=== PATIENT | female | born 1945 | race Two or more races ===

== ENCOUNTER 2018-02-17 12:18 | Inpatient (IN) | payer MEDICARE, MEDICAID ==
[~2018-02-17] VITALS: Ht 165.1 cm; Wt 85.0 kg
--- NOTE | 2018-02-17 12:37 | Emergency Room Report ---
History of Present Illness General Chief Complaint: Abnormal Labs Source: Patient, EMS Present Illness HPI Patient with multiple comorbidities presents with reports of abnormal blood work and nursing facility including significantly elevated white blood cell count and elevated potassium level patient herself has underlying dementia There was no reports of vomiting or diarrhea at the nursing facility Unknown regarding change in medication There was no reports of any increased cough or congestion Speaking further to patient's daughter she reports that the patient has been to 2 different hospitals over the past one month significant medical findings including bowel obstruction She also reports that the patient does not want any surgical procedures Allergies: Coded Allergies: No Known Allergies (Unverified , 02/17/18) Patient History Limited by: medical condition Past Medical History: see triage record Pertinent Family History: unable to obtain Reviewed Nursing Documentation: PMH: Agreed; PSxH: Agreed Review of Systems All Other Systems: limited - Other than the ones mentioned in the history of present illness all others are reviewed however they do stay limited due to the patient's mental status Physical Exam Vital Signs Date Time Temp Pulse Resp B/P (MAP) Pulse Ox O2 Delivery O2 Flow Rate FiO2 02/17/18 12:16 53 20 127/82 98 Nasal Cannula 2.0 Sp02 EP Interpretation: reviewed, normal General Appearance: no apparent distress Head: normocephalic, atraumatic Eyes: bilateral eye PERRL, bilateral eye EOMI, bilateral eye other - Conjunctiva pallor ENT: normal pharynx, no angioedema Neck: supple, thyroid normal Respiratory: no retraction, crackles - Both lower lobes Cardiovascular #1: regular rate, rhythm Gastrointestinal: non tender, soft Musculoskeletal: other - Moves upper extremity without focal deficit Neurologic: responsive - To physical and verbal stimuli Skin: normal color, no rash Lymphatic: no adenopathy Procedures Critical Care Time Critical Care Time 50 minutes for multiple re-evaluations critical presentation Critical findings not including any procedural time, Medical Decision Making Diagnostic Impression: Primary Impression: Sepsis Additional Impressions: SBO (small bowel obstruction) Hyperkalemia ER Course Given the patient's history and presentation Patient appears ill has multiple differentials considered including but not limited to bowel traction, bowel perforation, renal failure, sepsis Patient's CT imaging shows findings concerning for bowel traction I discussed the case extensively with the family They report that they do not want any surgical procedures to be done Patient started on broad-spectrum antibiotics IV hydration Appears to be in severe sepsis and leading to septic shock Patient at this time is considered DO NOT RESUSCITATE however Medications and other interventions however are fine with the family Patient admitted to higher level of care in critical condition Labs Test 02/17/18 12:25 02/17/18 13:05 White Blood Count 27.5 K/UL (4.8-10.8) Red Blood Count 3.55 M/UL (4.20-5.40) Hemoglobin 10.2 G/DL (12.0-16.0) Hematocrit 31.2 % (37.0-47.0) Mean Corpuscular Volume 88 FL (80-99) Mean Corpuscular Hemoglobin 28.6 PG (27.0-31.0) Mean Corpuscular Hemoglobin Concent 32.6 G/DL (32.0-36.0) Red Cell Distribution Width 15.0 % (11.6-14.8) Platelet Count 398 K/UL (150-450) Mean Platelet Volume 5.4 FL (6.5-10.1) Neutrophils (%) (Auto) % (45.0-75.0) Lymphocytes (%) (Auto) % (20.0-45.0) Monocytes (%) (Auto) % (1.0-10.0) Eosinophils (%) (Auto) % (0.0-3.0) Basophils (%) (Auto) % (0.0-2.0) Differential Total Cells Counted 100 Neutrophils % (Manual) 94 % (45-75) Lymphocytes % (Manual) 3 % (20-45) Monocytes % (Manual) 2 % (1-10) Eosinophils % (Manual) 0 % (0-3) Basophils % (Manual) 0 % (0-2) Band Neutrophils 1 % (0-8) Platelet Estimate Adequate Platelet Morphology Normal Target Cells Schistocytes 1+ Sodium Level 126 MMOL/L (136-145) Potassium Level 5.2 MMOL/L (3.5-5.1) Chloride Level 94 MMOL/L (98-107) Carbon Dioxide Level 18 MMOL/L (21-32) Anion Gap 15 mmol/L (5-15) Blood Urea Nitrogen 30 mg/dL (7-18) Creatinine 2.1 MG/DL (0.55-1.30) Estimat Glomerular Filtration Rate mL/min (>60) Glucose Level 107 MG/DL (74-106) Calcium Level 8.2 MG/DL (8.5-10.1) Total Bilirubin 0.7 MG/DL (0.2-1.0) Aspartate Amino Transf (AST/SGOT) 32 U/L (15-37) Alanine Aminotransferase (ALT/SGPT) 13 U/L (12-78) Alkaline Phosphatase 239 U/L (46-116) Total Creatine Kinase 89 U/L (26-308) Creatine Kinase MB 4.7 NG/ML (0.0-3.6) Creatine Kinase MB Relative Index 5.2 Troponin I 0.017 ng/mL (0.000-0.056) Pro-B-Type Natriuretic Peptide 5398 pg/mL (0-125) Total Protein 7.3 G/DL (6.4-8.2) Albumin 1.4 G/DL (3.4-5.0) Globulin 5.9 g/dL Albumin/Globulin Ratio 0.2 (1.0-2.7) Lipase 44 U/L (73-393) Urine Color Brown Urine Appearance Cloudy Urine pH 6 (4.5-8.0) Urine Specific [place] 1.010 (1.005-1.035) Urine Protein 3+ (NEGATIVE) Urine Glucose (UA) Negative (NEGATIVE) Urine Ketones 1+ (NEGATIVE) Urine Blood 3+ (NEGATIVE) Urine Nitrite Negative (NEGATIVE) Urine Bilirubin 1+ (NEGATIVE) Urine Ictotest Positive (NEGATIVE) Urine Urobilinogen 4 MG/DL (0.0-1.0) Urine Leukocyte Esterase 3+ (NEGATIVE) Urine RBC 5-10 /HPF (0 - 2) Urine WBC 20-30 /HPF (0 - 2) Urine Squamous Epithelial Cells Few /LPF (NONE/OCC) Urine Bacteria Many /HPF (NONE) Rhythm Strip Diag. Results EP Interpretation: yes Rate: 115 Rhythm: no PVC's, no ectopy, other - Sinus tach Chest X-Ray Diagnostic Results Chest X-Ray Diagnostic Results : Chest X-Ray Ordered: Yes # of Views/Limited/Complete: 1 View Indication: Chest Pain EP Interpretation: Yes Interpretation: no effusion, no pneumothorax, other - Left lower lobe atelectasis, infiltrated Impression: Other - Left lower lobe pneumonia Electronically Signed by: Bernie Wynn, DO CT/MRI/US Diagnostic Results CT/MRI/US Diagnostic Results : Impression CT abdomen pelvisImpression: Evidence of small bowel obstruction, point of obstruction at the level of the mid jejunum in the right mid abdomen. Most likely due to adhesions. Internal hernia also a possible etiology Multiple unusual mixed fat/fluid collections, predominantly involving the anterior abdominal wall but also along the right paracolic gutter and the right pelvis. Appearance is suggestive of recent surgery with multiple postsurgical collections, but findings could represent multiple abscesses or other collections of varying etiologies. Correlate with surgical and clinical history Evidence of decubitus changes in the retrosacral/retrococcygeal region. Gas bubbles within the deep soft tissues may indicate either penetration of the decubitus ulcer or infection with gas-forming organism. No definite findings to suggest abscess or osteomyelitis, although the latter is not excludable on CT Cholelithiasis Mild fatty hepatic change Left basilar consolidation, atelectasis, possibly scarring. Probable chronic reticular opacities on the right Other findings as noted, including Fonseca catheter, degenerative spondylosis. Last Vital Signs Date Time Temp Pulse Resp B/P (MAP) Pulse Ox O2 Delivery O2 Flow Rate FiO2 02/17/18 12:16 53 20 127/82 98 Nasal Cannula 2.0 Status: improved Disposition: ADMITTED INPATIENT Condition: Critical Bernie Wynn DO Feb 17, 2018 12:37
[2018-02-17 12:41] VITALS: BP 123/93
[2018-02-17 12:49] LABS: HEMATOCRIT 31.2 % (37.0-47.0); HEMOGLOBIN 10.2 G/DL (12.0-16.0); MEAN CORPUSCULAR VOLUME 88 FL (80-99); PLATELET COUNT 398 K/UL (150-450); RED BLOOD COUNT 3.55 M/UL (4.20-5.40)
[2018-02-17 12:52] LABS: WHITE BLOOD COUNT 27.5 K/UL (4.8-10.8)
[2018-02-17 13:04] LABS: ANION GAP 15 mmol/L (5-15); BLOOD UREA NITROGEN 30 mg/dL (7-18); CALCIUM 8.2 MG/DL (8.5-10.1); CARBON DIOXIDE 18 MMOL/L (21-32); CHLORIDE 94 MMOL/L (98-107); CREATININE 2.1 MG/DL (0.55-1.30); POTASSIUM 5.2 MMOL/L (3.5-5.1); SODIUM 126 MMOL/L (136-145)
[2018-02-17 13:18] LABS: ALANINE AMINOTRANSFERASE 13 U/L (12-78); ALBUMIN 1.4 G/DL (3.4-5.0); ALBUMIN/GLOBULIN RATIO 0.2 (1.0-2.7); ALKALINE PHOSPHATASE 239 U/L (46-116); ASPARTATE AMINO TRANSFERASE 32 U/L (15-37); BILIRUBIN,TOTAL 0.7 MG/DL (0.2-1.0); CKMB 4.7 NG/ML (0.0-3.6); CREATINE KINASE 89 U/L (26-308)
[2018-02-17 13:26] LABS: APPEARANCE,URINE CLOUDY; BILIRUBIN, URINE 1+ (NEGATIVE); COLOR,URINE BROWN; GLUCOSE, URINE (UA) NEGATIVE (NEGATIVE); KETONES,URINE 1+ (NEGATIVE); LEUKOCYTE ESTERASE ,URINE 3+ (NEGATIVE); NITRITE,URINE NEGATIVE (NEGATIVE); PH,URINE 6 (4.5-8.0); PROTEIN,URINE 3+ (NEGATIVE); UROBILINOGEN,URINE 4 MG/DL (0.0-1.0)
[2018-02-17] MEDS ORDERED: CRANBERRY450 M4 PO (13:37)
[2018-02-17] MEDS ORDERED: ZINC SULFATE220 M1 ORAL (13:37)
[2018-02-17] MEDS ORDERED: VITAMIN C500 M1 ORAL (13:37)
[2018-02-17] MEDS ORDERED: BISACODYL5 MG ORAL (13:37)
[2018-02-17] MEDS ORDERED: ZOFRAN4 M3 ORAL (13:37)
[2018-02-17] MEDS ORDERED: DOCUSATE SODIU100 MG ORAL (13:37)
[2018-02-17] MEDS ORDERED: FUROSEMIDE40 MG ORAL (13:37)
[2018-02-17] MEDS ORDERED: NORCO 5-325 TA1 EACH ORAL (13:37)
[2018-02-17] MEDS ORDERED: PEPCID AC20 M2 PO (13:37)
[2018-02-17] MEDS ORDERED: PROSTATE SR SO1 EAC1 PO (13:37)
[2018-02-17] MEDS ORDERED: MULTIVITAMINS1 EAC8 ORAL (13:37)
[2018-02-17] MEDS ORDERED: REGLAN10 MG ORAL (13:37)
[2018-02-17] MEDS ORDERED: MILK OF MA2400 MG/10 ORAL (13:37)
[2018-02-17] MEDS ORDERED: POTASSIUM CHLOR8 ME3 PO (13:37)
[2018-02-17] MEDS ORDERED: Vancomycin 1 GM in NS 275 ML IV ONE (13:45)
[2018-02-17] MEDS ORDERED: Piperacillin/Tazobactam 3.375 GM in NS 110 ML IVPB ONE (13:45)
[2018-02-17] MEDS ORDERED: Sodium Polystyrene Sulfonate 15gm Powder ORAL ONE (14:15)
--- NOTE | 2018-02-17 15:38 | Diagnostic Imaging Report ---
Indication: Abdominal pain Technique: Spiral acquisitions obtained through the abdomen and pelvis. No oral contrast utilized, per emergency room physician request No IV contrast utilized, per referring physician request.. Multiplanar reconstructions were generated. Total dose length product 714.19 mGycm. CTDIvol(s) 16.38 mGy. Dose reduction achieved using automated exposure control Comparison: None Findings: Lack of enteric contrast limits assessment of the GI tract. The stomach is distended. The proximal jejunum is markedly distended and fluid-filled. There is a transition point, fairly abrupt, collapsed distal small bowel at the level the mid jejunum in the right mid to lower quadrant. There is slight swirling of the mesentery in this area which could indicate internal hernia, but suspect more likely due to adhesions. The appendix is normal. However, there is an unusual collection of fluid intermixed with fat running along the right paracolic gutter. This area measures approximately 4.6 cm AP by 1.9 cm transverse by approximately 12 cm craniocaudad. Similar changes are seen in the right side of the pelvis. This area of abnormality appears to contact the right lateral and posterior bladder wall. Some dystrophic calcifications are seen within the right posterior pelvis. There is infiltration of the fat of the anterior lower abdominal/upper pelvic wall. There is a mixed fat and fluid/phlegmon collection to the right of midline which measures 4 cm transverse by 2.1 cm AP. Other fat and fluid collections are seen in the midline. There is also evidence of scarring or inflammation deep to the anterior pelvic wall peritoneal surface. A similar lentiform appearing fluid collection is seen within or adjacent to the anterior abdominal wall musculature in the right lower quadrant/inguinal region. This measures 4.5 cm transverse by 1.9 cm AP by 3.8 cm craniocaudad. No free intraperitoneal gas. Gas bubbles are seen within the subcutaneous fat posterior to the sacrum and coccyx. A few gas bubbles are also seen anterior to the coccygeal tip. No discrete fluid collections are demonstrated. There is also a large wound inferior to the coccygeal tip at the inferior aspect of the intergluteal fold. Lack of IV contrast limits assessment of the solid organs. The gallbladder contains multiple gallstones. The liver is mildly hypoattenuating. No biliary ductal dilatation. No focal hepatic abnormality. The pancreas, spleen, adrenals, kidneys are all unremarkable. No retroperitoneal or mesenteric mass or adenopathy. No pelvic mass or adenopathy. There is a Fonseca catheter within the bladder. Gas within the bladder is likely related to the Fonseca catheterization. The buttock musculature is atrophic. The bones demonstrate degenerative spondylosis changes. The lung bases demonstrate some consolidation, atelectasis, possibly scarring on the left, and some reticular opacities which are probably chronic on the right. Impression: Evidence of small bowel obstruction, point of obstruction at the level of the mid jejunum in the right mid abdomen. Most likely due to adhesions. Internal hernia also a possible etiology Multiple unusual mixed fat/fluid collections, predominantly involving the anterior abdominal wall but also along the right paracolic gutter and the right pelvis. Appearance is suggestive of recent surgery with multiple postsurgical collections, but findings could represent multiple abscesses or other collections of varying etiologies. Correlate with surgical and clinical history Evidence of decubitus changes in the retrosacral/retrococcygeal region. Gas bubbles within the deep soft tissues may indicate either penetration of the decubitus ulcer or infection with gas-forming organism. No definite findings to suggest abscess or osteomyelitis, although the latter is not excludable on CT Cholelithiasis Mild fatty hepatic change Left basilar consolidation, atelectasis, possibly scarring. Probable chronic reticular opacities on the right Other findings as noted, including Fonseca catheter, degenerative spondylosis. Critical value findings discussed by phone with Dr. Carpio in the emergency room at the time of interpretation The CT scanner at [facility] is accredited by the [employer] and the scans are performed using protocols designed to limit radiation exposure to as low as reasonably achievable to attain images of sufficient resolution adequate for diagnostic evaluation.
--- NOTE | 2018-02-17 15:52 | History & Physical ---
History and Physical History & Physicial orders are entered. Consultants are notified Patient is in serious medical cnd. Amol Weinstein MD Feb 17, 2018 15:52
[2018-02-17] MEDS ORDERED: Sodium Chloride 500ML 500 ML IV PRN (16:15)
--- NOTE | 2018-02-17 16:58 | Infectious Diseases Prog Note ---
Assessment/Plan Problems: (1) Pressure ulcer of sacral region, stage 4 Assessment & Plan: deep and necrotic with undermining , and foul smell , infected with possible underlying osteomyelitis of the sacrum and coccyx . will order MRI of the sacrum to confirm, recommend surgical excision and debridement. continue off loading and local wound care as per hospital protocol (2) Cutaneous abscess of abdominal wall Assessment & Plan: source hematogenous VS translocation from the pelvis , will start meropenem and continue vancomycin renally dosed, pending surgical eval (3) Catheter-associated urinary tract infection Assessment & Plan: will change lomeli catheter and start meropenem pending urine culture (4) Sepsis Assessment & Plan: due to the above with leukocytosis , will start meropenem and vancomycin renally dosed , pending blood culture (5) JANNETTE (acute kidney injury) Assessment & Plan: due to the above , continue hydration with renally dosed medications, monitor renal function and UOP (6) Osteomyelitis of sacrum Assessment & Plan: suspect chronic due to the deep pressure wound , will order MRI to confirm , recommend bone biopsy for culture to identify the exact cause (7) Abnormal blood electrolyte level Assessment & Plan: continue hydration with close monitoring of electrolytes (8) SBO (small bowel obstruction) Assessment & Plan: with possible adhesions, and fat filled fluids collection , perforation ? VS abscesses , keep NPO, continue hydration, surgical eval . Assessment/Plan daughter said patient refused surgery due to bad reaction from anaesthesia in the past Subjective Allergies: Coded Allergies: No Known Allergies (Unverified , 02/17/18) Objective Vital Signs Last 24 Hour Vital Signs Date Time Temp Pulse Resp B/P (MAP) Pulse Ox O2 Delivery O2 Flow Rate FiO2 02/17/18 12:41 98.0 126 17 123/93 100 Room Air 02/17/18 12:16 53 20 127/82 98 Nasal Cannula 2.0 Height (Feet): 5 Height (Inches): 5.00 Weight (Pounds): 150 Microbiology Date/Time Source Procedure Growth Status 02/17/18 12:43 Nasal Nares Influenza Types A,B Antigen (MAXIMO) - Final Complete Laboratory Tests Test 02/17/18 12:25 02/17/18 13:05 White Blood Count 27.5 K/UL (4.8-10.8) *H Red Blood Count 3.55 M/UL (4.20-5.40) L Hemoglobin 10.2 G/DL (12.0-16.0) L Hematocrit 31.2 % (37.0-47.0) L Mean Corpuscular Volume 88 FL (80-99) Mean Corpuscular Hemoglobin 28.6 PG (27.0-31.0) Mean Corpuscular Hemoglobin Concent 32.6 G/DL (32.0-36.0) Red Cell Distribution Width 15.0 % (11.6-14.8) H Platelet Count 398 K/UL (150-450) Mean Platelet Volume 5.4 FL (6.5-10.1) L Neutrophils (%) (Auto) % (45.0-75.0) Lymphocytes (%) (Auto) % (20.0-45.0) Monocytes (%) (Auto) % (1.0-10.0) Eosinophils (%) (Auto) % (0.0-3.0) Basophils (%) (Auto) % (0.0-2.0) Differential Total Cells Counted 100 Neutrophils % (Manual) 94 % (45-75) H Lymphocytes % (Manual) 3 % (20-45) L Monocytes % (Manual) 2 % (1-10) Eosinophils % (Manual) 0 % (0-3) Basophils % (Manual) 0 % (0-2) Band Neutrophils 1 % (0-8) Platelet Estimate Adequate Platelet Morphology Normal Target Cells Schistocytes 1+ Sodium Level 126 MMOL/L (136-145) L Potassium Level 5.2 MMOL/L (3.5-5.1) H Chloride Level 94 MMOL/L (98-107) L Carbon Dioxide Level 18 MMOL/L (21-32) L Anion Gap 15 mmol/L (5-15) Blood Urea Nitrogen 30 mg/dL (7-18) H Creatinine 2.1 MG/DL (0.55-1.30) H Estimat Glomerular Filtration Rate mL/min (>60) Glucose Level 107 MG/DL (74-106) H Lactic Acid Level 3.20 mmol/L (0.4-2.0) H Calcium Level 8.2 MG/DL (8.5-10.1) L Total Bilirubin 0.7 MG/DL (0.2-1.0) Aspartate Amino Transf (AST/SGOT) 32 U/L (15-37) Alanine Aminotransferase (ALT/SGPT) 13 U/L (12-78) Alkaline Phosphatase 239 U/L (46-116) H Total Creatine Kinase 89 U/L (26-308) Creatine Kinase MB 4.7 NG/ML (0.0-3.6) H Creatine Kinase MB Relative Index 5.2 Troponin I 0.017 ng/mL (0.000-0.056) Pro-B-Type Natriuretic Peptide 5398 pg/mL (0-125) H Total Protein 7.3 G/DL (6.4-8.2) Albumin 1.4 G/DL (3.4-5.0) L Globulin 5.9 g/dL Albumin/Globulin Ratio 0.2 (1.0-2.7) L Lipase 44 U/L (73-393) L Urine Color Brown Urine Appearance Cloudy Urine pH 6 (4.5-8.0) Urine Specific [place] 1.010 (1.005-1.035) Urine Protein 3+ (NEGATIVE) H Urine Glucose (UA) Negative (NEGATIVE) Urine Ketones 1+ (NEGATIVE) H Urine Blood 3+ (NEGATIVE) H Urine Nitrite Negative (NEGATIVE) Urine Bilirubin 1+ (NEGATIVE) H Urine Ictotest Positive (NEGATIVE) Urine Urobilinogen 4 MG/DL (0.0-1.0) H Urine Leukocyte Esterase 3+ (NEGATIVE) H Urine RBC 5-10 /HPF (0 - 2) H Urine WBC 20-30 /HPF (0 - 2) H Urine Squamous Epithelial Cells Few /LPF (NONE/OCC) Urine Bacteria Many /HPF (NONE) H Current Medications Medications (Trade) Dose Ordered Sig/Nidia Route PRN Reason Start Time Stop Time Status Last Admin Dose Admin Dextrose (Dextrose 50%) 25 ml Q30M PRN IV Hypoglycemia 02/17/18 16:00 03/19/18 15:59 Dextrose (Dextrose 50%) 50 ml Q30M PRN IV Hypoglycemia 02/17/18 16:00 03/19/18 15:59 Dextrose/Sodium Chloride 1,000 ml @ 100 mls/hr Q10H IV 02/17/18 17:00 03/19/18 16:59 Heparin Sodium (Porcine) (Heparin 5000 units/ml) 5,000 units EVERY 12 HOURS SUBQ 02/17/18 21:00 12/19/18 20:59 Meropenem 1 gm/ Sodium Chloride 55 ml @ 110 mls/hr Q12HR IVPB 02/17/18 20:00 02/22/18 19:59 Pantoprazole (Protonix) 40 mg DAILY IV 02/17/18 16:00 03/19/18 15:59 Sodium Chloride 500 ml @ 999 mls/hr Q31M PRN IV For hypotension 02/17/18 16:15 03/19/18 16:14 Vancomycin HCl (Vanco rx to dose) 1 ea DAILY PRN MISC Per rx protocol 02/17/18 16:15 03/19/18 16:14 Vancomycin HCl/ Dextrose 250 ml @ 125 mls/hr ONCE ONCE IVPB 02/17/18 18:00 02/17/18 19:59 Ari Lewis M.D. Feb 17, 2018 16:58
[2018-02-17] MEDS: D5NS 1,000 ML IV SCH (17:00)
--- NOTE | 2018-02-17 17:35 | Diagnostic Imaging Report ---
Indication: Shortness of Technique: One view of the chest Comparison: none Findings: Patchy opacities are seen in the left perihilar region. The remainder the lungs and pleural spaces are clear. Heart size is normal. The aorta is tortuous and calcified Impression: Patchy left perihilar opacities, could represent focal infiltrates. Correlate with clinical findings
[2018-02-17] MEDS ORDERED: Vancomycin 1.5 GM/D5W 250ML IVPB ONE (18:00)
--- NOTE | 2018-02-17 18:09 | Consultation ---
History of Present Illness General Date patient seen: Feb 17, 2018 Chief Complaint: Abnormal Labs Reason for Consultation: sbo Present Illness HPI 72 year old female with multiple medical comorbidities presented with n/v and pain. Daughter at bedside to assist with history and patient awake/alert/ responsive. States that yesterday began to have multiple episodes of non blood bilious emesis. denies abdominal pain. intermittent nausea. last BM 3 days ago. cannot recall last flatus states pain in sacral region from wound but no other pain. CT scan in ED demonstrated SBO. Surgery called to evaluate. History of multiple hospitalizations and penitentiary care. Hx of SBO in 2017 and recommended surgery but declined. resolved without intervention. had another episode few weeks later which was treated with NG tube decompressing given declining surgery. Now presents with another episode. Allergies: Coded Allergies: No Known Allergies (Unverified , 02/17/18) Medication History Scheduled Ascorbic Acid* (Vitamin C*), 500 MG ORAL TWICE A DAY, (Reported) Bisacodyl* (Dulcolax*), 5 MG ORAL DAILY, (Reported) Cranberry Fruit Concentrate (Cranberry), 450 MG PO DAILY, (Reported) Docusate Sodium* (Docusate Sodium*), 100 MG ORAL DAILY, (Reported) Famotidine (Pepcid Ac), 20 MG PO DAILY, (Reported) Furosemide* (Lasix*), 40 MG ORAL DAILY, (Reported) Magnesium Hydroxide* (Milk Of Magnesia*), 30 ML ORAL DAILY, (Reported) Metoclopramide Hcl* (Reglan*), 10 MG ORAL THREE TIMES A DAY, (Reported) Multivitamin With Minerals (Multivitamins With Minerals*), 1 TAB ORAL DAILY, ( Reported) Potassium Chloride (Potassium Chloride), 40 MEQ PO DAILY, (Reported) [place] Xt/Phytosterol #2 (Prostate Sr Softgel), 1 EACH PO DAILY, (Reported ) Zinc Sulfate (Zinc Sulfate*), 220 MG ORAL DAILY, (Reported) Scheduled PRN Hydrocodone Bit/Acetaminophen 5-325* ([place] 5-325*), 1 TAB ORAL Q4H PRN for For Pain, (Reported) Ondansetron* (Zofran*), 4 MG ORAL Q6H PRN for Nausea & Vomiting, (Reported) Patient History History Provided By: Patient, Family Member, Medical Record, PMD Healthcare decision maker Resuscitation status Full Code Advanced Directive on File Past Medical/Surgical History Past Medical/Surgical History: (1) Hyperkalemia (2) Sepsis (3) JANNETTE (acute kidney injury) (4) Cutaneous abscess of abdominal wall (5) Pressure ulcer of sacral region, stage 4 (6) Osteomyelitis of sacrum (7) Catheter-associated urinary tract infection (8) Abnormal blood electrolyte level (9) SBO (small bowel obstruction) Review of Systems All Other Systems: negative except mentioned in HPI Physical Exam General Appearance: mild distress Lines, tubes and drains: peripheral HEENT: anicteric, mucous membranes moist Neck: normal inspection Respiratory/Chest: normal breath sounds, no respiratory distress Cardiovascular/Chest: tachycardia Abdomen: non tender, soft, no organomegaly, no mass, decreased bowel sounds, other - no prior sugical scars noted Extremities: normal inspection Skin Exam: other Neurologic: alert, responsive, other Last 24 Hour Vital Signs Date Time Temp Pulse Resp B/P (MAP) Pulse Ox O2 Delivery O2 Flow Rate FiO2 02/17/18 12:41 98.0 126 17 123/93 100 Room Air 02/17/18 12:16 53 20 127/82 98 Nasal Cannula 2.0 Laboratory Tests Test 02/17/18 12:25 02/17/18 13:05 02/17/18 17:45 White Blood Count 27.5 K/UL (4.8-10.8) *H Red Blood Count 3.55 M/UL (4.20-5.40) L Hemoglobin 10.2 G/DL (12.0-16.0) L Hematocrit 31.2 % (37.0-47.0) L Mean Corpuscular Volume 88 FL (80-99) Mean Corpuscular Hemoglobin 28.6 PG (27.0-31.0) Mean Corpuscular Hemoglobin Concent 32.6 G/DL (32.0-36.0) Red Cell Distribution Width 15.0 % (11.6-14.8) H Platelet Count 398 K/UL (150-450) Mean Platelet Volume 5.4 FL (6.5-10.1) L Neutrophils (%) (Auto) % (45.0-75.0) Lymphocytes (%) (Auto) % (20.0-45.0) Monocytes (%) (Auto) % (1.0-10.0) Eosinophils (%) (Auto) % (0.0-3.0) Basophils (%) (Auto) % (0.0-2.0) Differential Total Cells Counted 100 Neutrophils % (Manual) 94 % (45-75) H Lymphocytes % (Manual) 3 % (20-45) L Monocytes % (Manual) 2 % (1-10) Eosinophils % (Manual) 0 % (0-3) Basophils % (Manual) 0 % (0-2) Band Neutrophils 1 % (0-8) Platelet Estimate Adequate Platelet Morphology Normal Target Cells Schistocytes 1+ Sodium Level 126 MMOL/L (136-145) L Pending Potassium Level 5.2 MMOL/L (3.5-5.1) H Pending Chloride Level 94 MMOL/L (98-107) L Pending Carbon Dioxide Level 18 MMOL/L (21-32) L Pending Anion Gap 15 mmol/L (5-15) Blood Urea Nitrogen 30 mg/dL (7-18) H Pending Creatinine 2.1 MG/DL (0.55-1.30) H Pending Estimat Glomerular Filtration Rate mL/min (>60) Pending Glucose Level 107 MG/DL (74-106) H Pending Lactic Acid Level 3.20 mmol/L (0.4-2.0) H Calcium Level 8.2 MG/DL (8.5-10.1) L Pending Total Bilirubin 0.7 MG/DL (0.2-1.0) Aspartate Amino Transf (AST/SGOT) 32 U/L (15-37) Alanine Aminotransferase (ALT/SGPT) 13 U/L (12-78) Alkaline Phosphatase 239 U/L (46-116) H Total Creatine Kinase 89 U/L (26-308) Creatine Kinase MB 4.7 NG/ML (0.0-3.6) H Creatine Kinase MB Relative Index 5.2 Troponin I 0.017 ng/mL (0.000-0.056) Pending Pro-B-Type Natriuretic Peptide 5398 pg/mL (0-125) H Total Protein 7.3 G/DL (6.4-8.2) Albumin 1.4 G/DL (3.4-5.0) L Globulin 5.9 g/dL Albumin/Globulin Ratio 0.2 (1.0-2.7) L Lipase 44 U/L (73-393) L Urine Color Brown Urine Appearance Cloudy Urine pH 6 (4.5-8.0) Urine Specific [place] 1.010 (1.005-1.035) Urine Protein 3+ (NEGATIVE) H Urine Glucose (UA) Negative (NEGATIVE) Urine Ketones 1+ (NEGATIVE) H Urine Blood 3+ (NEGATIVE) H Urine Nitrite Negative (NEGATIVE) Urine Bilirubin 1+ (NEGATIVE) H Urine Ictotest Positive (NEGATIVE) Urine Urobilinogen 4 MG/DL (0.0-1.0) H Urine Leukocyte Esterase 3+ (NEGATIVE) H Urine RBC 5-10 /HPF (0 - 2) H Urine WBC 20-30 /HPF (0 - 2) H Urine Squamous Epithelial Cells Few /LPF (NONE/OCC) Urine Bacteria Many /HPF (NONE) H Microbiology Date/Time Source Procedure Growth Status 02/17/18 12:43 Nasal Nares Influenza Types A,B Antigen (MAXIMO) - Final Complete Height (Feet): 5 Height (Inches): 5.00 Weight (Pounds): 152 Medications Current Medications Medications (Trade) Dose Ordered Sig/Nidia Route PRN Reason Start Time Stop Time Status Last Admin Dose Admin Dextrose (Dextrose 50%) 25 ml Q30M PRN IV Hypoglycemia 02/17/18 16:00 03/19/18 15:59 Dextrose (Dextrose 50%) 50 ml Q30M PRN IV Hypoglycemia 02/17/18 16:00 03/19/18 15:59 Dextrose/Sodium Chloride 1,000 ml @ 100 mls/hr Q10H IV 02/17/18 17:00 03/19/18 16:59 Heparin Sodium (Porcine) (Heparin 5000 units/ml) 5,000 units EVERY 12 HOURS SUBQ 02/17/18 21:00 03/19/18 20:59 Meropenem 1 gm/ Sodium Chloride 55 ml @ 110 mls/hr Q12HR IVPB 02/17/18 20:00 02/22/18 19:59 Pantoprazole (Protonix) 40 mg DAILY IV 02/17/18 16:00 03/19/18 15:59 Sodium Chloride 500 ml @ 999 mls/hr Q31M PRN IV For hypotension 02/17/18 16:15 03/19/18 16:14 Vancomycin HCl (Vanco rx to dose) 1 ea DAILY PRN MISC Per rx protocol 02/17/18 16:15 03/19/18 16:14 Vancomycin HCl/ Dextrose 250 ml @ 125 mls/hr ONCE ONCE IVPB 02/17/18 18:00 02/17/18 19:59 Assessment/Plan Problem List: (1) Sepsis Assessment & Plan: sepsis, tachy, leukocytosis, lactic acidosis, abnormal labs likely related to abdominal etiology. possible infected sacral ulcer appreciate ID input. IV abx IV fluids ICD Codes: A41.9 - Sepsis, unspecified organism SNOMED: 69811951 (2) SBO (small bowel obstruction) Assessment & Plan: reviewed CT and discussed with radiologist. seems to have complete SBO with transition point in proximal bowel. distended and fluid filled proximal. decompressed distal. abdominal exam benign. no significant distention or tenderness. currently no n/v hx of prior episodes. discussed with patient and family. Recommend exploration given findings. Family and patient decline. State that it has been her wish for some time now to not have surgery even if life threatening. explained risks of worsening condition, perforation, even . expressed understanding and refuses surgery NPO IV fluids IV Abx NG tube to low intermittent suction trend labs discuss DNR status with patient and family given her wishes. ICD Codes: K56.609 - Unspecified intestinal obstruction, unspecified as to partial versus complete obstruction SNOMED: 507198052 (3) Pressure ulcer of sacral region, stage 4 Assessment & Plan: Full thickness pressure injury to sacrum with multiple open wounds periwound and R buttocks .Sacral pressure injury (L)11cm x (W)12.4cm x (D )4cm with undermining 9-4 by 4 cm at 3o'clock. Wound malodorous with 75% soft necrosis.Bone palpable.Additional pressure injuries noted periwound L buttocks. Full thickness pressure injury to Upper R buttocks (L)1.4cm x (W)4.7cm x(D)0.2cm ,scattered slough with granulation with marginal erythema. Full thickness inferior R buttocks (L)4.5cm x (W)2.5cm wound granular with marginal erythema. Full thickness pressure injury to R ischium (L)0.8cm x(W)2.3cm .Wound granular with dark borders. Periwound dark without induration. Multiple partial thickness pressure injuries in close proximity noted to upper/outer R buttocks ( L)2cm x (W)4.6cm with non-blanchable erythema periwound. R heel Mottled,cool and boggy with dry peeling skin (L)6cm x (W)8cm. Pt denied tenderness when minimally palpated. L heel mottled,boggy, and cool to touch (L)6cm x (W) 7.4cm .Pt verbalized tenderness when palpated. R and L 1st metatarsals mottled and non -tender when palpated. Spoke to Dtr regarding sacral pressure injury. Sacral wound cleansed with Saline and loosley packed with Saline moist gauze until evaluated by Surgeon.Dtr stated pt had small pressure injury in October which progressively worsened.Dtr also stated she was informed at [facility] wound was getting better. DTR made aware of stage and state of wound.Advised of Surgical consult and that surgeon would discuss all options with regards to wound. Dr.Mawas sky and Md also discussed possibility of surgical debridement of sacral wound with Dtr. Tx.Plan: Air fluidized mattress. Sacral Wound care orders as per surgeon. Apply Cavilon to both heels and off-load heels daily. Cavilon wipes to R and L 1st metatarsals Daily Apply Moisture Barrier paste to Wounds R buttocks and R ischium and cover with Optifoam drsg Daily and prn. Reposition at minimum every 2hours or as tolerated. ICD Codes: L89.154 - Pressure ulcer of sacral region, stage 4 SNOMED: 588014011, [id number] Levon Jacobs Feb 17, 2018 18:09
[2018-02-17 18:34] LABS: ANION GAP 17 mmol/L (5-15); BLOOD UREA NITROGEN 31 mg/dL (7-18); CALCIUM 7.8 MG/DL (8.5-10.1); CARBON DIOXIDE 16 MMOL/L (21-32); CHLORIDE 96 MMOL/L (98-107); POTASSIUM 5.3 MMOL/L (3.5-5.1); SODIUM 129 MMOL/L (136-145)
[2018-02-17 20:00] VITALS: BP 128/57
[2018-02-17] MEDS ORDERED: Dakin's 0.125% Soln (Quarter Strength) 16oz TOPIC SCH (20:00)
[2018-02-17] MEDS: Pantoprazole Inj IV SCH (20:09)
[2018-02-17] MEDS ORDERED: Piperacillin/Tazobactam 3.375 GM in D5W 110 ML IVPB SCH (21:00)
[2018-02-17] MEDS: Meropenem 1 GM in NS 55 ML IVPB SCH (21:13)
[2018-02-17] MEDS: Heparin 5000 units/ml inj SUBQ SCH (21:16)
--- NOTE | 2018-02-17 23:00 | Consultation ---
DATE OF CONSULTATION: 02/17/2018 INFECTIOUS DISEASE CONSULTATION CONSULTING PHYSICIAN: Ari Lewis M.D. REQUESTING PHYSICIAN: Amol Weinstein M.D. REASON FOR CONSULTATION: Possible intra-abdominal abscesses, sacral pressure wound with extensive infection, possible osteomyelitis of the sacrum, UTI with sepsis, and recommendation for antimicrobial treatment. HISTORY OF PRESENT ILLNESS: The patient is a 72-year-old female, [place] [facility] resident, was sent to [facility] emergency room for abnormal blood work, which showed significant leukocytosis, hyponatremia, and hyperkalemia. The patient also had decline in her health overall over the last couple of weeks and her oral intake has been poor for the last five days. The patient had last bowel movement on Saturday and nothing since then. She has been moaning and complaining of pain mainly in the sacral area, so she was brought into the emergency room for evaluation at [facility]. The patient was found to be septic in the emergency room with white count about 29 000 and urine infection evident on her urinalysis. She also had significant electrolyte abnormalities with hyponatremia and hyperkalemia. CT scan image of the abdomen and pelvis showed small-bowel obstruction with possible adhesions and unusual mixed fat fluid collections involving the anterior abdominal wall along the right paracolic gutter and the right pelvis, concerning for multiple abscesses, so the patient was started on Zosyn and vancomycin in the emergency room and Infectious Disease consultation was requested for antibiotics treatment and further management. As per daughter who is at the bedside, the patient start wearing diaper in October and developed mild redness and erythema in the sacral area. This has progressed since then due to the fact that she is always lying on her back. Her wound has been progressively enlarging and getting deeper even though she was placed in [place] [facility] between November and December. Daughter was told that wound was getting better, but today her wound looked more deep, necrotic, and foul smell with bone exposed of the sacrum, most likely due to osteomyelitis. As of note, the patient is a poor historian, cannot provide any history. History was mainly obtained from the medical records and the daughter at the bedside. REVIEW OF SYSTEMS: Unable to obtain. The patient is a poor historian. PAST MEDICAL HISTORY: Significant for sacral pressure wound and chronic Fonseca catheter due to incontinence. PAST SURGICAL HISTORY: Not on record with no recent surgical procedure. ALLERGIES: She has no known drug allergy. MEDICATIONS: She received vancomycin and Zosyn in the emergency room. For the rest of her medications, please refer to MAR. FAMILY HISTORY: Not contributory. SOCIAL HISTORY: The patient is a [facility] patient. Denied using any recent drugs, tobacco, or alcohol. PHYSICAL EXAMINATION: VITAL SIGNS: Temperature 98 degrees, pulse 126, respirations 17, blood pressure 123/93, and pulse oximetry 100% on room air. GENERAL: An elderly female, Kazakh speaker, obese, lying in bed, moaning in pain, daughter at the bedside. HEENT: Normocephalic and atraumatic. Pupils are reactive to light. Moist oral mucosa. No exudate or thrush. NECK: Supple. No lymphadenopathy. CARDIOVASCULAR: Regular rate and rhythm. Actually, she is tachycardic. No murmur or gallop. LUNGS: Clear bilaterally. No wheezing or rhonchi. ABDOMEN: Soft and distended. Absent bowel sounds. Not tender. No rebound. No organomegaly. EXTREMITIES: No edema or cyanosis. No clubbing. SKIN: She had large and deep sacral pressure wound, 4 cm deep at least with undermining and extensive necrotic tissue at the base with exposed bone at the sacral area and foul smell. LABORATORY AND DIAGNOSTIC DATA: Labs showed white count of 27.5, hemoglobin of 10.2, and platelet count of 398,000. BUN of 30 and creatinine of 2.1. AST of 32, ALT of 13, and alkaline phosphatase of 239. Urinalysis showed +3 leukocyte esterase, wbc 20 to 30, and many bacteria in the urine. Microbiology, influenza screening A and B, both are negative. Imaging: CT scan of the abdomen and pelvis showed evidence of small bowel obstruction, likely due to adhesions and multiple unusual mixed fat fluid collection, predominantly involving the anterior abdominal wall, but also along the right paracolic gutter and the right pelvis. Finding could represent multiple abscesses or other collections of varying etiologies. Evidence of decubitus change in the within the deep soft tissue may indicate either penetration of the decubitus ulcer or infection with gas-forming organism. ASSESSMENT AND RECOMMENDATION: 1. Pressure ulcer of the sacral region, stage IV, deep and necrotic with undermining and foul smell, infected with possible underlying osteomyelitis of the sacrum and coccyx due to exposed bone. We will order an MRI of the sacrum to confirm recommend surgical excision and debridement. Continue offloading and local wound care as per hospital protocol. Surgical evaluation is pending. 2. Cutaneous abscesses of the abdominal wall, source hematogenous verus translocation from the pelvis. We will start meropenem and continue vancomycin renally dose, pending surgical evaluation. 3. Catheter-associated urinary tract infection. We will change Fonseca catheter and start meropenem pending urine culture. 4. Sepsis due to the above with leukocytosis, just start meropenem and vancomycin renally dose, pending blood culture results. 5. Acute renal failure due to the above. Continue hydration with renally dosed medications. Monitor renal function and urine output. Consult Nephrology. 6. Osteomyelitis of the sacrum, suspect chronic due to deep pressure wound. We will order MRI to confirm recommend bone biopsy for culture to identify the exact cause and narrow down antibiotics treatment. 7. Abnormal blood electrolyte level. Continue hydration and close monitoring of electrolytes, replace as needed. 8. Small bowel obstruction with possible adhesions and fluid-filled fat collection, possible abscesses. Source hematogenous versus perforation related. Keep NPO. Continue hydration. Surgical evaluation. Plan of care was discussed with the daughter in detail at the bedside. Daughter stated that mother is refusing any surgical procedure, she had a bad experience from anesthesia in the past when she had a dental workup. All questions were answered to the daughter in detail in the presence of the wound care service and the nurse. Thank you for the consult. ID will continue to follow. Please feel free to call with any question. Ari Lewis M.D. DR: IVAN JOB#: [id number] CC: JO
[2018-02-18] VITALS: BP 135/62
[2018-02-18] MEDS: D5NS 1,000 ML IV SCH ×3 (03:00→23:00)
[2018-02-18 04:00] VITALS: BP 108/56
[2018-02-18 07:23] LABS: HEMOGLOBIN 10.1 G/DL (12.0-16.0); MEAN CORPUSCULAR VOLUME 90 FL (80-99); PLATELET COUNT 300 K/UL (150-450); RED BLOOD COUNT 3.34 M/UL (4.20-5.40); RED CELL DISTRIBUTION WIDTH 15.8 % (11.6-14.8)
[2018-02-18 07:27] LABS: WHITE BLOOD COUNT 23.7 K/UL (4.8-10.8)
[2018-02-18 08:00] VITALS: BP 114/51
--- NOTE | 2018-02-18 08:10 | Cardiology Progress Note ---
Assessment/Plan Assessment/Plan The patient is seen and examined, full consult note is dictated. Objective Last 24 Hour Vital Signs Date Time Temp Pulse Resp B/P (MAP) Pulse Ox O2 Delivery O2 Flow Rate FiO2 02/18/18 04:00 109 02/18/18 04:00 Room Air 02/18/18 04:00 98.1 105 18 108/56 (73) 97 02/18/18 00:00 115 02/18/18 00:00 97.8 118 18 135/62 (86) 97 02/18/18 00:00 Room Air 02/17/18 20:00 Room Air 02/17/18 20:00 97.8 120 18 128/57 (80) 98 02/17/18 20:00 124 02/17/18 19:31 126/75 02/17/18 16:00 120 02/17/18 15:38 Room Air 02/17/18 12:41 98.0 126 17 123/93 100 Room Air 02/17/18 12:16 53 20 127/82 98 Nasal Cannula 2.0 Intake and Output 02/17/18 02/18/18 18:59 06:59 Intake Total 1055 ml Output Total 0 ml Balance 0 ml 1055 ml Intake IV Total 1055 ml Output Urine Total 0 ml # Voids 100 Laboratory Tests Test 02/17/18 12:25 02/17/18 13:05 02/17/18 17:45 02/17/18 19:00 White Blood Count 27.5 K/UL (4.8-10.8) *H Red Blood Count 3.55 M/UL (4.20-5.40) L Hemoglobin 10.2 G/DL (12.0-16.0) L Hematocrit 31.2 % (37.0-47.0) L Mean Corpuscular Volume 88 FL (80-99) Mean Corpuscular Hemoglobin 28.6 PG (27.0-31.0) Mean Corpuscular Hemoglobin Concent 32.6 G/DL (32.0-36.0) Red Cell Distribution Width 15.0 % (11.6-14.8) H Platelet Count 398 K/UL (150-450) Mean Platelet Volume 5.4 FL (6.5-10.1) L Neutrophils (%) (Auto) % (45.0-75.0) Lymphocytes (%) (Auto) % (20.0-45.0) Monocytes (%) (Auto) % (1.0-10.0) Eosinophils (%) (Auto) % (0.0-3.0) Basophils (%) (Auto) % (0.0-2.0) Differential Total Cells Counted 100 Neutrophils % (Manual) 94 % (45-75) H Lymphocytes % (Manual) 3 % (20-45) L Monocytes % (Manual) 2 % (1-10) Eosinophils % (Manual) 0 % (0-3) Basophils % (Manual) 0 % (0-2) Band Neutrophils 1 % (0-8) Platelet Estimate Adequate Platelet Morphology Normal Target Cells Schistocytes 1+ Sodium Level 126 MMOL/L (136-145) L 129 MMOL/L (136-145) L Potassium Level 5.2 MMOL/L (3.5-5.1) H 5.3 MMOL/L (3.5-5.1) H Chloride Level 94 MMOL/L (98-107) L 96 MMOL/L (98-107) L Carbon Dioxide Level 18 MMOL/L (21-32) L 16 MMOL/L (21-32) L Anion Gap 15 mmol/L (5-15) 17 mmol/L (5-15) H Blood Urea Nitrogen 30 mg/dL (7-18) H 31 mg/dL (7-18) H Creatinine 2.1 MG/DL (0.55-1.30) H 2.0 MG/DL (0.55-1.30) H Estimat Glomerular Filtration Rate mL/min (>60) mL/min (>60) Glucose Level 107 MG/DL (74-106) H 99 MG/DL (74-106) Lactic Acid Level 3.20 mmol/L (0.4-2.0) H 2.00 mmol/L (0.4-2.0) Calcium Level 8.2 MG/DL (8.5-10.1) L 7.8 MG/DL (8.5-10.1) L Total Bilirubin 0.7 MG/DL (0.2-1.0) Aspartate Amino Transf (AST/SGOT) 32 U/L (15-37) Alanine Aminotransferase (ALT/SGPT) 13 U/L (12-78) Alkaline Phosphatase 239 U/L (46-116) H Total Creatine Kinase 89 U/L (26-308) Creatine Kinase MB 4.7 NG/ML (0.0-3.6) H Creatine Kinase MB Relative Index 5.2 Troponin I 0.017 ng/mL (0.000-0.056) 0.000 ng/mL (0.000-0.056) Pro-B-Type Natriuretic Peptide 5398 pg/mL (0-125) H Total Protein 7.3 G/DL (6.4-8.2) Albumin 1.4 G/DL (3.4-5.0) L Globulin 5.9 g/dL Albumin/Globulin Ratio 0.2 (1.0-2.7) L Lipase 44 U/L (73-393) L Urine Color Brown Urine Appearance Cloudy Urine pH 6 (4.5-8.0) Urine Specific [place] 1.010 (1.005-1.035) Urine Protein 3+ (NEGATIVE) H Urine Glucose (UA) Negative (NEGATIVE) Urine Ketones 1+ (NEGATIVE) H Urine Blood 3+ (NEGATIVE) H Urine Nitrite Negative (NEGATIVE) Urine Bilirubin 1+ (NEGATIVE) H Urine Ictotest Positive (NEGATIVE) Urine Urobilinogen 4 MG/DL (0.0-1.0) H Urine Leukocyte Esterase 3+ (NEGATIVE) H Urine RBC 5-10 /HPF (0 - 2) H Urine WBC 20-30 /HPF (0 - 2) H Urine Squamous Epithelial Cells Few /LPF (NONE/OCC) Urine Bacteria Many /HPF (NONE) H Test 02/18/18 00:20 02/18/18 06:35 Troponin I 0.004 ng/mL (0.000-0.056) White Blood Count 23.7 K/UL (4.8-10.8) *H Red Blood Count 3.34 M/UL (4.20-5.40) L Hemoglobin 10.1 G/DL (12.0-16.0) L Hematocrit 30.0 % (37.0-47.0) L Mean Corpuscular Volume 90 FL (80-99) Mean Corpuscular Hemoglobin 30.2 PG (27.0-31.0) Mean Corpuscular Hemoglobin Concent 33.6 G/DL (32.0-36.0) Red Cell Distribution Width 15.8 % (11.6-14.8) H Platelet Count 300 K/UL (150-450) Mean Platelet Volume 5.7 FL (6.5-10.1) L Neutrophils (%) (Auto) % (45.0-75.0) Lymphocytes (%) (Auto) % (20.0-45.0) Monocytes (%) (Auto) % (1.0-10.0) Eosinophils (%) (Auto) % (0.0-3.0) Basophils (%) (Auto) % (0.0-2.0) Neutrophils % (Manual) Pending Lymphocytes % (Manual) Pending Platelet Estimate Pending Platelet Morphology Pending Microbiology Date/Time Source Procedure Growth Status 02/17/18 12:43 Nasal Nares Influenza Types A,B Antigen (MAXIMO) - Final Complete 02/17/18 18:00 Rectum - Preliminary Resulted Thomas Quiroz MD Feb 18, 2018 08:10
[2018-02-18] MEDS: Heparin 5000 units/ml inj SUBQ SCH ×2 (09:00→09:56)
[2018-02-18] MEDS: Pantoprazole Inj IV SCH (09:56)
[2018-02-18] MEDS: Meropenem 1 GM in NS 55 ML IVPB SCH ×2 (09:56→22:00)
[2018-02-18] MEDS: Dakin's 0.125% Soln (Quarter Strength) 16oz TOPIC SCH (09:57)
[2018-02-18 10:06] LABS: ALANINE AMINOTRANSFERASE 13 U/L (12-78); ALBUMIN 1.1 G/DL (3.4-5.0); ALBUMIN/GLOBULIN RATIO 0.3 (1.0-2.7); ALKALINE PHOSPHATASE 186 U/L (46-116); ANION GAP 12 mmol/L (5-15); ASPARTATE AMINO TRANSFERASE 25 U/L (15-37); BILIRUBIN,TOTAL 0.6 MG/DL (0.2-1.0); BLOOD UREA NITROGEN 31 mg/dL (7-18); CALCIUM 7.3 MG/DL (8.5-10.1); CARBON DIOXIDE 20 MMOL/L (21-32); CHLORIDE 100 MMOL/L (98-107); CHOLESTEROL 80 MG/DL (< 200); CREATININE 2.1 MG/DL (0.55-1.30); HDL CHOLESTEROL 10 MG/DL (40-60); POTASSIUM 3.9 MMOL/L (3.5-5.1); SODIUM 131 MMOL/L (136-145); TRIGLYCERIDES 125 MG/DL (30-150)
--- NOTE | 2018-02-18 10:47 | General Surgery Progress Note ---
General Surgery-Progress Note Subjective Additional Comments doing well. ng tube output bilious. no n/v/f/c. no abd pain. leukocytosis improving Objective Last 24 Hour Vital Signs Date Time Temp Pulse Resp B/P (MAP) Pulse Ox O2 Delivery O2 Flow Rate FiO2 02/18/18 08:00 97.8 106 18 114/51 (72) 100 02/18/18 07:47 100 02/18/18 04:00 109 02/18/18 04:00 Room Air 02/18/18 04:00 98.1 105 18 108/56 (73) 97 02/18/18 00:00 115 02/18/18 00:00 97.8 118 18 135/62 (86) 97 02/18/18 00:00 Room Air 02/17/18 20:00 Room Air 02/17/18 20:00 97.8 120 18 128/57 (80) 98 02/17/18 20:00 124 02/17/18 19:31 126/75 02/17/18 16:00 120 02/17/18 15:38 Room Air 02/17/18 12:41 98.0 126 17 123/93 100 Room Air 02/17/18 12:16 53 20 127/82 98 Nasal Cannula 2.0 I&O Intake and Output 02/17/18 02/18/18 18:59 06:59 Intake Total 1055 ml Output Total 0 ml Balance 0 ml 1055 ml Intake IV Total 1055 ml Output Urine Total 0 ml # Voids 100 Dressing: saturated Wound: other Drains: other Cardiovascular: RSR Respiratory: clear Abdomen: soft, distended, tenderness, absent bowel sounds Extremities: other Laboratory Tests Test 02/17/18 12:25 02/17/18 13:05 02/17/18 17:45 02/17/18 19:00 White Blood Count 27.5 K/UL (4.8-10.8) *H Red Blood Count 3.55 M/UL (4.20-5.40) L Hemoglobin 10.2 G/DL (12.0-16.0) L Hematocrit 31.2 % (37.0-47.0) L Mean Corpuscular Volume 88 FL (80-99) Mean Corpuscular Hemoglobin 28.6 PG (27.0-31.0) Mean Corpuscular Hemoglobin Concent 32.6 G/DL (32.0-36.0) Red Cell Distribution Width 15.0 % (11.6-14.8) H Platelet Count 398 K/UL (150-450) Mean Platelet Volume 5.4 FL (6.5-10.1) L Neutrophils (%) (Auto) % (45.0-75.0) Lymphocytes (%) (Auto) % (20.0-45.0) Monocytes (%) (Auto) % (1.0-10.0) Eosinophils (%) (Auto) % (0.0-3.0) Basophils (%) (Auto) % (0.0-2.0) Differential Total Cells Counted 100 Neutrophils % (Manual) 94 % (45-75) H Lymphocytes % (Manual) 3 % (20-45) L Monocytes % (Manual) 2 % (1-10) Eosinophils % (Manual) 0 % (0-3) Basophils % (Manual) 0 % (0-2) Band Neutrophils 1 % (0-8) Platelet Estimate Adequate Platelet Morphology Normal Target Cells Schistocytes 1+ Sodium Level 126 MMOL/L (136-145) L 129 MMOL/L (136-145) L Potassium Level 5.2 MMOL/L (3.5-5.1) H 5.3 MMOL/L (3.5-5.1) H Chloride Level 94 MMOL/L (98-107) L 96 MMOL/L (98-107) L Carbon Dioxide Level 18 MMOL/L (21-32) L 16 MMOL/L (21-32) L Anion Gap 15 mmol/L (5-15) 17 mmol/L (5-15) H Blood Urea Nitrogen 30 mg/dL (7-18) H 31 mg/dL (7-18) H Creatinine 2.1 MG/DL (0.55-1.30) H 2.0 MG/DL (0.55-1.30) H Estimat Glomerular Filtration Rate mL/min (>60) mL/min (>60) Glucose Level 107 MG/DL (74-106) H 99 MG/DL (74-106) Lactic Acid Level 3.20 mmol/L (0.4-2.0) H 2.00 mmol/L (0.4-2.0) Calcium Level 8.2 MG/DL (8.5-10.1) L 7.8 MG/DL (8.5-10.1) L Total Bilirubin 0.7 MG/DL (0.2-1.0) Aspartate Amino Transf (AST/SGOT) 32 U/L (15-37) Alanine Aminotransferase (ALT/SGPT) 13 U/L (12-78) Alkaline Phosphatase 239 U/L (46-116) H Total Creatine Kinase 89 U/L (26-308) Creatine Kinase MB 4.7 NG/ML (0.0-3.6) H Creatine Kinase MB Relative Index 5.2 Troponin I 0.017 ng/mL (0.000-0.056) 0.000 ng/mL (0.000-0.056) Pro-B-Type Natriuretic Peptide 5398 pg/mL (0-125) H Total Protein 7.3 G/DL (6.4-8.2) Albumin 1.4 G/DL (3.4-5.0) L Globulin 5.9 g/dL Albumin/Globulin Ratio 0.2 (1.0-2.7) L Lipase 44 U/L (73-393) L Urine Color Brown Urine Appearance Cloudy Urine pH 6 (4.5-8.0) Urine Specific [place] 1.010 (1.005-1.035) Urine Protein 3+ (NEGATIVE) H Urine Glucose (UA) Negative (NEGATIVE) Urine Ketones 1+ (NEGATIVE) H Urine Blood 3+ (NEGATIVE) H Urine Nitrite Negative (NEGATIVE) Urine Bilirubin 1+ (NEGATIVE) H Urine Ictotest Positive (NEGATIVE) Urine Urobilinogen 4 MG/DL (0.0-1.0) H Urine Leukocyte Esterase 3+ (NEGATIVE) H Urine RBC 5-10 /HPF (0 - 2) H Urine WBC 20-30 /HPF (0 - 2) H Urine Squamous Epithelial Cells Few /LPF (NONE/OCC) Urine Bacteria Many /HPF (NONE) H Test 02/18/18 00:20 02/18/18 06:35 02/18/18 08:50 Troponin I 0.004 ng/mL (0.000-0.056) 0.017 ng/mL (0.000-0.056) White Blood Count 23.7 K/UL (4.8-10.8) *H Red Blood Count 3.34 M/UL (4.20-5.40) L Hemoglobin 10.1 G/DL (12.0-16.0) L Hematocrit 30.0 % (37.0-47.0) L Mean Corpuscular Volume 90 FL (80-99) Mean Corpuscular Hemoglobin 30.2 PG (27.0-31.0) Mean Corpuscular Hemoglobin Concent 33.6 G/DL (32.0-36.0) Red Cell Distribution Width 15.8 % (11.6-14.8) H Platelet Count 300 K/UL (150-450) Mean Platelet Volume 5.7 FL (6.5-10.1) L Neutrophils (%) (Auto) % (45.0-75.0) Lymphocytes (%) (Auto) % (20.0-45.0) Monocytes (%) (Auto) % (1.0-10.0) Eosinophils (%) (Auto) % (0.0-3.0) Basophils (%) (Auto) % (0.0-2.0) Differential Total Cells Counted 100 Neutrophils % (Manual) 89 % (45-75) H Lymphocytes % (Manual) 7 % (20-45) L Monocytes % (Manual) 4 % (1-10) Eosinophils % (Manual) 0 % (0-3) Basophils % (Manual) 0 % (0-2) Band Neutrophils 0 % (0-8) Platelet Estimate Adequate Platelet Morphology Normal Hypochromasia 1+ Anisocytosis 1+ Sodium Level 131 MMOL/L (136-145) L Potassium Level 3.9 MMOL/L (3.5-5.1) Chloride Level 100 MMOL/L (98-107) Carbon Dioxide Level 20 MMOL/L (21-32) L Anion Gap 12 mmol/L (5-15) Blood Urea Nitrogen 31 mg/dL (7-18) H Creatinine 2.1 MG/DL (0.55-1.30) H Estimat Glomerular Filtration Rate mL/min (>60) Glucose Level 216 MG/DL (74-106) #H Hemoglobin A1c Pending Lactic Acid Level 1.40 mmol/L (0.4-2.0) Calcium Level 7.3 MG/DL (8.5-10.1) L Total Bilirubin 0.6 MG/DL (0.2-1.0) Aspartate Amino Transf (AST/SGOT) 25 U/L (15-37) Alanine Aminotransferase (ALT/SGPT) 13 U/L (12-78) Alkaline Phosphatase 186 U/L (46-116) H Total Protein 5.3 G/DL (6.4-8.2) L Albumin 1.1 G/DL (3.4-5.0) L Globulin 4.2 g/dL Albumin/Globulin Ratio 0.3 (1.0-2.7) L Triglycerides Level 125 MG/DL (30-150) Cholesterol Level 80 MG/DL (< 200) LDL Cholesterol 47 mg/dL (<100) HDL Cholesterol 10 MG/DL (40-60) L Cholesterol/HDL Ratio 8.0 (3.3-4.4) H Plan Problems: (1) Sepsis Assessment & Plan: sepsis, tachy, leukocytosis, lactic acidosis, abnormal labs likely related to abdominal etiology. possible infected sacral ulcer appreciate ID input. IV abx IV fluids (2) SBO (small bowel obstruction) Assessment & Plan: reviewed CT and discussed with radiologist. seems to have complete SBO with transition point in proximal bowel. distended and fluid filled proximal. decompressed distal. abdominal exam benign. no significant distention or tenderness. currently no n/v hx of prior episodes. discussed with patient and family. Recommend exploration given findings. Family and patient decline. State that it has been her wish for some time now to not have surgery even if life threatening. explained risks of worsening condition, perforation, even . expressed understanding and refuses surgery NPO IV fluids IV Abx NG tube to low intermittent suction trend labs discuss DNR status with patient and family given her wishes. (3) Pressure ulcer of sacral region, stage 4 Assessment & Plan: Full thickness pressure injury to sacrum with multiple open wounds periwound and R buttocks .Sacral pressure injury (L)11cm x (W)12.4cm x (D )4cm with undermining 9-4 by 4 cm at 3o'clock. Wound malodorous with 75% soft necrosis.Bone palpable.Additional pressure injuries noted periwound L buttocks. Full thickness pressure injury to Upper R buttocks (L)1.4cm x (W)4.7cm x(D)0.2cm ,scattered slough with granulation with marginal erythema. Full thickness inferior R buttocks (L)4.5cm x (W)2.5cm wound granular with marginal erythema. Full thickness pressure injury to R ischium (L)0.8cm x(W)2.3cm .Wound granular with dark borders. Periwound dark without induration. Multiple partial thickness pressure injuries in close proximity noted to upper/outer R buttocks ( L)2cm x (W)4.6cm with non-blanchable erythema periwound. R heel Mottled,cool and boggy with dry peeling skin (L)6cm x (W)8cm. Pt denied tenderness when minimally palpated. L heel mottled,boggy, and cool to touch (L)6cm x (W) 7.4cm .Pt verbalized tenderness when palpated. R and L 1st metatarsals mottled and non -tender when palpated. Spoke to Dtr regarding sacral pressure injury. Sacral wound cleansed with Saline and loosley packed with Saline moist gauze until evaluated by Surgeon.Dtr stated pt had small pressure injury in October which progressively worsened.Dtr also stated she was informed at [facility] wound was getting better. DTR made aware of stage and state of wound.Advised of Surgical consult and that surgeon would discuss all options with regards to wound. Dr.Mawas sky and Md also discussed possibility of surgical debridement of sacral wound with Dtr. Tx.Plan: Air fluidized mattress. Sacral Wound care orders as in wound care clarification orders; wash , dakins, dressings. Apply Cavilon to both heels and off-load heels daily. Cavilon wipes to R and L 1st metatarsals Daily Apply Moisture Barrier paste to Wounds R buttocks and R ischium and cover with Optifoam drsg Daily and prn. Reposition at minimum every 2hours or as tolerated. Levon Jacobs Feb 18, 2018 10:47
[2018-02-18] MEDS ORDERED: Heparin 2000 units/Ns 1000ml INJ PRN (11:00)
[2018-02-18] MEDS ORDERED: Lidocaine 1% Plain 30 ml INJ PRN (11:00)
--- NOTE | 2018-02-18 11:21 | Diagnostic Imaging Report ---
Indication: Abdominal pain. NG tube placement. Technique: XRAY Abdomen 1v Comparison: CT of the abdomen and pelvis 02/17/2018 FINDINGS/IMPRESSION: * Enteric tube tip coiled in the proximal stomach. * Abnormal distention of a loop of small bowel in the mid abdomen, consistent with the small bowel obstruction seen on concurrent CT. * Scoliosis and multilevel degenerative changes in the spine. * Airspace disease in the left lower lung.
--- NOTE | 2018-02-18 11:46 | Consultation ---
History of Present Illness General Chief Complaint: Abnormal Labs Reason for Consultation: sbo Present Illness HPI 72-year-old female, snf resident, was sent to [facility] emergency room for abnormal blood work, which showed significant leukocytosis, hyponatremia, and hyperkalemia. the pt was anxious, the pt is [place] speaking and was able to answer questions. the pt has cognitive impairment. Allergies: Coded Allergies: No Known Allergies (Unverified , 02/17/18) Medication History Scheduled Ascorbic Acid* (Vitamin C*), 500 MG ORAL TWICE A DAY, (Reported) Bisacodyl* (Dulcolax*), 5 MG ORAL DAILY, (Reported) Cranberry Fruit Concentrate (Cranberry), 450 MG PO DAILY, (Reported) Docusate Sodium* (Docusate Sodium*), 100 MG ORAL DAILY, (Reported) Famotidine (Pepcid Ac), 20 MG PO DAILY, (Reported) Furosemide* (Lasix*), 40 MG ORAL DAILY, (Reported) Magnesium Hydroxide* (Milk Of Magnesia*), 30 ML ORAL DAILY, (Reported) Metoclopramide Hcl* (Reglan*), 10 MG ORAL THREE TIMES A DAY, (Reported) Multivitamin With Minerals (Multivitamins With Minerals*), 1 TAB ORAL DAILY, ( Reported) Potassium Chloride (Potassium Chloride), 40 MEQ PO DAILY, (Reported) Saw [place] Xt/Phytosterol #2 (Prostate Sr Softgel), 1 EACH PO DAILY, (Reported ) Zinc Sulfate (Zinc Sulfate*), 220 MG ORAL DAILY, (Reported) Scheduled PRN Hydrocodone Bit/Acetaminophen 5-325* ([place] 5-325*), 1 TAB ORAL Q4H PRN for For Pain, (Reported) Ondansetron* (Zofran*), 4 MG ORAL Q6H PRN for Nausea & Vomiting, (Reported) Patient History Limited by: medical condition History Provided By: Patient, Medical Record Healthcare decision maker Resuscitation status Full Code Advanced Directive on File Past Medical/Surgical History Past Medical/Surgical History: (1) JANNETTE (acute kidney injury) (2) Cutaneous abscess of abdominal wall (3) Pressure ulcer of sacral region, stage 4 (4) Osteomyelitis of sacrum (5) Catheter-associated urinary tract infection (6) Abnormal blood electrolyte level (7) Hyperkalemia (8) Sepsis (9) SBO (small bowel obstruction) Review of Systems Psychiatric: Reports: see HPI, prior hx, anxiety Physical Exam General Appearance: alert, moderate distress Neurologic: oriented x 3, responsive, depressed affect Last 24 Hour Vital Signs Date Time Temp Pulse Resp B/P (MAP) Pulse Ox O2 Delivery O2 Flow Rate FiO2 02/18/18 08:00 Room Air 02/18/18 08:00 97.8 106 18 114/51 (72) 100 02/18/18 07:47 100 02/18/18 04:00 109 02/18/18 04:00 Room Air 02/18/18 04:00 98.1 105 18 108/56 (73) 97 02/18/18 00:00 115 02/18/18 00:00 97.8 118 18 135/62 (86) 97 02/18/18 00:00 Room Air 02/17/18 20:00 Room Air 02/17/18 20:00 97.8 120 18 128/57 (80) 98 02/17/18 20:00 124 02/17/18 19:31 126/75 02/17/18 16:00 120 02/17/18 15:38 Room Air 02/17/18 12:41 98.0 126 17 123/93 100 Room Air 02/17/18 12:16 53 20 127/82 98 Nasal Cannula 2.0 Intake and Output 02/17/18 02/18/18 18:59 06:59 Intake Total 1055 ml Output Total 0 ml Balance 0 ml 1055 ml Intake IV Total 1055 ml Output Urine Total 0 ml # Voids 100 Laboratory Tests Test 02/17/18 12:25 02/17/18 13:05 02/17/18 17:45 02/17/18 19:00 White Blood Count 27.5 K/UL (4.8-10.8) *H Red Blood Count 3.55 M/UL (4.20-5.40) L Hemoglobin 10.2 G/DL (12.0-16.0) L Hematocrit 31.2 % (37.0-47.0) L Mean Corpuscular Volume 88 FL (80-99) Mean Corpuscular Hemoglobin 28.6 PG (27.0-31.0) Mean Corpuscular Hemoglobin Concent 32.6 G/DL (32.0-36.0) Red Cell Distribution Width 15.0 % (11.6-14.8) H Platelet Count 398 K/UL (150-450) Mean Platelet Volume 5.4 FL (6.5-10.1) L Neutrophils (%) (Auto) % (45.0-75.0) Lymphocytes (%) (Auto) % (20.0-45.0) Monocytes (%) (Auto) % (1.0-10.0) Eosinophils (%) (Auto) % (0.0-3.0) Basophils (%) (Auto) % (0.0-2.0) Differential Total Cells Counted 100 Neutrophils % (Manual) 94 % (45-75) H Lymphocytes % (Manual) 3 % (20-45) L Monocytes % (Manual) 2 % (1-10) Eosinophils % (Manual) 0 % (0-3) Basophils % (Manual) 0 % (0-2) Band Neutrophils 1 % (0-8) Platelet Estimate Adequate Platelet Morphology Normal Target Cells Schistocytes 1+ Sodium Level 126 MMOL/L (136-145) L 129 MMOL/L (136-145) L Potassium Level 5.2 MMOL/L (3.5-5.1) H 5.3 MMOL/L (3.5-5.1) H Chloride Level 94 MMOL/L (98-107) L 96 MMOL/L (98-107) L Carbon Dioxide Level 18 MMOL/L (21-32) L 16 MMOL/L (21-32) L Anion Gap 15 mmol/L (5-15) 17 mmol/L (5-15) H Blood Urea Nitrogen 30 mg/dL (7-18) H 31 mg/dL (7-18) H Creatinine 2.1 MG/DL (0.55-1.30) H 2.0 MG/DL (0.55-1.30) H Estimat Glomerular Filtration Rate mL/min (>60) mL/min (>60) Glucose Level 107 MG/DL (74-106) H 99 MG/DL (74-106) Lactic Acid Level 3.20 mmol/L (0.4-2.0) H 2.00 mmol/L (0.4-2.0) Calcium Level 8.2 MG/DL (8.5-10.1) L 7.8 MG/DL (8.5-10.1) L Total Bilirubin 0.7 MG/DL (0.2-1.0) Aspartate Amino Transf (AST/SGOT) 32 U/L (15-37) Alanine Aminotransferase (ALT/SGPT) 13 U/L (12-78) Alkaline Phosphatase 239 U/L (46-116) H Total Creatine Kinase 89 U/L (26-308) Creatine Kinase MB 4.7 NG/ML (0.0-3.6) H Creatine Kinase MB Relative Index 5.2 Troponin I 0.017 ng/mL (0.000-0.056) 0.000 ng/mL (0.000-0.056) Pro-B-Type Natriuretic Peptide 5398 pg/mL (0-125) H Total Protein 7.3 G/DL (6.4-8.2) Albumin 1.4 G/DL (3.4-5.0) L Globulin 5.9 g/dL Albumin/Globulin Ratio 0.2 (1.0-2.7) L Lipase 44 U/L (73-393) L Urine Color Brown Urine Appearance Cloudy Urine pH 6 (4.5-8.0) Urine Specific [place] 1.010 (1.005-1.035) Urine Protein 3+ (NEGATIVE) H Urine Glucose (UA) Negative (NEGATIVE) Urine Ketones 1+ (NEGATIVE) H Urine Blood 3+ (NEGATIVE) H Urine Nitrite Negative (NEGATIVE) Urine Bilirubin 1+ (NEGATIVE) H Urine Ictotest Positive (NEGATIVE) Urine Urobilinogen 4 MG/DL (0.0-1.0) H Urine Leukocyte Esterase 3+ (NEGATIVE) H Urine RBC 5-10 /HPF (0 - 2) H Urine WBC 20-30 /HPF (0 - 2) H Urine Squamous Epithelial Cells Few /LPF (NONE/OCC) Urine Bacteria Many /HPF (NONE) H Test 02/18/18 00:20 02/18/18 06:35 02/18/18 08:50 Troponin I 0.004 ng/mL (0.000-0.056) 0.017 ng/mL (0.000-0.056) White Blood Count 23.7 K/UL (4.8-10.8) *H Red Blood Count 3.34 M/UL (4.20-5.40) L Hemoglobin 10.1 G/DL (12.0-16.0) L Hematocrit 30.0 % (37.0-47.0) L Mean Corpuscular Volume 90 FL (80-99) Mean Corpuscular Hemoglobin 30.2 PG (27.0-31.0) Mean Corpuscular Hemoglobin Concent 33.6 G/DL (32.0-36.0) Red Cell Distribution Width 15.8 % (11.6-14.8) H Platelet Count 300 K/UL (150-450) Mean Platelet Volume 5.7 FL (6.5-10.1) L Neutrophils (%) (Auto) % (45.0-75.0) Lymphocytes (%) (Auto) % (20.0-45.0) Monocytes (%) (Auto) % (1.0-10.0) Eosinophils (%) (Auto) % (0.0-3.0) Basophils (%) (Auto) % (0.0-2.0) Differential Total Cells Counted 100 Neutrophils % (Manual) 89 % (45-75) H Lymphocytes % (Manual) 7 % (20-45) L Monocytes % (Manual) 4 % (1-10) Eosinophils % (Manual) 0 % (0-3) Basophils % (Manual) 0 % (0-2) Band Neutrophils 0 % (0-8) Platelet Estimate Adequate Platelet Morphology Normal Hypochromasia 1+ Anisocytosis 1+ Sodium Level 131 MMOL/L (136-145) L Potassium Level 3.9 MMOL/L (3.5-5.1) Chloride Level 100 MMOL/L (98-107) Carbon Dioxide Level 20 MMOL/L (21-32) L Anion Gap 12 mmol/L (5-15) Blood Urea Nitrogen 31 mg/dL (7-18) H Creatinine 2.1 MG/DL (0.55-1.30) H Estimat Glomerular Filtration Rate mL/min (>60) Glucose Level 216 MG/DL (74-106) #H Hemoglobin A1c 6.1 % (4.3-6.0) H Lactic Acid Level 1.40 mmol/L (0.4-2.0) Calcium Level 7.3 MG/DL (8.5-10.1) L Total Bilirubin 0.6 MG/DL (0.2-1.0) Aspartate Amino Transf (AST/SGOT) 25 U/L (15-37) Alanine Aminotransferase (ALT/SGPT) 13 U/L (12-78) Alkaline Phosphatase 186 U/L (46-116) H Total Protein 5.3 G/DL (6.4-8.2) L Albumin 1.1 G/DL (3.4-5.0) L Globulin 4.2 g/dL Albumin/Globulin Ratio 0.3 (1.0-2.7) L Triglycerides Level 125 MG/DL (30-150) Cholesterol Level 80 MG/DL (< 200) LDL Cholesterol 47 mg/dL (<100) HDL Cholesterol 10 MG/DL (40-60) L Cholesterol/HDL Ratio 8.0 (3.3-4.4) H Microbiology Date/Time Source Procedure Growth Status 02/17/18 12:43 Nasal Nares Influenza Types A,B Antigen (MAXIMO) - Final Complete 02/17/18 13:05 Urine,Clean Catch Urine Culture - Preliminary Gram Negative Bacillus 1 Resulted 02/17/18 18:00 Rectum - Preliminary Resulted Height (Feet): 5 Height (Inches): 5.00 Weight (Pounds): 152 Medications Current Medications Medications (Trade) Dose Ordered Sig/Nidia Route PRN Reason Start Time Stop Time Status Last Admin Dose Admin Chlorhexidine Gluconate (Taylor-Hex 2%) 1 applic DAILY@2000 TOPIC 02/18/18 20:00 03/20/18 19:59 Dextrose (Dextrose 50%) 25 ml Q30M PRN IV Hypoglycemia 02/17/18 16:00 03/19/18 15:59 Dextrose (Dextrose 50%) 50 ml Q30M PRN IV Hypoglycemia 02/17/18 16:00 03/19/18 15:59 Dextrose/Sodium Chloride 1,000 ml @ 100 mls/hr Q10H IV 02/17/18 17:00 03/19/18 16:59 02/18/18 10:01 Heparin Sodium (Porcine) (Heparin 5000 units/ml) 5,000 units EVERY 12 HOURS SUBQ 02/17/18 21:00 03/19/18 20:59 02/17/18 21:16 Heparin Sodium/ Sodium Chloride (Heparin 2000 units/Ns 1000ml premix) 2,000 unit ONCE PRN INJ picc line placement 02/18/18 11:00 02/20/18 10:59 Lidocaine HCl (Xylocaine 1% 30ml) 30 ml ONCE PRN INJ picc line placement 02/18/18 11:00 02/20/18 10:59 Meropenem 1 gm/ Sodium Chloride 55 ml @ 110 mls/hr Q12HR IVPB 02/17/18 20:00 02/22/18 19:59 02/18/18 09:56 Morphine Sulfate (Morphine Sulfate) 2 mg Q4H PRN IVP PAIN 4-10 02/17/18 18:30 02/24/18 18:29 Pantoprazole (Protonix) 40 mg DAILY IV 02/17/18 16:00 03/19/18 15:59 02/18/18 09:56 Sodium Hypochlorite ([place] Quarter Strength) 1 applic Q24H TOPIC 02/18/18 09:00 03/19/18 19:59 02/18/18 09:57 Sodium Chloride 500 ml @ 999 mls/hr Q31M PRN IV For hypotension 02/17/18 16:15 03/19/18 16:14 Vancomycin HCl (Vanco rx to dose) 1 ea DAILY PRN MISC Per rx protocol 02/17/18 16:15 03/19/18 16:14 Assessment/Plan Assessment/Plan Anxiety d/o Ativan prn Provided ambrocio/Michele Laws MD Feb 18, 2018 11:46
[2018-02-18 12:00] VITALS: BP 112/65
[2018-02-18] MEDS ORDERED: LORazepam 1mg tab ORAL PRN (12:00)
--- NOTE | 2018-02-18 12:15 | Consultation ---
DATE OF CONSULTATION: 02/18/2018 CARDIOLOGY CONSULTATION CONSULTING PHYSICIAN: Thomas Quiroz M.D. REFERRING PHYSICIAN: Amol Weinstein M.D. REASON FOR CONSULTATION: Management of tachycardia. HISTORY OF PRESENT ILLNESS: The patient is a very unfortunate 72-year-old lady, who has multiple medical problems and presents to this hospital for abnormal blood work including leukocytosis, elevated potassium level, and severe dehydration. The patient apparently was diagnosed with bowel obstruction and refused surgeries. She had been recently seen in two different hospitals. She has underlying dementia and cannot provide a meaningful history. At the time of arrival to this facility, the blood pressure was 127/82, the pulse rate of 63. A 12-lead electrocardiogram in the emergency department, however, showed sinus tachycardia, rate of 123 with prolonged QT interval as well as nonspecific ST and T-wave abnormalities. The patient was admitted to [facility] for further evaluation and management. Cardiology consultation was made at the request of Dr. Weinstein for assessment and management of tachycardia. PAST MEDICAL HISTORY: Sacral pressure wound, incontinence, and small bowel obstruction, refusing surgery. REVIEW OF SYSTEMS: HEENT: Denies any headache, diplopia, or blurred vision. CONSTITUTIONAL: Generalized weakness, but no fever, chills, or night sweats. CARDIOVASCULAR: Denies any chest pain, shortness breath, PND, orthopnea, or leg swelling. PULMONARY: Denies any cough, hemoptysis, or wheezing. GASTROINTESTINAL: Abdominal distention and pain, not having had bowel movements. No gas-passing abilities. GENITOURINARY: Denies any hematuria or dysuria, however, has incontinence. NEUROLOGY: Denies any motor dysfunction, sensory deficit, or altered speech. ALLERGIES: No known drug allergies. FAMILY HISTORY: No premature coronary artery disease or arrhythmogenic in first-degree relatives according to the records. SOCIAL HISTORY: Resident of a long-term. There is no history of tobacco, alcohol, or illicit drug use. MEDICATIONS: List of medications in the nursing facility includes vitamin C 500 mg p.o. twice daily, bisacodyl 5 mg p.o. daily, cranberry 450 mg p.o. daily, Colace 100 mg p.o. daily, Pepcid AC 20 mg p.o. daily, Lasix 40 mg p.o. daily, [place] 5/325 one tablet q.4 h. p.r.n. pain, milk of magnesia 30 mL p.o. daily, Reglan 10 mg p.o. three times daily, multivitamin one tablet p.o. daily, Zofran 4 mg p.o. q.6 h. p.r.n. nausea or vomiting, potassium chloride 40 mEq p.o. daily, Prostate SR softgel one capsule p.o. daily, and zinc sulfate 220 mg p.o. daily. PHYSICAL EXAMINATION: VITAL SIGNS: Initial blood pressure at the time of emergency department was 127/82, respirations 20, pulse of 53, O2 saturation 98% on nasal cannula with FiO2 21%. GENERAL: The patient is a very unfortunate ill-appearing 72-year-old lady, who appears to be very dehydrated, awake, communicating in [place] English language. HEENT: Atraumatic and normocephalic. Anicteric. Pupils are equal, round, and reactive to light and accommodation. Dry mucosal membranes. NECK: JVP less than 5 cm. No carotid bruit. Carotid upstrokes 2+ bilaterally. CARDIOVASCULAR: Normal S1, S2. Regular rate and rhythm. No murmurs, gallops, or rubs. Tachycardic. LUNGS: Clear to auscultation bilaterally. ABDOMEN: Distended. Diminished bowel sounds. No hepatosplenomegaly. Diffuse tenderness. EXTREMITIES: No evidence of edema, clubbing, or cyanosis. DIAGNOSTIC DATA: Chest x-ray shows no acute cardiopulmonary disease with evidence of tortuous aorta. LABORATORY FINDINGS: WBC was 27.5, hemoglobin 10.2, hematocrit 31.2, and platelet count is 398,000 with left shift, neutrophil of 94%. Chemistry showed sodium 126, potassium 5.2, chloride 94, bicarbonate 18, BUN of 30, creatinine 2.1, glucose 107, calcium 8.2. Troponin I is 0.017. ProBNP was 5390. ASSESSMENT AND PLAN: The patient is a very unfortunate 72-year-old lady who was seen in Cardiology consultation at the request of Dr. Weinstein. 1. Sinus tachycardia. Clearly due to severe hypovolemia as it is evident on the chemistry, hyponatremia, hyperkalemia, and evidence of renal failure likely due to severe hypovolemia. Elevated proBNP can be seen in the patients with sepsis and high states or tachycardia. Chest x-ray does not show any evidence of congestive heart failure. I would hydrate and replace electrolytes. With bowel obstruction, there is quite a great deal of third spacing and loss. 2. Cholelithiasis. 3. Left basilar consolidation, questionable pneumonia. I would like to thank, Dr. Weinstein, for allowing me to participate in the care of this patient. Thomas Quiroz M.D. DR: ANISH JOB#: [id number] CC:
[2018-02-18] MEDS ORDERED: Heparin 25,000u/D5W 500ml 500 ML IV SCH ×2 (12:45→23:30)
--- NOTE | 2018-02-18 12:54 | History & Physical ---
History and Physical History & Physicial patient is seen and examined. Dictation # [id number] Amol Weinstein MD Feb 18, 2018 12:54
--- NOTE | 2018-02-18 12:56 | General Progress Note ---
Assessment/Plan Assessment/Plan full dictation in progress Discussed the care with the Son at the bed side. Remain Full code for now New assessment; Acute DVT Refusal of having surgical intervention Plan Start IV heparin HemOnch is consulted Subjective Allergies: Coded Allergies: No Known Allergies (Unverified , 02/17/18) Objective Last 24 Hour Vital Signs Date Time Temp Pulse Resp B/P (MAP) Pulse Ox O2 Delivery O2 Flow Rate FiO2 02/18/18 12:00 97.3 103 18 112/65 (81) 99 02/18/18 12:00 Room Air 02/18/18 08:00 Room Air 02/18/18 08:00 97.8 106 18 114/51 (72) 100 02/18/18 07:47 100 02/18/18 04:00 109 02/18/18 04:00 Room Air 02/18/18 04:00 98.1 105 18 108/56 (73) 97 02/18/18 00:00 115 02/18/18 00:00 97.8 118 18 135/62 (86) 97 02/18/18 00:00 Room Air 02/17/18 20:00 Room Air 02/17/18 20:00 97.8 120 18 128/57 (80) 98 02/17/18 20:00 124 02/17/18 19:31 126/75 02/17/18 16:00 120 02/17/18 15:38 Room Air Intake and Output 02/17/18 02/18/18 18:59 06:59 Intake Total 1055 ml Output Total 0 ml Balance 0 ml 1055 ml Intake IV Total 1055 ml Output Urine Total 0 ml # Voids 100 Laboratory Tests 02/17/18 13:05: Urine Color Brown, Urine Appearance Cloudy, Urine pH 6, Urine Specific [place] 1.010, Urine Protein 3+H, Urine Glucose (UA) Negative, Urine Ketones 1+H, Urine Blood 3+H, Urine Nitrite Negative, Urine Bilirubin 1+H, Urine Ictotest Positive , Urine Urobilinogen 4H, Urine Leukocyte Esterase 3+H, Urine RBC 5-10H, Urine WBC 20-30H, Urine Squamous Epithelial Cells Few, Urine Bacteria ManyH 02/17/18 17:45: Sodium Level 129L, Potassium Level 5.3H, Chloride Level 96L, Carbon Dioxide Level 16L, Anion Gap 17H, Blood Urea Nitrogen 31H, Creatinine 2.0H, Estimat Glomerular Filtration Rate , Glucose Level 99, Calcium Level 7.8L, Troponin I 0.000 02/17/18 19:00: Lactic Acid Level 2.00 02/18/18 00:20: Troponin I 0.004 02/18/18 06:35: White Blood Count 23.7*H, Red Blood Count 3.34L, Hemoglobin 10.1L, Hematocrit 30.0L, Mean Corpuscular Volume 90, Mean Corpuscular Hemoglobin 30.2, Mean Corpuscular Hemoglobin Concent 33.6, Red Cell Distribution Width 15.8H, Platelet Count 300, Mean Platelet Volume 5.7L, Neutrophils (%) (Auto) , Lymphocytes (%) (Auto) , Monocytes (%) (Auto) , Eosinophils (%) (Auto) , Basophils (%) (Auto) , Differential Total Cells Counted 100, Neutrophils % ( Manual) 89H, Lymphocytes % (Manual) 7L, Monocytes % (Manual) 4, Eosinophils % ( Manual) 0, Basophils % (Manual) 0, Band Neutrophils 0, Platelet Estimate Adequate, Platelet Morphology Normal, Hypochromasia 1+, Anisocytosis 1+ 02/18/18 08:50: Sodium Level 131L, Potassium Level 3.9, Chloride Level 100, Carbon Dioxide Level 20L, Anion Gap 12, Blood Urea Nitrogen 31H, Creatinine 2.1H, Estimat Glomerular Filtration Rate , Glucose Level 216#H, Hemoglobin A1c 6.1H, Lactic Acid Level 1.40, Calcium Level 7.3L, Total Bilirubin 0.6, Aspartate Amino Transf (AST/SGOT) 25, Alanine Aminotransferase (ALT/SGPT) 13, Alkaline Phosphatase 186H, Troponin I 0.017, Total Protein 5.3L, Albumin 1.1L, Globulin 4.2, Albumin/Globulin Ratio 0.3L, Triglycerides Level 125, Cholesterol Level 80 , LDL Cholesterol 47, HDL Cholesterol 10L, Cholesterol/HDL Ratio 8.0H Height (Feet): 5 Height (Inches): 5.00 Weight (Pounds): 152 Amol Weinstein MD Feb 18, 2018 12:56
[2018-02-18] MEDS ORDERED: Heparin 5000 units/ml inj IV SCH (13:00)
--- NOTE | 2018-02-18 13:07 | Diagnostic Imaging Report ---
Indication: Abdominal pain Technique: XRAY Abdomen 1v Comparison: CT abdomen pelvis and abdominal radiograph 02/17/2018 Findings/impression: Enteric tube tip in the stomach. There is interval decompression of the stomach. There is persistent dilatation of a small bowel loops within the abdomen consistent with small bowel obstruction noted on prior exam. Degree of distention is slightly decreased compared to the prior exam (for example most dilated small bowel loop measuring up to 4.9 cm previously, currently 3.8 cm). Fonseca catheter in place. Multilevel degenerative changes of the spine. There are atherosclerotic vascular calcifications.
--- NOTE | 2018-02-18 13:08 | Consultation ---
Consult Note Consult Note asked to eval for renal failure and electrolyte imbalances HPI Patient with multiple comorbidities presents with reports of abnormal blood work and nursing facility including significantly elevated white blood cell count and elevated potassium level patient herself has underlying dementia There was no reports of vomiting or diarrhea at the nursing facility Unknown regarding change in medication There was no reports of any increased cough or congestion Speaking further to patient's daughter she reports that the patient has been to 2 different hospitals over the past one month significant medical findings including bowel obstruction She also reports that the patient does not want any surgical procedures examined- Discussed with son- records reviewed . Assessment/Plan Renal failure- Acute on chronic/ presented with High K Small Bowel Obstruction UTI Sacral Osteo HypoNatremia Sever HypoAlbuminemia & Proteinuria Anemia IV Fluid- NPO- Suction Antibiotics Anemia persaud per orders per consultants Agustín Parmar MD Feb 18, 2018 13:08
[2018-02-18] MEDS ORDERED: LORazepam Inj 2mg/ml 1ml IV PRN (13:45)
[2018-02-18 14:17] LABS: HEMOGLOBIN 8.3 G/DL (12.0-16.0); MEAN CORPUSCULAR VOLUME 87 FL (80-99); PLATELET COUNT 323 K/UL (150-450); RED BLOOD COUNT 2.86 M/UL (4.20-5.40); RED CELL DISTRIBUTION WIDTH 15.5 % (11.6-14.8)
--- NOTE | 2018-02-18 14:18 | Diagnostic Imaging Report ---
Indication: Abdominal pain Technique: Multiplanar grayscale and color Doppler imaging of the abdomen. Comparison: Concurrent CT of the abdomen and pelvis Findings: Limited exam due to patient's body habitus and overlying bowel gas. Within these limitations the following observations are made: Pancreas is not visualized, likely obscured by overlying bowel gas. Liver demonstrates diffuse increased echogenicity most commonly related to hepatic steatosis. A approximately 1 cm well-circumscribed anechoic structure is noted in the left hepatic lobe and likely represent a cyst. There is no color flow noted within this lesion. Right hepatic lobe measuring approximately 12 centers in length. Hepatic contour appears smooth. There is cholelithiasis with a shadowing gallstone noted in the region of the gallbladder neck. No associated gallbladder wall thickening or pericholecystic fluid. Sonographic Mabry sign was reported as negative. No biliary ductal dilatation; the common bile duct measures approximately 3 mm. The kidneys demonstrate normal echogenicity. There is no hydronephrosis or sonographically appreciable renal stone bilaterally. Spleen is normal in size. Imaged portions of the abdominal aorta are normal in caliber with atherosclerotic calcifications. There is no ascites. Impression: Limited exam as above. Within these limitations: * Increased hepatic echogenicity suggestive of hepatic steatosis. * 1 cm well-circumscribed lesion in the left hepatic lobe most likely representing a cyst. * Cholelithiasis without evidence to suggest acute cholecystitis. Sonographic Mabry sign reported as negative.
--- NOTE | 2018-02-18 14:19 | Pre-Procedure Note/Attestation ---
Pre-Procedure Note/Attestation Complete Prior to Procedure Planned Procedure: not applicable Procedure Narrative: PICC line placement Indications for Procedure Pre-Operative Diagnosis: difficulty obtaining IV access Attestation Consent obtained by primary team, confirmed prior to the procedure. I attest that I re-evaluated the patient just prior to the surgery and that there has been no change in the patient's H&P, except as documented below: Federico Hdez M.D. Feb 18, 2018 14:19
[2018-02-18 14:26] LABS: WHITE BLOOD COUNT 24.2 K/UL (4.8-10.8)
--- NOTE | 2018-02-18 14:32 | Diagnostic Imaging Report ---
Indications: Needs long-term IV access Technique: Procedure performed at bedside. Procedural timeout performed. Ultrasound confirms patent compressible left basilic vein. Total sterile technique, including sterile probe cover and sterile gel, sterile gloves, hand hygiene, hat, mask,, sterile gown, large sterile drape, and preparation with 2% chlorhexidine utilized. Local anesthesia with 1% lidocaine. Under real-time ultrasound guidance, puncture left basilic vein using 21-gauge needle, passage 0.018 guidewire, exchange for 5 Swazi peel-away sheath. 5 Swazi triple-lumen power PICC cut to 35 cm. It was inserted through the peel-away sheath. Peel-away sheath and guidewire removed. Catheter fixed to the skin. Both catheter ports aspirated and flushed. Patient tolerated procedure well, without immediate complication. Followup chest x-ray obtained, documents catheter tip position at the upper superior vena cava. Additional incidental findings include atherosclerotic calcifications of the aorta, nasogastric tube tip coiled in the proximal stomach. Impression: Successful bedside placement of 5 Swazi triple-lumen PICC under sonographic guidance, as described above. Catheter cleared for use.
--- NOTE | 2018-02-18 15:22 | Consultation ---
Consult Note Consult Note [facility] DICT # [id number] Jacinto Johnson MD Feb 18, 2018 15:22
--- NOTE | 2018-02-18 15:45 | Cardiology Report ---
APPROVED REPORT EXAM: Two-dimensional and M-mode echocardiogram with Doppler and color Doppler. INDICATION ABDOMINAL PAIN M-Mode DIMENSIONS IVSd1.5 (0.7-1.1cm)Left Atrium (MM)2.8 (1.6-4.0cm) LVDd3.7 (3.5-5.6cm)Aortic Root2.9 (2.0-3.7cm) PWd1.2 (0.7-1.1cm)Aortic Cusp Exc.1.6 (1.5-2.0cm) IVSs1.7 cm LVDs2.4 (2.5-4.0cm) PWs1.5 cm Normal left ventricular chamber size, systolic function and wall motion. Left ventricular ejection fraction estimated to be 55-60 %. Mild left ventricular hypertrophy by 2-D. No evidence of pericardial effusion. All other cardiac chamber sizes are within normal limits. Focal aortic valve sclerosis with adequate cusp excursion. Thickened mitral valve leaflets with normal excursion. Mitral annulus and aortic root calcification. Normal pulmonic valve structure. Normal tricuspid valve structure. IVC at normal size with physiologic collapse. A color flow and spectral Doppler study was performed and revealed: No aortic regurgitation.. Trace mitral regurgitation. Mitral diastolic velocities suggest reduced left ventricular relaxation c/w mild LV diastolic dysfunction (Grade I ). Mild tricuspid regurgitation. Tricuspid systolic velocities suggests peak right ventricular systolic pressure of 42 mmHg,consistent with mild pulmonary hypertension. No Pulmonic regurgitation present.
--- NOTE | 2018-02-18 15:51 | Infectious Diseases Prog Note ---
Assessment/Plan Problems: (1) Pressure ulcer of sacral region, stage 4 Assessment & Plan: deep and necrotic with undermining , and foul smell , infected with possible underlying osteomyelitis of the sacrum and coccyx . MRI of the sacrum is pending to confirm, recommend surgical excision and debridement. son and daughter had agreed on surgical debridement of the sacrum . continue off loading and local wound care as per hospital protocol (2) Cutaneous abscess of abdominal wall Assessment & Plan: source hematogenous VS translocation from the pelvis , will start meropenem and continue vancomycin renally dosed, pending surgical eval (3) Catheter-associated urinary tract infection Assessment & Plan: S/P lomeli catheter change, continue meropenem pending urine culture (4) Sepsis Assessment & Plan: with poly organisms due to the above with leukocytosis , on meropenem and vancomycin renally dosed , pending blood culture, wbc went up a little , patient needs surgical debridement of the sacrum for source control . will add antifungal coverage pending surgical debridement (5) JANNETTE (acute kidney injury) Assessment & Plan: due to the above , continue hydration with renally dosed medications, monitor renal function and UOP (6) Osteomyelitis of sacrum Assessment & Plan: suspect chronic due to the deep pressure wound , MRI to confirm was held since still on continuos suctioning , recommend bone biopsy for culture to identify the exact cause (7) Abnormal blood electrolyte level Assessment & Plan: continue hydration with close monitoring of electrolytes (8) SBO (small bowel obstruction) Assessment & Plan: with possible adhesions, and fat filled fluids collection , perforation ? VS abscesses , keep NPO, continue hydration, surgical eval . Assessment/Plan I had detailed discussion with her son and other daughter regarding her condition and the need to do surgical debriedment of the sacrum for source control, they have agreed to do it since her condition is not improving Subjective Constitutional: Reports: no symptoms HEENT: Reports: no symptoms Respiratory: Reports: no symptoms Breasts: Reports: no symptoms Cardiovascular: Reports: no symptoms Gastrointestinal/Abdominal: Reports: nausea, bloating Genitourinary: Reports: no symptoms Neurologic: Reports: weakness Psychiatric: Reports: no symptoms Skin: Reports: ulcer Endocrine: Reports: no symptoms Hematologic: Reports: no symptoms Musculoskeletal: Reports: pain Allergies: Coded Allergies: No Known Allergies (Unverified , 02/17/18) Objective Vital Signs Last 24 Hour Vital Signs Date Time Temp Pulse Resp B/P (MAP) Pulse Ox O2 Delivery O2 Flow Rate FiO2 02/18/18 12:00 97.3 103 18 112/65 (81) 99 02/18/18 12:00 Room Air 02/18/18 11:43 97 02/18/18 08:00 Room Air 02/18/18 08:00 97.8 106 18 114/51 (72) 100 02/18/18 07:47 100 02/18/18 04:00 109 02/18/18 04:00 Room Air 02/18/18 04:00 98.1 105 18 108/56 (73) 97 02/18/18 00:00 115 02/18/18 00:00 97.8 118 18 135/62 (86) 97 02/18/18 00:00 Room Air 02/17/18 20:00 Room Air 02/17/18 20:00 97.8 120 18 128/57 (80) 98 02/17/18 20:00 124 02/17/18 19:31 126/75 02/17/18 16:00 120 Height (Feet): 5 Height (Inches): 5.00 Weight (Pounds): 152 General Appearance: WD/WN, no acute distress HEENT: normocephalic, atraumatic, anicteric, mucous membranes moist, PERRL Respiratory/Chest: chest wall non-tender, lungs clear, normal breath sounds, no respiratory distress, no accessory muscle use Cardiovascular: normal peripheral pulses, normal rate, regular rhythm, no gallop/murmur, no JVD Abdomen: soft, non tender, no organomegaly, no mass, no scars, absent bowel sounds, distended Genitourinary: normal external genitalia Extremities: no cyanosis, no clubbing Skin: no rash, no lesions, ulcers - large sacra and left gluteal pressur wound deep with necrotic tissue and foul smell Neurologic/Psychiatric: alert, responsive Lymphatic: no neck adenopathy, no groin adenopathy Musculoskeletal: normal muscle bulk, no effusion Microbiology Date/Time Source Procedure Growth Status 02/17/18 13:00 Blood Blood Culture - Preliminary Resulted 02/17/18 12:35 Blood Blood Culture - Preliminary Resulted 02/17/18 12:43 Nasal Nares Influenza Types A,B Antigen (MAXIMO) - Final Complete 02/17/18 13:05 Urine,Clean Catch Urine Culture - Preliminary Gram Negative Bacillus 1 Resulted 02/17/18 18:00 Rectum - Preliminary Resulted Laboratory Tests Test 02/17/18 17:45 02/17/18 19:00 02/18/18 00:20 02/18/18 06:35 Sodium Level 129 MMOL/L (136-145) L Potassium Level 5.3 MMOL/L (3.5-5.1) H Chloride Level 96 MMOL/L (98-107) L Carbon Dioxide Level 16 MMOL/L (21-32) L Anion Gap 17 mmol/L (5-15) H Blood Urea Nitrogen 31 mg/dL (7-18) H Creatinine 2.0 MG/DL (0.55-1.30) H Estimat Glomerular Filtration Rate mL/min (>60) Glucose Level 99 MG/DL (74-106) Calcium Level 7.8 MG/DL (8.5-10.1) L Troponin I 0.000 ng/mL (0.000-0.056) 0.004 ng/mL (0.000-0.056) Lactic Acid Level 2.00 mmol/L (0.4-2.0) White Blood Count 23.7 K/UL (4.8-10.8) *H Red Blood Count 3.34 M/UL (4.20-5.40) L Hemoglobin 10.1 G/DL (12.0-16.0) L Hematocrit 30.0 % (37.0-47.0) L Mean Corpuscular Volume 90 FL (80-99) Mean Corpuscular Hemoglobin 30.2 PG (27.0-31.0) Mean Corpuscular Hemoglobin Concent 33.6 G/DL (32.0-36.0) Red Cell Distribution Width 15.8 % (11.6-14.8) H Platelet Count 300 K/UL (150-450) Mean Platelet Volume 5.7 FL (6.5-10.1) L Neutrophils (%) (Auto) % (45.0-75.0) Lymphocytes (%) (Auto) % (20.0-45.0) Monocytes (%) (Auto) % (1.0-10.0) Eosinophils (%) (Auto) % (0.0-3.0) Basophils (%) (Auto) % (0.0-2.0) Differential Total Cells Counted 100 Neutrophils % (Manual) 89 % (45-75) H Lymphocytes % (Manual) 7 % (20-45) L Monocytes % (Manual) 4 % (1-10) Eosinophils % (Manual) 0 % (0-3) Basophils % (Manual) 0 % (0-2) Band Neutrophils 0 % (0-8) Platelet Estimate Adequate Platelet Morphology Normal Hypochromasia 1+ Anisocytosis 1+ Test 02/18/18 08:50 02/18/18 14:00 Sodium Level 131 MMOL/L (136-145) L Potassium Level 3.9 MMOL/L (3.5-5.1) Chloride Level 100 MMOL/L (98-107) Carbon Dioxide Level 20 MMOL/L (21-32) L Anion Gap 12 mmol/L (5-15) Blood Urea Nitrogen 31 mg/dL (7-18) H Creatinine 2.1 MG/DL (0.55-1.30) H Estimat Glomerular Filtration Rate mL/min (>60) Glucose Level 216 MG/DL (74-106) #H Hemoglobin A1c 6.1 % (4.3-6.0) H Lactic Acid Level 1.40 mmol/L (0.4-2.0) Calcium Level 7.3 MG/DL (8.5-10.1) L Total Bilirubin 0.6 MG/DL (0.2-1.0) Aspartate Amino Transf (AST/SGOT) 25 U/L (15-37) Alanine Aminotransferase (ALT/SGPT) 13 U/L (12-78) Alkaline Phosphatase 186 U/L (46-116) H Troponin I 0.017 ng/mL (0.000-0.056) C-Reactive Protein, Quantitative 29.8 mg/dL (0.00-0.90) H Total Protein 5.3 G/DL (6.4-8.2) L Albumin 1.1 G/DL (3.4-5.0) L Globulin 4.2 g/dL Albumin/Globulin Ratio 0.3 (1.0-2.7) L Triglycerides Level 125 MG/DL (30-150) Cholesterol Level 80 MG/DL (< 200) LDL Cholesterol 47 mg/dL (<100) HDL Cholesterol 10 MG/DL (40-60) L Cholesterol/HDL Ratio 8.0 (3.3-4.4) H White Blood Count 24.2 K/UL (4.8-10.8) *H Red Blood Count 2.86 M/UL (4.20-5.40) L Hemoglobin 8.3 G/DL (12.0-16.0) L Hematocrit 25.0 % (37.0-47.0) L Mean Corpuscular Volume 87 FL (80-99) Mean Corpuscular Hemoglobin 29.1 PG (27.0-31.0) Mean Corpuscular Hemoglobin Concent 33.3 G/DL (32.0-36.0) Red Cell Distribution Width 15.5 % (11.6-14.8) H Platelet Count 323 K/UL (150-450) Mean Platelet Volume 5.3 FL (6.5-10.1) L Neutrophils (%) (Auto) % (45.0-75.0) Lymphocytes (%) (Auto) % (20.0-45.0) Monocytes (%) (Auto) % (1.0-10.0) Eosinophils (%) (Auto) % (0.0-3.0) Basophils (%) (Auto) % (0.0-2.0) Differential Total Cells Counted 100 Neutrophils % (Manual) 96 % (45-75) H Lymphocytes % (Manual) 4 % (20-45) L Monocytes % (Manual) 0 % (1-10) L Eosinophils % (Manual) 0 % (0-3) Basophils % (Manual) 0 % (0-2) Band Neutrophils 0 % (0-8) Platelet Estimate Adequate Platelet Morphology Normal Hypochromasia 2+ Anisocytosis 1+ Activated Partial Thromboplast Time 51 SEC (23-33) H Current Medications Medications (Trade) Dose Ordered Sig/Nidia Route PRN Reason Start Time Stop Time Status Last Admin Dose Admin Chlorhexidine Gluconate (Taylor-Hex 2%) 1 applic DAILY@1999 TOPIC 02/18/18 20:00 03/20/18 19:59 Dextrose (Dextrose 50%) 25 ml Q30M PRN IV Hypoglycemia 02/17/18 16:00 03/19/18 15:59 Dextrose (Dextrose 50%) 50 ml Q30M PRN IV Hypoglycemia 02/17/18 16:00 03/19/18 15:59 Dextrose/Sodium Chloride 1,000 ml @ 100 mls/hr Q10H IV 02/17/18 17:00 03/19/18 16:59 02/18/18 10:01 Heparin Sodium/ Dextrose 500 ml @ 24.821 mls/ hr ADJUST PER PROTOCOL IV 02/18/18 12:45 03/20/18 12:44 02/18/18 14:58 Heparin Sodium/ Sodium Chloride (Heparin 2000 units/Ns 1000ml premix) 2,000 unit ONCE PRN INJ picc line placement 02/18/18 11:00 02/20/18 10:59 Lidocaine HCl (Xylocaine 1% 30ml) 30 ml ONCE PRN INJ picc line placement 02/18/18 11:00 02/20/18 10:59 Lorazepam (Ativan 2mg/ml 1ml) 1 mg Q6H PRN IV For Anxiety 02/18/18 13:45 02/25/18 13:44 Meropenem 1 gm/ Sodium Chloride 55 ml @ 110 mls/hr Q12HR IVPB 02/17/18 20:00 02/22/18 19:59 02/18/18 09:56 Morphine Sulfate (Morphine Sulfate) 2 mg Q4H PRN IVP PAIN 4-10 02/17/18 18:30 02/24/18 18:29 Pantoprazole (Protonix) 40 mg DAILY IV 02/17/18 16:00 03/19/18 15:59 02/18/18 09:56 Sodium Hypochlorite (Dakin's Quarter Strength) 1 applic Q24H TOPIC 02/18/18 09:00 03/19/18 19:59 02/18/18 09:57 Sodium Chloride 500 ml @ 999 mls/hr Q31M PRN IV For hypotension 02/17/18 16:15 03/19/18 16:14 Vancomycin HCl (Vanco rx to dose) 1 ea DAILY PRN MISC Per rx protocol 02/17/18 16:15 03/19/18 16:14 Ari Lewis M.D. Feb 18, 2018 15:51
[2018-02-18 16:00] VITALS: BP 133/55
--- NOTE | 2018-02-18 16:30 | History and Physical Report ---
DATE OF ADMISSION: 02/17/2018 SOURCE OF INFORMATION: EMR and the patient. HISTORY OF PRESENT ILLNESS: The patient is a 72-year-old female, resident of a assisted facility. The patient is under the care of Dr. Spicer. I have been requested to cover the primary care physician during the stay in the [facility]. I received a call regarding the nausea and worsening abdominal pain. I requested the patient to transfer, however, reportedly the patient's family refused the transfer. The next morning with worsening of the symptoms, the patient was requested to be transferred. In agreement with the family, the patient was transferred. Initial evaluation in the emergency room shows the pulse rate of 120 with WBC of 27, and severe abdominal pain, which was detected by the abdominal CT scan as positive for small bowel obstruction. The patient was admitted to the Step-Down Unit. The patient was kept NPO and surgeon, Nephrology, and Infectious Disease have been consulted. Empiric antibiotic regimen had been initiated. PAST MEDICAL HISTORY: Hypokalemia, hypertension, chronic debility, and being bedbound, osteomyelitis, decubitus wound, chronic renal disease, renal failure. PAST SURGICAL HISTORY: None reported. MEDICATIONS: Current hospital medications including, but not limited to Zosyn and vancomycin. SOCIAL HISTORY: The patient has about six or seven children. The patient has no prior history of illicit drug abuse, smoking, or alcohol abuse. FAMILY HISTORY: Reviewed and noncontributory. REVIEW OF SYSTEMS: Positive for severe abdominal pain. Positive for nausea. Negative for diarrhea. Negative for fever and chills. The remainder of the pertinent positive elements are reviewed and are mentioned in the HPI. PHYSICAL EXAMINATION: VITAL SIGNS: Blood pressure of 120/80, temperature 98.1, pulse oximetry 98% on room air, and pulse rate 50 to 120. HEAD AND NECK: Atraumatic and normocephalic. CHEST: Clear to auscultation. No wheezing. No crackles. ABDOMEN: Positive for tenderness on deep palpation. Bowel sounds have decreased. MUSCULOSKELETAL: Positive for the sacral decubitus wounds. Positive for decreased range of motion and strength in all four extremities. NEUROLOGIC: The patient is awake, alert, and oriented x3. IMAGING STUDIES: Imaging shows abdominal pelvic CT scan dated February 17, is reviewed. Chest x-ray also reviewed. ASSESSMENT: 1. Sepsis. 2. Acute abdomen secondary to small bowel obstruction. 3. Decubitus wound, sacral possibility of osteomyelitis cannot be excluded. 4. Renal failure - age indeterminate. 5. Hyponatremia. 6. Catheter-induced urinary infection. 7. GI and DVT prophylaxis. PLAN OF CARE: The patient is in Full Code. We will continue with the current empiric antibiotic regimens of vancomycin and Zosyn. We will obtain the lower extremity duplex. Nephrology, notified. Continue with the care in the Step-Down Unit. Overall, the patient is in a poor overall medical condition. Amol Weinstein M.D. DR: ADRIANO JOB#: [id number] CC:
[2018-02-18] MEDS: Morphine Sulfate 2mg/ml Inj IVP PRN (16:43)
--- NOTE | 2018-02-18 17:15 | Consultation ---
DATE OF CONSULTATION: 02/18/2018 PULMONARY CONSULTATION CONSULTING PHYSICIAN: Jacinto Johnson M.D. REFERRING PHYSICIAN: Amol Weinstein M.D. REASON FOR CONSULTATION: Possible pneumonia. HISTORY OF PRESENT ILLNESS: The patient is a very unfortunate 72-year-old female with a history of prior CVA, [facility] resident, possible small-bowel obstruction noted and recent hospitalization to [facility] and then to [place], which was opted to be managed non-operatively, now presenting [facility] the [facility] for evaluation of abnormal blood work. The patient had leukocytosis, hyponatremia, and hyperkalemia. She has a stage IV sacral decubitus ulcer and CT findings concerning for small bowel obstruction as well as likely left perihilar infiltrate/pneumonia. Since coming to [facility], the patient has been afebrile with a T-max of 98. She has had low sinus tachycardia up to 120. Respiratory rate has been in the teens. She has been saturating well on room air per her family at bedside. No cough, congestion, or shortness of breath. She was tolerating p.o. with assist, but has been essentially NPO for 5 days. She has small bowel movements, which are infrequent. She has not complained of increased recent abdominal pain or discomfort. Imaging of the chest in the ER initially was a chest x-ray with a possible left perihilar infiltrate and then a CT of the abdomen, which showed evidence of small bowel obstruction with an obstruction point in the mid jejunum, adhesions, hernia, and unusual fluid collections thought to be secondary to possible recent surgery, but there is no history of recent surgery and decubitus ulcer in the retro sacral and retro coccygeal region with gas bubbles in the soft tissue have been noted as well concerned for possible abscess. The patient has a PICC line inserted. She also had a duplex of her lower extremities, which showed acute thrombus in the common femoral, superficial femoral, and popliteal veins. She has since been started on IV unfractionated heparin. She has also been seen by Dr. Lewis and is currently on meropenem and vancomycin. Family has decided against surgery, but after discussion with Dr. Lewis, agreed to proceed with sacral wound debridement. However, they still want her to remain Full Code pending discussions within themselves. They understand that if she was to sustain a cardiopulmonary arrest, her outcome would likely not be good and they are opting for DNR, but have not made that final determination yet. Prior to all these events, they say she had no prior medical history. PAST MEDICAL HISTORY: 1. CVA. 2. Recent small-bowel obstruction. 3. Possible dementia or cognitive impairment. 4. Congestive heart failure (based on medications). MEDICATIONS: Prior to admission medications reviewed. ALLERGIES: No known drug allergies. SOCIAL HISTORY: She is a [facility] resident. No history of tobacco, alcohol, or drug use. FAMILY HISTORY: Noncontributory. REVIEW OF SYSTEMS: Unobtainable. PHYSICAL EXAM: GENERAL: She is an elderly female, minimally verbal, and confused. HEENT: Normocephalic and atraumatic. She has an NG-tube. NECK: Supple without lymphadenopathy or JVD. CHEST: Clear with some faint rhonchi at the left base. HEART: Tachycardic, but regular. ABDOMEN: Mild diffuse tenderness, soft, and nondistended. Hypoactive bowel sounds are heard. EXTREMITIES: No cyanosis, clubbing, or edema. There is a stage IV sacral decubitus ulcer. ANCILLARY DATA: White count 24.3, hemoglobin 8.3, and platelet count 323,000. Sodium 131, potassium 3.9, chloride 100, bicarbonate 20, BUN 31, creatinine 2.1, and glucose 216. Hemoglobin A1c 6.1. Calcium 7.3. Total bilirubin 0.6. AST 25, ALT 13, and alkaline phosphatase 186. Troponin 0.004 and then 0.017. CRP 29.8. Total protein 5.3. Albumin 1.1. Globulin 4.2. Urinalysis, 3+ blood, 1+ ketones, 1+ bilirubin, and 3+ leukocyte esterase. CULTURES: Gram-negative bacillus in the urine and gram-positive cocci and gram-negative rods in blood. ASSESSMENT: The patient is a 72-year-old [facility] resident with CVA, recent small bowel obstruction at an outside hospital, now presenting for evaluation of abnormal laboratories, noted to have a sacral decubitus ulcer with possible osteomyelitis, urinary tract infection, and bacteremia, as well as a possible pneumonia. PROBLEM LIST: 1. Left perihilar infiltrate, likely healthcare-associated pneumonia. 2. Stage IV sacral decubitus ulcer with likely osteomyelitis. 3. Gram negative bacillus urinary tract infection. 4. Gram-positive cocci and gram-negative sepsis. 5. Acute superficial femoral and popliteal DVT in the right and common femoral, superficial femoral, and popliteal DVT in the left. 6. Small bowel obstruction, likely acute on chronic. 7. Concern for unusual fat or fluid collections in the abdomen/abdominal wall. 8. Leukocytosis. 9. Anemia. 10. Abnormal creatinine, JANNETTE versus CKD. 11. Severe protein-calorie malnutrition. 12. Prior CVA. 13. Full Code, but family deciding on goals of care. TREATMENT PLAN: 1. Optimize pulmonary hygiene/mobilize as tolerated. 2. P.r.n. O2. 3. Monitor for signs of worsening respiratory status. 4. Continue antibiotics (vancomycin and meropenem) per Infectious Disease service. 5. Follow up Surgery recommendations, likely debridement of sacral decubitus ulcer, possible laparotomy based on family's goals of care. 6. Monitor volumes and renal function, agree with gentle IV fluid hydration as tolerated. 7. We will check an echocardiogram. 8. Continue IV unfractionated heparin for now, we will have to determine continued anticoagulation in light of overall goals of care. 9. NPO, NG-tube to suction. 10. The patient is Full Code, but family is deciding on goals of care and overall plan. We will continue to discuss with them. Dr. Weinstein, thank you for allowing me to assist in the care of your patient. If I may be of any assistance, please do not hesitate to ask. Jacinto Johnson M.D. DR: EMMA JOB#: [id number] CC:
--- NOTE | 2018-02-18 17:16 | Cardiology Report ---
APPROVED REPORT EKG Measurement Heart [id number] Sinus tachycardia T wave abnormality, consider lateral ischemia Abnormal ECG
[2018-02-18 20:00] VITALS: BP 103/53
[2018-02-18] MEDS: Dyna-Hex 2% Top Sol 2oz TOPIC SCH (21:01)
[2018-02-19] VITALS: BP 106/61
[2018-02-19] MEDS: Morphine Sulfate 2mg/ml Inj IVP PRN ×2 (00:52→09:01)
[2018-02-19] MEDS: D5NS 1,000 ML IV SCH (03:00)
--- NOTE | 2018-02-19 03:30 | Consultation ---
DATE OF CONSULTATION: 02/18/2018 INCOMPLETE DICTATION CARDIOLOGY CONSULTATION CONSULTING PHYSICIAN: Thomas Quiroz M.D. REFERRING PHYSICIAN: Amol Weinstein M.D. REASON FOR CONSULTATION: Management of tachycardia . Thomas Quiroz M.D. DR: ANISH JOB#: [id number] CC:
[2018-02-19 04:00] VITALS: BP 109/57
[2018-02-19 05:38] LABS: HEMATOCRIT 21.5 % (37.0-47.0); HEMOGLOBIN 7.1 G/DL (12.0-16.0); MEAN CORPUSCULAR VOLUME 88 FL (80-99); PLATELET COUNT 266 K/UL (150-450); RED BLOOD COUNT 2.45 M/UL (4.20-5.40); WHITE BLOOD COUNT 19.6 K/UL (4.8-10.8)
[2018-02-19 06:00] LABS: CREATINE KINASE 78 U/L (26-308); GAMMA GLUTAMYL TRANSPEPTIDASE 34 U/L (5-85); PHOSPHORUS 3.5 MG/DL (2.5-4.9)
[2018-02-19 06:07] LABS: % IRON SATURATION 142 % (15-50); IRON 51 ug/dL (50-175); TOTAL IRON BINDING CAPACITY 36 ug/dL (250-450)
[2018-02-19 06:08] LABS: ALANINE AMINOTRANSFERASE 14 U/L (12-78); ALBUMIN 1.6 G/DL (3.4-5.0); ALBUMIN/GLOBULIN RATIO 0.4 (1.0-2.7); ALKALINE PHOSPHATASE 153 U/L (46-116); ANION GAP 11 mmol/L (5-15); ASPARTATE AMINO TRANSFERASE 21 U/L (15-37); BILIRUBIN,TOTAL 0.5 MG/DL (0.2-1.0); BLOOD UREA NITROGEN 29 mg/dL (7-18); CARBON DIOXIDE 22 MMOL/L (21-32); CHLORIDE 102 MMOL/L (98-107); CREATININE 1.8 MG/DL (0.55-1.30); FERRITIN 1511 NG/ML (8-388); SODIUM 135 MMOL/L (136-145)
[2018-02-19 06:12] LABS: POTASSIUM 2.6 MMOL/L (3.5-5.1)
[2018-02-19 08:00] VITALS: BP 149/68
[2018-02-19] MEDS ORDERED: Gastrograffin 30ml ORAL PRN ×2 (09:00→09:01)
[2018-02-19] MEDS: Meropenem 1 GM in NS 55 ML IVPB SCH ×2 (09:01→21:57)
[2018-02-19] MEDS: Pantoprazole Inj IV SCH (09:01)
[2018-02-19] MEDS: Dakin's 0.125% Soln (Quarter Strength) 16oz TOPIC SCH (09:02)
--- NOTE | 2018-02-19 09:47 | General Surgery Progress Note ---
General Surgery-Progress Note Subjective Additional Comments no acute events. no pain. no n/v/f/c. minimal ng tube output. some flatus Objective Last 24 Hour Vital Signs Date Time Temp Pulse Resp B/P (MAP) Pulse Ox O2 Delivery O2 Flow Rate FiO2 02/19/18 08:00 96.9 102 21 149/68 (95) 98 02/19/18 08:00 89 02/19/18 04:00 97.2 102 18 109/57 (74) 100 02/19/18 04:00 109 02/19/18 04:00 Room Air 02/19/18 00:00 97.3 97 18 106/61 (76) 100 02/19/18 00:00 Room Air 02/19/18 00:00 102 02/18/18 20:00 Room Air 02/18/18 20:00 97.5 94 18 103/53 (70) 99 02/18/18 20:00 107 02/18/18 16:00 96.1 118 18 133/55 (81) 98 02/18/18 16:00 Room Air 02/18/18 15:29 124 02/18/18 12:00 97.3 103 18 112/65 (81) 99 02/18/18 12:00 Room Air 02/18/18 11:43 97 I&O Intake and Output 02/18/18 02/19/18 18:59 06:59 Intake Total 979.284 ml 470.824 ml Output Total 70 ml 210 ml Balance 909.284 ml 260.824 ml Intake IV Total 979.284 ml 470.824 ml Output Urine Total 60 ml 200 ml Gastric Drainage Total 10 ml 10 ml Dressing: saturated Wound: other Drains: other Cardiovascular: RSR Respiratory: clear Abdomen: soft, non-tender, present bowel sounds Extremities: no cyanosis Laboratory Tests Test 02/18/18 14:00 02/18/18 16:30 02/18/18 18:00 02/18/18 21:15 White Blood Count 24.2 K/UL (4.8-10.8) *H Red Blood Count 2.86 M/UL (4.20-5.40) L Hemoglobin 8.3 G/DL (12.0-16.0) L Hematocrit 25.0 % (37.0-47.0) L Mean Corpuscular Volume 87 FL (80-99) Mean Corpuscular Hemoglobin 29.1 PG (27.0-31.0) Mean Corpuscular Hemoglobin Concent 33.3 G/DL (32.0-36.0) Red Cell Distribution Width 15.5 % (11.6-14.8) H Platelet Count 323 K/UL (150-450) Mean Platelet Volume 5.3 FL (6.5-10.1) L Neutrophils (%) (Auto) % (45.0-75.0) Lymphocytes (%) (Auto) % (20.0-45.0) Monocytes (%) (Auto) % (1.0-10.0) Eosinophils (%) (Auto) % (0.0-3.0) Basophils (%) (Auto) % (0.0-2.0) Differential Total Cells Counted 100 Neutrophils % (Manual) 96 % (45-75) H Lymphocytes % (Manual) 4 % (20-45) L Monocytes % (Manual) 0 % (1-10) L Eosinophils % (Manual) 0 % (0-3) Basophils % (Manual) 0 % (0-2) Band Neutrophils 0 % (0-8) Platelet Estimate Adequate Platelet Morphology Normal Hypochromasia 2+ Anisocytosis 1+ Activated Partial Thromboplast Time 51 SEC (23-33) H > 150 SEC (23-33) *H Urine Random Sodium 33 mmol/L (20-110) Random Vancomycin Level 27.3 ug/mL Test 02/19/18 04:30 02/19/18 05:30 White Blood Count 19.6 K/UL (4.8-10.8) H Red Blood Count 2.45 M/UL (4.20-5.40) L Hemoglobin 7.1 G/DL (12.0-16.0) L Hematocrit 21.5 % (37.0-47.0) L Mean Corpuscular Volume 88 FL (80-99) Mean Corpuscular Hemoglobin 28.9 PG (27.0-31.0) Mean Corpuscular Hemoglobin Concent 32.9 G/DL (32.0-36.0) Red Cell Distribution Width 15.0 % (11.6-14.8) H Platelet Count 266 K/UL (150-450) Mean Platelet Volume 5.3 FL (6.5-10.1) L Neutrophils (%) (Auto) % (45.0-75.0) Lymphocytes (%) (Auto) % (20.0-45.0) Monocytes (%) (Auto) % (1.0-10.0) Eosinophils (%) (Auto) % (0.0-3.0) Basophils (%) (Auto) % (0.0-2.0) Differential Total Cells Counted 100 Neutrophils % (Manual) 94 % (45-75) H Lymphocytes % (Manual) 5 % (20-45) L Monocytes % (Manual) 1 % (1-10) Eosinophils % (Manual) 0 % (0-3) Basophils % (Manual) 0 % (0-2) Band Neutrophils 0 % (0-8) Platelet Estimate Adequate Platelet Morphology Normal Polychromasia 1+ Hypochromasia 2+ Anisocytosis 1+ Sodium Level 135 MMOL/L (136-145) L Potassium Level 2.6 MMOL/L (3.5-5.1) *L Chloride Level 102 MMOL/L (98-107) Carbon Dioxide Level 22 MMOL/L (21-32) Anion Gap 11 mmol/L (5-15) Blood Urea Nitrogen 29 mg/dL (7-18) H Creatinine 1.8 MG/DL (0.55-1.30) H Estimat Glomerular Filtration Rate mL/min (>60) Glucose Level 214 MG/DL (74-106) H Uric Acid 9.6 MG/DL (2.6-7.2) H Calcium Level 7.0 MG/DL (8.5-10.1) L Phosphorus Level 3.5 MG/DL (2.5-4.9) Magnesium Level 1.2 MG/DL (1.8-2.4) L Iron Level 51 ug/dL (50-175) Total Iron Binding Capacity 36 ug/dL (250-450) L Percent Iron Saturation 142 % (15-50) H Unsaturated Iron Binding -15 ug/dL (112-346) L Ferritin 1511 NG/ML (8-388) H Total Bilirubin 0.5 MG/DL (0.2-1.0) Gamma Glutamyl Transpeptidase 34 U/L (5-85) Aspartate Amino Transf (AST/SGOT) 21 U/L (15-37) Alanine Aminotransferase (ALT/SGPT) 14 U/L (12-78) Alkaline Phosphatase 153 U/L (46-116) H Total Creatine Kinase 78 U/L (26-308) Troponin I 0.020 ng/mL (0.000-0.056) Pro-B-Type Natriuretic Peptide 6212 pg/mL (0-125) H Total Protein 5.4 G/DL (6.4-8.2) L Albumin 1.6 G/DL (3.4-5.0) L Globulin 3.8 g/dL Albumin/Globulin Ratio 0.4 (1.0-2.7) L Vitamin B12 Level 1992 PG/ML (193-986) H Folate 3.3 NG/ML (8.6-58.9) L Thyroid Stimulating Hormone (TSH) 0.918 uiU/mL (0.358-3.740) Activated Partial Thromboplast Time > 150 SEC (23-33) *H Plan Problems: (1) Sepsis Assessment & Plan: sepsis, tachy, leukocytosis, lactic acidosis, abnormal labs likely related to abdominal etiology. possible infected sacral ulcer appreciate ID input. IV abx IV fluids (2) SBO (small bowel obstruction) Assessment & Plan: reviewed CT and discussed with radiologist. seems to have complete SBO with transition point in proximal bowel. distended and fluid filled proximal. decompressed distal. abdominal exam benign. no significant distention or tenderness. currently no n/v hx of prior episodes. discussed with patient and family. Recommend exploration given findings. Family and patient decline. State that it has been her wish for some time now to not have surgery even if life threatening. explained risks of worsening condition, perforation, even . expressed understanding and refuses surgery NPO IV fluids IV Abx NG tube to low intermittent suction trend labs discuss DNR status with patient and family given her wishes. Plan for upper GI with small bowel series. does not seem to be complete obstructed clinically. if upper GI with passage of contrast (may be slow or maybe mass in small bowel with partial obstruction?) okay to d/c ng tube and start clears (3) Pressure ulcer of sacral region, stage 4 Assessment & Plan: Full thickness pressure injury to sacrum with multiple open wounds periwound and R buttocks .Sacral pressure injury (L)11cm x (W)12.4cm x (D )4cm with undermining 9-4 by 4 cm at 3o'clock. Wound malodorous with 75% soft necrosis.Bone palpable.Additional pressure injuries noted periwound L buttocks. Full thickness pressure injury to Upper R buttocks (L)1.4cm x (W)4.7cm x(D)0.2cm ,scattered slough with granulation with marginal erythema. Full thickness inferior R buttocks (L)4.5cm x (W)2.5cm wound granular with marginal erythema. Full thickness pressure injury to R ischium (L)0.8cm x(W)2.3cm .Wound granular with dark borders. Periwound dark without induration. Multiple partial thickness pressure injuries in close proximity noted to upper/outer R buttocks ( L)2cm x (W)4.6cm with non-blanchable erythema periwound. R heel Mottled,cool and boggy with dry peeling skin (L)6cm x (W)8cm. Pt denied tenderness when minimally palpated. L heel mottled,boggy, and cool to touch (L)6cm x (W) 7.4cm .Pt verbalized tenderness when palpated. R and L 1st metatarsals mottled and non -tender when palpated. Spoke to Dtr regarding sacral pressure injury. Sacral wound cleansed with Saline and loosley packed with Saline moist gauze until evaluated by Surgeon.Dtr stated pt had small pressure injury in October which progressively worsened.Dtr also stated she was informed at [facility] wound was getting better. DTR made aware of stage and state of wound.Advised of Surgical consult and that surgeon would discuss all options with regards to wound. visited and Md also discussed possibility of surgical debridement of sacral wound with Dtr. Tx.Plan: Air fluidized mattress. Sacral Wound care orders as in wound care clarification orders; wash , dakins, dressings. Apply Cavilon to both heels and off-load heels daily. Cavilon wipes to R and L 1st metatarsals Daily Apply Moisture Barrier paste to Wounds R buttocks and R ischium and cover with Optifoam drsg Daily and prn. Reposition at minimum every 2hours or as tolerated. Discussed with family care plan. Her major concern is a complete bowel obstruction. the decubitus ulcer is concerning but chronic. will continue care for wounds but hold on debridement until the remainder of her medical condition is improved. family is considering hospice. Levon Jacobs Feb 19, 2018 09:47
--- NOTE | 2018-02-19 10:00 | General Progress Note ---
Assessment/Plan Assessment/Plan S: I am scared O: NG in place, Dtr at bedside. No distress, but in anxiety PHYSICAL EXAMINATION: HEAD AND NECK: Atraumatic and normocephalic. CHEST: Clear to auscultation. No wheezing. No crackles. ABDOMEN: Positive for tenderness on deep palpation. Bowel sounds have decreased.No rebound tenderness MUSCULOSKELETAL: Positive for the sacral decubitus wounds. Positive for decreased range of motion and strength in all four extremities. NEUROLOGIC: The patient is awake, alert, and oriented x3. anxious IMAGING STUDIES: Imaging shows abdominal pelvic CT scan dated February 17, is reviewed. Chest x-ray also reviewed. Meds: reviewed and reconciled including but not limited to Meropenem and Vanco ASSESSMENT: 1. Sepsis. Gram negative 2. Acute abdomen secondary to small bowel obstruction. 3. Decubitus wound, sacral possibility of osteomyelitis cannot be excluded. 4. Renal failure - age indeterminate. 5. Hyponatremia. 6. Catheter-induced urinary infection. 7. GI and DVT prophylaxis. PLAN OF CARE: I had detailed conversation with Tin, the Dtr POLST to DNR Consulted Hospice care [facility] medical prognosis Subjective Allergies: Coded Allergies: No Known Allergies (Unverified , 02/17/18) Objective Last 24 Hour Vital Signs Date Time Temp Pulse Resp B/P (MAP) Pulse Ox O2 Delivery O2 Flow Rate FiO2 02/19/18 08:00 96.9 102 21 149/68 (95) 98 02/19/18 08:00 89 02/19/18 04:00 97.2 102 18 109/57 (74) 100 02/19/18 04:00 109 02/19/18 04:00 Room Air 02/19/18 00:00 97.3 97 18 106/61 (76) 100 02/19/18 00:00 Room Air 02/19/18 00:00 102 02/18/18 20:00 Room Air 02/18/18 20:00 97.5 94 18 103/53 (70) 99 02/18/18 20:00 107 02/18/18 16:00 96.1 118 18 133/55 (81) 98 02/18/18 16:00 Room Air 02/18/18 15:29 124 02/18/18 12:00 97.3 103 18 112/65 (81) 99 02/18/18 12:00 Room Air 02/18/18 11:43 97 Intake and Output 02/18/18 02/19/18 19:00 07:00 Intake Total 979.284 ml 470.824 ml Output Total 70 ml 210 ml Balance 909.284 ml 260.824 ml Intake IV Total 979.284 ml 470.824 ml Output Urine Total 60 ml 200 ml Gastric Drainage Total 10 ml 10 ml Laboratory Tests 02/18/18 14:00: White Blood Count 24.2*H, Red Blood Count 2.86L, Hemoglobin 8.3L, Hematocrit 25.0L, Mean Corpuscular Volume 87, Mean Corpuscular Hemoglobin 29.1, Mean Corpuscular Hemoglobin Concent 33.3, Red Cell Distribution Width 15.5H, Platelet Count 323, Mean Platelet Volume 5.3L, Neutrophils (%) (Auto) , Lymphocytes (%) (Auto) , Monocytes (%) (Auto) , Eosinophils (%) (Auto) , Basophils (%) (Auto) , Differential Total Cells Counted 100, Neutrophils % ( Manual) 96H, Lymphocytes % (Manual) 4L, Monocytes % (Manual) 0L, Eosinophils % ( Manual) 0, Basophils % (Manual) 0, Band Neutrophils 0, Platelet Estimate Adequate, Platelet Morphology Normal, Hypochromasia 2+, Anisocytosis 1+, Activated Partial Thromboplast Time 51H 02/18/18 16:30: Urine Random Sodium 33 02/18/18 18:00: Random Vancomycin Level 27.3 02/18/18 21:15: Activated Partial Thromboplast Time > 150*H 02/19/18 04:30: White Blood Count 19.6H, Red Blood Count 2.45L, Hemoglobin 7.1L, Hematocrit 21.5L, Mean Corpuscular Volume 88, Mean Corpuscular Hemoglobin 28.9, Mean Corpuscular Hemoglobin Concent 32.9, Red Cell Distribution Width 15.0H, Platelet Count 266, Mean Platelet Volume 5.3L, Neutrophils (%) (Auto) , Lymphocytes (%) (Auto) , Monocytes (%) (Auto) , Eosinophils (%) (Auto) , Basophils (%) (Auto) , Differential Total Cells Counted 100, Neutrophils % ( Manual) 94H, Lymphocytes % (Manual) 5L, Monocytes % (Manual) 1, Eosinophils % ( Manual) 0, Basophils % (Manual) 0, Band Neutrophils 0, Platelet Estimate Adequate, Platelet Morphology Normal, Polychromasia 1+, Hypochromasia 2+, Anisocytosis 1+, Sodium Level 135L, Potassium Level 2.6*L, Chloride Level 102, Carbon Dioxide Level 22, Anion Gap 11, Blood Urea Nitrogen 29H, Creatinine 1.8H , Estimat Glomerular Filtration Rate , Glucose Level 214H, Uric Acid 9.6H, Calcium Level 7.0L, Phosphorus Level 3.5, Magnesium Level 1.2L, Iron Level 51, Total Iron Binding Capacity 36L, Percent Iron Saturation 142H, Unsaturated Iron Binding -15L, Ferritin 1511H, Total Bilirubin 0.5, Gamma Glutamyl Transpeptidase 34, Aspartate Amino Transf (AST/SGOT) 21, Alanine Aminotransferase (ALT/SGPT) 14, Alkaline Phosphatase 153H, Total Creatine Kinase 78, Troponin I 0.020, Pro-B-Type Natriuretic Peptide 6212H, Total Protein 5.4L, Albumin 1.6L, Globulin 3.8, Albumin/Globulin Ratio 0.4L, Vitamin B12 Level 1992H, Folate 3.3L, Thyroid Stimulating Hormone (TSH) 0.918 02/19/18 05:30: Activated Partial Thromboplast Time > 150*H Height (Feet): 5 Height (Inches): 5.00 Weight (Pounds): 186 Amol Weinstein MD Feb 19, 2018 10:00
--- NOTE | 2018-02-19 10:23 | Pulmonology Progress Note ---
Assessment/Plan Problems: (1) Sepsis (2) SBO (small bowel obstruction) (3) Abnormal blood electrolyte level (4) Osteomyelitis of sacrum (5) Pressure ulcer of sacral region, stage 4 (6) JANNETTE (acute kidney injury) Assessment/Plan ASSESSMENT: The patient is a 72-year-old [facility] resident with CVA, recent small bowel obstruction at an outside hospital, now presenting for evaluation of abnormal laboratories, noted to have a sacral decubitus ulcer with possible osteomyelitis, urinary tract infection, and bacteremia, as well as a possible pneumonia. PROBLEM LIST: 1. Left perihilar infiltrate, likely healthcare-associated pneumonia. 2. Stage IV sacral decubitus ulcer with likely osteomyelitis. 3. Gram negative bacillus urinary tract infection. 4. Gram-positive cocci and gram-negative sepsis. 5. Acute superficial femoral and popliteal DVT in the right and common femoral, superficial femoral, and popliteal DVT in the left. 6. Small bowel obstruction, likely acute on chronic. 7. Concern for unusual fat or fluid collections in the abdomen/abdominal wall. 8. Leukocytosis. 9. Anemia. 10. Abnormal creatinine, JANNETTE versus CKD. 11. Severe protein-calorie malnutrition. 12. Prior CVA. TREATMENT PLAN: 1. Optimize pulmonary hygiene/mobilize as tolerated. 2. P.r.n. O2. 3. Monitor for signs of worsening respiratory status. 4. Continue antibiotics (vancomycin and meropenem) + Fluconazole per Infectious Disease service. 5. Follow up Surgery recommendations, NO PLAN FOR debridement of sacral decubitus ulcer OR laparotomy based on family's goals of care. 6. Monitor volumes and renal function, gentle IV fluid hydration as tolerated, replete electrolytes 8. A/C held given elevated PTT 9. NPO, NG-tube to suction. 10. DNAR, dispo planning to hospice Subjective Allergies: Coded Allergies: No Known Allergies (Unverified , 02/17/18) Subjective AFVSS, on RA + distress DNAR, transitioning to hospice Objective Last 24 Hour Vital Signs Date Time Temp Pulse Resp B/P (MAP) Pulse Ox O2 Delivery O2 Flow Rate FiO2 02/19/18 08:00 96.9 102 21 149/68 (95) 98 02/19/18 08:00 89 02/19/18 04:00 97.2 102 18 109/57 (74) 100 11/21/18 04:00 109 02/19/18 04:00 Room Air 02/19/18 00:00 97.3 97 18 106/61 (76) 100 02/19/18 00:00 Room Air 02/19/18 00:00 102 02/18/18 20:00 Room Air 02/18/18 20:00 97.5 94 18 103/53 (70) 99 02/18/18 20:00 107 02/18/18 16:00 96.1 118 18 133/55 (81) 98 02/18/18 16:00 Room Air 02/18/18 15:29 124 02/18/18 12:00 97.3 103 18 112/65 (81) 99 02/18/18 12:00 Room Air 02/18/18 11:43 97 Intake and Output 02/18/18 02/19/18 18:59 06:59 Intake Total 979.284 ml 470.824 ml Output Total 70 ml 210 ml Balance 909.284 ml 260.824 ml Intake IV Total 979.284 ml 470.824 ml Output Urine Total 60 ml 200 ml Gastric Drainage Total 10 ml 10 ml General Appearance: cachetic HEENT: normocephalic, atraumatic, other - NGT Respiratory/Chest: lungs clear Cardiovascular: normal peripheral pulses, normal rate, regular rhythm Abdomen: distended, guarding Extremities: no cyanosis, no clubbing, no edema Microbiology Date/Time Source Procedure Growth Status 02/17/18 13:00 Blood Blood Culture - Preliminary Staphylococcus Aureus Gram Positive Cocci Resulted 02/17/18 12:35 Blood Blood Culture - Preliminary Gram Negative Bacillus 1 Resulted 02/17/18 18:00 Nasal Nares MRSA Culture - Preliminary Resulted 02/17/18 12:43 Nasal Nares Influenza Types A,B Antigen (MAXIMO) - Final Complete 02/17/18 13:05 Urine,Clean Catch Urine Culture - Final Klebsiella Pneumoniae Esbl Complete 02/17/18 18:00 Rectum - Final NO CARBAPENEM-RESISTANT ENTEROBACTERI... Complete 02/17/18 18:00 Rectum VRE Culture - Final NO VANCOMYCIN RESISTANT ENTEROCOCCUS ... Complete Laboratory Tests 02/18/18 14:00: White Blood Count 24.2*H, Red Blood Count 2.86L, Hemoglobin 8.3L, Hematocrit 25.0L, Mean Corpuscular Volume 87, Mean Corpuscular Hemoglobin 29.1, Mean Corpuscular Hemoglobin Concent 33.3, Red Cell Distribution Width 15.5H, Platelet Count 323, Mean Platelet Volume 5.3L, Neutrophils (%) (Auto) , Lymphocytes (%) (Auto) , Monocytes (%) (Auto) , Eosinophils (%) (Auto) , Basophils (%) (Auto) , Differential Total Cells Counted 100, Neutrophils % ( Manual) 96H, Lymphocytes % (Manual) 4L, Monocytes % (Manual) 0L, Eosinophils % ( Manual) 0, Basophils % (Manual) 0, Band Neutrophils 0, Platelet Estimate Adequate, Platelet Morphology Normal, Hypochromasia 2+, Anisocytosis 1+, Activated Partial Thromboplast Time 51H 02/18/18 16:30: Urine Random Sodium 33 02/18/18 18:00: Random Vancomycin Level 27.3 02/18/18 21:15: Activated Partial Thromboplast Time > 150*H 02/19/18 04:30: White Blood Count 19.6H, Red Blood Count 2.45L, Hemoglobin 7.1L, Hematocrit 21.5L, Mean Corpuscular Volume 88, Mean Corpuscular Hemoglobin 28.9, Mean Corpuscular Hemoglobin Concent 32.9, Red Cell Distribution Width 15.0H, Platelet Count 266, Mean Platelet Volume 5.3L, Neutrophils (%) (Auto) , Lymphocytes (%) (Auto) , Monocytes (%) (Auto) , Eosinophils (%) (Auto) , Basophils (%) (Auto) , Differential Total Cells Counted 100, Neutrophils % ( Manual) 94H, Lymphocytes % (Manual) 5L, Monocytes % (Manual) 1, Eosinophils % ( Manual) 0, Basophils % (Manual) 0, Band Neutrophils 0, Platelet Estimate Adequate, Platelet Morphology Normal, Polychromasia 1+, Hypochromasia 2+, Anisocytosis 1+, Sodium Level 135L, Potassium Level 2.6*L, Chloride Level 102, Carbon Dioxide Level 22, Anion Gap 11, Blood Urea Nitrogen 29H, Creatinine 1.8H , Estimat Glomerular Filtration Rate , Glucose Level 214H, Uric Acid 9.6H, Calcium Level 7.0L, Phosphorus Level 3.5, Magnesium Level 1.2L, Iron Level 51, Total Iron Binding Capacity 36L, Percent Iron Saturation 142H, Unsaturated Iron Binding -15L, Ferritin 1511H, Total Bilirubin 0.5, Gamma Glutamyl Transpeptidase 34, Aspartate Amino Transf (AST/SGOT) 21, Alanine Aminotransferase (ALT/SGPT) 14, Alkaline Phosphatase 153H, Total Creatine Kinase 78, Troponin I 0.020, Pro-B-Type Natriuretic Peptide 6212H, Total Protein 5.4L, Albumin 1.6L, Globulin 3.8, Albumin/Globulin Ratio 0.4L, Vitamin B12 Level 1992H, Folate 3.3L, Thyroid Stimulating Hormone (TSH) 0.918 02/19/18 05:30: Activated Partial Thromboplast Time > 150*H Current Medications Medications (Trade) Dose Ordered Sig/Nidia Route PRN Reason Start Time Stop Time Status Last Admin Dose Admin Chlorhexidine Gluconate (Taylor-Hex 2%) 1 applic DAILY@2000 TOPIC 02/18/18 20:00 03/20/18 19:59 02/18/18 21:01 Dextrose (Dextrose 50%) 25 ml Q30M PRN IV Hypoglycemia 02/17/18 16:00 03/19/18 15:59 Dextrose (Dextrose 50%) 50 ml Q30M PRN IV Hypoglycemia 02/17/18 16:00 03/19/18 15:59 Dextrose/Sodium Chloride 1,000 ml @ 100 mls/hr Q10H IV 02/17/18 17:00 03/19/18 16:59 02/19/18 03:00 Diatrizoate Meglum/ Diatrizoate Sod (Gastrografin) 30 ml NOW PRN ORAL Radiology Procedure 02/19/18 09:01 02/20/18 23:59 Fluconazole/ Sodium Chloride 100 ml @ 100 mls/hr Q24H IV 02/18/18 17:00 02/25/18 16:59 02/18/18 17:14 Heparin Sodium/ Sodium Chloride (Heparin 2000 units/Ns 1000ml premix) 2,000 unit ONCE PRN INJ picc line placement 02/18/18 11:00 02/20/18 10:59 Lidocaine HCl (Xylocaine 1% 30ml) 30 ml ONCE PRN INJ picc line placement 02/18/18 11:00 02/20/18 10:59 Lorazepam (Ativan 2mg/ml 1ml) 1 mg Q6H PRN IV For Anxiety 02/18/18 13:45 02/25/18 13:44 Magnesium Sulfate 100 ml @ 100 mls/hr Q1H IVPB 02/19/18 08:30 02/19/18 12:29 02/19/18 09:02 Meropenem 1 gm/ Sodium Chloride 55 ml @ 110 mls/hr Q12HR IVPB 02/17/18 20:00 02/22/18 19:59 02/19/18 09:01 Morphine Sulfate (Morphine Sulfate) 2 mg Q4H PRN IVP PAIN 4-10 02/17/18 18:30 02/24/18 18:29 02/19/18 09:01 Pantoprazole (Protonix) 40 mg DAILY IV 02/17/18 16:00 03/19/18 15:59 02/19/18 09:01 Potassium Chloride 100 ml @ 50 mls/hr ONCE IVPB 02/19/18 14:00 02/19/18 15:59 Potassium Chloride 100 ml @ 50 mls/hr Q2H IVPB 02/19/18 08:00 02/19/18 11:59 02/19/18 09:02 Sodium Hypochlorite (Dakin's Quarter Strength) 1 applic Q24H TOPIC 02/18/18 09:00 03/19/18 19:59 02/19/18 09:02 Sodium Chloride 500 ml @ 999 mls/hr Q31M PRN IV For hypotension 02/17/18 16:15 03/19/18 16:14 Vancomycin HCl (Vanco rx to dose) 1 ea DAILY PRN MISC Per rx protocol 02/17/18 16:15 03/19/18 16:14 Jacinto Johnson MD Feb 19, 2018 10:22
--- NOTE | 2018-02-19 11:00 | Nephrology Progress Note ---
Assessment/Plan Problem List: (1) JANNETTE (acute kidney injury) (2) SBO (small bowel obstruction) (3) Osteomyelitis of sacrum (4) Sepsis Assessment Renal failure- Acute on chronic/ presented with High K Small Bowel Obstruction UTI Sacral Osteo HypoNatremia Sever HypoAlbuminemia & Proteinuria Anemia Plan IV KCL- IV Mag- per consultants suggest comfort care IV Fluid- NPO- Suction Antibiotics Anemia persaud Subjective ROS Limited/Unobtainable: No Constitutional: Reports: malaise Objective Objective Last 24 Hour Vital Signs Date Time Temp Pulse Resp B/P (MAP) Pulse Ox O2 Delivery O2 Flow Rate FiO2 02/19/18 08:00 96.9 102 21 149/68 (95) 98 02/19/18 08:00 89 02/19/18 04:00 97.2 102 18 109/57 (74) 100 02/19/18 04:00 109 02/19/18 04:00 Room Air 02/19/18 00:00 97.3 97 18 106/61 (76) 100 02/19/18 00:00 Room Air 02/19/18 00:00 102 02/18/18 20:00 Room Air 02/18/18 20:00 97.5 94 18 103/53 (70) 99 02/18/18 20:00 107 02/18/18 16:00 96.1 118 18 133/55 (81) 98 02/18/18 16:00 Room Air 02/18/18 15:29 124 02/18/18 12:00 97.3 103 18 112/65 (81) 99 02/18/18 12:00 Room Air 02/18/18 11:43 97 Intake and Output 02/18/18 02/19/18 18:59 06:59 Intake Total 979.284 ml 470.824 ml Output Total 70 ml 210 ml Balance 909.284 ml 260.824 ml Intake IV Total 979.284 ml 470.824 ml Output Urine Total 60 ml 200 ml Gastric Drainage Total 10 ml 10 ml Laboratory Tests 02/18/18 14:00: White Blood Count 24.2*H, Red Blood Count 2.86L, Hemoglobin 8.3L, Hematocrit 25.0L, Mean Corpuscular Volume 87, Mean Corpuscular Hemoglobin 29.1, Mean Corpuscular Hemoglobin Concent 33.3, Red Cell Distribution Width 15.5H, Platelet Count 323, Mean Platelet Volume 5.3L, Neutrophils (%) (Auto) , Lymphocytes (%) (Auto) , Monocytes (%) (Auto) , Eosinophils (%) (Auto) , Basophils (%) (Auto) , Differential Total Cells Counted 100, Neutrophils % ( Manual) 96H, Lymphocytes % (Manual) 4L, Monocytes % (Manual) 0L, Eosinophils % ( Manual) 0, Basophils % (Manual) 0, Band Neutrophils 0, Platelet Estimate Adequate, Platelet Morphology Normal, Hypochromasia 2+, Anisocytosis 1+, Activated Partial Thromboplast Time 51H 02/18/18 16:30: Urine Random Sodium 33 02/18/18 18:00: Random Vancomycin Level 27.3 02/18/18 21:15: Activated Partial Thromboplast Time > 150*H 02/19/18 04:30: White Blood Count 19.6H, Red Blood Count 2.45L, Hemoglobin 7.1L, Hematocrit 21.5L, Mean Corpuscular Volume 88, Mean Corpuscular Hemoglobin 28.9, Mean Corpuscular Hemoglobin Concent 32.9, Red Cell Distribution Width 15.0H, Platelet Count 266, Mean Platelet Volume 5.3L, Neutrophils (%) (Auto) , Lymphocytes (%) (Auto) , Monocytes (%) (Auto) , Eosinophils (%) (Auto) , Basophils (%) (Auto) , Differential Total Cells Counted 100, Neutrophils % ( Manual) 94H, Lymphocytes % (Manual) 5L, Monocytes % (Manual) 1, Eosinophils % ( Manual) 0, Basophils % (Manual) 0, Band Neutrophils 0, Platelet Estimate Adequate, Platelet Morphology Normal, Polychromasia 1+, Hypochromasia 2+, Anisocytosis 1+, Sodium Level 135L, Potassium Level 2.6*L, Chloride Level 102, Carbon Dioxide Level 22, Anion Gap 11, Blood Urea Nitrogen 29H, Creatinine 1.8H , Estimat Glomerular Filtration Rate , Glucose Level 214H, Uric Acid 9.6H, Calcium Level 7.0L, Phosphorus Level 3.5, Magnesium Level 1.2L, Iron Level 51, Total Iron Binding Capacity 36L, Percent Iron Saturation 142H, Unsaturated Iron Binding -15L, Ferritin 1511H, Total Bilirubin 0.5, Gamma Glutamyl Transpeptidase 34, Aspartate Amino Transf (AST/SGOT) 21, Alanine Aminotransferase (ALT/SGPT) 14, Alkaline Phosphatase 153H, Total Creatine Kinase 78, Troponin I 0.020, Pro-B-Type Natriuretic Peptide 6212H, Total Protein 5.4L, Albumin 1.6L, Globulin 3.8, Albumin/Globulin Ratio 0.4L, Vitamin B12 Level 1992H, Folate 3.3L, Thyroid Stimulating Hormone (TSH) 0.918 02/19/18 05:30: Activated Partial Thromboplast Time > 150*H Height (Feet): 5 Height (Inches): 5.00 Weight (Pounds): 186 EENT: other - NGT Cardiovascular: bradycardia Respiratory/Chest: decreased breath sounds Abdomen: distended Agustín Parmar MD Feb 19, 2018 11:00
[2018-02-19 12:00] VITALS: BP 152/76
--- NOTE | 2018-02-19 14:22 | Infectious Diseases Prog Note ---
Assessment/Plan Problems: (1) Pressure ulcer of sacral region, stage 4 Assessment & Plan: deep and necrotic with undermining , and foul smell , infected with possible underlying osteomyelitis of the sacrum and coccyx . MRI of the sacrum is pending to confirm, recommend surgical excision and debridement. daughter had chosen hospice care and no surgical debridement of the sacrum . continue off loading and local wound care as per hospital protocol (2) Cutaneous abscess of abdominal wall Assessment & Plan: source hematogenous VS translocation from the pelvis , on meropenem and vancomycin renally dosed, no surgical intervention (3) Catheter-associated urinary tract infection Assessment & Plan: due to ESBL producing klebsiella pneumonia , S/P lomeli catheter change, continue meropenem (4) Sepsis Assessment & Plan: with poly organisms due to the above with leukocytosis , on meropenem and vancomycin renally dosed , pending blood culture, wbc went up a little , patient needs surgical debridement of the sacrum for source control . will add antifungal coverage pending surgical debridement (5) JANNETTE (acute kidney injury) Assessment & Plan: due to the above , continue hydration with renally dosed medications, monitor renal function and UOP (6) Osteomyelitis of sacrum Assessment & Plan: suspect chronic due to the deep pressure wound , MRI to confirm was held since still on continuos suctioning , recommend bone biopsy for culture to identify the exact cause (7) Abnormal blood electrolyte level Assessment & Plan: continue hydration with close monitoring of electrolytes (8) SBO (small bowel obstruction) Assessment & Plan: with possible adhesions, and fat filled fluids collection , perforation ? VS abscesses , keep NPO, continue hydration, surgical eval . Assessment/Plan I had discussion with her daughter again today regarding her condition and she had agreed with the rest of the family for hospice care and DNR . Subjective Constitutional: Reports: fatigue HEENT: Reports: no symptoms Respiratory: Reports: dry cough Breasts: Reports: no symptoms Cardiovascular: Reports: no symptoms Gastrointestinal/Abdominal: Reports: constipation, bloating, other - obstruction Genitourinary: Reports: no symptoms Neurologic: Reports: no symptoms Psychiatric: Reports: no symptoms Skin: Reports: no symptoms Endocrine: Reports: no symptoms Hematologic: Reports: no symptoms Musculoskeletal: Reports: no symptoms Allergies: Coded Allergies: No Known Allergies (Unverified , 02/17/18) Objective Vital Signs Last 24 Hour Vital Signs Date Time Temp Pulse Resp B/P (MAP) Pulse Ox O2 Delivery O2 Flow Rate FiO2 02/19/18 12:00 97.2 98 22 152/76 (101) 99 02/19/18 12:00 Room Air 02/19/18 12:00 102 02/19/18 08:00 96.9 102 21 149/68 (95) 98 02/19/18 08:00 Room Air 02/19/18 08:00 89 02/19/18 04:00 97.2 102 18 109/57 (74) 100 02/19/18 04:00 109 02/19/18 04:00 Room Air 02/19/18 00:00 97.3 97 18 106/61 (76) 100 02/19/18 00:00 Room Air 02/19/18 00:00 102 02/18/18 20:00 Room Air 02/18/18 20:00 97.5 94 18 103/53 (70) 99 02/18/18 20:00 107 02/18/18 16:00 96.1 118 18 133/55 (81) 98 02/18/18 16:00 Room Air 02/18/18 15:29 124 Height (Feet): 5 Height (Inches): 5.00 Weight (Pounds): 186 General Appearance: WD/WN, no acute distress, other - tired and confused HEENT: normocephalic, atraumatic, anicteric, mucous membranes moist, PERRL Respiratory/Chest: chest wall non-tender, lungs clear, normal breath sounds, no respiratory distress, no accessory muscle use Cardiovascular: normal peripheral pulses, normal rate, regular rhythm, no gallop/murmur, no JVD Abdomen: normal bowel sounds, soft, non tender, no organomegaly, non distended , no mass, no scars Extremities: no cyanosis, no clubbing Skin: no rash, no lesions, ulcers Neurologic/Psychiatric: alert, responsive Lymphatic: no neck adenopathy, no groin adenopathy Musculoskeletal: normal muscle bulk, no effusion Microbiology Date/Time Source Procedure Growth Status 02/17/18 13:00 Blood Blood Culture - Preliminary Staphylococcus Aureus Gram Positive Cocci Resulted 02/17/18 12:35 Blood Blood Culture - Preliminary Gram Negative Bacillus 1 Resulted 02/17/18 18:00 Nasal Nares MRSA Culture - Preliminary Resulted 11/19/18 12:43 Nasal Nares Influenza Types A,B Antigen (MAXIMO) - Final Complete 02/17/18 13:05 Urine,Clean Catch Urine Culture - Final Klebsiella Pneumoniae Esbl Complete 02/17/18 18:00 Rectum - Final NO CARBAPENEM-RESISTANT ENTEROBACTERI... Complete 02/17/18 18:00 Rectum VRE Culture - Final NO VANCOMYCIN RESISTANT ENTEROCOCCUS ... Complete Laboratory Tests Test 02/18/18 16:30 02/18/18 18:00 02/18/18 21:15 02/19/18 04:30 Urine Random Sodium 33 mmol/L (20-110) Random Vancomycin Level 27.3 ug/mL Activated Partial Thromboplast Time > 150 SEC (23-33) *H White Blood Count 19.6 K/UL (4.8-10.8) H Red Blood Count 2.45 M/UL (4.20-5.40) L Hemoglobin 7.1 G/DL (12.0-16.0) L Hematocrit 21.5 % (37.0-47.0) L Mean Corpuscular Volume 88 FL (80-99) Mean Corpuscular Hemoglobin 28.9 PG (27.0-31.0) Mean Corpuscular Hemoglobin Concent 32.9 G/DL (32.0-36.0) Red Cell Distribution Width 15.0 % (11.6-14.8) H Platelet Count 266 K/UL (150-450) Mean Platelet Volume 5.3 FL (6.5-10.1) L Neutrophils (%) (Auto) % (45.0-75.0) Lymphocytes (%) (Auto) % (20.0-45.0) Monocytes (%) (Auto) % (1.0-10.0) Eosinophils (%) (Auto) % (0.0-3.0) Basophils (%) (Auto) % (0.0-2.0) Differential Total Cells Counted 100 Neutrophils % (Manual) 94 % (45-75) H Lymphocytes % (Manual) 5 % (20-45) L Monocytes % (Manual) 1 % (1-10) Eosinophils % (Manual) 0 % (0-3) Basophils % (Manual) 0 % (0-2) Band Neutrophils 0 % (0-8) Platelet Estimate Adequate Platelet Morphology Normal Polychromasia 1+ Hypochromasia 2+ Anisocytosis 1+ Sodium Level 135 MMOL/L (136-145) L Potassium Level 2.6 MMOL/L (3.5-5.1) *L Chloride Level 102 MMOL/L (98-107) Carbon Dioxide Level 22 MMOL/L (21-32) Anion Gap 11 mmol/L (5-15) Blood Urea Nitrogen 29 mg/dL (7-18) H Creatinine 1.8 MG/DL (0.55-1.30) H Estimat Glomerular Filtration Rate mL/min (>60) Glucose Level 214 MG/DL (74-106) H Uric Acid 9.6 MG/DL (2.6-7.2) H Calcium Level 7.0 MG/DL (8.5-10.1) L Phosphorus Level 3.5 MG/DL (2.5-4.9) Magnesium Level 1.2 MG/DL (1.8-2.4) L Iron Level 51 ug/dL (50-175) Total Iron Binding Capacity 36 ug/dL (250-450) L Percent Iron Saturation 142 % (15-50) H Unsaturated Iron Binding -15 ug/dL (112-346) L Ferritin 1511 NG/ML (8-388) H Total Bilirubin 0.5 MG/DL (0.2-1.0) Gamma Glutamyl Transpeptidase 34 U/L (5-85) Aspartate Amino Transf (AST/SGOT) 21 U/L (15-37) Alanine Aminotransferase (ALT/SGPT) 14 U/L (12-78) Alkaline Phosphatase 153 U/L (46-116) H Total Creatine Kinase 78 U/L (26-308) Troponin I 0.020 ng/mL (0.000-0.056) Pro-B-Type Natriuretic Peptide 6212 pg/mL (0-125) H Total Protein 5.4 G/DL (6.4-8.2) L Albumin 1.6 G/DL (3.4-5.0) L Globulin 3.8 g/dL Albumin/Globulin Ratio 0.4 (1.0-2.7) L Vitamin B12 Level 1992 PG/ML (193-986) H Folate 3.3 NG/ML (8.6-58.9) L Thyroid Stimulating Hormone (TSH) 0.918 uiU/mL (0.358-3.740) Test 02/19/18 05:30 Activated Partial Thromboplast Time > 150 SEC (23-33) *H Current Medications Medications (Trade) Dose Ordered Sig/Nidia Route PRN Reason Start Time Stop Time Status Last Admin Dose Admin Chlorhexidine Gluconate (Taylor-Hex 2%) 1 applic DAILY@2000 TOPIC 02/18/18 20:00 03/20/18 19:59 02/18/18 21:01 Dextrose (Dextrose 50%) 25 ml Q30M PRN IV Hypoglycemia 02/17/18 16:00 03/19/18 15:59 Dextrose (Dextrose 50%) 50 ml Q30M PRN IV Hypoglycemia 02/17/18 16:00 03/19/18 15:59 Dextrose/ Electrolytes 1,000 ml @ 75 mls/hr [id number] IV 02/19/18 12:00 03/21/18 11:59 Diatrizoate Meglum/ Diatrizoate Sod (Gastrografin) 30 ml NOW PRN ORAL Radiology Procedure 02/19/18 09:01 02/20/18 23:59 Fluconazole/ Sodium Chloride 100 ml @ 100 mls/hr Q24H IV 02/18/18 17:00 02/25/18 16:59 02/18/18 17:14 Haloperidol Lactate (Haldol) 5 mg Q6H PRN IM Agitation 02/19/18 11:45 03/21/18 11:44 Heparin Sodium/ Sodium Chloride (Heparin 2000 units/Ns 1000ml premix) 2,000 unit ONCE PRN INJ picc line placement 02/18/18 11:00 02/20/18 10:59 Lidocaine HCl (Xylocaine 1% 30ml) 30 ml ONCE PRN INJ picc line placement 02/18/18 11:00 02/20/18 10:59 Magnesium Sulfate 100 ml @ 100 mls/hr ONCE IVPB 02/19/18 14:00 02/19/18 15:00 Meropenem 1 gm/ Sodium Chloride 55 ml @ 110 mls/hr Q12HR IVPB 02/17/18 20:00 02/22/18 19:59 02/19/18 09:01 Morphine Sulfate (Morphine Sulfate) 2 mg Q4H PRN IVP PAIN 4-10 02/17/18 18:30 02/24/18 18:29 02/19/18 09:01 Pantoprazole (Protonix) 40 mg DAILY IV 02/17/18 16:00 03/19/18 15:59 02/19/18 09:01 Potassium Chloride 100 ml @ 50 mls/hr ONCE IVPB 02/19/18 14:00 02/19/18 15:59 Sodium Hypochlorite (Dakin's Quarter Strength) 1 applic Q24H TOPIC 02/18/18 09:00 03/19/18 19:59 02/19/18 09:02 Sodium Chloride 500 ml @ 999 mls/hr Q31M PRN IV For hypotension 02/17/18 16:15 03/19/18 16:14 Vancomycin HCl (Vanco rx to dose) 1 ea DAILY PRN MISC Per rx protocol 02/17/18 16:15 03/19/18 16:14 Ari Lewis M.D. Feb 19, 2018 14:22
[2018-02-19] MEDS: D5NS w/KCl 40mEq 1000ml 1,000 ML IV SCH (15:10)
[2018-02-19 16:00] VITALS: BP 134/75
[2018-02-19 19:47] VITALS: BP 132/94
--- NOTE | 2018-02-19 19:58 | General Progress Note ---
Assessment/Plan Status: unchanged Assessment/Plan Anxiety d/o dc Ativan prn Provided ro/st haldol prn Subjective Neurologic/Psychiatric: Reports: anxiety, depressed, emotional problems Allergies: Coded Allergies: No Known Allergies (Unverified , 02/17/18) Subjective the pt was agitated and confused Objective Last 24 Hour Vital Signs Date Time Temp Pulse Resp B/P (MAP) Pulse Ox O2 Delivery O2 Flow Rate FiO2 02/19/18 19:47 97.0 100 20 132/94 (107) 100 02/19/18 16:00 97.5 105 22 134/75 (94) 98 02/19/18 16:00 106 02/19/18 16:00 Room Air 02/19/18 12:00 97.2 98 22 152/76 (101) 99 02/19/18 12:00 Room Air 02/19/18 12:00 102 02/19/18 08:00 96.9 102 21 149/68 (95) 98 02/19/18 08:00 Room Air 02/19/18 08:00 89 02/19/18 04:00 97.2 102 18 109/57 (74) 100 02/19/18 04:00 109 02/19/18 04:00 Room Air 02/19/18 00:00 97.3 97 18 106/61 (76) 100 02/19/18 00:00 Room Air 02/19/18 00:00 102 02/18/18 20:00 Room Air 02/18/18 20:00 97.5 94 18 103/53 (70) 99 02/18/18 20:00 107 Intake and Output 02/18/18 02/19/18 19:00 07:00 Intake Total 979.284 ml 570.824 ml Output Total 70 ml 210 ml Balance 909.284 ml 360.824 ml Intake IV Total 979.284 ml 570.824 ml Output Urine Total 60 ml 200 ml Gastric Drainage Total 10 ml 10 ml Laboratory Tests 02/18/18 21:15: Activated Partial Thromboplast Time > 150*H 02/19/18 04:30: White Blood Count 19.6H, Red Blood Count 2.45L, Hemoglobin 7.1L, Hematocrit 21.5L, Mean Corpuscular Volume 88, Mean Corpuscular Hemoglobin 28.9, Mean Corpuscular Hemoglobin Concent 32.9, Red Cell Distribution Width 15.0H, Platelet Count 266, Mean Platelet Volume 5.3L, Neutrophils (%) (Auto) , Lymphocytes (%) (Auto) , Monocytes (%) (Auto) , Eosinophils (%) (Auto) , Basophils (%) (Auto) , Differential Total Cells Counted 100, Neutrophils % ( Manual) 94H, Lymphocytes % (Manual) 5L, Monocytes % (Manual) 1, Eosinophils % ( Manual) 0, Basophils % (Manual) 0, Band Neutrophils 0, Platelet Estimate Adequate, Platelet Morphology Normal, Polychromasia 1+, Hypochromasia 2+, Anisocytosis 1+, Sodium Level 135L, Potassium Level 2.6*L, Chloride Level 102, Carbon Dioxide Level 22, Anion Gap 11, Blood Urea Nitrogen 29H, Creatinine 1.8H , Estimat Glomerular Filtration Rate , Glucose Level 214H, Uric Acid 9.6H, Calcium Level 7.0L, Phosphorus Level 3.5, Magnesium Level 1.2L, Iron Level 51, Total Iron Binding Capacity 36L, Percent Iron Saturation 142H, Unsaturated Iron Binding -15L, Ferritin 1511H, Total Bilirubin 0.5, Gamma Glutamyl Transpeptidase 34, Aspartate Amino Transf (AST/SGOT) 21, Alanine Aminotransferase (ALT/SGPT) 14, Alkaline Phosphatase 153H, Total Creatine Kinase 78, Troponin I 0.020, Pro-B-Type Natriuretic Peptide 6212H, Total Protein 5.4L, Albumin 1.6L, Globulin 3.8, Albumin/Globulin Ratio 0.4L, Vitamin B12 Level 1992H, Folate 3.3L, Thyroid Stimulating Hormone (TSH) 0.918 02/19/18 05:30: Activated Partial Thromboplast Time > 150*H Height (Feet): 5 Height (Inches): 5.00 Weight (Pounds): 186 General Appearance: alert, confused, agitated Michele Schroeder MD Feb 19, 2018 19:58
[2018-02-19] MEDS: Dyna-Hex 2% Top Sol 2oz TOPIC SCH (20:15)
--- NOTE | 2018-02-19 21:36 | Cardiology Progress Note ---
Assessment/Plan Assessment/Plan 1. Sinus tachycardia due to severe hypovolemia, correct with hydration and electrolyte replacemnet. 2. Cholelithiasis. 3. Left basilar consolidation, questionable pneumonia. 4. Small bowel obstruction. Subjective Subjective Sinus tachycardia at rate of 100. Objective Last 24 Hour Vital Signs Date Time Temp Pulse Resp B/P (MAP) Pulse Ox O2 Delivery O2 Flow Rate FiO2 02/19/18 19:47 97.0 100 20 132/94 (107) 100 02/19/18 16:00 97.5 105 22 134/75 (94) 98 02/19/18 16:00 106 02/19/18 16:00 Room Air 02/19/18 12:00 97.2 98 22 152/76 (101) 99 02/19/18 12:00 Room Air 02/19/18 12:00 102 02/19/18 08:00 96.9 102 21 149/68 (95) 98 02/19/18 08:00 Room Air 02/19/18 08:00 89 02/19/18 04:00 97.2 102 18 109/57 (74) 100 02/19/18 04:00 109 02/19/18 04:00 Room Air 02/19/18 00:00 97.3 97 18 106/61 (76) 100 02/19/18 00:00 Room Air 02/19/18 00:00 102 Intake and Output 02/18/18 02/19/18 19:00 07:00 Intake Total 979.284 ml 570.824 ml Output Total 70 ml 210 ml Balance 909.284 ml 360.824 ml Intake IV Total 979.284 ml 570.824 ml Output Urine Total 60 ml 200 ml Gastric Drainage Total 10 ml 10 ml 2D Echo: LVEF 55%, Mild LVH, Grade I LVDD, RVSP 42 mmHg Laboratory Tests Test 02/19/18 04:30 02/19/18 05:30 White Blood Count 19.6 K/UL (4.8-10.8) H Red Blood Count 2.45 M/UL (4.20-5.40) L Hemoglobin 7.1 G/DL (12.0-16.0) L Hematocrit 21.5 % (37.0-47.0) L Mean Corpuscular Volume 88 FL (80-99) Mean Corpuscular Hemoglobin 28.9 PG (27.0-31.0) Mean Corpuscular Hemoglobin Concent 32.9 G/DL (32.0-36.0) Red Cell Distribution Width 15.0 % (11.6-14.8) H Platelet Count 266 K/UL (150-450) Mean Platelet Volume 5.3 FL (6.5-10.1) L Neutrophils (%) (Auto) % (45.0-75.0) Lymphocytes (%) (Auto) % (20.0-45.0) Monocytes (%) (Auto) % (1.0-10.0) Eosinophils (%) (Auto) % (0.0-3.0) Basophils (%) (Auto) % (0.0-2.0) Differential Total Cells Counted 100 Neutrophils % (Manual) 94 % (45-75) H Lymphocytes % (Manual) 5 % (20-45) L Monocytes % (Manual) 1 % (1-10) Eosinophils % (Manual) 0 % (0-3) Basophils % (Manual) 0 % (0-2) Band Neutrophils 0 % (0-8) Platelet Estimate Adequate Platelet Morphology Normal Polychromasia 1+ Hypochromasia 2+ Anisocytosis 1+ Sodium Level 135 MMOL/L (136-145) L Potassium Level 2.6 MMOL/L (3.5-5.1) *L Chloride Level 102 MMOL/L (98-107) Carbon Dioxide Level 22 MMOL/L (21-32) Anion Gap 11 mmol/L (5-15) Blood Urea Nitrogen 29 mg/dL (7-18) H Creatinine 1.8 MG/DL (0.55-1.30) H Estimat Glomerular Filtration Rate mL/min (>60) Glucose Level 214 MG/DL (74-106) H Uric Acid 9.6 MG/DL (2.6-7.2) H Calcium Level 7.0 MG/DL (8.5-10.1) L Phosphorus Level 3.5 MG/DL (2.5-4.9) Magnesium Level 1.2 MG/DL (1.8-2.4) L Iron Level 51 ug/dL (50-175) Total Iron Binding Capacity 36 ug/dL (250-450) L Percent Iron Saturation 142 % (15-50) H Unsaturated Iron Binding -15 ug/dL (112-346) L Ferritin 1511 NG/ML (8-388) H Total Bilirubin 0.5 MG/DL (0.2-1.0) Gamma Glutamyl Transpeptidase 34 U/L (5-85) Aspartate Amino Transf (AST/SGOT) 21 U/L (15-37) Alanine Aminotransferase (ALT/SGPT) 14 U/L (12-78) Alkaline Phosphatase 153 U/L (46-116) H Total Creatine Kinase 78 U/L (26-308) Troponin I 0.020 ng/mL (0.000-0.056) Pro-B-Type Natriuretic Peptide 6212 pg/mL (0-125) H Total Protein 5.4 G/DL (6.4-8.2) L Albumin 1.6 G/DL (3.4-5.0) L Globulin 3.8 g/dL Albumin/Globulin Ratio 0.4 (1.0-2.7) L Vitamin B12 Level 1992 PG/ML (193-986) H Folate 3.3 NG/ML (8.6-58.9) L Thyroid Stimulating Hormone (TSH) 0.918 uiU/mL (0.358-3.740) Activated Partial Thromboplast Time > 150 SEC (23-33) *H Microbiology Date/Time Source Procedure Growth Status 02/17/18 13:00 Blood Blood Culture - Preliminary Staphylococcus Aureus Gram Positive Cocci Resulted 02/17/18 12:35 Blood Blood Culture - Preliminary Gram Negative Bacillus 1 Resulted 02/17/18 18:00 Nasal Nares MRSA Culture - Preliminary Resulted 02/17/18 12:43 Nasal Nares Influenza Types A,B Antigen ([facility]IMO) - Final Complete 02/17/18 13:05 Urine,Clean Catch Urine Culture - Final Klebsiella Pneumoniae Esbl Complete 02/17/18 18:00 Rectum - Final NO CARBAPENEM-RESISTANT ENTEROBACTERI... Complete 02/17/18 18:00 Rectum VRE Culture - Final NO VANCOMYCIN RESISTANT ENTEROCOCCUS ... Complete Objective HEENT: Atraumatic and normocephalic. Anicteric. Pupils are equal, round, and reactive to light and accommodation. Dry mucosal membranes. NECK: JVP less than 5 cm. No carotid bruit. Carotid upstrokes 2+ bilaterally. CARDIOVASCULAR: Normal S1, S2. Regular rate and rhythm. No murmurs, gallops, or rubs. Tachycardic. LUNGS: Clear to auscultation bilaterally. ABDOMEN: Distended. Diminished bowel sounds. No hepatosplenomegaly. Diffuse tenderness. EXTREMITIES: No evidence of edema, clubbing, or cyanosis. Thomas Quiroz MD Feb 19, 2018 21:36
[2018-02-20] VITALS: BP 131/78
[2018-02-20] MEDS: D5NS w/KCl 40mEq 1000ml 1,000 ML IV SCH ×2 (01:59→14:40)
[2018-02-20 04:00] VITALS: BP 130/75
[2018-02-20 04:55] LABS: HEMOGLOBIN 9.3 G/DL (12.0-16.0); MEAN CORPUSCULAR VOLUME 86 FL (80-99); PLATELET COUNT 168 K/UL (150-450); RED BLOOD COUNT 3.14 M/UL (4.20-5.40); RED CELL DISTRIBUTION WIDTH 13.9 % (11.6-14.8); WHITE BLOOD COUNT 14.3 K/UL (4.8-10.8)
[2018-02-20] MEDS: Haloperidol 5mg/ml Inj IM PRN ×3 (05:11→20:53)
[2018-02-20 05:23] LABS: ALANINE AMINOTRANSFERASE 19 U/L (12-78); ALBUMIN 1.6 G/DL (3.4-5.0); ALBUMIN/GLOBULIN RATIO 0.4 (1.0-2.7); ALKALINE PHOSPHATASE 173 U/L (46-116); ANION GAP 12 mmol/L (5-15); ASPARTATE AMINO TRANSFERASE 22 U/L (15-37); BILIRUBIN,TOTAL 0.7 MG/DL (0.2-1.0); BLOOD UREA NITROGEN 26 mg/dL (7-18); CALCIUM 7.5 MG/DL (8.5-10.1); CARBON DIOXIDE 21 MMOL/L (21-32); CHLORIDE 106 MMOL/L (98-107); CREATININE 1.2 MG/DL (0.55-1.30); POTASSIUM 2.8 MMOL/L (3.5-5.1); SODIUM 139 MMOL/L (136-145)
[2018-02-20] MEDS ORDERED: Vancomycin 1 GM in NS 275 ML IVPB ONE (06:00)
[2018-02-20] MEDS ORDERED: Morphine Sulfate 2mg/ml Inj IVP ONE (07:30)
[2018-02-20] MEDS ORDERED: Morphine Sulfate 2mg/ml Inj IVP PRN (07:30)
[2018-02-20 08:00] VITALS: BP 123/77
[2018-02-20] MEDS: Pantoprazole Inj IV SCH (09:00)
[2018-02-20] MEDS: Dakin's 0.125% Soln (Quarter Strength) 16oz TOPIC SCH (09:00)
[2018-02-20] MEDS: Meropenem 1 GM in NS 55 ML IVPB SCH ×2 (09:00→20:54)
[2018-02-20] MEDS ORDERED: Tubing IV Secondary IV ONE ×2 (09:09→09:14)
[2018-02-20] MEDS ORDERED: NS 275ml ONE ×2 (09:09→09:14)
[2018-02-20] MEDS ORDERED: D5NS 1000ml IV ONE (09:09)
[2018-02-20] MEDS ORDERED: Tubing Blood Filter IV ONE (09:14)
--- NOTE | 2018-02-20 10:11 | General Surgery Progress Note ---
General Surgery-Progress Note Subjective Symptoms: improved, pain absent, passing flatus Additional Comments small bowel series without significant obstruction. Objective Last 24 Hour Vital Signs Date Time Temp Pulse Resp B/P (MAP) Pulse Ox O2 Delivery O2 Flow Rate FiO2 02/20/18 08:23 119 02/20/18 04:00 94 02/20/18 04:00 Room Air 02/20/18 04:00 96.3 90 20 130/75 (93) 97 02/20/18 00:00 Room Air 02/20/18 00:00 79 02/20/18 00:00 96.4 86 18 131/78 (95) 97 02/19/18 20:00 99 02/19/18 20:00 Room Air 02/19/18 19:47 97.0 100 20 132/94 (107) 100 02/19/18 16:00 97.5 105 22 134/75 (94) 98 02/19/18 16:00 106 02/19/18 16:00 Room Air 02/19/18 12:00 97.2 98 22 152/76 (101) 99 02/19/18 12:00 Room Air 02/19/18 12:00 102 I&O Intake and Output 02/19/18 02/20/18 19:00 07:00 Intake Total 1355 ml 1135.0 ml Output Total 160 ml Balance 1195 ml 1135.0 ml Intake Oral 30 ml IV Total 1355 ml 605.0 ml Blood Product 500 ml Output Urine Total 150 ml Gastric Drainage Total 10 ml Dressing: other Wound: other Drains: other Cardiovascular: RSR Respiratory: clear Abdomen: soft, distended, non-tender, present bowel sounds Extremities: no cyanosis, other Laboratory Tests Test 02/20/18 04:00 White Blood Count 14.3 K/UL (4.8-10.8) H Red Blood Count 3.14 M/UL (4.20-5.40) L Hemoglobin 9.3 G/DL (12.0-16.0) #L Hematocrit 27.0 % (37.0-47.0) L Mean Corpuscular Volume 86 FL (80-99) Mean Corpuscular Hemoglobin 29.6 PG (27.0-31.0) Mean Corpuscular Hemoglobin Concent 34.5 G/DL (32.0-36.0) Red Cell Distribution Width 13.9 % (11.6-14.8) Platelet Count 168 K/UL (150-450) Mean Platelet Volume 5.6 FL (6.5-10.1) L Neutrophils (%) (Auto) % (45.0-75.0) Lymphocytes (%) (Auto) % (20.0-45.0) Monocytes (%) (Auto) % (1.0-10.0) Eosinophils (%) (Auto) % (0.0-3.0) Basophils (%) (Auto) % (0.0-2.0) Differential Total Cells Counted 100 Neutrophils % (Manual) 97 % (45-75) H Lymphocytes % (Manual) 2 % (20-45) L Monocytes % (Manual) 1 % (1-10) Eosinophils % (Manual) 0 % (0-3) Basophils % (Manual) 0 % (0-2) Band Neutrophils 0 % (0-8) Platelet Estimate Adequate Platelet Morphology Normal Red Blood Cell Morphology Normal Sodium Level 139 MMOL/L (136-145) Potassium Level 2.8 MMOL/L (3.5-5.1) L Chloride Level 106 MMOL/L (98-107) Carbon Dioxide Level 21 MMOL/L (21-32) Anion Gap 12 mmol/L (5-15) Blood Urea Nitrogen 26 mg/dL (7-18) H Creatinine 1.2 MG/DL (0.55-1.30) Estimat Glomerular Filtration Rate mL/min (>60) Glucose Level 138 MG/DL (74-106) H Calcium Level 7.5 MG/DL (8.5-10.1) L Total Bilirubin 0.7 MG/DL (0.2-1.0) Aspartate Amino Transf (AST/SGOT) 22 U/L (15-37) Alanine Aminotransferase (ALT/SGPT) 19 U/L (12-78) Alkaline Phosphatase 173 U/L (46-116) H Total Protein 5.8 G/DL (6.4-8.2) L Albumin 1.6 G/DL (3.4-5.0) L Globulin 4.2 g/dL Albumin/Globulin Ratio 0.4 (1.0-2.7) L Random Vancomycin Level 16.5 ug/mL Plan Problems: (1) Sepsis Assessment & Plan: sepsis, tachy, leukocytosis, lactic acidosis, abnormal labs likely related to abdominal etiology. possible infected sacral ulcer appreciate ID input. IV abx IV fluids (2) SBO (small bowel obstruction) Assessment & Plan: reviewed CT and discussed with radiologist. seems to have complete SBO with transition point in proximal bowel. distended and fluid filled proximal. decompressed distal. abdominal exam benign. no significant distention or tenderness. currently no n/v hx of prior episodes. discussed with patient and family. Recommend exploration given findings. Family and patient decline. State that it has been her wish for some time now to not have surgery even if life threatening. explained risks of worsening condition, perforation, even . expressed understanding and refuses surgery Has been improving. small bowel series with contrast performed. no obstruction noted. contrast in colon this AM. dilated jejunal loops still noted and mildly improved. no ng tube output. +flatus. ng tube removed by myself this AM start trial liquid diet IV fluids IV Abx trend labs discuss DNR status with patient and family given her wishes. (3) Pressure ulcer of sacral region, stage 4 Assessment & Plan: Full thickness pressure injury to sacrum with multiple open wounds periwound and R buttocks .Sacral pressure injury (L)11cm x (W)12.4cm x (D )4cm with undermining 9-4 by 4 cm at 3o'clock. Wound malodorous with 75% soft necrosis.Bone palpable.Additional pressure injuries noted periwound L buttocks. Full thickness pressure injury to Upper R buttocks (L)1.4cm x (W)4.7cm x(D)0.2cm ,scattered slough with granulation with marginal erythema. Full thickness inferior R buttocks (L)4.5cm x (W)2.5cm wound granular with marginal erythema. Full thickness pressure injury to R ischium (L)0.8cm x(W)2.3cm .Wound granular with dark borders. Periwound dark without induration. Multiple partial thickness pressure injuries in close proximity noted to upper/outer R buttocks ( L)2cm x (W)4.6cm with non-blanchable erythema periwound. R heel Mottled,cool and boggy with dry peeling skin (L)6cm x (W)8cm. Pt denied tenderness when minimally palpated. L heel mottled,boggy, and cool to touch (L)6cm x (W) 7.4cm .Pt verbalized tenderness when palpated. R and L 1st metatarsals mottled and non -tender when palpated. Spoke to Dtr regarding sacral pressure injury. Sacral wound cleansed with Saline and loosley packed with Saline moist gauze until evaluated by Surgeon.Dtr stated pt had small pressure injury in October which progressively worsened.Dtr also stated she was informed at [facility] wound was getting better. DTR made aware of stage and state of wound.Advised of Surgical consult and that surgeon would discuss all options with regards to wound. Dr.Mawas sky and Md also discussed possibility of surgical debridement of sacral wound with Dtr. Tx.Plan: Air fluidized mattress. Sacral Wound care orders as in wound care clarification orders; wash , dakins, dressings. Apply Cavilon to both heels and off-load heels daily. Cavilon wipes to R and L 1st metatarsals Daily Apply Moisture Barrier paste to Wounds R buttocks and R ischium and cover with Optifoam drsg Daily and prn. Reposition at minimum every 2hours or as tolerated. Discussed with family care plan. Her major concern is a complete bowel obstruction. the decubitus ulcer is concerning but chronic. will continue care for wounds but hold on debridement until the remainder of her medical condition is improved. family is considering hospice. Levon Jacobs Feb 20, 2018 10:11
[2018-02-20 11:22] LABS: PHOSPHORUS 2.9 MG/DL (2.5-4.9)
--- NOTE | 2018-02-20 11:22 | Diagnostic Imaging Report ---
EXAM: XR Abdomen, 2 Views CLINICAL HISTORY: F/U TECHNIQUE: Frontal view of the abdomen/pelvis with upright view of the abdomen. COMPARISON: Abdominal x-rays dated 02/18/18 and 02/17/18 FINDINGS: Intraperitoneal space: No evidence of intraperitoneal free air. Gastrointestinal tract: Diffuse distention of small bowel loops, most prominent in the left lower quadrant. Oral contrast is seen extending to the colonic loops. No evidence of pneumatosis intestinalis. Bones/joints: Unremarkable. Tubes, lines and devices: NG tube tip in the stomach. IMPRESSION: Diffuse distention of small bowel loops, most prominent in the left lower quadrant, raising concern for ileus versus partial obstruction, not significant changed compared to the prior exams. Oral contrast noted from the stomach to the distal colon. No abnormal colonic distention.
--- NOTE | 2018-02-20 11:52 | Nephrology Progress Note ---
Assessment/Plan Problem List: (1) JANNETTE (acute kidney injury) (2) SBO (small bowel obstruction) (3) Osteomyelitis of sacrum (4) Sepsis Assessment Renal failure- Acute on chronic/ presented with High K Small Bowel Obstruction UTI Sacral Osteo HypoNatremia Sever HypoAlbuminemia & Proteinuria Anemia Plan IV KCL- IV Mag- per consultants suggest comfort care IV Fluid- NPO- Suction Antibiotics Anemia persaud Subjective ROS Limited/Unobtainable: No Constitutional: Reports: malaise Objective Objective Last 24 Hour Vital Signs Date Time Temp Pulse Resp B/P (MAP) Pulse Ox O2 Delivery O2 Flow Rate FiO2 02/20/18 08:23 119 02/20/18 08:00 97.0 88 20 123/77 (92) 97 02/20/18 08:00 Room Air 02/20/18 04:00 94 02/20/18 04:00 Room Air 02/20/18 04:00 96.3 90 20 130/75 (93) 97 02/20/18 00:00 Room Air 02/20/18 00:00 79 02/20/18 00:00 96.4 86 18 131/78 (95) 97 02/19/18 20:00 99 02/19/18 20:00 Room Air 02/19/18 19:47 97.0 100 20 132/94 (107) 100 02/19/18 16:00 97.5 105 22 134/75 (94) 98 02/19/18 16:00 106 02/19/18 16:00 Room Air 02/19/18 12:00 97.2 98 22 152/76 (101) 99 02/19/18 12:00 Room Air 02/19/18 12:00 102 Intake and Output 02/19/18 02/20/18 18:59 06:59 Intake Total 1455 ml 1135.0 ml Output Total 160 ml Balance 1295 ml 1135.0 ml Intake Oral 30 ml IV Total 1455 ml 605.0 ml Blood Product 500 ml Output Urine Total 150 ml Gastric Drainage Total 10 ml Laboratory Tests 02/20/18 04:00: White Blood Count 14.3H, Red Blood Count 3.14L, Hemoglobin 9.3#L, Hematocrit 27.0L, Mean Corpuscular Volume 86, Mean Corpuscular Hemoglobin 29.6, Mean Corpuscular Hemoglobin Concent 34.5, Red Cell Distribution Width 13.9, Platelet Count 168, Mean Platelet Volume 5.6L, Neutrophils (%) (Auto) , Lymphocytes (%) ( Auto) , Monocytes (%) (Auto) , Eosinophils (%) (Auto) , Basophils (%) (Auto) , Differential Total Cells Counted 100, Neutrophils % (Manual) 97H, Lymphocytes % (Manual) 2L, Monocytes % (Manual) 1, Eosinophils % (Manual) 0, Basophils % ( Manual) 0, Band Neutrophils 0, Platelet Estimate Adequate, Platelet Morphology Normal, Red Blood Cell Morphology Normal, Sodium Level 139, Potassium Level 2.8L , Chloride Level 106, Carbon Dioxide Level 21, Anion Gap 12, Blood Urea Nitrogen 26H, Creatinine 1.2, Estimat Glomerular Filtration Rate , Glucose Level 138H, Calcium Level 7.5L, Phosphorus Level 2.9, Magnesium Level 2.3, Total Bilirubin 0.7, Aspartate Amino Transf (AST/SGOT) 22, Alanine Aminotransferase (ALT/SGPT) 19, Alkaline Phosphatase 173H, Total Protein 5.8L, Albumin 1.6L, Globulin 4.2, Albumin/Globulin Ratio 0.4L, Random Vancomycin Level 16.5 Height (Feet): 5 Height (Inches): 5.00 Weight (Pounds): 186 General Appearance: no apparent distress Cardiovascular: tachycardia Respiratory/Chest: decreased breath sounds Abdomen: distended Agustín Pramar MD Feb 20, 2018 11:52
[2018-02-20 12:00] VITALS: BP 113/75
[2018-02-20] MEDS ORDERED: Potassium Phosphate 20 MM in NS 275 ML IV ONE (13:00)
--- NOTE | 2018-02-20 15:46 | Infectious Diseases Prog Note ---
Assessment/Plan Problems: (1) Pressure ulcer of sacral region, stage 4 Assessment & Plan: deep and necrotic with undermining , and foul smell , infected with possible underlying osteomyelitis of the sacrum and coccyx . MRI of the sacrum is pending to confirm, recommend surgical excision and debridement. daughter had chosen hospice care and no surgical debridement of the sacrum . continue off loading and local wound care as per hospital protocol (2) Cutaneous abscess of abdominal wall Assessment & Plan: source hematogenous VS translocation from the pelvis , on meropenem and vancomycin renally dosed, no surgical intervention (3) Catheter-associated urinary tract infection Assessment & Plan: due to ESBL producing klebsiella pneumonia , S/P lomeli catheter change, continue meropenem (4) Sepsis Assessment & Plan: with poly organisms due to the above with leukocytosis , on meropenem and vancomycin renally dosed , pending blood culture, wbc went up a little , patient needs surgical debridement of the sacrum for source control . will add antifungal coverage pending surgical debridement (5) JANNETTE (acute kidney injury) Assessment & Plan: due to the above , continue hydration with renally dosed medications, monitor renal function and UOP (6) Osteomyelitis of sacrum Assessment & Plan: suspect chronic due to the deep pressure wound , MRI to confirm was held since still on continuos suctioning , recommend bone biopsy for culture to identify the exact cause (7) Abnormal blood electrolyte level Assessment & Plan: continue hydration with close monitoring of electrolytes (8) SBO (small bowel obstruction) Assessment & Plan: with possible adhesions, and fat filled fluids collection , improving, continue hydration, and conservative management , as per surgery Subjective Constitutional: Reports: no symptoms HEENT: Reports: no symptoms Respiratory: Reports: no symptoms Breasts: Reports: no symptoms Cardiovascular: Reports: no symptoms Gastrointestinal/Abdominal: Reports: bloating Genitourinary: Reports: no symptoms Neurologic: Reports: no symptoms Psychiatric: Reports: no symptoms Skin: Reports: ulcer, other - sacral pain Endocrine: Reports: no symptoms Hematologic: Reports: no symptoms Musculoskeletal: Reports: no symptoms Allergies: Coded Allergies: No Known Allergies (Unverified , 02/17/18) Objective Vital Signs Last 24 Hour Vital Signs Date Time Temp Pulse Resp B/P (MAP) Pulse Ox O2 Delivery O2 Flow Rate FiO2 02/20/18 13:42 117 02/20/18 08:23 119 02/20/18 08:00 97.0 88 20 123/77 (92) 97 02/20/18 08:00 Room Air 02/20/18 04:00 94 02/20/18 04:00 Room Air 02/20/18 04:00 96.3 90 20 130/75 (93) 97 02/20/18 00:00 Room Air 02/20/18 00:00 79 02/20/18 00:00 96.4 86 18 131/78 (95) 97 02/19/18 20:00 99 02/19/18 20:00 Room Air 02/19/18 19:47 97.0 100 20 132/94 (107) 100 02/19/18 16:00 97.5 105 22 134/75 (94) 98 02/19/18 16:00 106 02/19/18 16:00 Room Air Height (Feet): 5 Height (Inches): 5.00 Weight (Pounds): 186 General Appearance: WD/WN, no acute distress HEENT: normocephalic, atraumatic, anicteric, mucous membranes moist, PERRL Respiratory/Chest: chest wall non-tender, lungs clear, normal breath sounds, no respiratory distress, no accessory muscle use Cardiovascular: normal peripheral pulses, normal rate, regular rhythm, no gallop/murmur, no JVD Abdomen: normal bowel sounds, soft, non tender, no organomegaly, non distended , no mass, no scars Genitourinary: normal external genitalia Extremities: no cyanosis, no clubbing Skin: no rash, no lesions, ulcers Neurologic/Psychiatric: alert, responsive Lymphatic: no neck adenopathy, no groin adenopathy Musculoskeletal: normal muscle bulk, no effusion Microbiology Date/Time Source Procedure Growth Status 02/17/18 18:00 Nasal Nares MRSA Culture - Final NO METHICILLIN RESISTANT STAPH AUREUS... Complete 02/17/18 18:00 Rectum - Final NO CARBAPENEM-RESISTANT ENTEROBACTERI... Complete 02/17/18 18:00 Rectum VRE Culture - Final NO VANCOMYCIN RESISTANT ENTEROCOCCUS ... Complete Laboratory Tests Test 02/20/18 04:00 White Blood Count 14.3 K/UL (4.8-10.8) H Red Blood Count 3.14 M/UL (4.20-5.40) L Hemoglobin 9.3 G/DL (12.0-16.0) #L Hematocrit 27.0 % (37.0-47.0) L Mean Corpuscular Volume 86 FL (80-99) Mean Corpuscular Hemoglobin 29.6 PG (27.0-31.0) Mean Corpuscular Hemoglobin Concent 34.5 G/DL (32.0-36.0) Red Cell Distribution Width 13.9 % (11.6-14.8) Platelet Count 168 K/UL (150-450) Mean Platelet Volume 5.6 FL (6.5-10.1) L Neutrophils (%) (Auto) % (45.0-75.0) Lymphocytes (%) (Auto) % (20.0-45.0) Monocytes (%) (Auto) % (1.0-10.0) Eosinophils (%) (Auto) % (0.0-3.0) Basophils (%) (Auto) % (0.0-2.0) Differential Total Cells Counted 100 Neutrophils % (Manual) 97 % (45-75) H Lymphocytes % (Manual) 2 % (20-45) L Monocytes % (Manual) 1 % (1-10) Eosinophils % (Manual) 0 % (0-3) Basophils % (Manual) 0 % (0-2) Band Neutrophils 0 % (0-8) Platelet Estimate Adequate Platelet Morphology Normal Red Blood Cell Morphology Normal Sodium Level 139 MMOL/L (136-145) Potassium Level 2.8 MMOL/L (3.5-5.1) L Chloride Level 106 MMOL/L (98-107) Carbon Dioxide Level 21 MMOL/L (21-32) Anion Gap 12 mmol/L (5-15) Blood Urea Nitrogen 26 mg/dL (7-18) H Creatinine 1.2 MG/DL (0.55-1.30) Estimat Glomerular Filtration Rate mL/min (>60) Glucose Level 138 MG/DL (74-106) H Calcium Level 7.5 MG/DL (8.5-10.1) L Phosphorus Level 2.9 MG/DL (2.5-4.9) Magnesium Level 2.3 MG/DL (1.8-2.4) Total Bilirubin 0.7 MG/DL (0.2-1.0) Aspartate Amino Transf (AST/SGOT) 22 U/L (15-37) Alanine Aminotransferase (ALT/SGPT) 19 U/L (12-78) Alkaline Phosphatase 173 U/L (46-116) H C-Reactive Protein, Quantitative 19.2 mg/dL (0.00-0.90) H Total Protein 5.8 G/DL (6.4-8.2) L Albumin 1.6 G/DL (3.4-5.0) L Globulin 4.2 g/dL Albumin/Globulin Ratio 0.4 (1.0-2.7) L Random Vancomycin Level 16.5 ug/mL Current Medications Medications (Trade) Dose Ordered Sig/Nidia Route PRN Reason Start Time Stop Time Status Last Admin Dose Admin Chlorhexidine Gluconate (Taylor-Hex 2%) 1 applic DAILY@2000 TOPIC 02/18/18 20:00 03/20/18 19:59 02/19/18 20:15 Dextrose (Dextrose 50%) 25 ml Q30M PRN IV Hypoglycemia 02/17/18 16:00 03/19/18 15:59 Dextrose (Dextrose 50%) 50 ml Q30M PRN IV Hypoglycemia 02/17/18 16:00 03/19/18 15:59 Dextrose/ Electrolytes 1,000 ml @ 75 mls/hr [id number] IV 02/19/18 12:00 03/21/18 11:59 02/20/18 14:40 Diatrizoate Meglum/ Diatrizoate Sod (Gastrografin) 30 ml NOW PRN ORAL Radiology Procedure 02/19/18 09:01 02/20/18 23:59 Fluconazole/ Sodium Chloride 100 ml @ 100 mls/hr Q24H IV 02/18/18 17:00 02/25/18 16:59 02/19/18 20:15 Haloperidol Lactate (Haldol) 5 mg Q6H PRN IM Agitation 02/19/18 11:45 03/21/18 11:44 02/20/18 12:58 Meropenem 1 gm/ Sodium Chloride 55 ml @ 110 mls/hr Q12HR IVPB 02/17/18 20:00 02/22/18 19:59 02/20/18 09:00 Morphine Sulfate (Morphine Sulfate) 3 mg Q4H PRN IVP Pain Scale 4-10) 02/20/18 09:08 02/27/18 09:07 Pantoprazole (Protonix) 40 mg DAILY IV 02/17/18 16:00 03/19/18 15:59 02/20/18 09:00 Potassium Phosphate 20 mm/ Sodium Chloride 281.6667 ml @ 46.944 m... ONCE ONCE IV 02/20/18 13:00 02/20/18 18:59 02/20/18 13:00 Sodium Hypochlorite (Dakin's Quarter Strength) 1 applic Q24H TOPIC 02/18/18 09:00 03/19/18 19:59 02/20/18 09:00 Sodium Chloride 500 ml @ 999 mls/hr Q31M PRN IV For hypotension 02/17/18 16:15 03/19/18 16:14 Vancomycin HCl (Vanco rx to dose) 1 ea DAILY PRN MISC Per rx protocol 02/17/18 16:15 03/19/18 16:14 Ari Lewis M.D. Feb 20, 2018 15:46
--- NOTE | 2018-02-20 15:49 | General Progress Note ---
Progress Note Progress Note covering for Dr Weinstein S: I have pain O: NG in place, Dtr at bedside. No distress, but in anxiety PHYSICAL EXAMINATION: HEAD AND NECK: Atraumatic and normocephalic. CHEST: Clear to auscultation. No wheezing. No crackles. ABDOMEN: Positive for tenderness on deep palpation. Bowel sounds have decreased.No rebound tenderness MUSCULOSKELETAL: Positive for the sacral decubitus wounds. Positive for decreased range of motion and strength in all four extremities. NEUROLOGIC: The patient is awake, alert, and oriented x3. anxious IMAGING STUDIES: Imaging shows abdominal pelvic CT scan dated February 17, is reviewed. Chest x-ray also reviewed. Meds: reviewed and reconciled including but not limited to Meropenem and Vanco ASSESSMENT: 1. Sepsis. Gram negative 2. Acute abdomen secondary to small bowel obstruction. 3. Decubitus wound, sacral possibility of osteomyelitis cannot be excluded. 4. Renal failure - age indeterminate. 5. Hyponatremia. 6. Catheter-induced urinary infection. 7. GI and DVT prophylaxis. PLAN OF CARE: conversation with Tin, the Dtr regardig her mother condition POLST to DNR Consulted Hospice care [facility] medical prognosis Ari Lewis M.D. Feb 20, 2018 15:49
[2018-02-20 16:00] VITALS: BP 139/59
--- NOTE | 2018-02-20 17:23 | Consultation ---
Consult Note Consult Note HEMATOLOGY-ONCOLOGY CONSULTATION REFERRING MD: Amol Weinstein REASON FOR CONSULT: Leukocytosis, anemia DOS: 02/20/2018 HISTORY OF PRESENT ILLNESS: The patient is a 72-year-old female, [facility] resident, was sent to [facility] emergency room for abnormal blood work, which showed significant leukocytosis, hyponatremia, and hyperkalemia. The patient also had decline in her health overall over the last couple of weeks and her oral intake has been poor for the last five days. The patient had last bowel movement on Saturday and nothing since then. She has been moaning and complaining of pain mainly in the sacral area, so she was brought into the emergency room for evaluation at [facility]. Hematology services consulted for the evaluation of leukocytosis and anemia. REVIEW OF SYSTEMS: Unable to obtain. The patient is a poor historian. PAST MEDICAL HISTORY: Significant for sacral pressure wound and chronic Fonseca catheter due to incontinence. PAST SURGICAL HISTORY: Not on record with no recent surgical procedure. ALLERGIES: She has no known drug allergy. MEDICATIONS: She received vancomycin and Zosyn in the emergency room. For the rest of her medications, please refer to [facility]. FAMILY HISTORY: Not contributory. SOCIAL HISTORY: The patient is a [facility] patient. Denied using any recent drugs, tobacco, or alcohol. PHYSICAL EXAMINATION: VITAL SIGNS: Have been reviewed GENERAL: An elderly female, Macedonian speaker, obese, lying in bed, moaning in pain, daughter at the bedside. HEENT: Normocephalic and atraumatic. Pupils are reactive to light. Moist oral mucosa. No exudate or thrush. NECK: Supple. No lymphadenopathy. CARDIOVASCULAR: Regular rate and rhythm. Actually, she is tachycardic. No murmur or gallop. LUNGS: Clear bilaterally. No wheezing or rhonchi. ABDOMEN: Soft and distended. Absent bowel sounds. Not tender. No rebound. No organomegaly. EXTREMITIES: No edema or cyanosis. No clubbing. SKIN: She had large and deep sacral pressure wound, 4 cm deep at least with undermining and extensive necrotic tissue at the base with exposed bone at the sacral area and foul smell. LABORATORY AND DIAGNOSTIC DATA: wbc 14.3 hgb 9.3 plt 168 ASSESSMENT AND RECOMMENDATION: # Anemia of chronic disease (or of iron deficiency) due to underlying chronic medical issues, multifactorial --> Anemia w/u has been ordered --> No evidence of hemolysis is noted, peripheral smear has been reviewed. --> Hgb goal >7. Transfuse prn. --> Epogen or iron at this time is not particularly indicated # Leukocytosis. Likely related to underlying infection versus reactive process. --> Peripheral has been ordered, results are pending --> Medications have been reviewed --> Imaging has been reviewed. CXR shows patchy left perihilar opacities, could represent focal infiltrates. Correlate with clinical findings --> Blood cultures and urine cultures are pending. --> Has been started on abx, empiric treatment # Pressure ulcer of the sacral region, stage IV, deep and necrotic with undermining and foul smell, infected with possible underlying osteomyelitis of the sacrum and coccyx due to exposed bone. --> MRI of the sacrum to confirm recommend surgical excision and debridement. --> Continue offloading and local wound care as per hospital protocol. --> Surgical evaluation is pending. # Cutaneous abscesses of the abdominal wall, source hematogenous verus translocation from the pelvis. --> On meropenem and continue vancomycin renally dose, pending surgical evaluation. # Catheter-associated urinary tract infection. We will change Fonseca catheter and start meropenem pending urine culture. # Acute renal failure due to the above. Continue hydration with renally dosed medications. Monitor renal function and urine output. --> Consult Nephrology. 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 We will order MRI to confirm recommend bone biopsy for culture to identify the exact cause and narrow down antibiotics treatment. # Abnormal blood electrolyte level. Continue hydration and close monitoring of electrolytes, replace as needed. # Small bowel obstruction with possible adhesions and fluid-filled fat collection, possible abscesses. Source hematogenous versus perforation related. Keep NPO. Continue hydration. Surgical evaluation. --> Plan of care was discussed with the daughter in detail at the bedside. --> Daughter stated that mother is refusing any surgical procedure, she had a bad experience from anesthesia in the past when she had a dental workup. GREATLY APPRECIATE CONSULTATION. Siddhartha Soto MD Feb 20, 2018 17:23
--- NOTE | 2018-02-20 19:58 | Pulmonology Progress Note ---
Assessment/Plan Assessment/Plan PROBLEM LIST: 1. Left perihilar infiltrate, likely healthcare-associated pneumonia. 2. Stage IV sacral decubitus ulcer with likely osteomyelitis. 3. Gram negative bacillus urinary tract infection. 4. Gram-positive cocci and gram-negative sepsis. 5. Acute superficial femoral and popliteal DVT in the right and common femoral, superficial femoral, and popliteal DVT in the left. 6. Small bowel obstruction, likely acute on chronic. 7. Concern for unusual fat or fluid collections in the abdomen/abdominal wall. 8. Leukocytosis. 9. Anemia. 10. Abnormal creatinine, JANNETTE versus CKD. 11. Severe protein-calorie malnutrition. 12. Prior CVA. TREATMENT PLAN: 1. Optimize pulmonary hygiene/mobilize as tolerated. 2. P.r.n. O2. 3. Monitor for signs of worsening respiratory status. 4. Continue antibiotics (vancomycin and meropenem) + Fluconazole per Infectious Disease service. 5. Follow up Surgery recommendations, NO PLAN FOR debridement of sacral decubitus ulcer OR laparotomy based on family's goals of care. 6. Monitor volumes and renal function, gentle IV fluid hydration as tolerated, replete electrolytes 8. A/C held given elevated PTT 9. NPO, NG-tube to suction. 10. DNAR, dispo planning to hospice Subjective ROS Limited/Unobtainable: No Allergies: Coded Allergies: No Known Allergies (Unverified , 02/17/18) Subjective positive cough shortness of breath nv noted minimal po and not getting oob no fever noted NGT in palce Objective Last 24 Hour Vital Signs Date Time Temp Pulse Resp B/P (MAP) Pulse Ox O2 Delivery O2 Flow Rate FiO2 02/20/18 16:32 114 02/20/18 16:00 116 02/20/18 16:00 97.0 82 20 139/59 (85) 97 02/20/18 16:00 Room Air 02/20/18 13:42 117 02/20/18 12:00 Room Air 02/20/18 12:00 97.9 85 20 113/75 (88) 97 02/20/18 08:23 119 02/20/18 08:00 97.0 88 20 123/77 (92) 97 02/20/18 08:00 Room Air 02/20/18 04:00 94 02/20/18 04:00 Room Air 02/20/18 04:00 96.3 90 20 130/75 (93) 97 02/20/18 00:00 Room Air 02/20/18 00:00 79 02/20/18 00:00 96.4 86 18 131/78 (95) 97 02/19/18 20:00 99 02/19/18 20:00 Room Air Intake and Output 02/19/18 02/20/18 18:59 06:59 Intake Total 1455 ml 1135.0 ml Output Total 160 ml Balance 1295 ml 1135.0 ml Intake Oral 30 ml IV Total 1455 ml 605.0 ml Blood Product 500 ml Output Urine Total 150 ml Gastric Drainage Total 10 ml General Appearance: WD/WN Respiratory/Chest: rhonchi Cardiovascular: regular rhythm Abdomen: no mass, distended Extremities: no cyanosis Skin: no lesions Neurologic/Psychiatric: responsive Laboratory Tests 02/20/18 04:00: White Blood Count 14.3H, Red Blood Count 3.14L, Hemoglobin 9.3#L, Hematocrit 27.0L, Mean Corpuscular Volume 86, Mean Corpuscular Hemoglobin 29.6, Mean Corpuscular Hemoglobin Concent 34.5, Red Cell Distribution Width 13.9, Platelet Count 168, Mean Platelet Volume 5.6L, Neutrophils (%) (Auto) , Lymphocytes (%) ( Auto) , Monocytes (%) (Auto) , Eosinophils (%) (Auto) , Basophils (%) (Auto) , Differential Total Cells Counted 100, Neutrophils % (Manual) 97H, Lymphocytes % (Manual) 2L, Monocytes % (Manual) 1, Eosinophils % (Manual) 0, Basophils % ( Manual) 0, Band Neutrophils 0, Platelet Estimate Adequate, Platelet Morphology Normal, Red Blood Cell Morphology Normal, Sodium Level 139, Potassium Level 2.8L , Chloride Level 106, Carbon Dioxide Level 21, Anion Gap 12, Blood Urea Nitrogen 26H, Creatinine 1.2, Estimat Glomerular Filtration Rate , Glucose Level 138H, Calcium Level 7.5L, Phosphorus Level 2.9, Magnesium Level 2.3, Total Bilirubin 0.7, Aspartate Amino Transf (AST/SGOT) 22, Alanine Aminotransferase (ALT/SGPT) 19, Alkaline Phosphatase 173H, C-Reactive Protein, Quantitative 19.2H, Total Protein 5.8L, Albumin 1.6L, Globulin 4.2, Albumin/ Globulin Ratio 0.4L, Random Vancomycin Level 16.5 Current Medications Medications (Trade) Dose Ordered Sig/Nidia Route PRN Reason Start Time Stop Time Status Last Admin Dose Admin Chlorhexidine Gluconate (Taylor-Hex 2%) 1 applic DAILY@1999 TOPIC 02/18/18 20:00 03/20/18 19:59 02/19/18 20:15 Dextrose (Dextrose 50%) 25 ml Q30M PRN IV Hypoglycemia 02/17/18 16:00 03/19/18 15:59 Dextrose (Dextrose 50%) 50 ml Q30M PRN IV Hypoglycemia 02/17/18 16:00 03/19/18 15:59 Dextrose/ Electrolytes 1,000 ml @ 75 mls/hr [id number] IV 02/19/18 12:00 03/21/18 11:59 02/20/18 14:40 Diatrizoate Meglum/ Diatrizoate Sod (Gastrografin) 30 ml NOW PRN ORAL Radiology Procedure 02/19/18 09:01 02/20/18 23:59 Fluconazole/ Sodium Chloride 100 ml @ 100 mls/hr Q24H IV 02/18/18 17:00 02/25/18 16:59 02/20/18 17:00 Haloperidol Lactate (Haldol) 5 mg Q6H PRN IM Agitation 02/19/18 11:45 03/21/18 11:44 02/20/18 12:58 Meropenem 1 gm/ Sodium Chloride 55 ml @ 110 mls/hr Q12HR IVPB 02/17/18 20:00 02/22/18 19:59 02/20/18 09:00 Morphine Sulfate (Morphine Sulfate) 3 mg Q4H PRN IVP Pain Scale 4-10) 02/20/18 09:08 02/27/18 09:07 Pantoprazole (Protonix) 40 mg DAILY IV 02/17/18 16:00 03/19/18 15:59 02/20/18 09:00 Sodium Hypochlorite (Dakin's Quarter Strength) 1 applic Q24H TOPIC 02/18/18 09:00 03/19/18 19:59 02/20/18 09:00 Sodium Chloride 500 ml @ 999 mls/hr Q31M PRN IV For hypotension 02/17/18 16:15 03/19/18 16:14 Vancomycin HCl (Vanco rx to dose) 1 ea DAILY PRN MISC Per rx protocol 02/17/18 16:15 03/19/18 16:14 Fozia Esteban DO Feb 20, 2018 19:58
[2018-02-20 20:00] VITALS: BP 121/65
[2018-02-20] MEDS: Dyna-Hex 2% Top Sol 2oz TOPIC SCH (20:53)
--- NOTE | 2018-02-20 23:09 | Diagnostic Imaging Report ---
APPROVED REPORT CPT Code: 60734 Present Symptoms Comments: Swelling and pain RIGHT LEG: Venous imaging reveals acute thrombus in the superficial femoral and popliteal veins. Imaging also reveals patency of the common femoral vein. The calf veins were not well visualized. The greater saphenous vein is also within normal limits. LEFT LEG: Venous imaging reveals acute thrombus in the common femoral, superficial femoral and popliteal veins. Imaging also reveals patency of the calf veins. The greater saphenous vein is also within normal limits. ROLAND Cash was informed at 1205 hours.
--- NOTE | 2018-02-20 23:09 | Diagnostic Imaging Report ---
APPROVED REPORT CPT Code: 18439 Present Symptoms Comments: Swelling UPPER EXTREMITY (Deep venous system): Imaging reveals patency of the internal jugular, subclavian, axillary and brachial veins. Doppler indicates normal spontaneous flow within these venous segments.
[2018-02-21] VITALS: BP 127/80
[2018-02-21 04:00] VITALS: BP 138/80
[2018-02-21] MEDS: D5NS w/KCl 40mEq 1000ml 1,000 ML IV SCH (05:00)
[2018-02-21 05:07] LABS: HEMATOCRIT 31.9 % (37.0-47.0); HEMOGLOBIN 10.6 G/DL (12.0-16.0); MEAN CORPUSCULAR VOLUME 88 FL (80-99); PLATELET COUNT 151 K/UL (150-450); RED CELL DISTRIBUTION WIDTH 15.3 % (11.6-14.8); WHITE BLOOD COUNT 14.5 K/UL (4.8-10.8)
[2018-02-21 05:40] LABS: PHOSPHORUS 2.8 MG/DL (2.5-4.9)
[2018-02-21 06:53] LABS: ALANINE AMINOTRANSFERASE 12 U/L (12-78); ALBUMIN 1.5 G/DL (3.4-5.0); ALBUMIN/GLOBULIN RATIO 0.3 (1.0-2.7); ALKALINE PHOSPHATASE 176 U/L (46-116); ANION GAP 10 mmol/L (5-15); ASPARTATE AMINO TRANSFERASE 18 U/L (15-37); BILIRUBIN,TOTAL 0.6 MG/DL (0.2-1.0); BLOOD UREA NITROGEN 23 mg/dL (7-18); CALCIUM 7.7 MG/DL (8.5-10.1); CARBON DIOXIDE 19 MMOL/L (21-32); CHLORIDE 112 MMOL/L (98-107); CREATININE 1.1 MG/DL (0.55-1.30); POTASSIUM 4.9 MMOL/L (3.5-5.1); SODIUM 141 MMOL/L (136-145)
[2018-02-21 08:00] VITALS: BP 149/70
[2018-02-21] MEDS: Pantoprazole Inj IV SCH (09:04)
[2018-02-21] MEDS: Meropenem 1 GM in NS 55 ML IVPB SCH ×2 (09:04→20:10)
[2018-02-21] MEDS: Dakin's 0.125% Soln (Quarter Strength) 16oz TOPIC SCH (09:06)
[2018-02-21] MEDS: Morphine Sulfate 4mg/ml Inj (IV/IM USE ONLY) IVP PRN ×3 (09:28→23:07)
--- NOTE | 2018-02-21 09:39 | Nephrology Progress Note ---
Assessment/Plan Problem List: (1) JANNETTE (acute kidney injury) (2) SBO (small bowel obstruction) (3) Osteomyelitis of sacrum (4) Sepsis Assessment Renal failure- Acute on chronic/ presented with High K Small Bowel Obstruction UTI Sacral Osteo HypoNatremia Sever HypoAlbuminemia & Proteinuria Anemia Plan change IV IV Mag- per consultants suggest comfort care IV Fluid- NPO- Suction Antibiotics Anemia persaud Subjective ROS Limited/Unobtainable: No Constitutional: Reports: malaise Objective Objective Last 24 Hour Vital Signs Date Time Temp Pulse Resp B/P (MAP) Pulse Ox O2 Delivery O2 Flow Rate FiO2 02/21/18 04:00 Room Air 02/21/18 04:00 97.8 118 20 138/80 (99) 98 02/21/18 04:00 110 02/21/18 00:00 114 02/21/18 00:00 98.0 116 22 127/80 (96) 97 02/21/18 00:00 Room Air 02/20/18 20:00 Room Air 02/20/18 20:00 97.4 110 22 121/65 (83) 97 02/20/18 16:32 114 02/20/18 16:00 116 02/20/18 16:00 97.0 82 20 139/59 (85) 97 02/20/18 16:00 Room Air 02/20/18 13:42 117 02/20/18 12:00 Room Air 02/20/18 12:00 97.9 85 20 113/75 (88) 97 Intake and Output 02/20/18 02/21/18 19:00 07:00 Intake Total 570.832 ml 970 ml Output Total 450 ml 210 ml Balance 120.832 ml 760 ml Intake Oral 40 ml IV Total 570.832 ml 930 ml Output Urine Total 450 ml 200 ml Gastric Drainage Total 10 ml Laboratory Tests 02/21/18 04:00: White Blood Count 14.5H, Red Blood Count 3.60L, Hemoglobin 10.6L, Hematocrit 31.9L, Mean Corpuscular Volume 88, Mean Corpuscular Hemoglobin 29.3, Mean Corpuscular Hemoglobin Concent 33.1, Red Cell Distribution Width 15.3H, Platelet Count 151, Mean Platelet Volume 5.9L, Neutrophils (%) (Auto) , Lymphocytes (%) (Auto) , Monocytes (%) (Auto) , Eosinophils (%) (Auto) , Basophils (%) (Auto) , Differential Total Cells Counted 100, Neutrophils % ( Manual) 95H, Lymphocytes % (Manual) 2L, Monocytes % (Manual) 2, Eosinophils % ( Manual) 1, Basophils % (Manual) 0, Band Neutrophils 0, Nucleated Red Blood Cells 1, Platelet Estimate Adequate, Platelet Morphology Normal, Hypochromasia 1 +, Anisocytosis 1+, Phosphorus Level 2.8, Magnesium Level 1.6L, Pro-B-Type Natriuretic Peptide [id number], Random Vancomycin Level 20.2 02/21/18 06:00: Sodium Level 141, Potassium Level 4.9#, Chloride Level 112H, Carbon Dioxide Level 19L, Anion Gap 10, Blood Urea Nitrogen 23H, Creatinine 1.1, Estimat Glomerular Filtration Rate , Glucose Level 217H, Calcium Level 7.7L, Total Bilirubin 0.6, Aspartate Amino Transf (AST/SGOT) 18, Alanine Aminotransferase ( ALT/SGPT) 12, Alkaline Phosphatase 176H, Total Protein 5.8L, Albumin 1.5L, Globulin 4.3, Albumin/Globulin Ratio 0.3L Height (Feet): 5 Height (Inches): 5.00 Weight (Pounds): 186 General Appearance: no apparent distress Cardiovascular: tachycardia Respiratory/Chest: decreased breath sounds Abdomen: soft Objective no change Agustín Parmar MD Feb 21, 2018 09:39
--- NOTE | 2018-02-21 10:25 | Diagnostic Imaging Report ---
Indication: Abdominal distention, small bowel obstruction demonstrated on prior CT scan Technique: Water-soluble contrast provided via nasogastric tube. Serial overhead films obtained Comparison: Reference made to abdominal radiograph 02/18/2018 Findings: Service Consultant film demonstrates a dilated gas-filled small bowel loop in the upper abdomen. There is a nasogastric tube in place. Gas is also seen within the colon, as well as some stool in the right colon. A Fonseca catheter is in place After administration of contrast, contrast is seen to fill initially normal caliber proximal small bowel loops, subsequently the dilated small bowel loops which appear to be mid jejunal loops. Contrast is seen in nondilated small bowel distal to the point of obstruction on the 1 1/2 hour films, progressively fills the distal small bowel but as of 6 hours post initiation of study, is not yet within the colon. A plain radiograph taken the subsequent morning, reported separately, does show contrast within the colon although contrast is still seen proximally within the stomach and dilated small bowel. Impression: Dilated proximal to mid jejunal loops with transition to normal caliber small bowel. Findings are consistent with small bowel obstruction. However, filling of the distal nondilated small bowel and eventual but delayed entry of contrast in the colon indicates that degree of small bowel obstruction is partial Findings agree with preliminary report provided via the PACS by Dr. Hdez
[2018-02-21 10:33] LABS: INR 1.4 (0.9-1.1)
[2018-02-21] MEDS ORDERED: Tubing IV Secondary IV ONE (10:51)
[2018-02-21] MEDS: Potassium Chloride 10 MEQ in D5 1/2NS 1,000 ML IV SCH (11:27)
--- NOTE | 2018-02-21 11:30 | General Surgery Progress Note ---
General Surgery-Progress Note Subjective Additional Comments nausea and emesis with oral intake. Objective Last 24 Hour Vital Signs Date Time Temp Pulse Resp B/P (MAP) Pulse Ox O2 Delivery O2 Flow Rate FiO2 02/21/18 09:58 97.5 02/21/18 08:00 98.1 114 16 149/70 (96) 97 02/21/18 08:00 Room Air 02/21/18 08:00 111 02/21/18 04:00 Room Air 02/21/18 04:00 97.8 118 20 138/80 (99) 98 02/21/18 04:00 110 02/21/18 00:00 114 02/21/18 00:00 98.0 116 22 127/80 (96) 97 02/21/18 00:00 Room Air 02/20/18 20:00 Room Air 02/20/18 20:00 97.4 110 22 121/65 (83) 97 02/20/18 16:32 114 02/20/18 16:00 116 02/20/18 16:00 97.0 82 20 139/59 (85) 97 02/20/18 16:00 Room Air 02/20/18 13:42 117 02/20/18 12:00 Room Air 02/20/18 12:00 97.9 85 20 113/75 (88) 97 I&O Intake and Output 02/20/18 02/21/18 19:00 07:00 Intake Total 570.832 ml 970 ml Output Total 450 ml 210 ml Balance 120.832 ml 760 ml Intake Oral 40 ml IV Total 570.832 ml 930 ml Output Urine Total 450 ml 200 ml Gastric Drainage Total 10 ml Dressing: other Wound: other Drains: other Cardiovascular: RSR Respiratory: clear Abdomen: soft, distended, tenderness, present bowel sounds Extremities: no cyanosis, other Laboratory Tests Test 02/21/18 04:00 02/21/18 06:00 02/21/18 09:45 White Blood Count 14.5 K/UL (4.8-10.8) H Red Blood Count 3.60 M/UL (4.20-5.40) L Hemoglobin 10.6 G/DL (12.0-16.0) L Hematocrit 31.9 % (37.0-47.0) L Mean Corpuscular Volume 88 FL (80-99) Mean Corpuscular Hemoglobin 29.3 PG (27.0-31.0) Mean Corpuscular Hemoglobin Concent 33.1 G/DL (32.0-36.0) Red Cell Distribution Width 15.3 % (11.6-14.8) H Platelet Count 151 K/UL (150-450) Mean Platelet Volume 5.9 FL (6.5-10.1) L Neutrophils (%) (Auto) % (45.0-75.0) Lymphocytes (%) (Auto) % (20.0-45.0) Monocytes (%) (Auto) % (1.0-10.0) Eosinophils (%) (Auto) % (0.0-3.0) Basophils (%) (Auto) % (0.0-2.0) Differential Total Cells Counted 100 Neutrophils % (Manual) 95 % (45-75) H Lymphocytes % (Manual) 2 % (20-45) L Monocytes % (Manual) 2 % (1-10) Eosinophils % (Manual) 1 % (0-3) Basophils % (Manual) 0 % (0-2) Band Neutrophils 0 % (0-8) Nucleated Red Blood Cells 1 /100 WBC Platelet Estimate Adequate Platelet Morphology Normal Hypochromasia 1+ Anisocytosis 1+ Phosphorus Level 2.8 MG/DL (2.5-4.9) Magnesium Level 1.6 MG/DL (1.8-2.4) L Pro-B-Type Natriuretic Peptide 75958 pg/mL (0-125) H Random Vancomycin Level 20.2 ug/mL Sodium Level 141 MMOL/L (136-145) Potassium Level 4.9 MMOL/L (3.5-5.1) # Chloride Level 112 MMOL/L (98-107) H Carbon Dioxide Level 19 MMOL/L (21-32) L Anion Gap 10 mmol/L (5-15) Blood Urea Nitrogen 23 mg/dL (7-18) H Creatinine 1.1 MG/DL (0.55-1.30) Estimat Glomerular Filtration Rate mL/min (>60) Glucose Level 217 MG/DL (74-106) H Calcium Level 7.7 MG/DL (8.5-10.1) L Total Bilirubin 0.6 MG/DL (0.2-1.0) Aspartate Amino Transf (AST/SGOT) 18 U/L (15-37) Alanine Aminotransferase (ALT/SGPT) 12 U/L (12-78) Alkaline Phosphatase 176 U/L (46-116) H Total Protein 5.8 G/DL (6.4-8.2) L Albumin 1.5 G/DL (3.4-5.0) L Globulin 4.3 g/dL Albumin/Globulin Ratio 0.3 (1.0-2.7) L Prothrombin Time 14.5 SEC (9.30-11.50) H Prothromb Time International Ratio 1.4 (0.9-1.1) H Plan Problems: (1) Sepsis Assessment & Plan: sepsis, tachy, leukocytosis, lactic acidosis, abnormal labs likely related to abdominal etiology. possible infected sacral ulcer appreciate ID input. IV abx IV fluids (2) SBO (small bowel obstruction) Assessment & Plan: reviewed CT and discussed with radiologist. seems to have complete SBO with transition point in proximal bowel. distended and fluid filled proximal. decompressed distal. abdominal exam benign. no significant distention or tenderness. currently no n/v hx of prior episodes. discussed with patient and family. Recommend exploration given findings. Family and patient decline. State that it has been her wish for some time now to not have surgery even if life threatening. explained risks of worsening condition, perforation, even . expressed understanding and refuses surgery Has been improving. small bowel series with contrast performed. no obstruction noted. contrast in colon this AM. dilated jejunal loops still noted and mildly improved. no ng tube output. +flatus. KUB with contrast in colon. likely incomplete obstruction but there is some component of obstruction vs ileus she has. still decline surgery and family states plans for hospice. diet as can be tolerated for comfort IV fluids IV Abx trend labs discuss DNR status with patient and family given her wishes. (3) Pressure ulcer of sacral region, stage 4 Assessment & Plan: Full thickness pressure injury to sacrum with multiple open wounds periwound and R buttocks .Sacral pressure injury (L)11cm x (W)12.4cm x (D )4cm with undermining 9-4 by 4 cm at 3o'clock. Wound malodorous with 75% soft necrosis.Bone palpable.Additional pressure injuries noted periwound L buttocks. Full thickness pressure injury to Upper R buttocks (L)1.4cm x (W)4.7cm x(D)0.2cm ,scattered slough with granulation with marginal erythema. Full thickness inferior R buttocks (L)4.5cm x (W)2.5cm wound granular with marginal erythema. Full thickness pressure injury to R ischium (L)0.8cm x(W)2.3cm .Wound granular with dark borders. Periwound dark without induration. Multiple partial thickness pressure injuries in close proximity noted to upper/outer R buttocks ( L)2cm x (W)4.6cm with non-blanchable erythema periwound. R heel Mottled,cool and boggy with dry peeling skin (L)6cm x (W)8cm. Pt denied tenderness when minimally palpated. L heel mottled,boggy, and cool to touch (L)6cm x (W) 7.4cm .Pt verbalized tenderness when palpated. R and L 1st metatarsals mottled and non -tender when palpated. Spoke to Dtr regarding sacral pressure injury. Sacral wound cleansed with Saline and loosley packed with Saline moist gauze until evaluated by Surgeon.Dtr stated pt had small pressure injury in October which progressively worsened.Dtr also stated she was informed at [facility] wound was getting better. DTR made aware of stage and state of wound.Advised of Surgical consult and that surgeon would discuss all options with regards to wound. visited and Md also discussed possibility of surgical debridement of sacral wound with Dtr. Tx.Plan: Air fluidized mattress. Sacral Wound care orders as in wound care clarification orders; wash , dakins, dressings. Apply Cavilon to both heels and off-load heels daily. Cavilon wipes to R and L 1st metatarsals Daily Apply Moisture Barrier paste to Wounds R buttocks and R ischium and cover with Optifoam drsg Daily and prn. Reposition at minimum every 2hours or as tolerated. Discussed with family care plan. Her major concern is a complete bowel obstruction. the decubitus ulcer is concerning but chronic. will continue care for wounds but hold on debridement until the remainder of her medical condition is improved. family is considering hospice. Levon Jacobs Feb 21, 2018 11:30
[2018-02-21 12:00] VITALS: BP 147/78
--- NOTE | 2018-02-21 13:23 | Infectious Diseases Prog Note ---
Assessment/Plan Problems: (1) Pressure ulcer of sacral region, stage 4 Assessment & Plan: deep and necrotic with undermining , and foul smell , infected with possible underlying osteomyelitis of the sacrum and coccyx . MRI of the sacrum is pending to confirm, recommend surgical excision and debridement. daughter had chosen hospice care and no surgical debridement of the sacrum for now . continue off loading and local wound care as per hospital protocol (2) Cutaneous abscess of abdominal wall Assessment & Plan: source hematogenous VS translocation from the pelvis , on meropenem and vancomycin renally dosed, no surgical intervention (3) Catheter-associated urinary tract infection Assessment & Plan: due to ESBL producing klebsiella pneumonia , S/P lomeli catheter change, continue meropenem (4) Sepsis Assessment & Plan: with poly organisms due to the above with leukocytosis , on meropenem and vancomycin renally dosed , pending blood culture, wbc went up a little , patient needs surgical debridement of the sacrum for source control . 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 chronic due to the deep pressure wound , MRI to confirm was held since she was on continuos suctioning , recommend bone biopsy for culture to identify the exact cause (7) Abnormal blood electrolyte level Assessment & Plan: continue hydration with close monitoring of electrolytes (8) SBO (small bowel obstruction) Assessment & Plan: with possible adhesions, and fat filled fluids collection , improving, continue hydration, and conservative management , as per surgery Assessment/Plan D/W daughter and son the plan of care, they are waiting on medicare A approval to transition to hospice Subjective ROS Limited/Unobtainable: Yes Allergies: Coded Allergies: No Known Allergies (Unverified , 02/17/18) Subjective she was sedated and sleepy , after she received nausea meds Objective Vital Signs Last 24 Hour Vital Signs Date Time Temp Pulse Resp B/P (MAP) Pulse Ox O2 Delivery O2 Flow Rate FiO2 02/21/18 12:00 97.7 103 16 147/78 (101) 98 02/21/18 12:00 Room Air 02/21/18 12:00 111 02/21/18 09:58 97.5 02/21/18 08:00 98.1 114 16 149/70 (96) 97 02/21/18 08:00 Room Air 02/21/18 08:00 111 02/21/18 04:00 Room Air 02/21/18 04:00 97.8 118 20 138/80 (99) 98 02/21/18 04:00 110 02/21/18 00:00 114 02/21/18 00:00 98.0 116 22 127/80 (96) 97 02/21/18 00:00 Room Air 02/20/18 20:00 Room Air 02/20/18 20:00 97.4 110 22 121/65 (83) 97 02/20/18 16:32 114 02/20/18 16:00 116 02/20/18 16:00 97.0 82 20 139/59 (85) 97 02/20/18 16:00 Room Air 02/20/18 13:42 117 Height (Feet): 5 Height (Inches): 5.00 Weight (Pounds): 186 General Appearance: WD/WN, no acute distress HEENT: normocephalic, atraumatic, anicteric, mucous membranes moist, supple, no JVD Respiratory/Chest: chest wall non-tender, normal breath sounds, no respiratory distress, no accessory muscle use, decreased breath sounds Cardiovascular: normal peripheral pulses, normal rate, regular rhythm, no gallop/murmur, no JVD Abdomen: soft, non tender, no organomegaly, no mass, no scars, absent bowel sounds, distended Genitourinary: normal external genitalia Extremities: no cyanosis, no clubbing Skin: no rash, no lesions, ulcers - large sacral pressure wound with necrosis and bone involvement Neurologic/Psychiatric: unresponsiveness Lymphatic: no neck adenopathy, no groin adenopathy Musculoskeletal: normal muscle bulk, no effusion Microbiology Date/Time Source Procedure Growth Status 02/20/18 18:00 Stool Clostridium difficile Toxin Assay - Final Complete Laboratory Tests Test 02/21/18 04:00 02/21/18 06:00 02/21/18 09:45 White Blood Count 14.5 K/UL (4.8-10.8) H Red Blood Count 3.60 M/UL (4.20-5.40) L Hemoglobin 10.6 G/DL (12.0-16.0) L Hematocrit 31.9 % (37.0-47.0) L Mean Corpuscular Volume 88 FL (80-99) Mean Corpuscular Hemoglobin 29.3 PG (27.0-31.0) Mean Corpuscular Hemoglobin Concent 33.1 G/DL (32.0-36.0) Red Cell Distribution Width 15.3 % (11.6-14.8) H Platelet Count 151 K/UL (150-450) Mean Platelet Volume 5.9 FL (6.5-10.1) L Neutrophils (%) (Auto) % (45.0-75.0) Lymphocytes (%) (Auto) % (20.0-45.0) Monocytes (%) (Auto) % (1.0-10.0) Eosinophils (%) (Auto) % (0.0-3.0) Basophils (%) (Auto) % (0.0-2.0) Differential Total Cells Counted 100 Neutrophils % (Manual) 95 % (45-75) H Lymphocytes % (Manual) 2 % (20-45) L Monocytes % (Manual) 2 % (1-10) Eosinophils % (Manual) 1 % (0-3) Basophils % (Manual) 0 % (0-2) Band Neutrophils 0 % (0-8) Nucleated Red Blood Cells 1 /100 WBC Platelet Estimate Adequate Platelet Morphology Normal Hypochromasia 1+ Anisocytosis 1+ Phosphorus Level 2.8 MG/DL (2.5-4.9) Magnesium Level 1.6 MG/DL (1.8-2.4) L Pro-B-Type Natriuretic Peptide 13926 pg/mL (0-125) H Random Vancomycin Level 20.2 ug/mL Sodium Level 141 MMOL/L (136-145) Potassium Level 4.9 MMOL/L (3.5-5.1) # Chloride Level 112 MMOL/L (98-107) H Carbon Dioxide Level 19 MMOL/L (21-32) L Anion Gap 10 mmol/L (5-15) Blood Urea Nitrogen 23 mg/dL (7-18) H Creatinine 1.1 MG/DL (0.55-1.30) Estimat Glomerular Filtration Rate mL/min (>60) Glucose Level 217 MG/DL (74-106) H Calcium Level 7.7 MG/DL (8.5-10.1) L Total Bilirubin 0.6 MG/DL (0.2-1.0) Aspartate Amino Transf (AST/SGOT) 18 U/L (15-37) Alanine Aminotransferase (ALT/SGPT) 12 U/L (12-78) Alkaline Phosphatase 176 U/L (46-116) H Total Protein 5.8 G/DL (6.4-8.2) L Albumin 1.5 G/DL (3.4-5.0) L Globulin 4.3 g/dL Albumin/Globulin Ratio 0.3 (1.0-2.7) L Prothrombin Time 14.5 SEC (9.30-11.50) H Prothromb Time International Ratio 1.4 (0.9-1.1) H Current Medications Medications (Trade) Dose Ordered Sig/Nidia Route PRN Reason Start Time Stop Time Status Last Admin Dose Admin Chlorhexidine Gluconate (Taylor-Hex 2%) 1 applic DAILY@2000 TOPIC 02/18/18 20:00 03/20/18 19:59 02/20/18 20:53 Dextrose (Dextrose 50%) 25 ml Q30M PRN IV Hypoglycemia 02/17/18 16:00 03/19/18 15:59 Dextrose (Dextrose 50%) 50 ml Q30M PRN IV Hypoglycemia 02/17/18 16:00 03/19/18 15:59 Fluconazole/ Sodium Chloride 100 ml @ 100 mls/hr Q24H IV 02/18/18 17:00 02/25/18 16:59 02/20/18 17:00 Haloperidol Lactate (Haldol) 5 mg Q6H PRN IM Agitation 02/19/18 11:45 03/21/18 11:44 02/20/18 20:53 Meropenem 1 gm/ Sodium Chloride 55 ml @ 110 mls/hr Q12HR IVPB 02/17/18 20:00 02/22/18 19:59 02/21/18 09:04 Morphine Sulfate (Morphine Sulfate) 3 mg Q4H PRN IVP Pain Scale 4-10) 02/20/18 09:08 02/27/18 09:07 02/21/18 09:28 Pantoprazole (Protonix) 40 mg DAILY IV 02/17/18 16:00 03/19/18 15:59 02/21/18 09:04 Potassium Chloride 10 meq/ Dextrose/Sodium Chloride 1,005 ml @ 50 mls/hr Q20H6M IV 02/21/18 10:00 03/23/18 09:59 02/21/18 11:27 Sodium Hypochlorite (Dakin's Quarter Strength) 1 applic Q24H TOPIC 02/18/18 09:00 03/19/18 19:59 02/21/18 09:06 Sodium Chloride 500 ml @ 999 mls/hr Q31M PRN IV For hypotension 02/17/18 16:15 03/19/18 16:14 Vancomycin HCl (Vanco rx to dose) 1 ea DAILY PRN MISC Per rx protocol 02/17/18 16:15 03/19/18 16:14 Vancomycin HCl 1 gm/Dextrose 275 ml @ 183.708 mls/hr NOW ONCE IVPB 02/21/18 15:00 02/21/18 16:29 Ari Lewis M.D. Feb 21, 2018 13:23
--- NOTE | 2018-02-21 13:24 | General Progress Note ---
Progress Note Progress Note covering for Dr Weinstein S: I have pain O: NG in place, Dtr at bedside. No distress, but in anxiety PHYSICAL EXAMINATION: HEAD AND NECK: Atraumatic and normocephalic. CHEST: Clear to auscultation. No wheezing. No crackles. ABDOMEN: Positive for tenderness on deep palpation. Bowel sounds have decreased.No rebound tenderness MUSCULOSKELETAL: Positive for the sacral decubitus wounds. Positive for decreased range of motion and strength in all four extremities. NEUROLOGIC: The patient is awake, alert, and oriented x3. anxious IMAGING STUDIES: Imaging shows abdominal pelvic CT scan dated February 17, is reviewed. Chest x-ray also reviewed. Meds: reviewed and reconciled including but not limited to Meropenem and Vanco ASSESSMENT: 1. Sepsis. Gram negative 2. Acute abdomen secondary to small bowel obstruction. 3. Decubitus wound, sacral possibility of osteomyelitis cannot be excluded. 4. Renal failure - age indeterminate. 5. Hyponatremia. 6. Catheter-induced urinary infection. 7. GI and DVT prophylaxis. PLAN OF CARE: I had detailed conversation with Tin, the Dtr and her son regardig her mother condition POLST to DNR Consulted Hospice care [facility] medical prognosis waiting for medicare A approval continue current management Feb 20, 2018 15:49 Ari Lewis M.D. Feb 21, 2018 13:24
--- NOTE | 2018-02-21 14:43 | General Progress Note ---
Assessment/Plan Status: stable Assessment/Plan # Anemia of chronic disease (or of iron deficiency) due to underlying chronic medical issues, multifactorial --> Anemia w/u has been ordered - PENDING --> No evidence of hemolysis is noted, peripheral smear has been reviewed. --> Hgb goal >7. Transfuse prn. --> Epogen or iron at this time is not particularly indicated # Leukocytosis. Likely related to underlying infection versus reactive process. --> WBC improving/trending downwards --> Peripheral has been reviewed, no blasts noted --> Medications have been reviewed --> Imaging has been reviewed. CXR shows patchy left perihilar opacities, could represent focal infiltrates. Correlate with clinical findings --> Blood cultures and urine cultures are both ++ --> Has been started on abx, empiric treatment # Pressure ulcer of the sacral region, stage IV, deep and necrotic with undermining and foul smell, infected with possible underlying osteomyelitis of the sacrum and coccyx due to exposed bone. --> MRI of the sacrum to confirm recommend surgical excision and debridement. --> Continue offloading and local wound care as per hospital protocol. --> Surgical evaluation is pending. # Cutaneous abscesses of the abdominal wall, source hematogenous verus translocation from the pelvis. --> On meropenem and continue vancomycin renally dose, pending surgical evaluation. # Catheter-associated urinary tract infection. We will change Fonseca catheter and start meropenem pending urine culture. # Acute renal failure due to the above. Continue hydration with renally dosed medications. Monitor renal function and urine output. --> Consult Nephrology. 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 We will order MRI to confirm recommend bone biopsy for culture to identify the exact cause and narrow down antibiotics treatment. # Abnormal blood electrolyte level. Continue hydration and close monitoring of electrolytes, replace as needed. # Small bowel obstruction with possible adhesions and fluid-filled fat collection, possible abscesses. Source hematogenous versus perforation related. Keep NPO. Continue hydration. Surgical evaluation. --> Plan of care was discussed with the daughter in detail at the bedside. --> Daughter stated that mother is refusing any surgical procedure, she had a bad experience from anesthesia in the past when she had a dental workup. GREATLY APPRECIATE CONSULTATION. Subjective Date patient seen: Feb 21, 2018 Hematologic/Lymphatic: Reports: anemia Allergies: Coded Allergies: No Known Allergies (Unverified , 02/17/18) All Systems: reviewed and negative except above Subjective Pt awake and alert. Family at bedside. No acute events. Objective Last 24 Hour Vital Signs Date Time Temp Pulse Resp B/P (MAP) Pulse Ox O2 Delivery O2 Flow Rate FiO2 02/21/18 12:00 97.7 103 16 147/78 (101) 98 02/21/18 12:00 Room Air 02/21/18 12:00 111 02/21/18 09:58 97.5 02/21/18 08:00 98.1 114 16 149/70 (96) 97 02/21/18 08:00 Room Air 02/21/18 08:00 111 02/21/18 04:00 Room Air 02/21/18 04:00 97.8 118 20 138/80 (99) 98 02/21/18 04:00 110 02/21/18 00:00 114 02/21/18 00:00 98.0 116 22 127/80 (96) 97 02/21/18 00:00 Room Air 02/20/18 20:00 Room Air 02/20/18 20:00 97.4 110 22 121/65 (83) 97 02/20/18 16:32 114 02/20/18 16:00 116 02/20/18 16:00 97.0 82 20 139/59 (85) 97 02/20/18 16:00 Room Air Intake and Output 02/20/18 02/21/18 19:00 07:00 Intake Total 570.832 ml 970 ml Output Total 450 ml 210 ml Balance 120.832 ml 760 ml Intake Oral 40 ml IV Total 570.832 ml 930 ml Output Urine Total 450 ml 200 ml Gastric Drainage Total 10 ml Laboratory Tests 02/21/18 04:00: White Blood Count 14.5H, Red Blood Count 3.60L, Hemoglobin 10.6L, Hematocrit 31.9L, Mean Corpuscular Volume 88, Mean Corpuscular Hemoglobin 29.3, Mean Corpuscular Hemoglobin Concent 33.1, Red Cell Distribution Width 15.3H, Platelet Count 151, Mean Platelet Volume 5.9L, Neutrophils (%) (Auto) , Lymphocytes (%) (Auto) , Monocytes (%) (Auto) , Eosinophils (%) (Auto) , Basophils (%) (Auto) , Differential Total Cells Counted 100, Neutrophils % ( Manual) 95H, Lymphocytes % (Manual) 2L, Monocytes % (Manual) 2, Eosinophils % ( Manual) 1, Basophils % (Manual) 0, Band Neutrophils 0, Nucleated Red Blood Cells 1, Platelet Estimate Adequate, Platelet Morphology Normal, Hypochromasia 1 +, Anisocytosis 1+, Phosphorus Level 2.8, Magnesium Level 1.6L, Pro-B-Type Natriuretic Peptide 08364M, Random Vancomycin Level 20.2 02/21/18 06:00: Sodium Level 141, Potassium Level 4.9#, Chloride Level 112H, Carbon Dioxide Level 19L, Anion Gap 10, Blood Urea Nitrogen 23H, Creatinine 1.1, Estimat Glomerular Filtration Rate , Glucose Level 217H, Calcium Level 7.7L, Total Bilirubin 0.6, Aspartate Amino Transf (AST/SGOT) 18, Alanine Aminotransferase ( ALT/SGPT) 12, Alkaline Phosphatase 176H, Total Protein 5.8L, Albumin 1.5L, Globulin 4.3, Albumin/Globulin Ratio 0.3L 02/21/18 09:45: Prothrombin Time 14.5H, Prothromb Time International Ratio 1.4H Height (Feet): 5 Height (Inches): 5.00 Weight (Pounds): 186 Objective PHYSICAL EXAMINATION: VITAL SIGNS: Have been reviewed GENERAL: An elderly female, Australian speaker, obese, lying in bed, moaning in pain, daughter at the bedside. HEENT: Normocephalic and atraumatic. Pupils are reactive to light. Moist oral mucosa. No exudate or thrush. NECK: Supple. No lymphadenopathy. CARDIOVASCULAR: Regular rate and rhythm. Actually, she is tachycardic. No murmur or gallop. LUNGS: Clear bilaterally. No wheezing or rhonchi. ABDOMEN: Soft and distended. Absent bowel sounds. Not tender. No rebound. No organomegaly. EXTREMITIES: No edema or cyanosis. No clubbing. SKIN: She had large and deep sacral pressure wound, 4 cm deep at least with undermining and extensive necrotic tissue at the base with exposed bone at the sacral area and foul smell. Siddhartha Soto MD Feb 21, 2018 14:43
[2018-02-21] MEDS ORDERED: Vancomycin 1gm/D5W 275ml IVPB ONE ×2 (15:00)
[2018-02-21 16:00] VITALS: BP 153/78
[2018-02-21 20:00] VITALS: BP 140/85
[2018-02-21] MEDS: Dyna-Hex 2% Top Sol 2oz TOPIC SCH (20:09)
--- NOTE | 2018-02-21 21:09 | Pulmonology Progress Note ---
Assessment/Plan Assessment/Plan PROBLEM LIST: 1. Left perihilar infiltrate, likely healthcare-associated pneumonia. 2. Stage IV sacral decubitus ulcer with likely osteomyelitis. 3. Gram negative bacillus urinary tract infection. 4. Gram-positive cocci and gram-negative sepsis. 5. Acute superficial femoral and popliteal DVT in the right and common femoral, superficial femoral, and popliteal DVT in the left. 6. Small bowel obstruction, likely acute on chronic. 7. Concern for unusual fat or fluid collections in the abdomen/abdominal wall. 8. Leukocytosis. 9. Anemia. 10. Abnormal creatinine, JANNETTE versus CKD. 11. Severe protein-calorie malnutrition. 12. Prior CVA. TREATMENT PLAN: 1. Optimize pulmonary hygiene/mobilize as tolerated. 2. P.r.n. O2. 3. Monitor for signs of worsening respiratory status. 4. Continue antibiotics (vancomycin and meropenem) + Fluconazole per Infectious Disease service. 5. Follow up Surgery recommendations, NO PLAN FOR debridement of sacral decubitus ulcer OR laparotomy based on family's goals of care. 6. Monitor volumes and renal function, gentle IV fluid hydration as tolerated, replete electrolytes 8. A/C held given elevated PTT 9. NPO, NG-tube to suction. 10. DNAR, dispo planning to hospice Subjective Allergies: Coded Allergies: No Known Allergies (Unverified , 02/17/18) Subjective positive cough shortness of breath nv noted minimal po and not getting oob no fever noted NGT removed weak and ill appearing Objective Last 24 Hour Vital Signs Date Time Temp Pulse Resp B/P (MAP) Pulse Ox O2 Delivery O2 Flow Rate FiO2 02/21/18 18:34 97.5 02/21/18 17:00 Room Air 02/21/18 16:00 118 02/21/18 16:00 97.7 109 16 153/78 (103) 98 02/21/18 12:00 97.7 103 16 147/78 (101) 98 02/21/18 12:00 Room Air 02/21/18 12:00 111 02/21/18 08:00 98.1 114 16 149/70 (96) 97 02/21/18 08:00 Room Air 02/21/18 08:00 111 02/21/18 04:00 Room Air 02/21/18 04:00 97.8 118 20 138/80 (99) 98 02/21/18 04:00 110 02/21/18 00:00 114 02/21/18 00:00 98.0 116 22 127/80 (96) 97 02/21/18 00:00 Room Air Intake and Output 02/20/18 02/21/18 18:59 06:59 Intake Total 270.832 ml 1195 ml Output Total 450 ml 210 ml Balance -179.168 ml 985 ml Intake Oral 40 ml IV Total 270.832 ml 1155 ml Output Urine Total 450 ml 200 ml Gastric Drainage Total 10 ml General Appearance: WD/WN HEENT: anicteric Respiratory/Chest: rhonchi Cardiovascular: normal rate, regular rhythm Abdomen: distended, tender Skin: no rash, no lesions Neurologic/Psychiatric: responsive Microbiology Date/Time Source Procedure Growth Status 02/20/18 18:00 Stool Clostridium difficile Toxin Assay - Final Complete Laboratory Tests 02/21/18 04:00: White Blood Count 14.5H, Red Blood Count 3.60L, Hemoglobin 10.6L, Hematocrit 31.9L, Mean Corpuscular Volume 88, Mean Corpuscular Hemoglobin 29.3, Mean Corpuscular Hemoglobin Concent 33.1, Red Cell Distribution Width 15.3H, Platelet Count 151, Mean Platelet Volume 5.9L, Neutrophils (%) (Auto) , Lymphocytes (%) (Auto) , Monocytes (%) (Auto) , Eosinophils (%) (Auto) , Basophils (%) (Auto) , Differential Total Cells Counted 100, Neutrophils % ( Manual) 95H, Lymphocytes % (Manual) 2L, Monocytes % (Manual) 2, Eosinophils % ( Manual) 1, Basophils % (Manual) 0, Band Neutrophils 0, Nucleated Red Blood Cells 1, Platelet Estimate Adequate, Platelet Morphology Normal, Hypochromasia 1 +, Anisocytosis 1+, Phosphorus Level 2.8, Magnesium Level 1.6L, Pro-B-Type Natriuretic Peptide 24352N, Random Vancomycin Level 20.2 02/21/18 06:00: Sodium Level 141, Potassium Level 4.9#, Chloride Level 112H, Carbon Dioxide Level 19L, Anion Gap 10, Blood Urea Nitrogen 23H, Creatinine 1.1, Estimat Glomerular Filtration Rate , Glucose Level 217H, Calcium Level 7.7L, Total Bilirubin 0.6, Aspartate Amino Transf (AST/SGOT) 18, Alanine Aminotransferase ( ALT/SGPT) 12, Alkaline Phosphatase 176H, Total Protein 5.8L, Albumin 1.5L, Globulin 4.3, Albumin/Globulin Ratio 0.3L 02/21/18 09:45: Prothrombin Time 14.5H, Prothromb Time International Ratio 1.4H Current Medications Medications (Trade) Dose Ordered Sig/Nidia Route PRN Reason Start Time Stop Time Status Last Admin Dose Admin Chlorhexidine Gluconate (Taylor-Hex 2%) 1 applic DAILY@2000 TOPIC 02/18/18 20:00 03/20/18 19:59 02/21/18 20:09 Dextrose (Dextrose 50%) 25 ml Q30M PRN IV Hypoglycemia 02/17/18 16:00 03/19/18 15:59 Dextrose (Dextrose 50%) 50 ml Q30M PRN IV Hypoglycemia 02/17/18 16:00 03/19/18 15:59 Fluconazole/ Sodium Chloride 100 ml @ 100 mls/hr Q24H IV 02/18/18 17:00 02/25/18 16:59 02/21/18 18:03 Haloperidol Lactate (Haldol) 5 mg Q6H PRN IM Agitation 02/19/18 11:45 03/21/18 11:44 02/20/18 20:53 Meropenem 1 gm/ Sodium Chloride 55 ml @ 110 mls/hr Q12HR IVPB 02/17/18 20:00 02/26/18 19:59 02/21/18 20:10 Morphine Sulfate (Morphine Sulfate) 3 mg Q4H PRN IVP Pain Scale 4-10) 02/20/18 09:08 02/27/18 09:07 02/21/18 18:04 Pantoprazole (Protonix) 40 mg DAILY IV 02/17/18 16:00 03/19/18 15:59 02/21/18 09:04 Potassium Chloride 10 meq/ Dextrose/Sodium Chloride 1,005 ml @ 50 mls/hr Q20H6M IV 02/21/18 10:00 03/23/18 09:59 02/21/18 11:27 Sodium Hypochlorite (Dakin's Quarter Strength) 1 applic Q24H TOPIC 02/18/18 09:00 03/19/18 19:59 02/21/18 09:06 Sodium Chloride 500 ml @ 999 mls/hr Q31M PRN IV For hypotension 02/17/18 16:15 03/19/18 16:14 Vancomycin HCl (Vanco rx to dose) 1 ea DAILY PRN MISC Per rx protocol 02/17/18 16:15 03/19/18 16:14 Fozia Esteban DO Feb 21, 2018 21:09
--- NOTE | 2018-02-21 22:18 | Cardiology Progress Note ---
Assessment/Plan Assessment/Plan 1. Sinus tachycardia due to severe hypovolemia, correct with hydration and electrolyte replacement. 2. Cholelithiasis. 3. Left basilar consolidation, questionable pneumonia. 4. Small bowel obstruction. Subjective Subjective Sinus tachycardia at rate of 120. Objective Last 24 Hour Vital Signs Date Time Temp Pulse Resp B/P (MAP) Pulse Ox O2 Delivery O2 Flow Rate FiO2 02/21/18 20:00 98.1 120 17 140/85 (103) 98 02/21/18 20:00 Room Air 02/21/18 18:34 97.5 02/21/18 17:00 Room Air 02/21/18 16:00 118 02/21/18 16:00 97.7 109 16 153/78 (103) 98 02/21/18 12:00 97.7 103 16 147/78 (101) 98 02/21/18 12:00 Room Air 02/21/18 12:00 111 02/21/18 08:00 98.1 114 16 149/70 (96) 97 02/21/18 08:00 Room Air 02/21/18 08:00 111 02/21/18 04:00 Room Air 02/21/18 04:00 97.8 118 20 138/80 (99) 98 02/21/18 04:00 110 02/21/18 00:00 114 02/21/18 00:00 98.0 116 22 127/80 (96) 97 02/21/18 00:00 Room Air Intake and Output 02/20/18 02/21/18 18:59 06:59 Intake Total 270.832 ml 1195 ml Output Total 450 ml 210 ml Balance -179.168 ml 985 ml Intake Oral 40 ml IV Total 270.832 ml 1155 ml Output Urine Total 450 ml 200 ml Gastric Drainage Total 10 ml 2D Echo: LVEF 55%, Mild LVH, Grade I LVDD, RVSP 42 mmHg Laboratory Tests Test 02/21/18 04:00 02/21/18 06:00 02/21/18 09:45 White Blood Count 14.5 K/UL (4.8-10.8) H Red Blood Count 3.60 M/UL (4.20-5.40) L Hemoglobin 10.6 G/DL (12.0-16.0) L Hematocrit 31.9 % (37.0-47.0) L Mean Corpuscular Volume 88 FL (80-99) Mean Corpuscular Hemoglobin 29.3 PG (27.0-31.0) Mean Corpuscular Hemoglobin Concent 33.1 G/DL (32.0-36.0) Red Cell Distribution Width 15.3 % (11.6-14.8) H Platelet Count 151 K/UL (150-450) Mean Platelet Volume 5.9 FL (6.5-10.1) L Neutrophils (%) (Auto) % (45.0-75.0) Lymphocytes (%) (Auto) % (20.0-45.0) Monocytes (%) (Auto) % (1.0-10.0) Eosinophils (%) (Auto) % (0.0-3.0) Basophils (%) (Auto) % (0.0-2.0) Differential Total Cells Counted 100 Neutrophils % (Manual) 95 % (45-75) H Lymphocytes % (Manual) 2 % (20-45) L Monocytes % (Manual) 2 % (1-10) Eosinophils % (Manual) 1 % (0-3) Basophils % (Manual) 0 % (0-2) Band Neutrophils 0 % (0-8) Nucleated Red Blood Cells 1 /100 WBC Platelet Estimate Adequate Platelet Morphology Normal Hypochromasia 1+ Anisocytosis 1+ Phosphorus Level 2.8 MG/DL (2.5-4.9) Magnesium Level 1.6 MG/DL (1.8-2.4) L Pro-B-Type Natriuretic Peptide 34385 pg/mL (0-125) H Random Vancomycin Level 20.2 ug/mL Sodium Level 141 MMOL/L (136-145) Potassium Level 4.9 MMOL/L (3.5-5.1) # Chloride Level 112 MMOL/L (98-107) H Carbon Dioxide Level 19 MMOL/L (21-32) L Anion Gap 10 mmol/L (5-15) Blood Urea Nitrogen 23 mg/dL (7-18) H Creatinine 1.1 MG/DL (0.55-1.30) Estimat Glomerular Filtration Rate mL/min (>60) Glucose Level 217 MG/DL (74-106) H Calcium Level 7.7 MG/DL (8.5-10.1) L Total Bilirubin 0.6 MG/DL (0.2-1.0) Aspartate Amino Transf (AST/SGOT) 18 U/L (15-37) Alanine Aminotransferase (ALT/SGPT) 12 U/L (12-78) Alkaline Phosphatase 176 U/L (46-116) H Total Protein 5.8 G/DL (6.4-8.2) L Albumin 1.5 G/DL (3.4-5.0) L Globulin 4.3 g/dL Albumin/Globulin Ratio 0.3 (1.0-2.7) L Prothrombin Time 14.5 SEC (9.30-11.50) H Prothromb Time International Ratio 1.4 (0.9-1.1) H Microbiology Date/Time Source Procedure Growth Status 02/20/18 18:00 Stool Clostridium difficile Toxin Assay - Final Complete Objective HEENT: Atraumatic and normocephalic. Anicteric. Pupils are equal, round, and reactive to light and accommodation. Dry mucosal membranes. NECK: JVP less than 5 cm. No carotid bruit. Carotid upstrokes 2+ bilaterally. CARDIOVASCULAR: Normal S1, S2. Regular rate and rhythm. No murmurs, gallops, or rubs. Tachycardic. LUNGS: Clear to auscultation bilaterally. ABDOMEN: Distended. Diminished bowel sounds. No hepatosplenomegaly. Diffuse tenderness. EXTREMITIES: No evidence of edema, clubbing, or cyanosis. Thomas Quiroz MD Feb 21, 2018 22:18
[2018-02-22] VITALS: BP 132/70
[2018-02-22] MEDS: Potassium Chloride 10 MEQ in D5 1/2NS 1,000 ML IV SCH (02:47)
[2018-02-22 04:00] VITALS: BP 141/81
[2018-02-22] MEDS: Morphine Sulfate 4mg/ml Inj (IV/IM USE ONLY) IVP PRN (04:04)
[2018-02-22 05:38] LABS: HEMATOCRIT 34.6 % (37.0-47.0); HEMOGLOBIN 12.1 G/DL (12.0-16.0); MEAN CORPUSCULAR VOLUME 86 FL (80-99); PLATELET COUNT 129 K/UL (150-450); RED BLOOD COUNT 4.02 M/UL (4.20-5.40); RED CELL DISTRIBUTION WIDTH 14.4 % (11.6-14.8); WHITE BLOOD COUNT 14.4 K/UL (4.8-10.8)
[2018-02-22 05:53] LABS: ALANINE AMINOTRANSFERASE 16 U/L (12-78); ALBUMIN 1.4 G/DL (3.4-5.0); ALBUMIN/GLOBULIN RATIO 0.3 (1.0-2.7); ALKALINE PHOSPHATASE 177 U/L (46-116); ANION GAP 9 mmol/L (5-15); ASPARTATE AMINO TRANSFERASE 20 U/L (15-37); BILIRUBIN,TOTAL 0.6 MG/DL (0.2-1.0); BLOOD UREA NITROGEN 20 mg/dL (7-18); CALCIUM 7.7 MG/DL (8.5-10.1); CARBON DIOXIDE 18 MMOL/L (21-32); CHLORIDE 113 MMOL/L (98-107); CREATININE 0.8 MG/DL (0.55-1.30); POTASSIUM 4.9 MMOL/L (3.5-5.1); SODIUM 140 MMOL/L (136-145)
[2018-02-22 08:00] VITALS: BP 127/84
[2018-02-22] MEDS: Pantoprazole Inj IV SCH (08:51)
[2018-02-22] MEDS: Dakin's 0.125% Soln (Quarter Strength) 16oz TOPIC SCH (08:52)
[2018-02-22] MEDS: Meropenem 1 GM in NS 55 ML IVPB SCH ×2 (08:52→21:09)
--- NOTE | 2018-02-22 11:25 | Nephrology Progress Note ---
Assessment/Plan Problem List: (1) JANNETTE (acute kidney injury) (2) SBO (small bowel obstruction) (3) Osteomyelitis of sacrum (4) Sepsis Assessment Renal failure- Acute on chronic/ presented with High K Small Bowel Obstruction UTI Sacral Osteo HypoNatremia Sever HypoAlbuminemia & Proteinuria Anemia Plan change IV IV Mag- per consultants suggest comfort care IV Fluid- NPO- Suction Antibiotics Anemia persaud Subjective ROS Limited/Unobtainable: No Constitutional: Reports: malaise Objective Objective Last 24 Hour Vital Signs Date Time Temp Pulse Resp B/P (MAP) Pulse Ox O2 Delivery O2 Flow Rate FiO2 02/22/18 08:00 Room Air 02/22/18 08:00 98.9 126 19 127/84 (98) 99 02/22/18 07:54 128 02/22/18 04:34 97.9 02/22/18 04:00 Room Air 02/22/18 04:00 113 02/22/18 04:00 98.1 130 16 141/81 (101) 98 02/22/18 00:00 119 02/22/18 00:00 97.9 112 16 132/70 (90) 96 02/22/18 00:00 Room Air 02/21/18 20:00 98.1 120 17 140/85 (103) 98 02/21/18 20:00 Room Air 02/21/18 20:00 106 02/21/18 17:00 Room Air 02/21/18 16:00 118 02/21/18 16:00 97.7 109 16 153/78 (103) 98 02/21/18 12:00 97.7 103 16 147/78 (101) 98 02/21/18 12:00 Room Air 02/21/18 12:00 111 Intake and Output 02/21/18 02/22/18 19:00 07:00 Intake Total 1543.343 ml 1188.8 ml Output Total 400 ml 275 ml Balance 1143.343 ml 913.8 ml Intake Oral 100 ml 120 ml IV Total 1443.343 ml 1068.8 ml Output Urine Total 300 ml 200 ml Stool Total 100 ml 75 ml Laboratory Tests 02/22/18 04:45: White Blood Count 14.4H, Red Blood Count 4.02L, Hemoglobin 12.1, Hematocrit 34.6L, Mean Corpuscular Volume 86, Mean Corpuscular Hemoglobin 30.2, Mean Corpuscular Hemoglobin Concent 35.1, Red Cell Distribution Width 14.4, Platelet Count 129L, Mean Platelet Volume 5.8L, Neutrophils (%) (Auto) , Lymphocytes (%) (Auto) , Monocytes (%) (Auto) , Eosinophils (%) (Auto) , Basophils (%) (Auto) , Differential Total Cells Counted 100, Neutrophils % (Manual) 89H, Lymphocytes % (Manual) 5L, Monocytes % (Manual) 3, Eosinophils % (Manual) 3, Basophils % ( Manual) 0, Band Neutrophils 0, Platelet Estimate DecreasedL, Platelet Morphology Normal, Red Blood Cell Morphology Normal, Sodium Level 140, Potassium Level 4.9, Chloride Level 113H, Carbon Dioxide Level 18L, Anion Gap 9 , Blood Urea Nitrogen 20H, Creatinine 0.8, Estimat Glomerular Filtration Rate , Glucose Level 171H, Calcium Level 7.7L, Total Bilirubin 0.6, Aspartate Amino Transf (AST/SGOT) 20, Alanine Aminotransferase (ALT/SGPT) 16, Alkaline Phosphatase 177H, Total Protein 5.7L, Albumin 1.4L, Globulin 4.3, Albumin/ Globulin Ratio 0.3L, Random Vancomycin Level 27.1 Height (Feet): 5 Height (Inches): 5.00 Weight (Pounds): 186 General Appearance: no apparent distress Objective no change Agustín Parmar MD Feb 22, 2018 11:25
[2018-02-22 12:00] VITALS: BP 148/82
[2018-02-22] MEDS ORDERED: NS 275ml ONE (13:38)
[2018-02-22] MEDS ORDERED: Tubing IV Secondary IV ONE (13:38)
--- NOTE | 2018-02-22 13:46 | General Progress Note ---
Assessment/Plan Status: stable Assessment/Plan # Anemia of chronic disease due to underlying chronic medical issues, multifactorial. --> Anemia w/u has been reviewed. Will trend CBC as needed --> No evidence of hemolysis is noted, peripheral smear has been reviewed. --> Hgb goal >7. Transfuse prn. --> Epogen or iron at this time is not particularly indicated # Leukocytosis. Likely related to underlying infection versus reactive process. --> WBC improving/trending downwards --> Peripheral has been reviewed, no blasts noted --> Medications have been reviewed --> Imaging has been reviewed. CXR shows patchy left perihilar opacities, could represent focal infiltrates. Correlate with clinical findings --> Blood cultures and urine cultures are both ++ --> Has been started on abx, empiric treatment # Pressure ulcer of the sacral region, stage IV, deep and necrotic with undermining and foul smell, infected with possible underlying osteomyelitis of the sacrum and coccyx due to exposed bone. --> MRI of the sacrum to confirm recommend surgical excision and debridement. --> Continue offloading and local wound care as per hospital protocol. --> Surgical evaluation is pending. # Cutaneous abscesses of the abdominal wall, source hematogenous verus translocation from the pelvis. --> On meropenem and continue vancomycin renally dose, pending surgical evaluation. # Catheter-associated urinary tract infection. We will change Fonseca catheter and start meropenem pending urine culture. # Acute renal failure due to the above. Continue hydration with renally dosed medications. Monitor renal function and urine output. --> Consult Nephrology. 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 We will order MRI to confirm recommend bone biopsy for culture to identify the exact cause and narrow down antibiotics treatment. # Abnormal blood electrolyte level. Continue hydration and close monitoring of electrolytes, replace as needed. # Small bowel obstruction with possible adhesions and fluid-filled fat collection, possible abscesses. Source hematogenous versus perforation related. Keep NPO. Continue hydration. Surgical evaluation. --> Plan of care was discussed with the daughter in detail at the bedside. --> Daughter stated that mother is refusing any surgical procedure, she had a bad experience from anesthesia in the past when she had a dental workup. GREATLY APPRECIATE CONSULTATION. Subjective Date patient seen: Feb 22, 2018 Hematologic/Lymphatic: Reports: anemia Allergies: Coded Allergies: No Known Allergies (Unverified , 02/17/18) All Systems: reviewed and negative except above Subjective Pt awake and alert. No acute events. H/H stable. Afebrile. Objective Last 24 Hour Vital Signs Date Time Temp Pulse Resp B/P (MAP) Pulse Ox O2 Delivery O2 Flow Rate FiO2 02/22/18 12:00 123 02/22/18 12:00 98.8 127 20 148/82 (104) 02/22/18 12:00 Room Air 02/22/18 08:00 Room Air 02/22/18 08:00 98.9 126 19 127/84 (98) 99 02/22/18 07:54 128 02/22/18 04:34 97.9 02/22/18 04:00 Room Air 02/22/18 04:00 113 02/22/18 04:00 98.1 130 16 141/81 (101) 98 02/22/18 00:00 119 02/22/18 00:00 97.9 112 16 132/70 (90) 96 02/22/18 00:00 Room Air 02/21/18 20:00 98.1 120 17 140/85 (103) 98 02/21/18 20:00 Room Air 02/21/18 20:00 106 02/21/18 17:00 Room Air 02/21/18 16:00 118 02/21/18 16:00 97.7 109 16 153/78 (103) 98 Intake and Output 02/21/18 02/22/18 19:00 07:00 Intake Total 1543.343 ml 1188.8 ml Output Total 400 ml 275 ml Balance 1143.343 ml 913.8 ml Intake Oral 100 ml 120 ml IV Total 1443.343 ml 1068.8 ml Output Urine Total 300 ml 200 ml Stool Total 100 ml 75 ml Laboratory Tests 02/22/18 04:45: White Blood Count 14.4H, Red Blood Count 4.02L, Hemoglobin 12.1, Hematocrit 34.6L, Mean Corpuscular Volume 86, Mean Corpuscular Hemoglobin 30.2, Mean Corpuscular Hemoglobin Concent 35.1, Red Cell Distribution Width 14.4, Platelet Count 129L, Mean Platelet Volume 5.8L, Neutrophils (%) (Auto) , Lymphocytes (%) (Auto) , Monocytes (%) (Auto) , Eosinophils (%) (Auto) , Basophils (%) (Auto) , Differential Total Cells Counted 100, Neutrophils % (Manual) 89H, Lymphocytes % (Manual) 5L, Monocytes % (Manual) 3, Eosinophils % (Manual) 3, Basophils % ( Manual) 0, Band Neutrophils 0, Platelet Estimate DecreasedL, Platelet Morphology Normal, Red Blood Cell Morphology Normal, Sodium Level 140, Potassium Level 4.9, Chloride Level 113H, Carbon Dioxide Level 18L, Anion Gap 9 , Blood Urea Nitrogen 20H, Creatinine 0.8, Estimat Glomerular Filtration Rate , Glucose Level 171H, Calcium Level 7.7L, Total Bilirubin 0.6, Aspartate Amino Transf (AST/SGOT) 20, Alanine Aminotransferase (ALT/SGPT) 16, Alkaline Phosphatase 177H, Total Protein 5.7L, Albumin 1.4L, Globulin 4.3, Albumin/ Globulin Ratio 0.3L, Random Vancomycin Level 27.1 Height (Feet): 5 Height (Inches): 5.00 Weight (Pounds): 186 Objective PHYSICAL EXAMINATION: VITAL SIGNS: Have been reviewed GENERAL: An elderly female, [place]ish speaker, obese, lying in bed, moaning in pain, daughter at the bedside. HEENT: Normocephalic and atraumatic. Pupils are reactive to light. Moist oral mucosa. No exudate or thrush. NECK: Supple. No lymphadenopathy. CARDIOVASCULAR: Regular rate and rhythm. Actually, she is tachycardic. No murmur or gallop. LUNGS: Clear bilaterally. No wheezing or rhonchi. ABDOMEN: Soft and distended. Absent bowel sounds. Not tender. No rebound. No organomegaly. EXTREMITIES: No edema or cyanosis. No clubbing. SKIN: She had large and deep sacral pressure wound, 4 cm deep at least with undermining and extensive necrotic tissue at the base with exposed bone at the sacral area and foul smell. Siddhartha Soto MD Feb 22, 2018 13:46
--- NOTE | 2018-02-22 14:10 | Infectious Diseases Prog Note ---
Assessment/Plan Problems: (1) Pressure ulcer of sacral region, stage 4 Assessment & Plan: deep and necrotic with undermining , and foul smell , infected with possible underlying osteomyelitis of the sacrum and coccyx . MRI of the sacrum is pending to confirm, recommend surgical excision and debridement. daughter had chosen hospice care and no surgical debridement of the sacrum for now . continue off loading and local wound care as per hospital protocol (2) Cutaneous abscess of abdominal wall Assessment & Plan: source hematogenous VS translocation from the pelvis , on meropenem and vancomycin renally dosed, no surgical intervention (3) Catheter-associated urinary tract infection Assessment & Plan: due to ESBL producing klebsiella pneumonia , S/P lomeli catheter change, continue meropenem (4) Sepsis Assessment & Plan: with poly organisms due to the above with MSSA, streptococcus and proteus mirabilis , on meropenem and vancomycin renally dosed , patient needs surgical debridement of the sacrum for source control . will continue antifungal coverage pending surgical debridement if she is a candidate . family chose hospice care . (5) JANNETTE (acute kidney injury) Assessment & Plan: due to the above , continue hydration with renally dosed medications, monitor renal function and UOP (6) Osteomyelitis of sacrum Assessment & Plan: suspect chronic due to the deep pressure wound , MRI to confirm was held since she was on continuos suctioning , recommend bone biopsy for culture to identify the exact cause (7) Abnormal blood electrolyte level Assessment & Plan: continue hydration with close monitoring of electrolytes (8) SBO (small bowel obstruction) Assessment & Plan: with possible adhesions, and fat filled fluids collection , improving, continue hydration, and conservative management , as per surgery Assessment/Plan D/W daughter and son the plan of care, they are waiting on medicare A approval to transition to hospice care Subjective Constitutional: Reports: no symptoms HEENT: Reports: no symptoms Respiratory: Reports: no symptoms Breasts: Reports: no symptoms Cardiovascular: Reports: no symptoms Gastrointestinal/Abdominal: Reports: nausea Genitourinary: Reports: no symptoms Neurologic: Reports: weakness, confusion Psychiatric: Reports: no symptoms Skin: Reports: ulcer Endocrine: Reports: no symptoms Hematologic: Reports: no symptoms Musculoskeletal: Reports: no symptoms Allergies: Coded Allergies: No Known Allergies (Unverified , 02/17/18) Subjective she was sleepy , able to drink soup early, kids at bedside Objective Vital Signs Last 24 Hour Vital Signs Date Time Temp Pulse Resp B/P (MAP) Pulse Ox O2 Delivery O2 Flow Rate FiO2 02/22/18 12:00 123 02/22/18 12:00 98.8 127 20 148/82 (104) 02/22/18 12:00 Room Air 02/22/18 08:00 Room Air 02/22/18 08:00 98.9 126 19 127/84 (98) 99 02/22/18 07:54 128 02/22/18 04:34 97.9 02/22/18 04:00 Room Air 02/22/18 04:00 113 02/22/18 04:00 98.1 130 16 141/81 (101) 98 02/22/18 00:00 119 02/22/18 00:00 97.9 112 16 132/70 (90) 96 02/22/18 00:00 Room Air 02/21/18 20:00 98.1 120 17 140/85 (103) 98 02/21/18 20:00 Room Air 02/21/18 20:00 106 02/21/18 17:00 Room Air 02/21/18 16:00 118 02/21/18 16:00 97.7 109 16 153/78 (103) 98 Height (Feet): 5 Height (Inches): 5.00 Weight (Pounds): 186 General Appearance: WD/WN, no acute distress HEENT: normocephalic, atraumatic, anicteric, mucous membranes moist, supple, no JVD Respiratory/Chest: chest wall non-tender, no respiratory distress, no accessory muscle use, decreased breath sounds, expiratory wheezing Cardiovascular: normal peripheral pulses, normal rate, regular rhythm, no gallop/murmur, no JVD Abdomen: soft, non tender, no organomegaly, no mass, hypoactive bowel sounds, distended Genitourinary: normal external genitalia Extremities: no cyanosis, no clubbing Skin: ulcers - large sacral pressure wound with necrosis Neurologic/Psychiatric: responsive Lymphatic: no neck adenopathy, no groin adenopathy Musculoskeletal: normal muscle bulk, no effusion Microbiology Date/Time Source Procedure Growth Status 02/20/18 18:00 Stool Clostridium difficile Toxin Assay - Final Complete Laboratory Tests Test 02/22/18 04:45 White Blood Count 14.4 K/UL (4.8-10.8) H Red Blood Count 4.02 M/UL (4.20-5.40) L Hemoglobin 12.1 G/DL (12.0-16.0) Hematocrit 34.6 % (37.0-47.0) L Mean Corpuscular Volume 86 FL (80-99) Mean Corpuscular Hemoglobin 30.2 PG (27.0-31.0) Mean Corpuscular Hemoglobin Concent 35.1 G/DL (32.0-36.0) Red Cell Distribution Width 14.4 % (11.6-14.8) Platelet Count 129 K/UL (150-450) L Mean Platelet Volume 5.8 FL (6.5-10.1) L Neutrophils (%) (Auto) % (45.0-75.0) Lymphocytes (%) (Auto) % (20.0-45.0) Monocytes (%) (Auto) % (1.0-10.0) Eosinophils (%) (Auto) % (0.0-3.0) Basophils (%) (Auto) % (0.0-2.0) Differential Total Cells Counted 100 Neutrophils % (Manual) 89 % (45-75) H Lymphocytes % (Manual) 5 % (20-45) L Monocytes % (Manual) 3 % (1-10) Eosinophils % (Manual) 3 % (0-3) Basophils % (Manual) 0 % (0-2) Band Neutrophils 0 % (0-8) Platelet Estimate Decreased L Platelet Morphology Normal Red Blood Cell Morphology Normal Sodium Level 140 MMOL/L (136-145) Potassium Level 4.9 MMOL/L (3.5-5.1) Chloride Level 113 MMOL/L (98-107) H Carbon Dioxide Level 18 MMOL/L (21-32) L Anion Gap 9 mmol/L (5-15) Blood Urea Nitrogen 20 mg/dL (7-18) H Creatinine 0.8 MG/DL (0.55-1.30) Estimat Glomerular Filtration Rate mL/min (>60) Glucose Level 171 MG/DL (74-106) H Calcium Level 7.7 MG/DL (8.5-10.1) L Total Bilirubin 0.6 MG/DL (0.2-1.0) Aspartate Amino Transf (AST/SGOT) 20 U/L (15-37) Alanine Aminotransferase (ALT/SGPT) 16 U/L (12-78) Alkaline Phosphatase 177 U/L (46-116) H Total Protein 5.7 G/DL (6.4-8.2) L Albumin 1.4 G/DL (3.4-5.0) L Globulin 4.3 g/dL Albumin/Globulin Ratio 0.3 (1.0-2.7) L Random Vancomycin Level 27.1 ug/mL Current Medications Medications (Trade) Dose Ordered Sig/Nidia Route PRN Reason Start Time Stop Time Status Last Admin Dose Admin Chlorhexidine Gluconate (Taylor-Hex 2%) 1 applic DAILY@2000 TOPIC 02/18/18 20:00 03/20/18 19:59 02/21/18 20:09 Dextrose (Dextrose 50%) 25 ml Q30M PRN IV Hypoglycemia 02/17/18 16:00 03/19/18 15:59 Dextrose (Dextrose 50%) 50 ml Q30M PRN IV Hypoglycemia 02/17/18 16:00 03/19/18 15:59 Dextrose/ Electrolytes 1,000 ml @ 50 mls/hr Q20H IV 02/23/18 02:12 03/25/18 02:11 Fluconazole/ Sodium Chloride 100 ml @ 100 mls/hr Q24H IV 02/18/18 17:00 02/25/18 16:59 02/21/18 18:03 Haloperidol Lactate (Haldol) 5 mg Q6H PRN IM Agitation 02/19/18 11:45 03/21/18 11:44 02/20/18 20:53 Meropenem 1 gm/ Sodium Chloride 55 ml @ 110 mls/hr Q12HR IVPB 02/17/18 20:00 02/26/18 19:59 02/22/18 08:52 Morphine Sulfate (Morphine Sulfate) 3 mg Q4H PRN IVP Pain Scale 4-10) 02/20/18 09:08 02/27/18 09:07 02/22/18 04:04 Ondansetron HCl (Zofran) 4 mg Q6H PRN IVP Nausea & Vomiting 02/21/18 21:15 03/23/18 21:14 Pantoprazole (Protonix) 40 mg DAILY IV 02/17/18 16:00 03/19/18 15:59 02/22/18 08:51 Potassium Chloride 10 meq/ Dextrose/Sodium Chloride 1,005 ml @ 50 mls/hr Q20H6M IV 02/21/18 10:00 02/23/18 02:00 02/22/18 02:47 Sodium Hypochlorite (Dakin's Quarter Strength) 1 applic Q24H TOPIC 02/18/18 09:00 03/19/18 19:59 02/22/18 08:52 Sodium Chloride 500 ml @ 999 mls/hr Q31M PRN IV For hypotension 02/17/18 16:15 03/19/18 16:14 Vancomycin HCl (Vanco rx to dose) 1 ea DAILY PRN MISC Per rx protocol 02/17/18 16:15 03/19/18 16:14 Ari Lewis M.D. Feb 22, 2018 14:10
--- NOTE | 2018-02-22 14:13 | General Progress Note ---
Progress Note Progress Note covering for Dr Weinstein S: I have sacral pain. O: lying in bed comfortable, no nausea or vomiting today, able to drink soup , No distress PHYSICAL EXAMINATION: HEAD AND NECK: Atraumatic and normocephalic. CHEST: Clear to auscultation. No wheezing. No crackles. ABDOMEN: Positive for tenderness on deep palpation. Bowel sounds have decreased.No rebound tenderness MUSCULOSKELETAL: Positive for the sacral decubitus wounds. Positive for decreased range of motion and strength in all four extremities. NEUROLOGIC: The patient is awake, alert, and oriented x3. anxious IMAGING STUDIES: Imaging shows abdominal pelvic CT scan dated February 17, is reviewed. Chest x-ray also reviewed. Meds: reviewed and reconciled including but not limited to Meropenem and Vanco ASSESSMENT: 1. Sepsis. Gram negative 2. Acute abdomen secondary to small bowel obstruction. 3. Decubitus wound, sacral possibility of osteomyelitis cannot be excluded. 4. Renal failure - age indeterminate. 5. Hyponatremia. 6. Catheter-induced urinary infection. 7. GI and DVT prophylaxis. PLAN OF CARE: I had detailed conversation with Tin, the Dtr and her son regardig her mother condition POLST to DNR Consulted Hospice care [facility] medical prognosis waiting for medicare A approval continue current management poor prognosis Ari Lewis M.D. Feb 22, 2018 14:13
[2018-02-22] MEDS ORDERED: Haloperidol 5mg/ml Inj IM PRN (14:26)
[2018-02-22] MEDS ORDERED: Potassium Chloride 10 MEQ in D5 1/2NS 1,000 ML IV SCH (14:30)
[2018-02-22] MEDS ORDERED: Sodium Chloride 500ML 500 ML IV PRN (14:30)
--- NOTE | 2018-02-22 15:41 | General Surgery Progress Note ---
General Surgery-Progress Note Subjective Additional Comments not looking good. tired. weak. no pain. minimal oral intake. Objective Last 24 Hour Vital Signs Date Time Temp Pulse Resp B/P (MAP) Pulse Ox O2 Delivery O2 Flow Rate FiO2 02/22/18 12:00 123 02/22/18 12:00 98.8 127 20 148/82 (104) 02/22/18 12:00 Room Air 02/22/18 08:00 Room Air 02/22/18 08:00 98.9 126 19 127/84 (98) 99 02/22/18 07:54 128 02/22/18 04:34 97.9 02/22/18 04:00 Room Air 02/22/18 04:00 113 02/22/18 04:00 98.1 130 16 141/81 (101) 98 02/22/18 00:00 119 02/22/18 00:00 97.9 112 16 132/70 (90) 96 02/22/18 00:00 Room Air 02/21/18 20:00 98.1 120 17 140/85 (103) 98 02/21/18 20:00 Room Air 02/21/18 20:00 106 02/21/18 17:00 Room Air 02/21/18 16:00 118 02/21/18 16:00 97.7 109 16 153/78 (103) 98 I&O Intake and Output 02/21/18 02/22/18 19:00 07:00 Intake Total 1543.343 ml 1188.8 ml Output Total 400 ml 275 ml Balance 1143.343 ml 913.8 ml Intake Oral 100 ml 120 ml IV Total 1443.343 ml 1068.8 ml Output Urine Total 300 ml 200 ml Stool Total 100 ml 75 ml Dressing: other Wound: other Drains: other Cardiovascular: RSR Respiratory: clear Abdomen: soft, distended, non-tender, present bowel sounds Extremities: other Laboratory Tests Test 02/22/18 04:45 White Blood Count 14.4 K/UL (4.8-10.8) H Red Blood Count 4.02 M/UL (4.20-5.40) L Hemoglobin 12.1 G/DL (12.0-16.0) Hematocrit 34.6 % (37.0-47.0) L Mean Corpuscular Volume 86 FL (80-99) Mean Corpuscular Hemoglobin 30.2 PG (27.0-31.0) Mean Corpuscular Hemoglobin Concent 35.1 G/DL (32.0-36.0) Red Cell Distribution Width 14.4 % (11.6-14.8) Platelet Count 129 K/UL (150-450) L Mean Platelet Volume 5.8 FL (6.5-10.1) L Neutrophils (%) (Auto) % (45.0-75.0) Lymphocytes (%) (Auto) % (20.0-45.0) Monocytes (%) (Auto) % (1.0-10.0) Eosinophils (%) (Auto) % (0.0-3.0) Basophils (%) (Auto) % (0.0-2.0) Differential Total Cells Counted 100 Neutrophils % (Manual) 89 % (45-75) H Lymphocytes % (Manual) 5 % (20-45) L Monocytes % (Manual) 3 % (1-10) Eosinophils % (Manual) 3 % (0-3) Basophils % (Manual) 0 % (0-2) Band Neutrophils 0 % (0-8) Platelet Estimate Decreased L Platelet Morphology Normal Red Blood Cell Morphology Normal Sodium Level 140 MMOL/L (136-145) Potassium Level 4.9 MMOL/L (3.5-5.1) Chloride Level 113 MMOL/L (98-107) H Carbon Dioxide Level 18 MMOL/L (21-32) L Anion Gap 9 mmol/L (5-15) Blood Urea Nitrogen 20 mg/dL (7-18) H Creatinine 0.8 MG/DL (0.55-1.30) Estimat Glomerular Filtration Rate mL/min (>60) Glucose Level 171 MG/DL (74-106) H Calcium Level 7.7 MG/DL (8.5-10.1) L Total Bilirubin 0.6 MG/DL (0.2-1.0) Aspartate Amino Transf (AST/SGOT) 20 U/L (15-37) Alanine Aminotransferase (ALT/SGPT) 16 U/L (12-78) Alkaline Phosphatase 177 U/L (46-116) H Total Protein 5.7 G/DL (6.4-8.2) L Albumin 1.4 G/DL (3.4-5.0) L Globulin 4.3 g/dL Albumin/Globulin Ratio 0.3 (1.0-2.7) L Random Vancomycin Level 27.1 ug/mL Plan Problems: (1) Sepsis Assessment & Plan: sepsis, tachy, leukocytosis, lactic acidosis, abnormal labs likely related to abdominal etiology. possible infected sacral ulcer appreciate ID input. IV abx IV fluids (2) SBO (small bowel obstruction) Assessment & Plan: reviewed CT and discussed with radiologist. seems to have complete SBO with transition point in proximal bowel. distended and fluid filled proximal. decompressed distal. abdominal exam benign. no significant distention or tenderness. currently no n/v hx of prior episodes. discussed with patient and family. Recommend exploration given findings. Family and patient decline. State that it has been her wish for some time now to not have surgery even if life threatening. explained risks of worsening condition, perforation, even . expressed understanding and refuses surgery Has been improving. small bowel series with contrast performed. no obstruction noted. contrast in colon this AM. dilated jejunal loops still noted and mildly improved. no ng tube output. +flatus. KUB with contrast in colon. likely incomplete obstruction but there is some component of obstruction vs ileus she has. still decline surgery and family states plans for hospice. diet as can be tolerated for comfort IV fluids IV Abx trend labs discuss DNR status with patient and family given her wishes. (3) Pressure ulcer of sacral region, stage 4 Assessment & Plan: Full thickness pressure injury to sacrum with multiple open wounds periwound and R buttocks .Sacral pressure injury (L)11cm x (W)12.4cm x (D )4cm with undermining 9-4 by 4 cm at 3o'clock. Wound malodorous with 75% soft necrosis.Bone palpable.Additional pressure injuries noted periwound L buttocks. Full thickness pressure injury to Upper R buttocks (L)1.4cm x (W)4.7cm x(D)0.2cm ,scattered slough with granulation with marginal erythema. Full thickness inferior R buttocks (L)4.5cm x (W)2.5cm wound granular with marginal erythema. Full thickness pressure injury to R ischium (L)0.8cm x(W)2.3cm .Wound granular with dark borders. Periwound dark without induration. Multiple partial thickness pressure injuries in close proximity noted to upper/outer R buttocks ( L)2cm x (W)4.6cm with non-blanchable erythema periwound. R heel Mottled,cool and boggy with dry peeling skin (L)6cm x (W)8cm. Pt denied tenderness when minimally palpated. L heel mottled,boggy, and cool to touch (L)6cm x (W) 7.4cm .Pt verbalized tenderness when palpated. R and L 1st metatarsals mottled and non -tender when palpated. Spoke to Dtr regarding sacral pressure injury. Sacral wound cleansed with Saline and loosley packed with Saline moist gauze until evaluated by Surgeon.Dtr stated pt had small pressure injury in October which progressively worsened.Dtr also stated she was informed at [facility] wound was getting better. DTR made aware of stage and state of wound.Advised of Surgical consult and that surgeon would discuss all options with regards to wound. visited and Md also discussed possibility of surgical debridement of sacral wound with Dtr. Tx.Plan: Air fluidized mattress. Sacral Wound care orders as in wound care clarification orders; wash , dakins, dressings. Apply Cavilon to both heels and off-load heels daily. Cavilon wipes to R and L 1st metatarsals Daily Apply Moisture Barrier paste to Wounds R buttocks and R ischium and cover with Optifoam drsg Daily and prn. Reposition at minimum every 2hours or as tolerated. Discussed with family care plan. Her major concern is a complete bowel obstruction. the decubitus ulcer is concerning but chronic. will continue care for wounds but hold on debridement until the remainder of her medical condition is improved. family is considering hospice. Levon Jacobs Feb 22, 2018 15:41
[2018-02-22] MEDS: D5 1/2NS w/KCL 10meq 1,000 ML IV SCH (15:55)
[2018-02-22 16:00] VITALS: BP 146/84
[2018-02-22 20:00] VITALS: BP 102/72
--- NOTE | 2018-02-22 20:41 | Pulmonology Progress Note ---
Assessment/Plan Assessment/Plan PROBLEM LIST: 1. Left perihilar infiltrate, likely healthcare-associated pneumonia. 2. Stage IV sacral decubitus ulcer with likely osteomyelitis. 3. Gram negative bacillus urinary tract infection. 4. Gram-positive cocci and gram-negative sepsis. 5. Acute superficial femoral and popliteal DVT in the right and common femoral, superficial femoral, and popliteal DVT in the left. 6. Small bowel obstruction, likely acute on chronic. 7. Concern for unusual fat or fluid collections in the abdomen/abdominal wall. 8. Leukocytosis. 9. Anemia. 10. Abnormal creatinine, JANNETTE versus CKD. 11. Severe protein-calorie malnutrition. 12. Prior CVA. TREATMENT PLAN: 1. Optimize pulmonary hygiene/mobilize as tolerated. 2. P.r.n. O2. 3. Monitor for signs of worsening respiratory status. 4. Continue antibiotics 5. Follow up Surgery recommendations, NO PLAN FOR debridement of sacral decubitus ulcer OR laparotomy based on family's goals of care. 6. Monitor volumes and renal function, gentle IV fluid hydration as tolerated, replete electrolytes 8. A/C held given elevated PTT 9. NPO, NG-tube to suction. 10. DNAR, dispo planning to hospice Subjective ROS Limited/Unobtainable: Yes Allergies: Coded Allergies: No Known Allergies (Unverified , 02/17/18) Subjective lethargic this evening positive cough no shortness of breath today no NV today minimal po and not getting oob no fever noted weak and ill appearing Objective Last 24 Hour Vital Signs Date Time Temp Pulse Resp B/P (MAP) Pulse Ox O2 Delivery O2 Flow Rate FiO2 02/22/18 16:00 Room Air 02/22/18 16:00 98.5 128 20 146/84 (104) 98 02/22/18 15:45 127 02/22/18 12:00 123 02/22/18 12:00 98.8 127 20 148/82 (104) 02/22/18 12:00 Room Air 02/22/18 08:00 Room Air 02/22/18 08:00 98.9 126 19 127/84 (98) 99 02/22/18 07:54 128 02/22/18 04:34 97.9 02/22/18 04:00 Room Air 02/22/18 04:00 113 02/22/18 04:00 98.1 130 16 141/81 (101) 98 02/22/18 00:00 119 02/22/18 00:00 97.9 112 16 132/70 (90) 96 02/22/18 00:00 Room Air Intake and Output 02/21/18 02/22/18 19:00 07:00 Intake Total 1543.343 ml 1188.8 ml Output Total 400 ml 275 ml Balance 1143.343 ml 913.8 ml Intake Oral 100 ml 120 ml IV Total 1443.343 ml 1068.8 ml Output Urine Total 300 ml 200 ml Stool Total 100 ml 75 ml General Appearance: WD/WN Respiratory/Chest: crackles/rales, rhonchi Cardiovascular: normal rate, regular rhythm Abdomen: soft, non tender, no organomegaly Extremities: no cyanosis Neurologic/Psychiatric: disoriented, unresponsiveness Microbiology Date/Time Source Procedure Growth Status 02/20/18 18:00 Stool Clostridium difficile Toxin Assay - Final Complete Laboratory Tests 02/22/18 04:45: White Blood Count 14.4H, Red Blood Count 4.02L, Hemoglobin 12.1, Hematocrit 34.6L, Mean Corpuscular Volume 86, Mean Corpuscular Hemoglobin 30.2, Mean Corpuscular Hemoglobin Concent 35.1, Red Cell Distribution Width 14.4, Platelet Count 129L, Mean Platelet Volume 5.8L, Neutrophils (%) (Auto) , Lymphocytes (%) (Auto) , Monocytes (%) (Auto) , Eosinophils (%) (Auto) , Basophils (%) (Auto) , Differential Total Cells Counted 100, Neutrophils % (Manual) 89H, Lymphocytes % (Manual) 5L, Monocytes % (Manual) 3, Eosinophils % (Manual) 3, Basophils % ( Manual) 0, Band Neutrophils 0, Platelet Estimate DecreasedL, Platelet Morphology Normal, Red Blood Cell Morphology Normal, Sodium Level 140, Potassium Level 4.9, Chloride Level 113H, Carbon Dioxide Level 18L, Anion Gap 9 , Blood Urea Nitrogen 20H, Creatinine 0.8, Estimat Glomerular Filtration Rate , Glucose Level 171H, Calcium Level 7.7L, Total Bilirubin 0.6, Aspartate Amino Transf (AST/SGOT) 20, Alanine Aminotransferase (ALT/SGPT) 16, Alkaline Phosphatase 177H, Total Protein 5.7L, Albumin 1.4L, Globulin 4.3, Albumin/ Globulin Ratio 0.3L, Random Vancomycin Level 27.1 Current Medications Medications (Trade) Dose Ordered Sig/Nidia Route PRN Reason Start Time Stop Time Status Last Admin Dose Admin Chlorhexidine Gluconate (Taylor-Hex 2%) 1 applic DAILY@2000 TOPIC 02/22/18 20:00 03/20/18 19:59 Dextrose (Dextrose 50%) 25 ml Q30M PRN IV Hypoglycemia 02/22/18 14:30 03/19/18 15:59 Dextrose (Dextrose 50%) 50 ml Q30M PRN IV Hypoglycemia 02/22/18 14:30 03/19/18 15:59 Dextrose/ Electrolytes 1,000 ml @ 50 mls/hr Q20H IV 02/22/18 15:00 03/24/18 14:59 02/22/18 15:55 Fluconazole/ Sodium Chloride 100 ml @ 100 mls/hr Q24H IV 02/22/18 17:00 02/25/18 16:59 02/22/18 17:34 Haloperidol Lactate (Haldol) 5 mg Q6H PRN IM Agitation 02/22/18 14:26 03/21/18 14:25 Meropenem 1 gm/ Sodium Chloride 55 ml @ 110 mls/hr Q12HR IVPB 02/22/18 21:00 02/26/18 19:59 Morphine Sulfate (Morphine Sulfate) 3 mg Q4H PRN IVP Pain Scale 4-10) 02/22/18 14:26 02/27/18 14:25 Ondansetron HCl (Zofran) 4 mg Q6H PRN IVP Nausea & Vomiting 02/22/18 15:15 03/23/18 21:14 Pantoprazole (Protonix) 40 mg DAILY IV 02/23/18 09:00 03/19/18 15:59 Sodium Hypochlorite (Dakin's Quarter Strength) 1 applic Q24H TOPIC 02/23/18 09:00 03/19/18 19:59 Vancomycin HCl (Vanco rx to dose) 1 ea DAILY PRN MISC Per rx protocol 02/23/18 09:00 03/19/18 16:14 Fozia Esteban DO Feb 22, 2018 20:41
[2018-02-22] MEDS: Dyna-Hex 2% Top Sol 2oz TOPIC SCH (20:57)
[2018-02-23] VITALS: BP 110/80
[2018-02-23] MEDS ORDERED: D5 1/2NS w/KCL 10meq 1,000 ML IV SCH ×2 (02:12→15:00)
[2018-02-23 04:00] VITALS: BP 115/77
[2018-02-23 06:37] LABS: HEMATOCRIT 34.4 % (37.0-47.0); HEMOGLOBIN 11.3 G/DL (12.0-16.0); MEAN CORPUSCULAR VOLUME 87 FL (80-99); PLATELET COUNT 101 K/UL (150-450); RED BLOOD COUNT 3.96 M/UL (4.20-5.40); RED CELL DISTRIBUTION WIDTH 14.9 % (11.6-14.8); WHITE BLOOD COUNT 14.8 K/UL (4.8-10.8)
[2018-02-23 07:05] LABS: ALANINE AMINOTRANSFERASE 12 U/L (12-78); ALBUMIN 1.1 G/DL (3.4-5.0); ALBUMIN/GLOBULIN RATIO 0.3 (1.0-2.7); ALKALINE PHOSPHATASE 175 U/L (46-116); ANION GAP 7 mmol/L (5-15); ASPARTATE AMINO TRANSFERASE 18 U/L (15-37); BILIRUBIN,TOTAL 1.1 MG/DL (0.2-1.0); BLOOD UREA NITROGEN 18 mg/dL (7-18); CALCIUM 7.5 MG/DL (8.5-10.1); CARBON DIOXIDE 19 MMOL/L (21-32); CHLORIDE 113 MMOL/L (98-107); CREATININE 0.7 MG/DL (0.55-1.30); POTASSIUM 4.6 MMOL/L (3.5-5.1); SODIUM 139 MMOL/L (136-145)
[2018-02-23 07:06] LABS: BILIRUBIN,DIRECT 0.4 MG/DL (0.0-0.3)
[2018-02-23 07:12] LABS: PHOSPHORUS 2.2 MG/DL (2.5-4.9)
[2018-02-23 08:00] VITALS: BP 125/75
--- NOTE | 2018-02-23 08:20 | Pulmonology Progress Note ---
Assessment/Plan Assessment/Plan PROBLEM LIST: 1. Left perihilar infiltrate, likely healthcare-associated pneumonia. 2. Stage IV sacral decubitus ulcer with likely osteomyelitis. 3. Gram negative bacillus urinary tract infection. 4. Gram-positive cocci and gram-negative sepsis. 5. Acute superficial femoral and popliteal DVT in the right and common femoral, superficial femoral, and popliteal DVT in the left. 6. Small bowel obstruction, likely acute on chronic. 7. Concern for unusual fat or fluid collections in the abdomen/abdominal wall. 8. Leukocytosis. 9. Anemia. 10. Abnormal creatinine, JANNETTE versus CKD. 11. Severe protein-calorie malnutrition. 12. Prior CVA. TREATMENT PLAN: 1. Optimize pulmonary hygiene/mobilize as tolerated. 2. P.r.n. O2. 3. Monitor for signs of worsening respiratory status. 4. Continue antibiotics 5. Follow up Surgery recommendations, NO PLAN FOR debridement of sacral decubitus ulcer OR laparotomy based on family's goals of care. 6. Monitor volumes and renal function, gentle IV fluid hydration as tolerated, replete electrolytes 8. A/C held given elevated PTT 9. NPO, NG-tube to suction. 10. DNAR, dispo planning to hospice Subjective ROS Limited/Unobtainable: Yes Allergies: Coded Allergies: No Known Allergies (Unverified , 02/17/18) Subjective lethargic,unchanged from yesterday positive cough no shortness of breath today very minimal po and not getting oob no fever noted weak and ill appearing no family at bedside thsi am Objective Last 24 Hour Vital Signs Date Time Temp Pulse Resp B/P (MAP) Pulse Ox O2 Delivery O2 Flow Rate FiO2 02/23/18 04:00 107 02/23/18 04:00 98.1 100 19 115/77 (90) 94 02/23/18 00:00 119 02/23/18 00:00 97.9 114 19 110/80 (90) 93 02/22/18 20:00 120 02/22/18 20:00 98.1 117 19 102/72 (82) 96 02/22/18 20:00 Room Air 02/22/18 16:00 Room Air 02/22/18 16:00 98.5 128 20 146/84 (104) 98 02/22/18 15:45 127 02/22/18 12:00 123 02/22/18 12:00 98.8 127 20 148/82 (104) 02/22/18 12:00 Room Air Intake and Output 02/22/18 02/23/18 19:00 07:00 Intake Total 380 ml 600 ml Output Total 200 ml 450 ml Balance 180 ml 150 ml Intake Oral 180 ml IV Total 200 ml 600 ml Output Urine Total 200 ml 450 ml General Appearance: WD/WN Respiratory/Chest: rhonchi Cardiovascular: normal rate, regular rhythm Abdomen: soft, non tender, no organomegaly Neurologic/Psychiatric: disoriented, unresponsiveness Microbiology Date/Time Source Procedure Growth Status 02/20/18 18:00 Stool Clostridium difficile Toxin Assay - Final Complete Laboratory Tests 02/23/18 05:25: White Blood Count 14.8H, Red Blood Count 3.96L, Hemoglobin 11.3L, Hematocrit 34.4L, Mean Corpuscular Volume 87, Mean Corpuscular Hemoglobin 28.5, Mean Corpuscular Hemoglobin Concent 32.7, Red Cell Distribution Width 14.9H, Platelet Count 101L, Mean Platelet Volume 6.4L, Neutrophils (%) (Auto) , Lymphocytes (%) (Auto) , Monocytes (%) (Auto) , Eosinophils (%) (Auto) , Basophils (%) (Auto) , Differential Total Cells Counted 100, Neutrophils % ( Manual) 88H, Lymphocytes % (Manual) 9L, Monocytes % (Manual) 2, Eosinophils % ( Manual) 1, Basophils % (Manual) 0, Band Neutrophils 0, Platelet Estimate DecreasedL, Platelet Morphology Normal, Hypochromasia 1+, Anisocytosis 1+, Sodium Level 139, Potassium Level 4.6, Chloride Level 113H, Carbon Dioxide Level 19L, Anion Gap 7, Blood Urea Nitrogen 18, Creatinine 0.7, Estimat Glomerular Filtration Rate , Glucose Level 164H, Calcium Level 7.5L, Phosphorus Level 2.2L, Magnesium Level 1.6L, Total Bilirubin 1.1H, Direct Bilirubin 0.4H, Aspartate Amino Transf (AST/SGOT) 18, Alanine Aminotransferase (ALT/SGPT) 12, Alkaline Phosphatase 175H, C-Reactive Protein, Quantitative 10.5H, Pro-B-Type Natriuretic Peptide > 53400M, Total Protein 5.0L, Albumin 1.1L, Globulin 3.9, Albumin/Globulin Ratio 0.3L, Random Vancomycin Level 17.5 Current Medications Medications (Trade) Dose Ordered Sig/Nidia Route PRN Reason Start Time Stop Time Status Last Admin Dose Admin Chlorhexidine Gluconate (Taylor-Hex 2%) 1 applic DAILY@2000 TOPIC 02/22/18 20:00 03/20/18 19:59 02/22/18 20:57 Dextrose (Dextrose 50%) 25 ml Q30M PRN IV Hypoglycemia 02/22/18 14:30 03/19/18 15:59 Dextrose (Dextrose 50%) 50 ml Q30M PRN IV Hypoglycemia 02/22/18 14:30 03/19/18 15:59 Dextrose/ Electrolytes 1,000 ml @ 50 mls/hr Q20H IV 02/22/18 15:00 03/24/18 14:59 02/22/18 15:55 Fluconazole/ Sodium Chloride 100 ml @ 100 mls/hr Q24H IV 02/22/18 17:00 02/25/18 16:59 02/22/18 17:34 Haloperidol Lactate (Haldol) 5 mg Q6H PRN IM Agitation 02/22/18 14:26 03/21/18 14:25 Meropenem 1 gm/ Sodium Chloride 55 ml @ 110 mls/hr Q12HR IVPB 02/22/18 21:00 02/26/18 19:59 02/22/18 21:09 Morphine Sulfate (Morphine Sulfate) 3 mg Q4H PRN IVP Pain Scale 4-10) 02/22/18 14:26 02/27/18 14:25 Ondansetron HCl (Zofran) 4 mg Q6H PRN IVP Nausea & Vomiting 02/22/18 15:15 03/23/18 21:14 Pantoprazole (Protonix) 40 mg DAILY IV 02/23/18 09:00 03/19/18 15:59 Sodium Hypochlorite (Dakin's Quarter Strength) 1 applic Q24H TOPIC 02/23/18 09:00 03/19/18 19:59 Vancomycin HCl (Vanco rx to dose) 1 ea DAILY PRN MISC Per rx protocol 02/23/18 09:00 03/19/18 16:14 Vancomycin/Sodium Chloride 250 ml @ 166.667 mls/hr Q12H IVPB 02/23/18 09:00 02/28/18 08:59 Fozia Esteban DO Feb 23, 2018 08:20
--- NOTE | 2018-02-23 08:33 | General Progress Note ---
Assessment/Plan Assessment/Plan # Anemia of chronic disease due to underlying chronic medical issues, multifactorial. --> Anemia w/u has been reviewed. Will trend CBC as needed --> No evidence of hemolysis is noted, peripheral smear has been reviewed. --> Hgb goal >7. Transfuse prn. --> Epogen or iron at this time is not particularly indicated # Leukocytosis. Likely related to underlying infection versus reactive process. --> WBC improving/trending downwards --> Peripheral has been reviewed, no blasts noted --> Medications have been reviewed --> Imaging has been reviewed. CXR shows patchy left perihilar opacities, could represent focal infiltrates. Correlate with clinical findings --> Blood cultures and urine cultures are both ++ --> Has been started on abx, empiric treatment # Pressure ulcer of the sacral region, stage IV, deep and necrotic with undermining and foul smell, infected with possible underlying osteomyelitis of the sacrum and coccyx due to exposed bone. --> MRI of the sacrum has been reviewed --> Continue offloading and local wound care as per hospital protocol. Air mattress. --> Surgical evaluation appreciated # Cutaneous abscesses of the abdominal wall, source hematogenous verus translocation from the pelvis. --> On meropenem and continue vancomycin renally dose, pending surgical evaluation. # Catheter-associated urinary tract infection.on abx # Acute renal failure due to the above. Continue hydration with renally dosed medications. Monitor renal function and urine output. --> Consult Nephrology. 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 --> appreciate surgery recs # Abnormal blood electrolyte level. Continue hydration and close monitoring of electrolytes, replace as needed. # Small bowel obstruction with possible adhesions and fluid-filled fat collection, possible abscesses. Source hematogenous versus perforation related. . --> Plan of care was discussed with the daughter in detail at the bedside. --> Daughter stated that mother is refusing any surgical procedure, she had a bad experience from anesthesia in the past when she had a dental workup. # Hospice care planning -- to dw family re placement GREATLY APPRECIATE CONSULTATION. Subjective Respiratory: Denies: no symptoms, cough, orthopnea, shortness of breath, SOB with excertion, SOB at rest, sputum, stridor, wheezing, other Gastrointestinal/Abdominal: Denies: no symptoms, abdomen distended, abdominal pain, black stools, tarry stools, blood in stool, constipated, diarrhea, difficulty swallowing, nausea, poor appetite, poor fluid intake, rectal bleeding , vomiting, other Genitourinary: Denies: no symptoms, burning, discharge, frequency, flank pain, hematuria, incontinence, pain, urgency, other Neurologic/Psychiatric: Denies: no symptoms, anxiety, depressed, emotional problems, headache, numbness, paresthesia, pre-existing deficit, seizure, tingling, tremors, weakness, other Endocrine: Denies: no symptoms, excessive sweating, flushing, intolerance to cold, intolerance to heat, increased hunger, increased thirst, increased urine, unexplained weight gain, unexplained weight loss, other Hematologic/Lymphatic: Denies: no symptoms, anemia, easy bleeding, easy bruising, other Allergies: Coded Allergies: No Known Allergies (Unverified , 02/17/18) Subjective Pt awake and alert. No acute events. H/H stable. Afebrile. Objective Last 24 Hour Vital Signs Date Time Temp Pulse Resp B/P (MAP) Pulse Ox O2 Delivery O2 Flow Rate FiO2 02/23/18 08:00 97.3 114 20 125/75 (92) 97 02/23/18 04:00 107 02/23/18 04:00 98.1 100 19 115/77 (90) 94 02/23/18 00:00 119 02/23/18 00:00 97.9 114 19 110/80 (90) 93 02/22/18 20:00 120 02/22/18 20:00 98.1 117 19 102/72 (82) 96 02/22/18 20:00 Room Air 02/22/18 16:00 Room Air 02/22/18 16:00 98.5 128 20 146/84 (104) 98 02/22/18 15:45 127 02/22/18 12:00 123 02/22/18 12:00 98.8 127 20 148/82 (104) 02/22/18 12:00 Room Air Intake and Output 02/22/18 02/23/18 19:00 07:00 Intake Total 380 ml 600 ml Output Total 200 ml 450 ml Balance 180 ml 150 ml Intake Oral 180 ml IV Total 200 ml 600 ml Output Urine Total 200 ml 450 ml Laboratory Tests 02/23/18 05:25: White Blood Count 14.8H, Red Blood Count 3.96L, Hemoglobin 11.3L, Hematocrit 34.4L, Mean Corpuscular Volume 87, Mean Corpuscular Hemoglobin 28.5, Mean Corpuscular Hemoglobin Concent 32.7, Red Cell Distribution Width 14.9H, Platelet Count 101L, Mean Platelet Volume 6.4L, Neutrophils (%) (Auto) , Lymphocytes (%) (Auto) , Monocytes (%) (Auto) , Eosinophils (%) (Auto) , Basophils (%) (Auto) , Differential Total Cells Counted 100, Neutrophils % ( Manual) 88H, Lymphocytes % (Manual) 9L, Monocytes % (Manual) 2, Eosinophils % ( Manual) 1, Basophils % (Manual) 0, Band Neutrophils 0, Platelet Estimate DecreasedL, Platelet Morphology Normal, Hypochromasia 1+, Anisocytosis 1+, Sodium Level 139, Potassium Level 4.6, Chloride Level 113H, Carbon Dioxide Level 19L, Anion Gap 7, Blood Urea Nitrogen 18, Creatinine 0.7, Estimat Glomerular Filtration Rate , Glucose Level 164H, Calcium Level 7.5L, Phosphorus Level 2.2L, Magnesium Level 1.6L, Total Bilirubin 1.1H, Direct Bilirubin 0.4H, Aspartate Amino Transf (AST/SGOT) 18, Alanine Aminotransferase (ALT/SGPT) 12, Alkaline Phosphatase 175H, C-Reactive Protein, Quantitative 10.5H, Pro-B-Type Natriuretic Peptide > 18287B, Total Protein 5.0L, Albumin 1.1L, Globulin 3.9, Albumin/Globulin Ratio 0.3L, Random Vancomycin Level 17.5 Height (Feet): 5 Height (Inches): 5.00 Weight (Pounds): 186 General Appearance: lethargic EENT: normal ENT inspection Neck: supple Cardiovascular: regular rhythm Respiratory/Chest: lungs clear Abdomen: non tender Extremities: normal range of motion Edema: no edema noted Leg (L), no edema noted Leg (R) Edema: mild edema Neurologic: no motor/sensory deficits Skin: warm/dry Objective PHYSICAL EXAMINATION: VITAL SIGNS: Have been reviewed GENERAL: An elderly female, [place] Islander speaker, obese, lying in bed, moaning in pain, daughter at the bedside. HEENT: Normocephalic and atraumatic. Pupils are reactive to light. Moist oral mucosa. No exudate or thrush. NECK: Supple. No lymphadenopathy. CARDIOVASCULAR: Regular rate and rhythm. Actually, she is tachycardic. No murmur or gallop. LUNGS: Clear bilaterally. No wheezing or rhonchi. ABDOMEN: Soft and distended. Absent bowel sounds. Not tender. No rebound. No organomegaly. EXTREMITIES: No edema or cyanosis. No clubbing. SKIN: She had large and deep sacral pressure wound, 4 cm deep at least with undermining and extensive necrotic tissue at the base with exposed bone at the sacral area and foul smell. Siddhartha Soto MD Feb 23, 2018 08:33
[2018-02-23] MEDS: Pantoprazole Inj IV SCH (08:52)
[2018-02-23] MEDS: Morphine Sulfate 4mg/ml Inj (IV/IM USE ONLY) IVP PRN (08:53)
[2018-02-23] MEDS: Vancomycin 750mg/NS 250ml IVPB SCH ×2 (08:54→20:50)
[2018-02-23] MEDS: Meropenem 1 GM in NS 55 ML IVPB SCH ×2 (08:54→20:50)
[2018-02-23] MEDS: Dakin's 0.125% Soln (Quarter Strength) 16oz TOPIC SCH (08:55)
[2018-02-23] MEDS: D5 1/2NS w/KCL 10meq 1,000 ML IV SCH (11:00)
[2018-02-23 11:23] VITALS: BP 139/81
--- NOTE | 2018-02-23 13:08 | Nephrology Progress Note ---
Assessment/Plan Problem List: (1) JANNETTE (acute kidney injury) (2) SBO (small bowel obstruction) (3) Osteomyelitis of sacrum (4) Sepsis Assessment Renal failure- Acute on chronic/ presented with High K Small Bowel Obstruction UTI Sacral Osteo HypoNatremia Sever HypoAlbuminemia & Proteinuria Anemia Plan stop IV IV Mag- IV Phos per consultants suggest comfort care clear liquids Antibiotics Anemia persaud Subjective ROS Limited/Unobtainable: No Constitutional: Reports: malaise Objective Objective Last 24 Hour Vital Signs Date Time Temp Pulse Resp B/P (MAP) Pulse Ox O2 Delivery O2 Flow Rate FiO2 02/23/18 11:23 97.3 112 20 139/81 (100) 98 02/23/18 08:05 115 02/23/18 08:00 97.3 114 20 125/75 (92) 97 02/23/18 04:00 107 02/23/18 04:00 98.1 100 19 115/77 (90) 94 02/23/18 00:00 119 02/23/18 00:00 97.9 114 19 110/80 (90) 93 02/22/18 20:00 120 02/22/18 20:00 98.1 117 19 102/72 (82) 96 02/22/18 20:00 Room Air 02/22/18 16:00 Room Air 02/22/18 16:00 98.5 128 20 146/84 (104) 98 02/22/18 15:45 127 Intake and Output 02/22/18 02/23/18 19:00 07:00 Intake Total 380 ml 600 ml Output Total 200 ml 450 ml Balance 180 ml 150 ml Intake Oral 180 ml IV Total 200 ml 600 ml Output Urine Total 200 ml 450 ml Laboratory Tests 02/23/18 05:25: White Blood Count 14.8H, Red Blood Count 3.96L, Hemoglobin 11.3L, Hematocrit 34.4L, Mean Corpuscular Volume 87, Mean Corpuscular Hemoglobin 28.5, Mean Corpuscular Hemoglobin Concent 32.7, Red Cell Distribution Width 14.9H, Platelet Count 101L, Mean Platelet Volume 6.4L, Neutrophils (%) (Auto) , Lymphocytes (%) (Auto) , Monocytes (%) (Auto) , Eosinophils (%) (Auto) , Basophils (%) (Auto) , Differential Total Cells Counted 100, Neutrophils % ( Manual) 88H, Lymphocytes % (Manual) 9L, Monocytes % (Manual) 2, Eosinophils % ( Manual) 1, Basophils % (Manual) 0, Band Neutrophils 0, Platelet Estimate DecreasedL, Platelet Morphology Normal, Hypochromasia 1+, Anisocytosis 1+, Sodium Level 139, Potassium Level 4.6, Chloride Level 113H, Carbon Dioxide Level 19L, Anion Gap 7, Blood Urea Nitrogen 18, Creatinine 0.7, Estimat Glomerular Filtration Rate , Glucose Level 164H, Calcium Level 7.5L, Phosphorus Level 2.2L, Magnesium Level 1.6L, Total Bilirubin 1.1H, Direct Bilirubin 0.4H, Aspartate Amino Transf (AST/SGOT) 18, Alanine Aminotransferase (ALT/SGPT) 12, Alkaline Phosphatase 175H, C-Reactive Protein, Quantitative 10.5H, Pro-B-Type Natriuretic Peptide > 61939U, Total Protein 5.0L, Albumin 1.1L, Globulin 3.9, Albumin/Globulin Ratio 0.3L, Random Vancomycin Level 17.5 Height (Feet): 5 Height (Inches): 5.00 Weight (Pounds): 186 General Appearance: no apparent distress Objective no change Agustín Parmar MD Feb 23, 2018 13:08
--- NOTE | 2018-02-23 14:09 | Infectious Diseases Prog Note ---
Assessment/Plan Problems: (1) Pressure ulcer of sacral region, stage 4 Assessment & Plan: deep and necrotic with undermining , and foul smell , infected with possible underlying osteomyelitis of the sacrum and coccyx . MRI of the sacrum is pending to confirm, recommend surgical excision and debridement. daughter had chosen hospice care and no surgical debridement of the sacrum for now . continue off loading and local wound care as per hospital protocol (2) Cutaneous abscess of abdominal wall Assessment & Plan: source hematogenous VS translocation from the pelvis , on meropenem and vancomycin renally dosed, no surgical intervention (3) Catheter-associated urinary tract infection Assessment & Plan: due to ESBL producing klebsiella pneumonia , S/P lomeli catheter change, continue meropenem (4) Sepsis Assessment & Plan: with poly organisms due to the above with MSSA, streptococcus and proteus mirabilis , on meropenem and vancomycin renally dosed , patient needs surgical debridement of the sacrum for source control . will continue antifungal coverage pending surgical debridement if she is a candidate . family chose hospice care . (5) JANNETTE (acute kidney injury) Assessment & Plan: due to the above , continue hydration with renally dosed medications, monitor renal function and UOP (6) Osteomyelitis of sacrum Assessment & Plan: suspect chronic due to the deep pressure wound , MRI to confirm was held since she was on continuos suctioning , recommend bone biopsy for culture to identify the exact cause (7) Abnormal blood electrolyte level Assessment & Plan: continue hydration with close monitoring of electrolytes (8) SBO (small bowel obstruction) Assessment & Plan: with possible adhesions, and fat filled fluids collection , improving, continue hydration, and conservative management , as per surgery Assessment/Plan D/W daughter and son the plan of care, they are waiting on medicare A approval to transition to hospice care Subjective Constitutional: Reports: no symptoms HEENT: Reports: no symptoms Respiratory: Reports: no symptoms Breasts: Reports: no symptoms Cardiovascular: Reports: no symptoms Gastrointestinal/Abdominal: Reports: no symptoms Genitourinary: Reports: no symptoms Neurologic: Reports: no symptoms Psychiatric: Reports: no symptoms Skin: Reports: ulcer Endocrine: Reports: no symptoms Musculoskeletal: Reports: pain Allergies: Coded Allergies: No Known Allergies (Unverified , 02/17/18) Subjective she was more awake and alert, today, able to tolerate soup, and had liquid bowel movement , daughters at bedside Objective Vital Signs Last 24 Hour Vital Signs Date Time Temp Pulse Resp B/P (MAP) Pulse Ox O2 Delivery O2 Flow Rate FiO2 02/23/18 11:23 97.3 112 20 139/81 (100) 98 02/23/18 08:05 115 02/23/18 08:00 97.3 114 20 125/75 (92) 97 02/23/18 04:00 107 02/23/18 04:00 98.1 100 19 115/77 (90) 94 02/23/18 00:00 119 02/23/18 00:00 97.9 114 19 110/80 (90) 93 02/22/18 20:00 120 02/22/18 20:00 98.1 117 19 102/72 (82) 96 02/22/18 20:00 Room Air 02/22/18 16:00 Room Air 02/22/18 16:00 98.5 128 20 146/84 (104) 98 02/22/18 15:45 127 Height (Feet): 5 Height (Inches): 5.00 Weight (Pounds): 186 General Appearance: WD/WN, no acute distress HEENT: normocephalic, atraumatic, anicteric, mucous membranes moist, PERRL, EOMI, pharynx normal, supple, no JVD Respiratory/Chest: chest wall non-tender, normal breath sounds, no respiratory distress, no accessory muscle use, decreased breath sounds Cardiovascular: normal peripheral pulses, normal rate, regular rhythm, no gallop/murmur, no JVD Abdomen: normal bowel sounds, soft, non tender, no organomegaly, non distended , no mass, no scars Extremities: no cyanosis, no clubbing Skin: no rash, no lesions, ulcers Neurologic/Psychiatric: alert, responsive Lymphatic: no neck adenopathy, no groin adenopathy Musculoskeletal: normal muscle bulk, no effusion Microbiology Date/Time Source Procedure Growth Status 02/20/18 18:00 Stool Clostridium difficile Toxin Assay - Final Complete Laboratory Tests Test 02/23/18 05:25 White Blood Count 14.8 K/UL (4.8-10.8) H Red Blood Count 3.96 M/UL (4.20-5.40) L Hemoglobin 11.3 G/DL (12.0-16.0) L Hematocrit 34.4 % (37.0-47.0) L Mean Corpuscular Volume 87 FL (80-99) Mean Corpuscular Hemoglobin 28.5 PG (27.0-31.0) Mean Corpuscular Hemoglobin Concent 32.7 G/DL (32.0-36.0) Red Cell Distribution Width 14.9 % (11.6-14.8) H Platelet Count 101 K/UL (150-450) L Mean Platelet Volume 6.4 FL (6.5-10.1) L Neutrophils (%) (Auto) % (45.0-75.0) Lymphocytes (%) (Auto) % (20.0-45.0) Monocytes (%) (Auto) % (1.0-10.0) Eosinophils (%) (Auto) % (0.0-3.0) Basophils (%) (Auto) % (0.0-2.0) Differential Total Cells Counted 100 Neutrophils % (Manual) 88 % (45-75) H Lymphocytes % (Manual) 9 % (20-45) L Monocytes % (Manual) 2 % (1-10) Eosinophils % (Manual) 1 % (0-3) Basophils % (Manual) 0 % (0-2) Band Neutrophils 0 % (0-8) Platelet Estimate Decreased L Platelet Morphology Normal Hypochromasia 1+ Anisocytosis 1+ Sodium Level 139 MMOL/L (136-145) Potassium Level 4.6 MMOL/L (3.5-5.1) Chloride Level 113 MMOL/L (98-107) H Carbon Dioxide Level 19 MMOL/L (21-32) L Anion Gap 7 mmol/L (5-15) Blood Urea Nitrogen 18 mg/dL (7-18) Creatinine 0.7 MG/DL (0.55-1.30) Estimat Glomerular Filtration Rate mL/min (>60) Glucose Level 164 MG/DL (74-106) H Calcium Level 7.5 MG/DL (8.5-10.1) L Phosphorus Level 2.2 MG/DL (2.5-4.9) L Magnesium Level 1.6 MG/DL (1.8-2.4) L Total Bilirubin 1.1 MG/DL (0.2-1.0) H Direct Bilirubin 0.4 MG/DL (0.0-0.3) H Aspartate Amino Transf (AST/SGOT) 18 U/L (15-37) Alanine Aminotransferase (ALT/SGPT) 12 U/L (12-78) Alkaline Phosphatase 175 U/L (46-116) H C-Reactive Protein, Quantitative 10.5 mg/dL (0.00-0.90) H Pro-B-Type Natriuretic Peptide > 80895 pg/mL (0-125) H Total Protein 5.0 G/DL (6.4-8.2) L Albumin 1.1 G/DL (3.4-5.0) L Globulin 3.9 g/dL Albumin/Globulin Ratio 0.3 (1.0-2.7) L Random Vancomycin Level 17.5 ug/mL Current Medications Medications (Trade) Dose Ordered Sig/Nidia Route PRN Reason Start Time Stop Time Status Last Admin Dose Admin Chlorhexidine Gluconate (Taylor-Hex 2%) 1 applic DAILY@2000 TOPIC 02/22/18 20:00 03/20/18 19:59 02/22/18 20:57 Dextrose (Dextrose 50%) 25 ml Q30M PRN IV Hypoglycemia 02/22/18 14:30 03/19/18 15:59 Dextrose (Dextrose 50%) 50 ml Q30M PRN IV Hypoglycemia 02/22/18 14:30 03/19/18 15:59 Fluconazole/ Sodium Chloride 100 ml @ 100 mls/hr Q24H IV 02/22/18 17:00 02/25/18 16:59 02/22/18 17:34 Haloperidol Lactate (Haldol) 5 mg Q6H PRN IM Agitation 02/22/18 14:26 03/21/18 14:25 Magnesium Sulfate 100 ml @ 100 mls/hr Q1H IVPB 02/23/18 13:30 02/23/18 17:29 02/23/18 13:38 Meropenem 1 gm/ Sodium Chloride 55 ml @ 110 mls/hr Q12HR IVPB 02/22/18 21:00 02/26/18 19:59 02/23/18 08:54 Morphine Sulfate (Morphine Sulfate) 3 mg Q4H PRN IVP Pain Scale 4-10) 02/22/18 14:26 02/27/18 14:25 02/23/18 08:53 Ondansetron HCl (Zofran) 4 mg Q6H PRN IVP Nausea & Vomiting 02/22/18 15:15 03/23/18 21:14 Pantoprazole (Protonix) 40 mg DAILY IV 02/23/18 09:00 03/19/18 15:59 02/23/18 08:52 Sodium Hypochlorite (Dakin's Quarter Strength) 1 applic Q24H TOPIC 02/23/18 09:00 03/19/18 19:59 02/23/18 08:55 Sodium Phosphate 15 mm/Sodium Chloride 280 ml @ 70.273 mls/ hr ONCE ONCE IVPB 02/23/18 14:30 02/23/18 18:29 Vancomycin HCl (Vanco rx to dose) 1 ea DAILY PRN MISC Per rx protocol 02/23/18 09:00 03/19/18 16:14 Vancomycin/Sodium Chloride 250 ml @ 166.667 mls/hr Q12H IVPB 02/23/18 09:00 02/28/18 08:59 02/23/18 08:54 Ari Lewis M.D. Feb 23, 2018 14:09
--- NOTE | 2018-02-23 14:11 | General Progress Note ---
Progress Note Progress Note covering for Dr Weinstein S: I have mild abdominal and sacral pain. O: more awake and alert, comfortable, tolerated soup , no nausea or vomiting today, No distress vitals: reviewed and stable PHYSICAL EXAMINATION: HEAD AND NECK: Atraumatic and normocephalic. CHEST: Clear to auscultation. No wheezing. No crackles. ABDOMEN: Positive for tenderness on deep palpation. Bowel sounds have decreased.No rebound tenderness MUSCULOSKELETAL: Positive for the sacral decubitus wounds. Positive for decreased range of motion and strength in all four extremities. NEUROLOGIC: The patient is awake, alert, and oriented x3. anxious IMAGING STUDIES: Imaging shows abdominal pelvic CT scan dated February 17, is reviewed. Chest x-ray also reviewed. Meds: reviewed and reconciled including but not limited to Meropenem and Vanco ASSESSMENT: 1. Sepsis. Gram negative 2. Acute abdomen secondary to small bowel obstruction. 3. Decubitus wound, sacral possibility of osteomyelitis cannot be excluded. 4. Renal failure - age indeterminate. 5. Hyponatremia. 6. Catheter-induced urinary infection. 7. GI and DVT prophylaxis. PLAN OF CARE: I had detailed conversation with Tin, the Dtr and her son regarding her mother condition POLST to DNR Consulted Hospice care [facility] medical prognosis waiting for medicare A approval continue current management poor prognosis Ari Lewis M.D. Feb 23, 2018 14:11
[2018-02-23] MEDS ORDERED: Sodium Phosphate 15 MM in NS 275 ML IVPB ONE (14:30)
[2018-02-23 16:00] VITALS: BP 113/83
--- NOTE | 2018-02-23 17:35 | General Surgery Progress Note ---
General Surgery-Progress Note Subjective Additional Comments declining. not tolerating oral. no pain. Objective Last 24 Hour Vital Signs Date Time Temp Pulse Resp B/P (MAP) Pulse Ox O2 Delivery O2 Flow Rate FiO2 02/23/18 16:00 96.7 107 20 113/83 (93) 98 02/23/18 15:38 106 02/23/18 11:57 118 02/23/18 11:23 97.3 112 20 139/81 (100) 98 02/23/18 08:05 115 02/23/18 08:00 97.3 114 20 125/75 (92) 97 02/23/18 04:00 107 02/23/18 04:00 98.1 100 19 115/77 (90) 94 02/23/18 00:00 119 02/23/18 00:00 97.9 114 19 110/80 (90) 93 02/22/18 20:00 120 02/22/18 20:00 98.1 117 19 102/72 (82) 96 02/22/18 20:00 Room Air I&O Intake and Output 02/22/18 02/23/18 19:00 07:00 Intake Total 380 ml 600 ml Output Total 200 ml 450 ml Balance 180 ml 150 ml Intake Oral 180 ml IV Total 200 ml 600 ml Output Urine Total 200 ml 450 ml Dressing: other Wound: other Drains: other Cardiovascular: RSR Respiratory: decreased breath sounds Abdomen: soft, non-tender, present bowel sounds Extremities: other Laboratory Tests Test 02/23/18 05:25 White Blood Count 14.8 K/UL (4.8-10.8) H Red Blood Count 3.96 M/UL (4.20-5.40) L Hemoglobin 11.3 G/DL (12.0-16.0) L Hematocrit 34.4 % (37.0-47.0) L Mean Corpuscular Volume 87 FL (80-99) Mean Corpuscular Hemoglobin 28.5 PG (27.0-31.0) Mean Corpuscular Hemoglobin Concent 32.7 G/DL (32.0-36.0) Red Cell Distribution Width 14.9 % (11.6-14.8) H Platelet Count 101 K/UL (150-450) L Mean Platelet Volume 6.4 FL (6.5-10.1) L Neutrophils (%) (Auto) % (45.0-75.0) Lymphocytes (%) (Auto) % (20.0-45.0) Monocytes (%) (Auto) % (1.0-10.0) Eosinophils (%) (Auto) % (0.0-3.0) Basophils (%) (Auto) % (0.0-2.0) Differential Total Cells Counted 100 Neutrophils % (Manual) 88 % (45-75) H Lymphocytes % (Manual) 9 % (20-45) L Monocytes % (Manual) 2 % (1-10) Eosinophils % (Manual) 1 % (0-3) Basophils % (Manual) 0 % (0-2) Band Neutrophils 0 % (0-8) Platelet Estimate Decreased L Platelet Morphology Normal Hypochromasia 1+ Anisocytosis 1+ Sodium Level 139 MMOL/L (136-145) Potassium Level 4.6 MMOL/L (3.5-5.1) Chloride Level 113 MMOL/L (98-107) H Carbon Dioxide Level 19 MMOL/L (21-32) L Anion Gap 7 mmol/L (5-15) Blood Urea Nitrogen 18 mg/dL (7-18) Creatinine 0.7 MG/DL (0.55-1.30) Estimat Glomerular Filtration Rate mL/min (>60) Glucose Level 164 MG/DL (74-106) H Calcium Level 7.5 MG/DL (8.5-10.1) L Phosphorus Level 2.2 MG/DL (2.5-4.9) L Magnesium Level 1.6 MG/DL (1.8-2.4) L Total Bilirubin 1.1 MG/DL (0.2-1.0) H Direct Bilirubin 0.4 MG/DL (0.0-0.3) H Aspartate Amino Transf (AST/SGOT) 18 U/L (15-37) Alanine Aminotransferase (ALT/SGPT) 12 U/L (12-78) Alkaline Phosphatase 175 U/L (46-116) H C-Reactive Protein, Quantitative 10.5 mg/dL (0.00-0.90) H Pro-B-Type Natriuretic Peptide > 36026 pg/mL (0-125) H Total Protein 5.0 G/DL (6.4-8.2) L Albumin 1.1 G/DL (3.4-5.0) L Globulin 3.9 g/dL Albumin/Globulin Ratio 0.3 (1.0-2.7) L Random Vancomycin Level 17.5 ug/mL Plan Problems: (1) Sepsis Assessment & Plan: sepsis, tachy, leukocytosis, lactic acidosis, abnormal labs likely related to abdominal etiology. possible infected sacral ulcer appreciate ID input. IV abx IV fluids (2) SBO (small bowel obstruction) Assessment & Plan: reviewed CT and discussed with radiologist. seems to have complete SBO with transition point in proximal bowel. distended and fluid filled proximal. decompressed distal. abdominal exam benign. no significant distention or tenderness. currently no n/v hx of prior episodes. discussed with patient and family. Recommend exploration given findings. Family and patient decline. State that it has been her wish for some time now to not have surgery even if life threatening. explained risks of worsening condition, perforation, even . expressed understanding and refuses surgery Has been improving. small bowel series with contrast performed. no obstruction noted. contrast in colon this AM. dilated jejunal loops still noted and mildly improved. no ng tube output. +flatus. KUB with contrast in colon. likely incomplete obstruction but there is some component of obstruction vs ileus she has. still decline surgery and family states plans for hospice. diet as can be tolerated for comfort IV fluids IV Abx trend labs discuss DNR status with patient and family given her wishes. (3) Pressure ulcer of sacral region, stage 4 Assessment & Plan: Full thickness pressure injury to sacrum with multiple open wounds periwound and R buttocks .Sacral pressure injury (L)11cm x (W)12.4cm x (D )4cm with undermining 9-4 by 4 cm at 3o'clock. Wound malodorous with 75% soft necrosis.Bone palpable.Additional pressure injuries noted periwound L buttocks. Full thickness pressure injury to Upper R buttocks (L)1.4cm x (W)4.7cm x(D)0.2cm ,scattered slough with granulation with marginal erythema. Full thickness inferior R buttocks (L)4.5cm x (W)2.5cm wound granular with marginal erythema. Full thickness pressure injury to R ischium (L)0.8cm x(W)2.3cm .Wound granular with dark borders. Periwound dark without induration. Multiple partial thickness pressure injuries in close proximity noted to upper/outer R buttocks ( L)2cm x (W)4.6cm with non-blanchable erythema periwound. R heel Mottled,cool and boggy with dry peeling skin (L)6cm x (W)8cm. Pt denied tenderness when minimally palpated. L heel mottled,boggy, and cool to touch (L)6cm x (W) 7.4cm .Pt verbalized tenderness when palpated. R and L 1st metatarsals mottled and non -tender when palpated. Spoke to Dtr regarding sacral pressure injury. Sacral wound cleansed with Saline and loosley packed with Saline moist gauze until evaluated by Surgeon.Dtr stated pt had small pressure injury in October which progressively worsened.Dtr also stated she was informed at [facility] wound was getting better. DTR made aware of stage and state of wound.Advised of Surgical consult and that surgeon would discuss all options with regards to wound. visited and Md also discussed possibility of surgical debridement of sacral wound with Dtr. Tx.Plan: Air fluidized mattress. Sacral Wound care orders as in wound care clarification orders; wash , dakins, dressings. Apply Cavilon to both heels and off-load heels daily. Cavilon wipes to R and L 1st metatarsals Daily Apply Moisture Barrier paste to Wounds R buttocks and R ischium and cover with Optifoam drsg Daily and prn. Reposition at minimum every 2hours or as tolerated. Discussed with family care plan. Her major concern is a complete bowel obstruction. the decubitus ulcer is concerning but chronic. will continue care for wounds but hold on debridement until the remainder of her medical condition is improved. family is considering hospice. Levon Jacobs Feb 23, 2018 17:35
--- NOTE | 2018-02-23 18:00 | Cardiology Progress Note ---
Assessment/Plan Assessment/Plan 1. Sinus tachycardia due to severe hypovolemia, correct with hydration and electrolyte replacement. 2. Cholelithiasis. 3. Acute superficial femoral and popliteal DVT in the right and common femoral, superficial femoral, and popliteal DVT in the left. 4. Small bowel obstruction. 5. Left perihilar infiltrate, likely healthcare-associated pneumonia. 6. Stage IV sacral decubitus ulcer with likely osteomyelitis. 7. Gram negative bacillus urinary tract infection. 8. Gram-positive cocci and gram-negative sepsis. Subjective Subjective Sinus tachycardia at rate of 107. Objective Last 24 Hour Vital Signs Date Time Temp Pulse Resp B/P (MAP) Pulse Ox O2 Delivery O2 Flow Rate FiO2 02/23/18 16:00 96.7 107 20 113/83 (93) 98 02/23/18 15:38 106 02/23/18 11:57 118 02/23/18 11:23 97.3 112 20 139/81 (100) 98 02/23/18 08:05 115 02/23/18 08:00 97.3 114 20 125/75 (92) 97 02/23/18 04:00 107 02/23/18 04:00 98.1 100 19 115/77 (90) 94 02/23/18 00:00 119 02/23/18 00:00 97.9 114 19 110/80 (90) 93 02/22/18 20:00 120 02/22/18 20:00 98.1 117 19 102/72 (82) 96 02/22/18 20:00 Room Air Intake and Output 02/22/18 02/23/18 19:00 07:00 Intake Total 380 ml 600 ml Output Total 200 ml 450 ml Balance 180 ml 150 ml Intake Oral 180 ml IV Total 200 ml 600 ml Output Urine Total 200 ml 450 ml 2D Echo: LVEF 55%, Mild LVH, Grade I LVDD, RVSP 42 mmHg Laboratory Tests Test 02/23/18 05:25 White Blood Count 14.8 K/UL (4.8-10.8) H Red Blood Count 3.96 M/UL (4.20-5.40) L Hemoglobin 11.3 G/DL (12.0-16.0) L Hematocrit 34.4 % (37.0-47.0) L Mean Corpuscular Volume 87 FL (80-99) Mean Corpuscular Hemoglobin 28.5 PG (27.0-31.0) Mean Corpuscular Hemoglobin Concent 32.7 G/DL (32.0-36.0) Red Cell Distribution Width 14.9 % (11.6-14.8) H Platelet Count 101 K/UL (150-450) L Mean Platelet Volume 6.4 FL (6.5-10.1) L Neutrophils (%) (Auto) % (45.0-75.0) Lymphocytes (%) (Auto) % (20.0-45.0) Monocytes (%) (Auto) % (1.0-10.0) Eosinophils (%) (Auto) % (0.0-3.0) Basophils (%) (Auto) % (0.0-2.0) Differential Total Cells Counted 100 Neutrophils % (Manual) 88 % (45-75) H Lymphocytes % (Manual) 9 % (20-45) L Monocytes % (Manual) 2 % (1-10) Eosinophils % (Manual) 1 % (0-3) Basophils % (Manual) 0 % (0-2) Band Neutrophils 0 % (0-8) Platelet Estimate Decreased L Platelet Morphology Normal Hypochromasia 1+ Anisocytosis 1+ Sodium Level 139 MMOL/L (136-145) Potassium Level 4.6 MMOL/L (3.5-5.1) Chloride Level 113 MMOL/L (98-107) H Carbon Dioxide Level 19 MMOL/L (21-32) L Anion Gap 7 mmol/L (5-15) Blood Urea Nitrogen 18 mg/dL (7-18) Creatinine 0.7 MG/DL (0.55-1.30) Estimat Glomerular Filtration Rate mL/min (>60) Glucose Level 164 MG/DL (74-106) H Calcium Level 7.5 MG/DL (8.5-10.1) L Phosphorus Level 2.2 MG/DL (2.5-4.9) L Magnesium Level 1.6 MG/DL (1.8-2.4) L Total Bilirubin 1.1 MG/DL (0.2-1.0) H Direct Bilirubin 0.4 MG/DL (0.0-0.3) H Aspartate Amino Transf (AST/SGOT) 18 U/L (15-37) Alanine Aminotransferase (ALT/SGPT) 12 U/L (12-78) Alkaline Phosphatase 175 U/L (46-116) H C-Reactive Protein, Quantitative 10.5 mg/dL (0.00-0.90) H Pro-B-Type Natriuretic Peptide > 58490 pg/mL (0-125) H Total Protein 5.0 G/DL (6.4-8.2) L Albumin 1.1 G/DL (3.4-5.0) L Globulin 3.9 g/dL Albumin/Globulin Ratio 0.3 (1.0-2.7) L Random Vancomycin Level 17.5 ug/mL Microbiology Date/Time Source Procedure Growth Status 02/20/18 18:00 Stool Clostridium difficile Toxin Assay - Final Complete Objective HEENT: Atraumatic and normocephalic. Anicteric. Pupils are equal, round, and reactive to light and accommodation. Dry mucosal membranes. NECK: JVP less than 5 cm. No carotid bruit. Carotid upstrokes 2+ bilaterally. CARDIOVASCULAR: Normal S1, S2. Regular rate and rhythm. No murmurs, gallops, or rubs. Tachycardic. LUNGS: Clear to auscultation bilaterally. ABDOMEN: Distended. Diminished bowel sounds. No hepatosplenomegaly. Diffuse tenderness. EXTREMITIES: No evidence of edema, clubbing, or cyanosis. Thomas Quiroz MD Feb 23, 2018 18:00
[2018-02-23 20:00] VITALS: BP 141/93
[2018-02-23] MEDS: Dyna-Hex 2% Top Sol 2oz TOPIC SCH (20:50)
[2018-02-24] VITALS: BP 145/73
[2018-02-24 04:00] VITALS: BP 142/84
--- NOTE | 2018-02-24 06:19 | General Progress Note ---
Assessment/Plan Assessment/Plan # Anemia of chronic disease due to underlying chronic medical issues, multifactorial. --> Anemia w/u has been reviewed. Will trend CBC as needed --> No evidence of hemolysis is noted, peripheral smear has been reviewed. hgb 12.1--> 11.3 --> Hgb goal >7. Transfuse prn. --> Epogen or iron at this time is not particularly indicated # Thrombocytopenia most likely related to infection versus medications, is on vancomycin, has gram negative sepsis --> plt trend 151-->121-->109k ==> cbc reviewed and no giant platelets or clumping noted --> no asa, plavix or heparin sq # Leukocytosis. Likely related to underlying infection versus reactive process. --> WBC improving/trending downwards --> Peripheral has been reviewed, no blasts noted --> Medications have been reviewed --> Imaging has been reviewed. CXR shows patchy left perihilar opacities, could represent focal infiltrates. Correlate with clinical findings --> Blood cultures and urine cultures are both ++ --> Has been started on abx, empiric treatment # Pressure ulcer of the sacral region, stage IV, deep and necrotic with undermining and foul smell, infected with possible underlying osteomyelitis of the sacrum and coccyx due to exposed bone. --> MRI of the sacrum has been reviewed --> Continue offloading and local wound care as per hospital protocol. Air mattress. --> Surgical evaluation appreciated # Cutaneous abscesses of the abdominal wall, source hematogenous verus translocation from the pelvis. --> On meropenem and continue vancomycin renally dose, pending surgical evaluation. # Catheter-associated urinary tract infection.on abx # Acute renal failure due to the above. Continue hydration with renally dosed medications. Monitor renal function and urine output. --> Consult Nephrology. 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 --> appreciate surgery recs # Abnormal blood electrolyte level. Continue hydration and close monitoring of electrolytes, replace as needed. # Small bowel obstruction with possible adhesions and fluid-filled fat collection, possible abscesses. Source hematogenous versus perforation related. . --> Plan of care was discussed with the daughter in detail at the bedside. --> Daughter stated that mother is refusing any surgical procedure, she had a bad experience from anesthesia in the past when she had a dental workup. # Hospice care planning -- to dw family re placement --> poor prognosis GREATLY APPRECIATE CONSULTATION. Subjective Constitutional: Denies: no symptoms, chills, diaphoresis, fever, malaise, weakness, other HEENT: Denies: no symptoms, eye pain, blurred vision, tearing, double vision, ear pain, ear discharge, nose pain, nose congestion, throat pain, throat swelling, mouth pain, mouth swelling, other Cardiovascular: Denies: no symptoms, chest pain, edema, irregular heart rate, lightheadedness, palpitations, syncope, other Respiratory: Denies: no symptoms, cough, orthopnea, shortness of breath, SOB with excertion, SOB at rest, sputum, stridor, wheezing, other Gastrointestinal/Abdominal: Denies: no symptoms, abdomen distended, abdominal pain, black stools, tarry stools, blood in stool, constipated, diarrhea, difficulty swallowing, nausea, poor appetite, poor fluid intake, rectal bleeding , vomiting, other Genitourinary: Denies: no symptoms, burning, discharge, frequency, flank pain, hematuria, incontinence, pain, urgency, other Neurologic/Psychiatric: Denies: no symptoms, anxiety, depressed, emotional problems, headache, numbness, paresthesia, pre-existing deficit, seizure, tingling, tremors, weakness, other Allergies: Coded Allergies: No Known Allergies (Unverified , 02/17/18) Subjective Pt awake and alert. No acute events. H/H stable. On abx Objective Last 24 Hour Vital Signs Date Time Temp Pulse Resp B/P (MAP) Pulse Ox O2 Delivery O2 Flow Rate FiO2 02/24/18 04:00 105 02/24/18 00:00 99 02/24/18 00:00 97.0 102 18 145/73 (97) 97 02/23/18 20:00 106 02/23/18 20:00 97.4 116 20 141/93 (109) 98 02/23/18 16:00 96.7 107 20 113/83 (93) 98 02/23/18 15:38 106 02/23/18 11:57 118 02/23/18 11:23 97.3 112 20 139/81 (100) 98 02/23/18 08:05 115 02/23/18 08:00 97.3 114 20 125/75 (92 97 Intake and Output 02/23/18 02/24/18 19:00 07:00 Intake Total 345 ml Output Total 200 ml 400 ml Balance 145 ml -400 ml Intake Oral 345 ml Output Urine Total 200 ml 400 ml Height (Feet): 5 Height (Inches): 5.00 Weight (Pounds): 186 General Appearance: no apparent distress EENT: TMs normal Neck: supple Cardiovascular: regular rhythm Respiratory/Chest: lungs clear Abdomen: normal bowel sounds Extremities: non-tender Edema: no edema noted Leg (L), no edema noted Leg (R) Neurologic: alert Skin: warm/dry Objective PHYSICAL EXAMINATION: VITAL SIGNS: Have been reviewed GENERAL: An elderly female, Syriac speaker, obese, lying in bed HEENT: Normocephalic and atraumatic. Pupils are reactive to light. Moist oral mucosa. NECK: Supple. No lymphadenopathy. CARDIOVASCULAR: Regular rate and rhythm. Actually, she is tachycardic. No murmur or gallop. LUNGS: Clear bilaterally. No wheezing or rhonchi. ABDOMEN: Soft and distended. Absent bowel sounds. Not tender. No rebound. No organomegaly. EXTREMITIES: No edema or cyanosis. No clubbing. SKIN: She had large and deep sacral pressure wound, 4 cm deep at least with undermining and extensive necrotic tissue at the base with exposed bone at the sacral area and foul smell. Siddhartha Soto MD Feb 24, 2018 06:19
[2018-02-24 08:00] VITALS: BP 139/81
[2018-02-24] MEDS: Meropenem 1 GM in NS 55 ML IVPB SCH ×2 (09:03→17:11)
[2018-02-24] MEDS: Pantoprazole Inj IV SCH (09:16)
[2018-02-24] MEDS: Dakin's 0.125% Soln (Quarter Strength) 16oz TOPIC SCH (09:16)
[2018-02-24] MEDS: Vancomycin 750mg/NS 250ml IVPB SCH (09:43)
--- NOTE | 2018-02-24 10:40 | General Progress Note ---
Assessment/Plan Assessment/Plan S: I am ok O: NG in place , mild abd pain . No distress PHYSICAL EXAMINATION: HEAD AND NECK: Atraumatic and normocephalic. CHEST: Clear to auscultation. No wheezing. No crackles. ABDOMEN: Positive for tenderness on deep palpation. Bowel sounds have decreased.No rebound tenderness MUSCULOSKELETAL: Positive for the sacral decubitus wounds. Positive for decreased range of motion and strength in all four extremities. NEUROLOGIC: The patient is awake, alert, and oriented x3. anxious IMAGING STUDIES: Imaging shows abdominal pelvic CT scan dated February 17, is reviewed. Chest x-ray also reviewed. Meds: reviewed and reconciled including but not limited to Meropenem and Vanco ASSESSMENT: 1. Sepsis. Gram negative and STaph Aureus 2. Acute abdomen secondary to small bowel obstruction. 3. Decubitus wound, sacral possibility of osteomyelitis cannot be excluded. 4. Renal failure - age indeterminate. 5. Hyponatremia. 6. Catheter-induced urinary infection. 7. GI and DVT prophylaxis. 8.POLST to DNR Plan of care: current medical management [facility] medical prognosis Partial SBO. patient Refused surgical approach from the start point of the care. will observe Subjective Allergies: Coded Allergies: No Known Allergies (Unverified , 02/17/18) Objective Last 24 Hour Vital Signs Date Time Temp Pulse Resp B/P (MAP) Pulse Ox O2 Delivery O2 Flow Rate FiO2 02/24/18 08:00 98.0 116 16 139/81 (100) 99 02/24/18 04:00 97.3 106 20 142/84 (103) 99 02/24/18 04:00 105 02/24/18 00:00 99 02/24/18 00:00 97.0 102 18 145/73 (97) 97 02/23/18 20:00 106 02/23/18 20:00 97.4 116 20 141/93 (109) 98 02/23/18 16:00 96.7 107 20 113/83 (93) 98 02/23/18 15:38 106 02/23/18 11:57 118 02/23/18 11:23 97.3 112 20 139/81 (100) 98 Intake and Output 02/23/18 02/24/18 19:00 07:00 Intake Total 345 ml Output Total 200 ml 800 ml Balance 145 ml -800 ml Intake Oral 345 ml Output Urine Total 200 ml 400 ml Stool Total 400 ml Height (Feet): 5 Height (Inches): 5.00 Weight (Pounds): 186 Amol Weinstein MD Feb 24, 2018 10:40
--- NOTE | 2018-02-24 11:53 | General Surgery Progress Note ---
General Surgery-Progress Note Subjective Additional Comments still not tolerating much oral intake. weak. declining. family decided on hospice Objective Last 24 Hour Vital Signs Date Time Temp Pulse Resp B/P (MAP) Pulse Ox O2 Delivery O2 Flow Rate FiO2 02/24/18 08:00 98.0 116 16 139/81 (100) 99 02/24/18 04:00 97.3 106 20 142/84 (103) 99 02/24/18 04:00 105 02/24/18 00:00 99 02/24/18 00:00 97.0 102 18 145/73 (97) 97 02/23/18 20:00 106 02/23/18 20:00 97.4 116 20 141/93 (109) 98 02/23/18 16:00 96.7 107 20 113/83 (93) 98 02/23/18 15:38 106 02/23/18 11:57 118 I&O Intake and Output 02/23/18 02/24/18 19:00 07:00 Intake Total 345 ml Output Total 200 ml 800 ml Balance 145 ml -800 ml Intake Oral 345 ml Output Urine Total 200 ml 400 ml Stool Total 400 ml Dressing: other Wound: other Drains: other Cardiovascular: RSR Respiratory: decreased breath sounds Abdomen: soft, distended, non-tender, present bowel sounds Extremities: other Plan Problems: (1) Sepsis Assessment & Plan: sepsis, tachy, leukocytosis, lactic acidosis, abnormal labs likely related to abdominal etiology. possible infected sacral ulcer IV abx IV fluids diet as tolerated family has decided on hospice care (2) SBO (small bowel obstruction) Assessment & Plan: reviewed CT and discussed with radiologist. seems to have complete SBO with transition point in proximal bowel. distended and fluid filled proximal. decompressed distal. abdominal exam benign. no significant distention or tenderness. currently no n/v hx of prior episodes. discussed with patient and family. Recommend exploration given findings. Family and patient decline. State that it has been her wish for some time now to not have surgery even if life threatening. explained risks of worsening condition, perforation, even . expressed understanding and refuses surgery Has been improving. small bowel series with contrast performed. no obstruction noted. contrast in colon this AM. dilated jejunal loops still noted and mildly improved. no ng tube output. +flatus. KUB with contrast in colon. likely incomplete obstruction but there is some component of obstruction vs ileus she has. still decline surgery and family states plans for hospice. diet as can be tolerated for comfort IV fluids IV Abx trend labs discuss DNR status with patient and family given her wishes. (3) Pressure ulcer of sacral region, stage 4 Assessment & Plan: Full thickness pressure injury to sacrum with multiple open wounds periwound and R buttocks .Sacral pressure injury (L)11cm x (W)12.4cm x (D )4cm with undermining 9-4 by 4 cm at 3o'clock. Wound malodorous with 75% soft necrosis.Bone palpable.Additional pressure injuries noted periwound L buttocks. Full thickness pressure injury to Upper R buttocks (L)1.4cm x (W)4.7cm x(D)0.2cm ,scattered slough with granulation with marginal erythema. Full thickness inferior R buttocks (L)4.5cm x (W)2.5cm wound granular with marginal erythema. Full thickness pressure injury to R ischium (L)0.8cm x(W)2.3cm .Wound granular with dark borders. Periwound dark without induration. Multiple partial thickness pressure injuries in close proximity noted to upper/outer R buttocks ( L)2cm x (W)4.6cm with non-blanchable erythema periwound. R heel Mottled,cool and boggy with dry peeling skin (L)6cm x (W)8cm. Pt denied tenderness when minimally palpated. L heel mottled,boggy, and cool to touch (L)6cm x (W) 7.4cm .Pt verbalized tenderness when palpated. R and L 1st metatarsals mottled and non -tender when palpated. Spoke to Dtr regarding sacral pressure injury. Sacral wound cleansed with Saline and loosley packed with Saline moist gauze until evaluated by Surgeon.Dtr stated pt had small pressure injury in October which progressively worsened.Dtr also stated she was informed at [facility] wound was getting better. DTR made aware of stage and state of wound.Advised of Surgical consult and that surgeon would discuss all options with regards to wound. Dr.Mawas sky and also discussed possibility of surgical debridement of sacral wound with Dtr. Tx.Plan: Air fluidized mattress. Sacral Wound care orders as in wound care clarification orders; wash , dakins, dressings. Apply Cavilon to both heels and off-load heels daily. Cavilon wipes to R and L 1st metatarsals Daily Apply Moisture Barrier paste to Wounds R buttocks and R ischium and cover with Optifoam drsg Daily and prn. Reposition at minimum every 2hours or as tolerated. Discussed with family care plan. Her major concern is a complete bowel obstruction. the decubitus ulcer is concerning but chronic. will continue care for wounds but hold on debridement until the remainder of her medical condition is improved. family is considering hospice. Levon Jacobs Feb 24, 2018 11:53
[2018-02-24 12:00] VITALS: BP 132/90
[2018-02-24] MEDS: Morphine Sulfate 4mg/ml Inj (IV/IM USE ONLY) IVP PRN (13:50)
--- NOTE | 2018-02-24 13:55 | Cardiology Progress Note ---
Assessment/Plan Assessment/Plan 1. Sinus tachycardia due to severe hypovolemia, correct with hydration and electrolyte replacement. Replace with magnesium sulfate. 2. Cholelithiasis. 3. Acute superficial femoral and popliteal DVT in the right and common femoral, superficial femoral, and popliteal DVT in the left. 4. Small bowel obstruction. 5. Left perihilar infiltrate, likely healthcare-associated pneumonia. 6. Stage IV sacral decubitus ulcer with likely osteomyelitis. 7. Gram negative bacillus urinary tract infection. 8. Gram-positive cocci and gram-negative sepsis. Subjective Subjective Sinus tachycardia at rate of 105. Objective Last 24 Hour Vital Signs Date Time Temp Pulse Resp B/P (MAP) Pulse Ox O2 Delivery O2 Flow Rate FiO2 02/24/18 12:00 97.5 105 16 132/90 (104) 97 02/24/18 08:00 109 02/24/18 08:00 98.0 116 16 139/81 (100) 99 02/24/18 04:00 97.3 106 20 142/84 (103) 99 02/24/18 04:00 105 02/24/18 00:00 99 02/24/18 00:00 97.0 102 18 145/73 (97) 97 02/23/18 20:00 106 02/23/18 20:00 97.4 116 20 141/93 (109) 98 02/23/18 16:00 96.7 107 20 113/83 (93) 98 02/23/18 15:38 106 Intake and Output 02/23/18 02/24/18 19:00 07:00 Intake Total 345 ml Output Total 200 ml 800 ml Balance 145 ml -800 ml Intake Oral 345 ml Output Urine Total 200 ml 400 ml Stool Total 400 ml 2D Echo: LVEF 55%, Mild LVH, Grade I LVDD, RVSP 42 mmHg Objective HEENT: Atraumatic and normocephalic. Anicteric. Pupils are equal, round, and reactive to light and accommodation. Dry mucosal membranes. NECK: JVP less than 5 cm. No carotid bruit. Carotid upstrokes 2+ bilaterally. CARDIOVASCULAR: Normal S1, S2. Regular rate and rhythm. No murmurs, gallops, or rubs. Tachycardic. LUNGS: Clear to auscultation bilaterally. ABDOMEN: Distended. Diminished bowel sounds. No hepatosplenomegaly. Diffuse tenderness. EXTREMITIES: No evidence of edema, clubbing, or cyanosis. Thomas Quiroz MD Feb 24, 2018 13:55
--- NOTE | 2018-02-24 15:05 | Pulmonology Progress Note ---
Assessment/Plan Assessment/Plan Pulmonary Progress Note Assessment/Plan PROBLEM LIST: 1. Left perihilar infiltrate, likely healthcare-associated pneumonia. 2. Stage IV sacral decubitus ulcer with likely osteomyelitis. 3. Gram negative bacillus urinary tract infection. 4. Gram-positive cocci and gram-negative sepsis. 5. Acute superficial femoral and popliteal DVT in the right and common femoral, superficial femoral, and popliteal DVT in the left. 6. Small bowel obstruction, likely acute on chronic. 7. Concern for unusual fat or fluid collections in the abdomen/abdominal wall. 8. Leukocytosis. 9. Anemia. 10. Abnormal creatinine, JANNETTE versus CKD. 11. Severe protein-calorie malnutrition. 12. Prior CVA. TREATMENT PLAN: 1. Optimize pulmonary hygiene/mobilize as tolerated. 2. P.r.n. O2. 3. Monitor for signs of worsening respiratory status. 4. Continue antibiotics 5. Follow up Surgery recommendations, NO PLAN FOR debridement of sacral decubitus ulcer OR laparotomy based on family's goals of care. 6. Monitor volumes and renal function, gentle IV fluid hydration as tolerated, replete electrolytes 8. A/C held given elevated PTT 9. NPO, NG-tube to suction. 10. DNAR, dispo planning to hospice Subjective ROS Limited/Unobtainable: Yes Allergies: Coded Allergies: No Known Allergies (Unverified , 02/17/18) Subjective lethargic,unchanged from yesterday positive cough no shortness of breath today very minimal po and not getting oob no fever noted weak and ill appearing no family at bedside thsi am Objective Vital Signs Noted General Appearance: WD/WN Respiratory/Chest: rhonchi Cardiovascular: normal rate, regular rhythm Abdomen: soft, non tender, no organomegaly Neurologic/Psychiatric: disoriented, unresponsiveness Microbiology Date/Time Source Procedure Growth Status 02/20/18 18:00 Stool Clostridium difficile Toxin Assay - Final Complete Laboratory Tests 02/23/18 05:25: White Blood Count 14.8H, Red Blood Count 3.96L, Hemoglobin 11.3L, Hematocrit 34.4L, Mean Corpuscular Volume 87, Mean Corpuscular Hemoglobin 28.5, Mean Corpuscular Hemoglobin Concent 32.7, Red Cell Distribution Width 14.9H, Platelet Count 101L, Mean Platelet Volume 6.4L, Neutrophils (%) (Auto) , Lymphocytes (%) (Auto) , Monocytes (%) (Auto) , Eosinophils (%) (Auto) , Basophils (%) (Auto) , Differential Total Cells Counted 100, Neutrophils % ( Manual) 88H, Lymphocytes % (Manual) 9L, Monocytes % (Manual) 2, Eosinophils % ( Manual) 1, Basophils % (Manual) 0, Band Neutrophils 0, Platelet Estimate DecreasedL, Platelet Morphology Normal, Hypochromasia 1+, Anisocytosis 1+, Sodium Level 139, Potassium Level 4.6, Chloride Level 113H, Carbon Dioxide Level 19L, Anion Gap 7, Blood Urea Nitrogen 18, Creatinine 0.7, Estimat Glomerular Filtration Rate , Glucose Level 164H, Calcium Level 7.5L, Phosphorus Level 2.2L, Magnesium Level 1.6L, Total Bilirubin 1.1H, Direct Bilirubin 0.4H, Aspartate Amino Transf (AST/SGOT) 18, Alanine Aminotransferase (ALT/SGPT) 12, Alkaline Phosphatase 175H, C-Reactive Protein, Quantitative 10.5H, Pro-B-Type Natriuretic Peptide > 24046L, Total Protein 5.0L, Albumin 1.1L, Globulin 3.9, Albumin/Globulin Ratio 0.3L, Random Vancomycin Level 17.5 Current Medications Medications (Trade) Dose Ordered Sig/Nidia Route PRN Reason Start Time Stop Time Status Last Admin Dose Admin Chlorhexidine Gluconate (Taylor-Hex 2%) 1 applic DAILY@1999 TOPIC 02/22/18 20:00 03/20/18 19:59 02/22/18 20:57 Dextrose (Dextrose 50%) 25 ml Q30M PRN IV Hypoglycemia 02/22/18 14:30 03/19/18 15:59 Dextrose (Dextrose 50%) 50 ml Q30M PRN IV Hypoglycemia 02/22/18 14:30 03/19/18 15:59 Dextrose/ Electrolytes 1,000 ml @ 50 mls/hr Q20H IV 02/22/18 15:00 03/24/18 14:59 02/22/18 15:55 Fluconazole/ Sodium Chloride 100 ml @ 100 mls/hr Q24H IV 02/22/18 17:00 02/25/18 16:59 02/22/18 17:34 Haloperidol Lactate (Haldol) 5 mg Q6H PRN IM Agitation 02/22/18 14:26 03/21/18 14:25 Meropenem 1 gm/ Sodium Chloride 55 ml @ 110 mls/hr Q12HR IVPB 02/22/18 21:00 02/26/18 19:59 02/22/18 21:09 Morphine Sulfate (Morphine Sulfate) 3 mg Q4H PRN IVP Pain Scale 4-10) 02/22/18 14:26 02/27/18 14:25 Ondansetron HCl (Zofran) 4 mg Q6H PRN IVP Nausea & Vomiting 02/22/18 15:15 03/23/18 21:14 Pantoprazole (Protonix) 40 mg DAILY IV 02/23/18 09:00 03/19/18 15:59 Sodium Hypochlorite (Dakin's Quarter Strength) 1 applic Q24H TOPIC 02/23/18 09:00 03/19/18 19:59 Vancomycin HCl (Vanco rx to dose) 1 ea DAILY PRN MISC Per rx protocol 02/23/18 09:00 03/19/18 16:14 Vancomycin/Sodium Chloride 250 ml @ 166.667 mls/hr Q12H IVPB 02/23/18 09:00 02/28/18 08:59 Subjective ROS Limited/Unobtainable: No Allergies: Coded Allergies: No Known Allergies (Unverified , 02/17/18) Objective Last 24 Hour Vital Signs Date Time Temp Pulse Resp B/P (MAP) Pulse Ox O2 Delivery O2 Flow Rate FiO2 02/24/18 12:00 97.5 105 16 132/90 (104) 97 02/24/18 08:00 109 02/24/18 08:00 98.0 116 16 139/81 (100) 99 02/24/18 04:00 97.3 106 20 142/84 (103) 99 02/24/18 04:00 105 02/24/18 00:00 99 02/24/18 00:00 97.0 102 18 145/73 (97) 97 02/23/18 20:00 106 02/23/18 20:00 97.4 116 20 141/93 (109) 98 02/23/18 16:00 96.7 107 20 113/83 (93) 98 02/23/18 15:38 106 Intake and Output 02/23/18 02/24/18 19:00 07:00 Intake Total 345 ml Output Total 200 ml 800 ml Balance 145 ml -800 ml Intake Oral 345 ml Output Urine Total 200 ml 400 ml Stool Total 400 ml Current Medications Medications (Trade) Dose Ordered Sig/Nidia Route PRN Reason Start Time Stop Time Status Last Admin Dose Admin Chlorhexidine Gluconate (Taylor-Hex 2%) 1 applic DAILY@2000 TOPIC 02/22/18 20:00 03/20/18 19:59 02/23/18 20:50 Dextrose (Dextrose 50%) 25 ml Q30M PRN IV Hypoglycemia 02/22/18 14:30 03/19/18 15:59 Dextrose (Dextrose 50%) 50 ml Q30M PRN IV Hypoglycemia 02/22/18 14:30 03/19/18 15:59 Fluconazole/ Sodium Chloride 200 ml @ 100 mls/hr Q24H IV 02/24/18 16:00 03/03/18 15:59 Haloperidol Lactate (Haldol) 5 mg Q6H PRN IM Agitation 02/22/18 14:26 03/21/18 14:25 Magnesium Sulfate 100 ml @ 100 mls/hr Q1H IVPB 02/24/18 11:30 02/24/18 15:29 02/24/18 14:43 Meropenem 1 gm/ Sodium Chloride 55 ml @ 110 mls/hr Q8HR@0100,0900,1700 IVPB 02/24/18 17:00 03/01/18 16:59 Morphine Sulfate (Morphine Sulfate) 3 mg Q4H PRN IVP Pain Scale 4-10) 02/22/18 14:26 02/27/18 14:25 02/24/18 13:50 Ondansetron HCl (Zofran) 4 mg Q6H PRN IVP Nausea & Vomiting 02/22/18 15:15 03/23/18 21:14 Pantoprazole (Protonix) 40 mg DAILY IV 02/23/18 09:00 03/19/18 15:59 02/24/18 09:16 Sodium Hypochlorite (Dakin's Quarter Strength) 1 applic Q24H TOPIC 02/23/18 09:00 03/19/18 19:59 02/24/18 09:16 Vancomycin HCl (Vanco rx to dose) 1 ea DAILY PRN MISC Per rx protocol 02/23/18 09:00 03/19/18 16:14 Vancomycin/Sodium Chloride 250 ml @ 166.667 mls/hr Q12H IVPB 02/23/18 09:00 02/28/18 08:59 02/24/18 09:43 Severino Escobar MD Feb 24, 2018 15:05
--- NOTE | 2018-02-24 15:18 | Nephrology Progress Note ---
Assessment/Plan Problem List: (1) JANNETTE (acute kidney injury) (2) SBO (small bowel obstruction) (3) Osteomyelitis of sacrum (4) Sepsis Assessment Renal failure- Acute on chronic/ presented with High K Small Bowel Obstruction UTI Sacral Osteo HypoNatremia Sever HypoAlbuminemia & Proteinuria Anemia Plan stop IV IV Mag- IV Phos per consultants suggest comfort care clear liquids Antibiotics Anemia persaud Subjective ROS Limited/Unobtainable: No Objective Objective Last 24 Hour Vital Signs Date Time Temp Pulse Resp B/P (MAP) Pulse Ox O2 Delivery O2 Flow Rate FiO2 02/24/18 12:00 97.5 105 16 132/90 (104) 97 02/24/18 08:00 109 02/24/18 08:00 98.0 116 16 139/81 (100) 99 02/24/18 04:00 97.3 106 20 142/84 (103) 99 02/24/18 04:00 105 02/24/18 00:00 99 02/24/18 00:00 97.0 102 18 145/73 (97) 97 02/23/18 20:00 106 02/23/18 20:00 97.4 116 20 141/93 (109) 98 02/23/18 16:00 96.7 107 20 113/83 (93) 98 02/23/18 15:38 106 Intake and Output 02/23/18 02/24/18 18:59 06:59 Intake Total 395 ml Output Total 200 ml 800 ml Balance 195 ml -800 ml Intake Oral 345 ml IV Total 50 ml Output Urine Total 200 ml 400 ml Stool Total 400 ml Height (Feet): 5 Height (Inches): 5.00 Weight (Pounds): 186 General Appearance: no apparent distress Cardiovascular: tachycardia Respiratory/Chest: decreased breath sounds Abdomen: soft Objective no change Agustín Parmar MD Feb 24, 2018 15:18
[2018-02-24 16:00] VITALS: BP 134/78
[2018-02-24] MEDS ORDERED: FLUCONAZOLE 400 MG/200 ML IV SCH (16:00)
--- NOTE | 2018-02-24 18:42 | Infectious Diseases Prog Note ---
Assessment/Plan Problems: (1) Pressure ulcer of sacral region, stage 4 Assessment & Plan: deep and necrotic with undermining , and foul smell , infected with possible underlying osteomyelitis of the sacrum and coccyx . MRI of the sacrum is pending to confirm, recommend surgical excision and debridement. daughter had chosen hospice care and no surgical debridement of the sacrum for now . continue off loading and local wound care as per hospital protocol (2) Cutaneous abscess of abdominal wall Assessment & Plan: source hematogenous VS translocation from the pelvis , on meropenem and vancomycin renally dosed, no surgical intervention (3) Catheter-associated urinary tract infection Assessment & Plan: due to ESBL producing klebsiella pneumonia , S/P lomeli catheter change, continue meropenem (4) Sepsis Assessment & Plan: with poly organisms due to the above with MSSA, streptococcus and proteus mirabilis , on meropenem and vancomycin renally dosed , patient needs surgical debridement of the sacrum for source control . will continue antifungal coverage pending surgical debridement if she is a candidate . family chose hospice care . (5) JANNETTE (acute kidney injury) Assessment & Plan: due to the above , continue hydration with renally dosed medications, monitor renal function and UOP (6) Osteomyelitis of sacrum Assessment & Plan: suspect chronic due to the deep pressure wound , MRI to confirm was held since she was on continuos suctioning , recommend bone biopsy for culture to identify the exact cause (7) Abnormal blood electrolyte level Assessment & Plan: continue hydration with close monitoring of electrolytes (8) SBO (small bowel obstruction) Assessment & Plan: with possible adhesions, and fat filled fluids collection , improving, continue hydration, and conservative management , as per surgery Assessment/Plan D/W daughter and son the plan of care, they are waiting on medicare A approval to transition to hospice care Subjective Constitutional: Reports: no symptoms HEENT: Reports: no symptoms Respiratory: Reports: no symptoms Breasts: Reports: no symptoms Cardiovascular: Reports: no symptoms Gastrointestinal/Abdominal: Reports: nausea, bloating Genitourinary: Reports: no symptoms Neurologic: Reports: weakness Psychiatric: Reports: no symptoms Skin: Reports: ulcer Endocrine: Reports: no symptoms Hematologic: Reports: no symptoms Musculoskeletal: Reports: no symptoms Allergies: Coded Allergies: No Known Allergies (Unverified , 02/17/18) Subjective she was more awake and alert, today, able to tolerate soup, and had liquid bowel movement , daughters at bedside Objective Vital Signs Last 24 Hour Vital Signs Date Time Temp Pulse Resp B/P (MAP) Pulse Ox O2 Delivery O2 Flow Rate FiO2 02/24/18 16:00 104 02/24/18 16:00 97.5 100 20 134/78 (96) 98 02/24/18 12:00 107 02/24/18 12:00 97.5 105 16 132/90 (104) 97 02/24/18 08:00 109 02/24/18 08:00 98.0 116 16 139/81 (100) 99 02/24/18 04:00 97.3 106 20 142/84 (103) 99 02/24/18 04:00 105 02/24/18 00:00 99 02/24/18 00:00 97.0 102 18 145/73 (97) 97 02/23/18 20:00 106 02/23/18 20:00 97.4 116 20 141/93 (109) 98 Height (Feet): 5 Height (Inches): 5.00 Weight (Pounds): 186 General Appearance: WD/WN, no acute distress HEENT: normocephalic, atraumatic, anicteric, mucous membranes moist, PERRL Respiratory/Chest: chest wall non-tender, normal breath sounds, no respiratory distress, no accessory muscle use Cardiovascular: normal peripheral pulses, normal rate, regular rhythm, no gallop/murmur, no JVD Abdomen: normal bowel sounds, soft, non tender, no organomegaly, non distended , no mass, no scars Genitourinary: normal external genitalia Extremities: no cyanosis, no clubbing Skin: no rash, no lesions, ulcers Neurologic/Psychiatric: alert, responsive Lymphatic: no neck adenopathy, no groin adenopathy Musculoskeletal: normal muscle bulk, no effusion Current Medications Medications (Trade) Dose Ordered Sig/Nidia Route PRN Reason Start Time Stop Time Status Last Admin Dose Admin Chlorhexidine Gluconate (Taylor-Hex 2%) 1 applic DAILY@1999 TOPIC 02/22/18 20:00 03/20/18 19:59 02/23/18 20:50 Dextrose (Dextrose 50%) 25 ml Q30M PRN IV Hypoglycemia 02/22/18 14:30 03/19/18 15:59 Dextrose (Dextrose 50%) 50 ml Q30M PRN IV Hypoglycemia 02/22/18 14:30 03/19/18 15:59 Fluconazole/ Sodium Chloride 200 ml @ 100 mls/hr Q24H IV 02/24/18 16:00 03/03/18 15:59 02/24/18 16:43 Haloperidol Lactate (Haldol) 5 mg Q6H PRN IM Agitation 02/22/18 14:26 03/21/18 14:25 Meropenem 1 gm/ Sodium Chloride 55 ml @ 110 mls/hr Q8HR@0100,0900,1700 IVPB 02/24/18 17:00 03/01/18 16:59 02/24/18 17:11 Morphine Sulfate (Morphine Sulfate) 3 mg Q4H PRN IVP Pain Scale 4-10) 02/22/18 14:26 02/27/18 14:25 02/24/18 13:50 Ondansetron HCl (Zofran) 4 mg Q6H PRN IVP Nausea & Vomiting 02/22/18 15:15 03/23/18 21:14 Pantoprazole (Protonix) 40 mg DAILY IV 02/23/18 09:00 03/19/18 15:59 02/24/18 09:16 Sodium Hypochlorite (Dakin's Quarter Strength) 1 applic Q24H TOPIC 02/23/18 09:00 03/19/18 19:59 02/24/18 09:16 Vancomycin HCl (Vanco rx to dose) 1 ea DAILY PRN MISC Per rx protocol 02/23/18 09:00 03/19/18 16:14 Vancomycin/Sodium Chloride 250 ml @ 166.667 mls/hr Q12H IVPB 02/23/18 09:00 02/28/18 08:59 02/24/18 09:43 Ari Lewis M.D. Feb 24, 2018 18:41
[2018-02-24 20:00] VITALS: BP 119/75
[2018-02-24] MEDS: Dyna-Hex 2% Top Sol 2oz TOPIC SCH (20:37)
--- NOTE | 2018-02-24 23:09 | Consultation ---
History of Present Illness General Chief Complaint: Abnormal Labs Reason for Consultation: sbo Present Illness Allergies: Coded Allergies: No Known Allergies (Unverified , 02/17/18) Medication History Scheduled Ascorbic Acid* (Vitamin C*), 500 MG ORAL TWICE A DAY, (Reported) Bisacodyl* (Dulcolax*), 5 MG ORAL DAILY, (Reported) Cranberry Fruit Concentrate (Cranberry), 450 MG PO DAILY, (Reported) Docusate Sodium* (Docusate Sodium*), 100 MG ORAL DAILY, (Reported) Famotidine (Pepcid Ac), 20 MG PO DAILY, (Reported) Furosemide* (Lasix*), 40 MG ORAL DAILY, (Reported) Magnesium Hydroxide* (Milk Of Magnesia*), 30 ML ORAL DAILY, (Reported) Metoclopramide Hcl* (Reglan*), 10 MG ORAL THREE TIMES A DAY, (Reported) Multivitamin With Minerals (Multivitamins With Minerals*), 1 TAB ORAL DAILY, ( Reported) Potassium Chloride (Potassium Chloride), 40 MEQ PO DAILY, (Reported) [place] Xt/Phytosterol #2 (Prostate Sr Softgel), 1 EACH PO DAILY, (Reported ) Zinc Sulfate (Zinc Sulfate*), 220 MG ORAL DAILY, (Reported) Scheduled PRN Hydrocodone Bit/Acetaminophen 5-325* (Shelly 5-325*), 1 TAB ORAL Q4H PRN for For Pain, (Reported) Ondansetron* (Zofran*), 4 MG ORAL Q6H PRN for Nausea & Vomiting, (Reported) Patient History Healthcare decision maker Resuscitation status Full Code Advanced Directive on File Physical Exam Last 24 Hour Vital Signs Date Time Temp Pulse Resp B/P (MAP) Pulse Ox O2 Delivery O2 Flow Rate FiO2 02/24/18 20:00 97.0 102 18 119/75 (90) 98 02/24/18 16:00 104 02/24/18 16:00 97.5 100 20 134/78 (96) 98 02/24/18 12:00 107 02/24/18 12:00 97.5 105 16 132/90 (104) 97 02/24/18 08:00 109 02/24/18 08:00 98.0 116 16 139/81 (100) 99 02/24/18 04:00 97.3 106 20 142/84 (103) 99 02/24/18 04:00 105 02/24/18 00:00 99 02/24/18 00:00 97.0 102 18 145/73 (97) 97 Intake and Output 02/23/18 02/24/18 19:00 07:00 Intake Total 345 ml Output Total 200 ml 800 ml Balance 145 ml -800 ml Intake Oral 345 ml Output Urine Total 200 ml 400 ml Stool Total 400 ml Laboratory Tests Test 02/24/18 19:45 C-Reactive Protein, Quantitative 9.1 mg/dL (0.00-0.90) H Vancomycin Level Trough 25.7 ug/mL (5.0-12.0) H Height (Feet): 5 Height (Inches): 5.00 Weight (Pounds): 186 Medications Current Medications Medications (Trade) Dose Ordered Sig/Nidia Route PRN Reason Start Time Stop Time Status Last Admin Dose Admin Chlorhexidine Gluconate (Taylor-Hex 2%) 1 applic DAILY@2000 TOPIC 02/22/18 20:00 03/20/18 19:59 02/24/18 20:37 Dextrose (Dextrose 50%) 25 ml Q30M PRN IV Hypoglycemia 02/22/18 14:30 03/19/18 15:59 Dextrose (Dextrose 50%) 50 ml Q30M PRN IV Hypoglycemia 02/22/18 14:30 03/19/18 15:59 Fluconazole/ Sodium Chloride 200 ml @ 100 mls/hr Q24H IV 02/24/18 16:00 03/03/18 15:59 02/24/18 16:43 Haloperidol Lactate (Haldol) 5 mg Q6H PRN IM Agitation 02/22/18 14:26 03/21/18 14:25 Meropenem 1 gm/ Sodium Chloride 55 ml @ 110 mls/hr Q8HR@0100,0900,1700 IVPB 02/24/18 17:00 03/01/18 16:59 02/24/18 17:11 Morphine Sulfate (Morphine Sulfate) 3 mg Q4H PRN IVP Pain Scale 4-10) 02/22/18 14:26 02/27/18 14:25 02/24/18 13:50 Ondansetron HCl (Zofran) 4 mg Q6H PRN IVP Nausea & Vomiting 02/22/18 15:15 03/23/18 21:14 Pantoprazole (Protonix) 40 mg DAILY IV 02/23/18 09:00 03/19/18 15:59 02/24/18 09:16 Sodium Hypochlorite (Dakin's Quarter Strength) 1 applic Q24H TOPIC 02/23/18 09:00 03/19/18 19:59 02/24/18 09:16 Vancomycin HCl (Vanco rx to dose) 1 ea DAILY PRN MISC Per rx protocol 02/23/18 09:00 03/19/18 16:14 Assessment/Plan Assessment/Plan Anxiety d/o dc Ativan prn Provided ro/st haldol prn Michele Schroeder MD Feb 24, 2018 23:09
[2018-02-25] VITALS: BP 106/64
[2018-02-25] MEDS: Meropenem 1 GM in NS 55 ML IVPB SCH ×2 (00:39→09:40)
[2018-02-25 04:00] VITALS: BP 122/65
[2018-02-25 08:00] VITALS: BP 100/71
--- NOTE | 2018-02-25 08:54 | Pulmonology Progress Note ---
Assessment/Plan Problems: (1) Sepsis (2) SBO (small bowel obstruction) (3) Abnormal blood electrolyte level (4) Osteomyelitis of sacrum (5) Pressure ulcer of sacral region, stage 4 (6) JANNETTE (acute kidney injury) Assessment/Plan ASSESSMENT: The patient is a 72-year-old [facility] resident with CVA, recent small bowel obstruction at an outside hospital, now presenting for evaluation of abnormal laboratories, noted to have a sacral decubitus ulcer with possible osteomyelitis, urinary tract infection, and bacteremia, as well as a possible pneumonia. PROBLEM LIST: 1. Left perihilar infiltrate, likely healthcare-associated pneumonia. 2. Stage IV sacral decubitus ulcer with likely osteomyelitis. 3. Gram negative bacillus urinary tract infection. 4. Gram-posit raman cocci and gram-negative sepsis. 5. Acute superficial femoral and popliteal DVT in the right and common femoral, superficial femoral, and popliteal DVT in the left. 6. Small bowel obstruction, likely acute on chronic. 7. Concern for unusual fat or fluid collections in the abdomen/abdominal wall. 8. Leukocytosis. 9. Anemia. 10. Abnormal creatinine, JANNETTE versus CKD. 11. Severe protein-calorie malnutrition. 12. Prior CVA. TREATMENT PLAN: 1. Optimize pulmonary hygiene/mobilize as tolerated. 2. P.r.n. O2. 3. Monitor for signs of worsening respiratory status. 4. Continue antibiotics (vancomycin and meropenem) + Fluconazole per Infectious Disease service. 5. Follow up Surgery recommendations, NO PLAN FOR debridement of sacral decubitus ulcer OR laparotomy based on family's goals of care. 6. Monitor volumes and renal function 8. A/C held 9. PO as tolerated 10. DNAR, dispo planning to hospice Subjective Allergies: Coded Allergies: No Known Allergies (Unverified , 02/17/18) Subjective AFVSS, on RA Awake no distress Miranda some PO Objective Last 24 Hour Vital Signs Date Time Temp Pulse Resp B/P (MAP) Pulse Ox O2 Delivery O2 Flow Rate FiO2 02/25/18 04:00 97.2 100 19 122/65 (84) 99 02/25/18 04:00 100 02/25/18 00:00 97.1 103 19 106/64 (78) 98 02/25/18 00:00 104 02/24/18 20:00 97.0 102 18 119/75 (90) 98 02/24/18 20:00 102 02/24/18 16:00 104 02/24/18 16:00 97.5 100 20 134/78 (96) 98 02/24/18 12:00 107 02/24/18 12:00 97.5 105 16 132/90 (104) 97 Intake and Output 02/24/18 02/25/18 18:59 06:59 Intake Total 340 ml 65 ml Output Total 125 ml 300 ml Balance 215 ml -235 ml Intake Oral 340 ml 65 ml Output Urine Total 125 ml 100 ml Stool Total 200 ml General Appearance: cachetic HEENT: normocephalic, atraumatic, anicteric, mucous membranes moist Respiratory/Chest: chest wall non-tender, lungs clear, normal breath sounds, no respiratory distress, no accessory muscle use Cardiovascular: normal peripheral pulses, normal rate, regular rhythm Abdomen: normal bowel sounds, soft, non tender, no organomegaly, non distended , no mass Extremities: no cyanosis, no clubbing, no edema Laboratory Tests 02/24/18 19:45: C-Reactive Protein, Quantitative 9.1H, Vancomycin Level Trough 25.7H Current Medications Medications (Trade) Dose Ordered Sig/Nidia Route PRN Reason Start Time Stop Time Status Last Admin Dose Admin Chlorhexidine Gluconate (Taylor-Hex 2%) 1 applic DAILY@2000 TOPIC 02/22/18 20:00 03/20/18 19:59 02/24/18 20:37 Dextrose (Dextrose 50%) 25 ml Q30M PRN IV Hypoglycemia 02/22/18 14:30 03/19/18 15:59 Dextrose (Dextrose 50%) 50 ml Q30M PRN IV Hypoglycemia 02/22/18 14:30 03/19/18 15:59 Fluconazole/ Sodium Chloride 200 ml @ 100 mls/hr Q24H IV 02/24/18 16:00 03/03/18 15:59 02/24/18 16:43 Haloperidol Lactate (Haldol) 5 mg Q6H PRN IM Agitation 02/22/18 14:26 03/21/18 14:25 Meropenem 1 gm/ Sodium Chloride 55 ml @ 110 mls/hr Q8HR@0100,0900,1700 IVPB 02/24/18 17:00 03/01/18 16:59 02/25/18 00:39 Morphine Sulfate (Morphine Sulfate) 3 mg Q4H PRN IVP Pain Scale 4-10) 02/22/18 14:26 02/27/18 14:25 02/24/18 13:50 Ondansetron HCl (Zofran) 4 mg Q6H PRN IVP Nausea & Vomiting 02/22/18 15:15 03/23/18 21:14 Pantoprazole (Protonix) 40 mg DAILY IV 02/23/18 09:00 03/19/18 15:59 02/24/18 09:16 Sodium Hypochlorite (Dakin's Quarter Strength) 1 applic Q24H TOPIC 02/23/18 09:00 03/19/18 19:59 02/24/18 09:16 Vancomycin HCl (Vanco rx to dose) 1 ea DAILY PRN MISC Per rx protocol 02/23/18 09:00 03/19/18 16:14 Jacinto Johnson MD Feb 25, 2018 08:54
[2018-02-25 09:37] LABS: HEMATOCRIT 36.7 % (37.0-47.0); HEMOGLOBIN 12.1 G/DL (12.0-16.0); MEAN CORPUSCULAR VOLUME 86 FL (80-99); PLATELET COUNT 103 K/UL (150-450); RED BLOOD COUNT 4.25 M/UL (4.20-5.40); RED CELL DISTRIBUTION WIDTH 15.1 % (11.6-14.8); WHITE BLOOD COUNT 14.7 K/UL (4.8-10.8)
[2018-02-25] MEDS: Pantoprazole Inj IV SCH (09:40)
[2018-02-25] MEDS: Dakin's 0.125% Soln (Quarter Strength) 16oz TOPIC SCH (09:42)
[2018-02-25 10:06] LABS: ANION GAP 11 mmol/L (5-15); BLOOD UREA NITROGEN 17 mg/dL (7-18); CALCIUM 7.6 MG/DL (8.5-10.1); CARBON DIOXIDE 18 MMOL/L (21-32); CHLORIDE 108 MMOL/L (98-107); CREATININE 0.8 MG/DL (0.55-1.30); POTASSIUM 4.2 MMOL/L (3.5-5.1); SODIUM 137 MMOL/L (136-145)
[2018-02-25 10:39] LABS: ALANINE AMINOTRANSFERASE 12 U/L (12-78); ALBUMIN 1.2 G/DL (3.4-5.0); ALKALINE PHOSPHATASE 214 U/L (46-116); ASPARTATE AMINO TRANSFERASE 23 U/L (15-37); BILIRUBIN,DIRECT 0.4 MG/DL (0.0-0.3)
--- NOTE | 2018-02-25 10:42 | Nephrology Progress Note ---
Assessment/Plan Problem List: (1) JANNETTE (acute kidney injury) (2) SBO (small bowel obstruction) (3) Osteomyelitis of sacrum (4) Sepsis Assessment Renal failure- Acute on chronic/ presented with High K Small Bowel Obstruction UTI Sacral Osteo HypoNatremia Sever HypoAlbuminemia & Proteinuria Anemia Plan stop IV IV Mag- IV Phos per consultants suggest comfort care clear liquids Antibiotics Anemia persaud Subjective ROS Limited/Unobtainable: No Constitutional: Reports: malaise Objective Objective Last 24 Hour Vital Signs Date Time Temp Pulse Resp B/P (MAP) Pulse Ox O2 Delivery O2 Flow Rate FiO2 02/25/18 08:00 98.4 102 18 100/71 (81) 98 02/25/18 04:00 97.2 100 19 122/65 (84) 99 02/25/18 04:00 100 02/25/18 00:00 97.1 103 19 106/64 (78) 98 02/25/18 00:00 104 02/24/18 20:00 97.0 102 18 119/75 (90) 98 02/24/18 20:00 102 02/24/18 16:00 104 02/24/18 16:00 97.5 100 20 134/78 (96) 98 02/24/18 12:00 107 02/24/18 12:00 97.5 105 16 132/90 (104) 97 Intake and Output 02/24/18 02/25/18 19:00 07:00 Intake Total 340 ml 65 ml Output Total 125 ml 300 ml Balance 215 ml -235 ml Intake Oral 340 ml 65 ml Output Urine Total 125 ml 100 ml Stool Total 200 ml Current Medications Medications (Trade) Dose Ordered Sig/Nidia Route PRN Reason Start Time Stop Time Status Last Admin Dose Admin Chlorhexidine Gluconate (Taylor-Hex 2%) 1 applic DAILY@2000 TOPIC 02/22/18 20:00 03/20/18 19:59 02/24/18 20:37 Dextrose (Dextrose 50%) 25 ml Q30M PRN IV Hypoglycemia 02/22/18 14:30 03/19/18 15:59 Dextrose (Dextrose 50%) 50 ml Q30M PRN IV Hypoglycemia 02/22/18 14:30 03/19/18 15:59 Fluconazole/ Sodium Chloride 200 ml @ 100 mls/hr Q24H IV 02/24/18 16:00 03/03/18 15:59 02/24/18 16:43 Haloperidol Lactate (Haldol) 5 mg Q6H PRN IM Agitation 02/22/18 14:26 03/21/18 14:25 Meropenem 1 gm/ Sodium Chloride 55 ml @ 110 mls/hr Q8HR@0100,0900,1700 IVPB 02/24/18 17:00 03/01/18 16:59 02/25/18 09:40 Morphine Sulfate (Morphine Sulfate) 3 mg Q4H PRN IVP Pain Scale 4-10) 02/22/18 14:26 02/27/18 14:25 02/24/18 13:50 Ondansetron HCl (Zofran) 4 mg Q6H PRN IVP Nausea & Vomiting 02/22/18 15:15 03/23/18 21:14 Pantoprazole (Protonix) 40 mg DAILY IV 02/23/18 09:00 03/19/18 15:59 02/25/18 09:40 Sodium Hypochlorite (Dakin's Quarter Strength) 1 applic Q24H TOPIC 02/23/18 09:00 03/19/18 19:59 02/25/18 09:42 Vancomycin HCl (Vanco rx to dose) 1 ea DAILY PRN MISC Per rx protocol 02/23/18 09:00 03/19/18 16:14 Laboratory Tests 02/24/18 19:45: C-Reactive Protein, Quantitative 9.1H, Vancomycin Level Trough 25.7H 02/25/18 09:25: White Blood Count 14.7H, Red Blood Count 4.25, Hemoglobin 12.1, Hematocrit 36.7L , Mean Corpuscular Volume 86, Mean Corpuscular Hemoglobin 28.5, Mean Corpuscular Hemoglobin Concent 33.0, Red Cell Distribution Width 15.1H, Platelet Count 103L, Mean Platelet Volume 7.9, Neutrophils (%) (Auto) , Lymphocytes (%) (Auto) , Monocytes (%) (Auto) , Eosinophils (%) (Auto) , Basophils (%) (Auto) , Neutrophils % (Manual) [Pending], Lymphocytes % (Manual) [Pending], Platelet Estimate [Pending], Platelet Morphology [Pending], Sodium Level 137, Potassium Level 4.2, Chloride Level 108H, Carbon Dioxide Level 18L, Anion Gap 11, Blood Urea Nitrogen 17, Creatinine 0.8, Estimat Glomerular Filtration Rate , Glucose Level 176H, Calcium Level 7.6L, Phosphorus Level 3.0, Magnesium Level 2.8H, Total Bilirubin 1.0, Direct Bilirubin 0.4H, Aspartate Amino Transf (AST/SGOT) 23, Alanine Aminotransferase (ALT/SGPT) 12, Alkaline Phosphatase 214H, Pro-B-Type Natriuretic Peptide > 06923G, Total Protein 5.2L, Albumin 1.2L, Random Vancomycin Level 22.7 Height (Feet): 5 Height (Inches): 5.00 Weight (Pounds): 186 General Appearance: no apparent distress Cardiovascular: tachycardia Respiratory/Chest: decreased breath sounds Abdomen: distended Objective no change Agustín Parmar MD Feb 25, 2018 10:42
--- NOTE | 2018-02-25 12:45 | General Surgery Progress Note ---
General Surgery-Progress Note Subjective Additional Comments no acute events. comfortable. no n/v/f/c. declining. pending placement Objective Last 24 Hour Vital Signs Date Time Temp Pulse Resp B/P (MAP) Pulse Ox O2 Delivery O2 Flow Rate FiO2 02/25/18 08:00 98.4 102 18 100/71 (81) 98 02/25/18 04:00 97.2 100 19 122/65 (84) 99 02/25/18 04:00 100 02/25/18 00:00 97.1 103 19 106/64 (78) 98 02/25/18 00:00 104 02/24/18 20:00 97.0 102 18 119/75 (90) 98 02/24/18 20:00 102 02/24/18 16:00 104 02/24/18 16:00 97.5 100 20 134/78 (96) 98 I&O Intake and Output 02/24/18 02/25/18 19:00 07:00 Intake Total 340 ml 65 ml Output Total 125 ml 300 ml Balance 215 ml -235 ml Intake Oral 340 ml 65 ml Output Urine Total 125 ml 100 ml Stool Total 200 ml Dressing: other Wound: other Drains: other Cardiovascular: RSR Respiratory: clear Abdomen: soft, non-tender, present bowel sounds Extremities: other Laboratory Tests Test 02/24/18 19:45 02/25/18 09:25 C-Reactive Protein, Quantitative 9.1 mg/dL (0.00-0.90) H Vancomycin Level Trough 25.7 ug/mL (5.0-12.0) H White Blood Count 14.7 K/UL (4.8-10.8) H Red Blood Count 4.25 M/UL (4.20-5.40) Hemoglobin 12.1 G/DL (12.0-16.0) Hematocrit 36.7 % (37.0-47.0) L Mean Corpuscular Volume 86 FL (80-99) Mean Corpuscular Hemoglobin 28.5 PG (27.0-31.0) Mean Corpuscular Hemoglobin Concent 33.0 G/DL (32.0-36.0) Red Cell Distribution Width 15.1 % (11.6-14.8) H Platelet Count 103 K/UL (150-450) L Mean Platelet Volume 7.9 FL (6.5-10.1) Neutrophils (%) (Auto) % (45.0-75.0) Lymphocytes (%) (Auto) % (20.0-45.0) Monocytes (%) (Auto) % (1.0-10.0) Eosinophils (%) (Auto) % (0.0-3.0) Basophils (%) (Auto) % (0.0-2.0) Differential Total Cells Counted 100 Neutrophils % (Manual) 92 % (45-75) H Lymphocytes % (Manual) 3 % (20-45) L Monocytes % (Manual) 4 % (1-10) Eosinophils % (Manual) 1 % (0-3) Basophils % (Manual) 0 % (0-2) Band Neutrophils 0 % (0-8) Platelet Estimate Decreased L Platelet Morphology Normal Red Blood Cell Morphology Normal Sodium Level 137 MMOL/L (136-145) Potassium Level 4.2 MMOL/L (3.5-5.1) Chloride Level 108 MMOL/L (98-107) H Carbon Dioxide Level 18 MMOL/L (21-32) L Anion Gap 11 mmol/L (5-15) Blood Urea Nitrogen 17 mg/dL (7-18) Creatinine 0.8 MG/DL (0.55-1.30) Estimat Glomerular Filtration Rate mL/min (>60) Glucose Level 176 MG/DL (74-106) H Calcium Level 7.6 MG/DL (8.5-10.1) L Phosphorus Level 3.0 MG/DL (2.5-4.9) Magnesium Level 2.8 MG/DL (1.8-2.4) H Total Bilirubin 1.0 MG/DL (0.2-1.0) Direct Bilirubin 0.4 MG/DL (0.0-0.3) H Aspartate Amino Transf (AST/SGOT) 23 U/L (15-37) Alanine Aminotransferase (ALT/SGPT) 12 U/L (12-78) Alkaline Phosphatase 214 U/L (46-116) H Pro-B-Type Natriuretic Peptide > 76732 pg/mL (0-125) H Total Protein 5.2 G/DL (6.4-8.2) L Albumin 1.2 G/DL (3.4-5.0) L Random Vancomycin Level 22.7 ug/mL Plan Problems: (1) Sepsis Assessment & Plan: sepsis, tachy, leukocytosis, lactic acidosis, abnormal labs likely related to abdominal etiology. possible infected sacral ulcer IV abx IV fluids diet as tolerated family has decided on hospice care pending placement (2) SBO (small bowel obstruction) Assessment & Plan: reviewed CT and discussed with radiologist. seems to have complete SBO with transition point in proximal bowel. distended and fluid filled proximal. decompressed distal. abdominal exam benign. no significant distention or tenderness. currently no n/v hx of prior episodes. discussed with patient and family. Recommend exploration given findings. Family and patient decline. State that it has been her wish for some time now to not have surgery even if life threatening. explained risks of worsening condition, perforation, even . expressed understanding and refuses surgery Has been improving. small bowel series with contrast performed. no obstruction noted. contrast in colon this AM. dilated jejunal loops still noted and mildly improved. no ng tube output. +flatus. KUB with contrast in colon. likely incomplete obstruction but there is some component of obstruction vs ileus she has. still decline surgery and family states plans for hospice. diet as can be tolerated for comfort IV fluids IV Abx trend labs discuss DNR status with patient and family given her wishes. (3) Pressure ulcer of sacral region, stage 4 Assessment & Plan: Full thickness pressure injury to sacrum with multiple open wounds periwound and R buttocks .Sacral pressure injury (L)11cm x (W)12.4cm x (D )4cm with undermining 9-4 by 4 cm at 3o'clock. Wound malodorous with 75% soft necrosis.Bone palpable.Additional pressure injuries noted periwound L buttocks. Full thickness pressure injury to Upper R buttocks (L)1.4cm x (W)4.7cm x(D)0.2cm ,scattered slough with granulation with marginal erythema. Full thickness inferior R buttocks (L)4.5cm x (W)2.5cm wound granular with marginal erythema. Full thickness pressure injury to R ischium (L)0.8cm x(W)2.3cm .Wound granular with dark borders. Periwound dark without induration. Multiple partial thickness pressure injuries in close proximity noted to upper/outer R buttocks ( L)2cm x (W)4.6cm with non-blanchable erythema periwound. R heel Mottled,cool and boggy with dry peeling skin (L)6cm x (W)8cm. Pt denied tenderness when minimally palpated. L heel mottled,boggy, and cool to touch (L)6cm x (W) 7.4cm .Pt verbalized tenderness when palpated. R and L 1st metatarsals mottled and non -tender when palpated. Spoke to Dtr regarding sacral pressure injury. Sacral wound cleansed with Saline and loosley packed with Saline moist gauze until evaluated by Surgeon.Dtr stated pt had small pressure injury in October which progressively worsened.Dtr also stated she was informed at [facility] wound was getting better. DTR made aware of stage and state of wound.Advised of Surgical consult and that surgeon would discuss all options with regards to wound. visited and Md also discussed possibility of surgical debridement of sacral wound with Dtr. Tx.Plan: Air fluidized mattress. Sacral Wound care orders as in wound care clarification orders; wash , dakins, dressings. Apply Cavilon to both heels and off-load heels daily. Cavilon wipes to R and L 1st metatarsals Daily Apply Moisture Barrier paste to Wounds R buttocks and R ischium and cover with Optifoam drsg Daily and prn. Reposition at minimum every 2hours or as tolerated. Discussed with family care plan. Her major concern is a complete bowel obstruction. the decubitus ulcer is concerning but chronic. will continue care for wounds but hold on debridement until the remainder of her medical condition is improved. family is considering hospice. Levon Jacobs Feb 25, 2018 12:45
--- NOTE | 2018-02-25 13:30 | General Progress Note ---
Assessment/Plan Assessment/Plan S: I am ok O: NG in place , mild abd pain . No distress PHYSICAL EXAMINATION: HEAD AND NECK: Atraumatic and normocephalic. CHEST: Clear to auscultation. No wheezing. No crackles. ABDOMEN: Positive for tenderness on deep palpation. Bowel sounds have decreased.No rebound tenderness MUSCULOSKELETAL: Positive for the sacral decubitus wounds. Positive for decreased range of motion and strength in all four extremities. NEUROLOGIC: The patient is awake, alert, and oriented x3. anxious IMAGING STUDIES: Imaging shows abdominal pelvic CT scan dated February 17, is reviewed. Chest x-ray also reviewed. Meds: reviewed and reconciled including but not limited to Meropenem and Vanco ASSESSMENT: 1. Sepsis. Gram negative and STaph Aureus 2. Acute abdomen secondary to small bowel obstruction. 3. Decubitus wound, sacral possibility of osteomyelitis cannot be excluded. 4. Renal failure - age indeterminate. 5. Hyponatremia. 6. Catheter-induced urinary infection. 7. GI and DVT prophylaxis. 8.POLST to DNR Plan of care: current medical management [facility] medical prognosis Partial SBO. patient Refused surgical approach from the start point of the care. will observe Detailed conversation with the Dtr. Will continue with current care Subjective Allergies: Coded Allergies: No Known Allergies (Unverified , 02/17/18) Objective Last 24 Hour Vital Signs Date Time Temp Pulse Resp B/P (MAP) Pulse Ox O2 Delivery O2 Flow Rate FiO2 02/25/18 08:00 98.4 102 18 100/71 (81) 98 02/25/18 04:00 97.2 100 19 122/65 (84) 99 02/25/18 04:00 100 02/25/18 00:00 97.1 103 19 106/64 (78) 98 02/25/18 00:00 104 02/24/18 20:00 97.0 102 18 119/75 (90) 98 02/24/18 20:00 102 02/24/18 16:00 104 02/24/18 16:00 97.5 100 20 134/78 (96) 98 Intake and Output 02/24/18 02/25/18 19:00 07:00 Intake Total 340 ml 65 ml Output Total 125 ml 300 ml Balance 215 ml -235 ml Intake Oral 340 ml 65 ml Output Urine Total 125 ml 100 ml Stool Total 200 ml Laboratory Tests 02/24/18 19:45: C-Reactive Protein, Quantitative 9.1H, Vancomycin Level Trough 25.7H 02/25/18 09:25: White Blood Count 14.7H, Red Blood Count 4.25, Hemoglobin 12.1, Hematocrit 36.7L , Mean Corpuscular Volume 86, Mean Corpuscular Hemoglobin 28.5, Mean Corpuscular Hemoglobin Concent 33.0, Red Cell Distribution Width 15.1H, Platelet Count 103L, Mean Platelet Volume 7.9, Neutrophils (%) (Auto) , Lymphocytes (%) (Auto) , Monocytes (%) (Auto) , Eosinophils (%) (Auto) , Basophils (%) (Auto) , Differential Total Cells Counted 100, Neutrophils % ( Manual) 92H, Lymphocytes % (Manual) 3L, Monocytes % (Manual) 4, Eosinophils % ( Manual) 1, Basophils % (Manual) 0, Band Neutrophils 0, Platelet Estimate DecreasedL, Platelet Morphology Normal, Red Blood Cell Morphology Normal, Sodium Level 137, Potassium Level 4.2, Chloride Level 108H, Carbon Dioxide Level 18L, Anion Gap 11, Blood Urea Nitrogen 17, Creatinine 0.8, Estimat Glomerular Filtration Rate , Glucose Level 176H, Calcium Level 7.6L, Phosphorus Level 3.0, Magnesium Level 2.8H, Total Bilirubin 1.0, Direct Bilirubin 0.4H, Aspartate Amino Transf (AST/SGOT) 23, Alanine Aminotransferase (ALT/SGPT) 12, Alkaline Phosphatase 214H, Pro-B-Type Natriuretic Peptide > 59464G, Total Protein 5.2L, Albumin 1.2L, Random Vancomycin Level 22.7 Height (Feet): 5 Height (Inches): 5.00 Weight (Pounds): 186 Amol Weinstein MD Feb 25, 2018 13:30
--- NOTE | 2018-02-25 14:05 | General Progress Note ---
Assessment/Plan Status: stable Assessment/Plan # Anemia of chronic disease due to underlying chronic medical issues, multifactorial. --> Anemia w/u has been reviewed. Will trend CBC as needed --> No evidence of hemolysis is noted, peripheral smear has been reviewed. --> Hgb goal >7. Transfuse prn. --> Epogen or iron at this time is not particularly indicated # Thrombocytopenia most likely related to infection versus medications, is on vancomycin, has gram negative sepsis --> plt trend 151-->121-->109k ==> cbc reviewed and no giant platelets or clumping noted --> no asa, plavix or heparin sq # Leukocytosis. Likely related to underlying infection versus reactive process. --> WBC remains elevated --> Peripheral has been reviewed, no blasts noted --> Medications have been reviewed --> Imaging has been reviewed. CXR shows patchy left perihilar opacities, could represent focal infiltrates. Correlate with clinical findings --> Blood cultures and urine cultures are both ++ --> Has been started on abx, empiric treatment # Pressure ulcer of the sacral region, stage IV, deep and necrotic with undermining and foul smell, infected with possible underlying osteomyelitis of the sacrum and coccyx due to exposed bone. --> MRI of the sacrum has been reviewed --> Continue offloading and local wound care as per hospital protocol. Air mattress. --> Surgical evaluation appreciated # Cutaneous abscesses of the abdominal wall, source hematogenous verus translocation from the pelvis. --> On meropenem and continue vancomycin renally dose, pending surgical evaluation. # Catheter-associated urinary tract infection.on abx # Acute renal failure due to the above. Continue hydration with renally dosed medications. Monitor renal function and urine output. --> Nephrology is following, appreciate recs # Osteomyelitis of the sacrum, suspect chronic due to deep pressure wound. --> appreciate surgery recs # Abnormal blood electrolyte level. Continue hydration and close monitoring of electrolytes, replace as needed. # Small bowel obstruction with possible adhesions and fluid-filled fat collection, possible abscesses. Source hematogenous versus perforation related. . --> Plan of care was discussed with the daughter in detail at the bedside. --> Daughter stated that mother is refusing any surgical procedure, she had a bad experience from anesthesia in the past when she had a dental workup. # Hospice care planning -- to dw family re placement --> poor prognosis GREATLY APPRECIATE CONSULTATION. Subjective Date patient seen: Feb 25, 2018 Hematologic/Lymphatic: Reports: anemia Allergies: Coded Allergies: No Known Allergies (Unverified , 02/17/18) All Systems: reviewed and negative except above Subjective Pt awake and alert. No acute events. H/H stable. Objective Last 24 Hour Vital Signs Date Time Temp Pulse Resp B/P (MAP) Pulse Ox O2 Delivery O2 Flow Rate FiO2 02/25/18 08:00 98.4 102 18 100/71 (81) 98 02/25/18 04:00 97.2 100 19 122/65 (84) 99 02/25/18 04:00 100 02/25/18 00:00 97.1 103 19 106/64 (78) 98 02/25/18 00:00 104 02/24/18 20:00 97.0 102 18 119/75 (90) 98 02/24/18 20:00 102 02/24/18 16:00 104 02/24/18 16:00 97.5 100 20 134/78 (96) 98 Intake and Output 02/24/18 02/25/18 19:00 07:00 Intake Total 340 ml 65 ml Output Total 125 ml 300 ml Balance 215 ml -235 ml Intake Oral 340 ml 65 ml Output Urine Total 125 ml 100 ml Stool Total 200 ml Laboratory Tests 02/24/18 19:45: C-Reactive Protein, Quantitative 9.1H, Vancomycin Level Trough 25.7H 02/25/18 09:25: White Blood Count 14.7H, Red Blood Count 4.25, Hemoglobin 12.1, Hematocrit 36.7L , Mean Corpuscular Volume 86, Mean Corpuscular Hemoglobin 28.5, Mean Corpuscular Hemoglobin Concent 33.0, Red Cell Distribution Width 15.1H, Platelet Count 103L, Mean Platelet Volume 7.9, Neutrophils (%) (Auto) , Lymphocytes (%) (Auto) , Monocytes (%) (Auto) , Eosinophils (%) (Auto) , Basophils (%) (Auto) , Differential Total Cells Counted 100, Neutrophils % ( Manual) 92H, Lymphocytes % (Manual) 3L, Monocytes % (Manual) 4, Eosinophils % ( Manual) 1, Basophils % (Manual) 0, Band Neutrophils 0, Platelet Estimate DecreasedL, Platelet Morphology Normal, Red Blood Cell Morphology Normal, Sodium Level 137, Potassium Level 4.2, Chloride Level 108H, Carbon Dioxide Level 18L, Anion Gap 11, Blood Urea Nitrogen 17, Creatinine 0.8, Estimat Glomerular Filtration Rate , Glucose Level 176H, Calcium Level 7.6L, Phosphorus Level 3.0, Magnesium Level 2.8H, Total Bilirubin 1.0, Direct Bilirubin 0.4H, Aspartate Amino Transf (AST/SGOT) 23, Alanine Aminotransferase (ALT/SGPT) 12, Alkaline Phosphatase 214H, Pro-B-Type Natriuretic Peptide > 07535W, Total Protein 5.2L, Albumin 1.2L, Random Vancomycin Level 22.7 Height (Feet): 5 Height (Inches): 5.00 Weight (Pounds): 186 Objective PHYSICAL EXAMINATION: VITAL SIGNS: Have been reviewed GENERAL: An elderly female, Vietnamese speaker, obese, lying in bed HEENT: Normocephalic and atraumatic. Pupils are reactive to light. Moist oral mucosa. NECK: Supple. No lymphadenopathy. CARDIOVASCULAR: Regular rate and rhythm. Actually, she is tachycardic. No murmur or gallop. LUNGS: Clear bilaterally. No wheezing or rhonchi. ABDOMEN: Soft and distended. Absent bowel sounds. Not tender. No rebound. No organomegaly. EXTREMITIES: No edema or cyanosis. No clubbing. SKIN: She had large and deep sacral pressure wound, 4 cm deep at least with undermining and extensive necrotic tissue at the base with exposed bone at the sacral area and foul smell. Siddhartha Soto MD Feb 25, 2018 14:05
--- NOTE | 2018-02-25 14:58 | Infectious Diseases Prog Note ---
Assessment/Plan Problems: (1) Pressure ulcer of sacral region, stage 4 Assessment & Plan: deep and necrotic with undermining , and foul smell , infected with possible underlying osteomyelitis of the sacrum and coccyx . MRI of the sacrum is pending to confirm, recommend surgical excision and debridement. daughter had chosen hospice care and no surgical debridement of the sacrum for now . continue off loading and local wound care as per hospital protocol. (2) Cutaneous abscess of abdominal wall Assessment & Plan: source hematogenous VS translocation from the pelvis , on meropenem and vancomycin renally dosed, no surgical intervention (3) Catheter-associated urinary tract infection Assessment & Plan: due to ESBL producing klebsiella pneumonia , S/P lomeli catheter change, continue meropenem (4) Sepsis Assessment & Plan: with poly organisms due to the above with MSSA, streptococcus and proteus mirabilis , on meropenem and vancomycin renally dosed , patient needs surgical debridement of the sacrum for source control . will continue antifungal coverage pending surgical debridement if she is a candidate . family chose hospice care . (5) JANNETTE (acute kidney injury) Assessment & Plan: due to the above , continue hydration with renally dosed medications, monitor renal function and UOP (6) Osteomyelitis of sacrum Assessment & Plan: suspect chronic due to the deep pressure wound , MRI to confirm was held since she was on continuos suctioning , recommend bone biopsy for culture to identify the exact cause (7) Abnormal blood electrolyte level Assessment & Plan: continue hydration with close monitoring of electrolytes (8) SBO (small bowel obstruction) Assessment & Plan: with possible adhesions, and fat filled fluids collection , improving, continue hydration, and conservative management , as per surgery Assessment/Plan D/W daughter and son the plan of care, they are waiting on medicare A approval to transition to hospice care Subjective Constitutional: Reports: no symptoms HEENT: Reports: no symptoms Respiratory: Reports: no symptoms Breasts: Reports: no symptoms Cardiovascular: Reports: no symptoms Gastrointestinal/Abdominal: Reports: no symptoms Genitourinary: Reports: no symptoms Neurologic: Reports: no symptoms Psychiatric: Reports: no symptoms Skin: Reports: no symptoms Endocrine: Reports: no symptoms Hematologic: Reports: no symptoms Musculoskeletal: Reports: pain Allergies: Coded Allergies: No Known Allergies (Unverified , 02/17/18) Subjective she was more awake and alert, today, able to tolerate soup, and had liquid bowel movement , daughters at bedside Objective Vital Signs Last 24 Hour Vital Signs Date Time Temp Pulse Resp B/P (MAP) Pulse Ox O2 Delivery O2 Flow Rate FiO2 02/25/18 08:00 98.4 102 18 100/71 (81) 98 02/25/18 04:00 97.2 100 19 122/65 (84) 99 02/25/18 04:00 100 02/25/18 00:00 97.1 103 19 106/64 (78) 98 02/25/18 00:00 104 02/24/18 20:00 97.0 102 18 119/75 (90) 98 02/24/18 20:00 102 02/24/18 16:00 104 02/24/18 16:00 97.5 100 20 134/78 (96) 98 Height (Feet): 5 Height (Inches): 5.00 Weight (Pounds): 186 General Appearance: WD/WN, no acute distress HEENT: normocephalic, atraumatic, anicteric, mucous membranes moist Respiratory/Chest: chest wall non-tender, lungs clear, normal breath sounds, no respiratory distress, no accessory muscle use Cardiovascular: normal peripheral pulses, normal rate, regular rhythm, no gallop/murmur, no JVD Abdomen: normal bowel sounds, soft, non tender, no organomegaly, non distended , no mass, no scars Genitourinary: normal external genitalia Extremities: no cyanosis, no clubbing Skin: no rash, no lesions, ulcers Neurologic/Psychiatric: alert, responsive Lymphatic: no neck adenopathy, no groin adenopathy Musculoskeletal: normal muscle bulk, no effusion Laboratory Tests Test 02/24/18 19:45 02/25/18 09:25 C-Reactive Protein, Quantitative 9.1 mg/dL (0.00-0.90) H Vancomycin Level Trough 25.7 ug/mL (5.0-12.0) H White Blood Count 14.7 K/UL (4.8-10.8) H Red Blood Count 4.25 M/UL (4.20-5.40) Hemoglobin 12.1 G/DL (12.0-16.0) Hematocrit 36.7 % (37.0-47.0) L Mean Corpuscular Volume 86 FL (80-99) Mean Corpuscular Hemoglobin 28.5 PG (27.0-31.0) Mean Corpuscular Hemoglobin Concent 33.0 G/DL (32.0-36.0) Red Cell Distribution Width 15.1 % (11.6-14.8) H Platelet Count 103 K/UL (150-450) L Mean Platelet Volume 7.9 FL (6.5-10.1) Neutrophils (%) (Auto) % (45.0-75.0) Lymphocytes (%) (Auto) % (20.0-45.0) Monocytes (%) (Auto) % (1.0-10.0) Eosinophils (%) (Auto) % (0.0-3.0) Basophils (%) (Auto) % (0.0-2.0) Differential Total Cells Counted 100 Neutrophils % (Manual) 92 % (45-75) H Lymphocytes % (Manual) 3 % (20-45) L Monocytes % (Manual) 4 % (1-10) Eosinophils % (Manual) 1 % (0-3) Basophils % (Manual) 0 % (0-2) Band Neutrophils 0 % (0-8) Platelet Estimate Decreased L Platelet Morphology Normal Red Blood Cell Morphology Normal Sodium Level 137 MMOL/L (136-145) Potassium Level 4.2 MMOL/L (3.5-5.1) Chloride Level 108 MMOL/L (98-107) H Carbon Dioxide Level 18 MMOL/L (21-32) L Anion Gap 11 mmol/L (5-15) Blood Urea Nitrogen 17 mg/dL (7-18) Creatinine 0.8 MG/DL (0.55-1.30) Estimat Glomerular Filtration Rate mL/min (>60) Glucose Level 176 MG/DL (74-106) H Calcium Level 7.6 MG/DL (8.5-10.1) L Phosphorus Level 3.0 MG/DL (2.5-4.9) Magnesium Level 2.8 MG/DL (1.8-2.4) H Total Bilirubin 1.0 MG/DL (0.2-1.0) Direct Bilirubin 0.4 MG/DL (0.0-0.3) H Aspartate Amino Transf (AST/SGOT) 23 U/L (15-37) Alanine Aminotransferase (ALT/SGPT) 12 U/L (12-78) Alkaline Phosphatase 214 U/L (46-116) H Pro-B-Type Natriuretic Peptide > 43035 pg/mL (0-125) H Total Protein 5.2 G/DL (6.4-8.2) L Albumin 1.2 G/DL (3.4-5.0) L Random Vancomycin Level 22.7 ug/mL Current Medications Medications (Trade) Dose Ordered Sig/Nidia Route PRN Reason Start Time Stop Time Status Last Admin Dose Admin Chlorhexidine Gluconate (Taylor-Hex 2%) 1 applic DAILY@2000 TOPIC 02/22/18 20:00 03/20/18 19:59 02/24/18 20:37 Dextrose (Dextrose 50%) 25 ml Q30M PRN IV Hypoglycemia 02/22/18 14:30 03/19/18 15:59 Dextrose (Dextrose 50%) 50 ml Q30M PRN IV Hypoglycemia 02/22/18 14:30 03/19/18 15:59 Fluconazole/ Sodium Chloride 200 ml @ 100 mls/hr Q24H IV 02/24/18 16:00 03/03/18 15:59 02/24/18 16:43 Haloperidol Lactate (Haldol) 5 mg Q6H PRN IM Agitation 02/22/18 14:26 03/21/18 14:25 Meropenem 1 gm/ Sodium Chloride 55 ml @ 110 mls/hr Q8HR@0100,0900,1700 IVPB 02/24/18 17:00 03/01/18 16:59 02/25/18 09:40 Morphine Sulfate (Morphine Sulfate) 3 mg Q4H PRN IVP Pain Scale 4-10) 02/22/18 14:26 02/27/18 14:25 02/24/18 13:50 Ondansetron HCl (Zofran) 4 mg Q6H PRN IVP Nausea & Vomiting 02/22/18 15:15 03/23/18 21:14 Pantoprazole (Protonix) 40 mg DAILY IV 02/23/18 09:00 03/19/18 15:59 02/25/18 09:40 Sodium Hypochlorite (Dakin's Quarter Strength) 1 applic Q24H TOPIC 02/23/18 09:00 03/19/18 19:59 02/25/18 09:42 Vancomycin HCl (Vanco rx to dose) 1 ea DAILY PRN MISC Per rx protocol 02/23/18 09:00 03/19/18 16:14 Ari Lewis M.D. Feb 25, 2018 14:57
[2018-02-25 15:46] VITALS: BP 111/73
[2018-02-25] MEDS ORDERED: Haloperidol 5mg/ml Inj IM PRN (17:30)
[2018-02-25] MEDS ORDERED: Morphine Sulfate 4mg/ml Inj (IV/IM USE ONLY) IVP PRN (17:30)
--- NOTE | 2018-02-25 18:15 | Progress Note ---
DATE: 02/25/2018 SUBJECTIVE: The patient is still confused, still has episodes of agitation. Waxing and waning consciousness, unable to understand process nor communicate information is given to her in regards to her medical condition. MENTAL STATUS EXAMINATION: The patient is alert and oriented times self. Mood is anxious. Affect is constricted. Congruent with mood. Thought process is concrete. Thought content, no suicidal or homicidal ideation. ASSESSMENT: Anxiety disorder PLAN: 1. We will continue the Haldol as needed. 2. Provide the patient with reality orientation and supportive therapy. Michele Schroeder M.D. DR: Corinna JOB#: [id number] CC:
[2018-02-25 20:00] VITALS: BP 116/69
[2018-02-25] MEDS: Dyna-Hex 2% Top Sol 2oz TOPIC SCH (20:47)
--- NOTE | 2018-02-25 22:57 | Cardiology Progress Note ---
Assessment/Plan Assessment/Plan 1. Sinus tachycardia, resolved, correct hydration. 2. Cholelithiasis. 3. Acute superficial femoral and popliteal DVT in the right and common femoral, superficial femoral, and popliteal DVT in the left. 4. Small bowel obstruction. 5. Left perihilar infiltrate, likely healthcare-associated pneumonia. 6. Stage IV sacral decubitus ulcer with likely osteomyelitis. 7. Gram negative bacillus urinary tract infection. 8. Gram-positive cocci and gram-negative sepsis. Subjective Subjective Transferred to the med-surg unit. No cardiac events noted. Objective Last 24 Hour Vital Signs Date Time Temp Pulse Resp B/P (MAP) Pulse Ox O2 Delivery O2 Flow Rate FiO2 02/25/18 21:00 Room Air 02/25/18 20:00 98.9 85 18 116/69 (85) 94 02/25/18 15:46 97.9 97 18 111/73 (86) 99 02/25/18 08:00 98.4 102 18 100/71 (81) 98 02/25/18 04:00 97.2 100 19 122/65 (84) 99 02/25/18 04:00 100 02/25/18 00:00 97.1 103 19 106/64 (78) 98 02/25/18 00:00 104 Intake and Output 02/24/18 02/25/18 19:00 07:00 Intake Total 340 ml 65 ml Output Total 125 ml 300 ml Balance 215 ml -235 ml Intake Oral 340 ml 65 ml Output Urine Total 125 ml 100 ml Stool Total 200 ml 2D Echo: LVEF 55%, Mild LVH, Grade I LVDD, RVSP 42 mmHg Laboratory Tests Test 02/25/18 09:25 White Blood Count 14.7 K/UL (4.8-10.8) H Red Blood Count 4.25 M/UL (4.20-5.40) Hemoglobin 12.1 G/DL (12.0-16.0) Hematocrit 36.7 % (37.0-47.0) L Mean Corpuscular Volume 86 FL (80-99) Mean Corpuscular Hemoglobin 28.5 PG (27.0-31.0) Mean Corpuscular Hemoglobin Concent 33.0 G/DL (32.0-36.0) Red Cell Distribution Width 15.1 % (11.6-14.8) H Platelet Count 103 K/UL (150-450) L Mean Platelet Volume 7.9 FL (6.5-10.1) Neutrophils (%) (Auto) % (45.0-75.0) Lymphocytes (%) (Auto) % (20.0-45.0) Monocytes (%) (Auto) % (1.0-10.0) Eosinophils (%) (Auto) % (0.0-3.0) Basophils (%) (Auto) % (0.0-2.0) Differential Total Cells Counted 100 Neutrophils % (Manual) 92 % (45-75) H Lymphocytes % (Manual) 3 % (20-45) L Monocytes % (Manual) 4 % (1-10) Eosinophils % (Manual) 1 % (0-3) Basophils % (Manual) 0 % (0-2) Band Neutrophils 0 % (0-8) Platelet Estimate Decreased L Platelet Morphology Normal Red Blood Cell Morphology Normal Sodium Level 137 MMOL/L (136-145) Potassium Level 4.2 MMOL/L (3.5-5.1) Chloride Level 108 MMOL/L (98-107) H Carbon Dioxide Level 18 MMOL/L (21-32) L Anion Gap 11 mmol/L (5-15) Blood Urea Nitrogen 17 mg/dL (7-18) Creatinine 0.8 MG/DL (0.55-1.30) Estimat Glomerular Filtration Rate mL/min (>60) Glucose Level 176 MG/DL (74-106) H Calcium Level 7.6 MG/DL (8.5-10.1) L Phosphorus Level 3.0 MG/DL (2.5-4.9) Magnesium Level 2.8 MG/DL (1.8-2.4) H Total Bilirubin 1.0 MG/DL (0.2-1.0) Direct Bilirubin 0.4 MG/DL (0.0-0.3) H Aspartate Amino Transf (AST/SGOT) 23 U/L (15-37) Alanine Aminotransferase (ALT/SGPT) 12 U/L (12-78) Alkaline Phosphatase 214 U/L (46-116) H Pro-B-Type Natriuretic Peptide > 91721 pg/mL (0-125) H Total Protein 5.2 G/DL (6.4-8.2) L Albumin 1.2 G/DL (3.4-5.0) L Random Vancomycin Level 22.7 ug/mL Objective HEENT: Atraumatic and normocephalic. Anicteric. Pupils are equal, round, and reactive to light and accommodation. Dry mucosal membranes. NECK: JVP less than 5 cm. No carotid bruit. Carotid upstrokes 2+ bilaterally. CARDIOVASCULAR: Normal S1, S2. Regular rate and rhythm. No murmurs, gallops, or rubs. Tachycardic. LUNGS: Clear to auscultation bilaterally. ABDOMEN: Distended. Diminished bowel sounds. No hepatosplenomegaly. Diffuse tenderness. EXTREMITIES: No evidence of edema, clubbing, or cyanosis. Thomas Quiroz MD Feb 25, 2018 22:57
[2018-02-26] VITALS (7 sets, daily range): BP systolic 118–165; BP diastolic 68–91
[2018-02-26] MEDS: Meropenem 1 GM in NS 55 ML IVPB SCH ×3 (01:08→16:37)
[2018-02-26] MEDS: Pantoprazole Inj IV SCH (08:42)
[2018-02-26] MEDS: Dakin's 0.125% Soln (Quarter Strength) 16oz TOPIC SCH (08:43)
--- NOTE | 2018-02-26 09:57 | Pulmonology Progress Note ---
Assessment/Plan Problems: (1) Sepsis (2) SBO (small bowel obstruction) (3) Abnormal blood electrolyte level (4) Osteomyelitis of sacrum (5) Pressure ulcer of sacral region, stage 4 (6) JANNETTE (acute kidney injury) Assessment/Plan ASSESSMENT: The patient is a 72-year-old longterm resident with CVA, recent small bowel obstruction at an outside hospital, now presenting for evaluation of abnormal laboratories, noted to have a sacral decubitus ulcer with possible osteomyelitis, urinary tract infection, and bacteremia, as well as a possible pneumonia. PROBLEM LIST: 1. Left perihilar infiltrate, likely healthcare-associated pneumonia. 2. Stage IV sacral decubitus ulcer with likely osteomyelitis. 3. Gram negative bacillus urinary tract infection. 4. Gram-posit raman cocci and gram-negative sepsis. 5. Acute superficial femoral and popliteal DVT in the right and common femoral, superficial femoral, and popliteal DVT in the left. 6. Small bowel obstruction, likely acute on chronic. 7. Concern for unusual fat or fluid collections in the abdomen/abdominal wall. 8. Leukocytosis. 9. Anemia. 10. Abnormal creatinine, JANNETTE versus CKD. 11. Severe protein-calorie malnutrition. 12. Prior CVA. TREATMENT PLAN: 1. Optimize pulmonary hygiene/mobilize as tolerated. 2. P.r.n. O2. 3. Monitor for signs of worsening respiratory status. 4. Continue antibiotics (vancomycin and meropenem) + Fluconazole per Infectious Disease service. 5. Follow up Surgery recommendations, NO PLAN FOR debridement of sacral decubitus ulcer OR laparotomy based on family's goals of care. 6. Monitor volumes and renal function 8. A/C held 9. PO as tolerated 10. DNAR, dispo planning to hospice Subjective Allergies: Coded Allergies: No Known Allergies (Unverified , 02/17/18) Subjective AFVSS, on RA Awake no distress Miranda PO Objective Last 24 Hour Vital Signs Date Time Temp Pulse Resp B/P (MAP) Pulse Ox O2 Delivery O2 Flow Rate FiO2 02/26/18 08:18 96.1 104 18 138/91 (107) 100 02/26/18 04:00 98.9 107 19 124/70 (88) 98 02/26/18 00:00 98.0 102 18 118/75 (89) 98 02/25/18 21:00 Room Air 02/25/18 20:00 98.9 85 18 116/69 (85) 94 02/25/18 15:46 97.9 97 18 111/73 (86) 99 Intake and Output 02/25/18 02/26/18 18:59 06:59 Intake Total 300 ml 55 ml Output Total 300 ml 200 ml Balance 0 ml -145 ml Intake Oral 300 ml IV Total 55 ml Output Urine Total 50 ml 200 ml Stool Total 250 ml General Appearance: no acute distress, cachetic HEENT: normocephalic, atraumatic, anicteric, mucous membranes moist Respiratory/Chest: chest wall non-tender, lungs clear, normal breath sounds, no respiratory distress Cardiovascular: normal peripheral pulses, normal rate, regular rhythm Abdomen: normal bowel sounds, soft, non tender, no organomegaly, non distended , no mass Extremities: no cyanosis, no clubbing, no edema Current Medications Medications (Trade) Dose Ordered Sig/Nidia Route PRN Reason Start Time Stop Time Status Last Admin Dose Admin Chlorhexidine Gluconate (Taylor-Hex 2%) 1 applic DAILY@2000 TOPIC 02/25/18 20:00 03/20/18 19:59 02/25/18 20:47 Dextrose (Dextrose 50%) 25 ml Q30M PRN IV Hypoglycemia 02/25/18 17:30 03/19/18 15:59 Dextrose (Dextrose 50%) 50 ml Q30M PRN IV Hypoglycemia 02/25/18 17:30 03/19/18 15:59 Fluconazole/ Sodium Chloride 200 ml @ 100 mls/hr Q24H IV 02/26/18 16:00 03/03/18 15:59 Haloperidol Lactate (Haldol) 5 mg Q6H PRN IM Agitation 02/25/18 17:30 03/21/18 17:29 Meropenem 1 gm/ Sodium Chloride 55 ml @ 110 mls/hr Q8HR@0100,0900,1700 IVPB 02/26/18 01:00 03/01/18 16:59 02/26/18 08:42 Morphine Sulfate (Morphine Sulfate) 3 mg Q4H PRN IVP Pain Scale 4-10) 02/25/18 17:30 02/27/18 17:29 Ondansetron HCl (Zofran) 4 mg Q6H PRN IVP Nausea & Vomiting 02/25/18 17:30 03/23/18 17:29 Pantoprazole (Protonix) 40 mg DAILY IV 02/26/18 09:00 03/19/18 15:59 02/26/18 08:42 Sodium Hypochlorite (Dakin's Quarter Strength) 1 applic Q24H TOPIC 02/26/18 09:00 03/19/18 19:59 02/26/18 08:43 Vancomycin HCl (Vanco rx to dose) 1 ea DAILY PRN MISC Per rx protocol 02/26/18 09:00 03/19/18 16:14 Jacinto Johnson MD Feb 26, 2018 09:57
--- NOTE | 2018-02-26 12:03 | General Surgery Progress Note ---
General Surgery-Progress Note Subjective Additional Comments no acute events. still minimal oral intake Objective Last 24 Hour Vital Signs Date Time Temp Pulse Resp B/P (MAP) Pulse Ox O2 Delivery O2 Flow Rate FiO2 02/26/18 09:00 Room Air 02/26/18 08:18 96.1 104 18 138/91 (107) 100 02/26/18 04:00 98.9 107 19 124/70 (88) 98 02/26/18 00:00 98.0 102 18 118/75 (89) 98 02/25/18 21:00 Room Air 02/25/18 20:00 98.9 85 18 116/69 (85) 94 02/25/18 15:46 97.9 97 18 111/73 (86) 99 I&O Intake and Output 02/25/18 02/26/18 18:59 06:59 Intake Total 300 ml 55 ml Output Total 300 ml 200 ml Balance 0 ml -145 ml Intake Oral 300 ml IV Total 55 ml Output Urine Total 50 ml 200 ml Stool Total 250 ml Dressing: other Wound: other Drains: other Cardiovascular: RSR Respiratory: clear Abdomen: soft, flat, non-tender, present bowel sounds Extremities: other Plan Problems: (1) Sepsis Assessment & Plan: sepsis, tachy, leukocytosis, lactic acidosis, abnormal labs likely related to abdominal etiology. possible infected sacral ulcer IV abx IV fluids diet as tolerated family has decided on hospice care pending placement (2) SBO (small bowel obstruction) Assessment & Plan: reviewed CT and discussed with radiologist. seems to have complete SBO with transition point in proximal bowel. distended and fluid filled proximal. decompressed distal. abdominal exam benign. no significant distention or tenderness. currently no n/v hx of prior episodes. discussed with patient and family. Recommend exploration given findings. Family and patient decline. State that it has been her wish for some time now to not have surgery even if life threatening. explained risks of worsening condition, perforation, even . expressed understanding and refuses surgery Has been improving. small bowel series with contrast performed. no obstruction noted. contrast in colon this AM. dilated jejunal loops still noted and mildly improved. no ng tube output. +flatus. KUB with contrast in colon. likely incomplete obstruction but there is some component of obstruction vs ileus she has. still decline surgery and family states plans for hospice. diet as can be tolerated for comfort IV fluids IV Abx trend labs discuss DNR status with patient and family given her wishes. (3) Pressure ulcer of sacral region, stage 4 Assessment & Plan: Full thickness pressure injury to sacrum with multiple open wounds periwound and R buttocks .Sacral pressure injury (L)11cm x (W)12.4cm x (D )4cm with undermining 9-4 by 4 cm at 3o'clock. Wound malodorous with 75% soft necrosis.Bone palpable.Additional pressure injuries noted periwound L buttocks. Full thickness pressure injury to Upper R buttocks (L)1.4cm x (W)4.7cm x(D)0.2cm ,scattered slough with granulation with marginal erythema. Full thickness inferior R buttocks (L)4.5cm x (W)2.5cm wound granular with marginal erythema. Full thickness pressure injury to R ischium (L)0.8cm x(W)2.3cm .Wound granular with dark borders. Periwound dark without induration. Multiple partial thickness pressure injuries in close proximity noted to upper/outer R buttocks ( L)2cm x (W)4.6cm with non-blanchable erythema periwound. R heel Mottled,cool and boggy with dry peeling skin (L)6cm x (W)8cm. Pt denied tenderness when minimally palpated. L heel mottled,boggy, and cool to touch (L)6cm x (W) 7.4cm .Pt verbalized tenderness when palpated. R and L 1st metatarsals mottled and non -tender when palpated. Spoke to Dtr regarding sacral pressure injury. Sacral wound cleansed with Saline and loosley packed with Saline moist gauze until evaluated by Surgeon.Dtr stated pt had small pressure injury in October which progressively worsened.Dtr also stated she was informed at [facility] wound was getting better. DTR made aware of stage and state of wound.Advised of Surgical consult and that surgeon would discuss all options with regards to wound. Dr.Mawas sky and Md also discussed possibility of surgical debridement of sacral wound with Dtr. Tx.Plan: Air fluidized mattress. Sacral Wound care orders as in wound care clarification orders; wash , dakins, dressings. Apply Cavilon to both heels and off-load heels daily. Cavilon wipes to R and L 1st metatarsals Daily Apply Moisture Barrier paste to Wounds R buttocks and R ischium and cover with Optifoam drsg Daily and prn. Reposition at minimum every 2hours or as tolerated. Discussed with family care plan. Her major concern is a complete bowel obstruction. the decubitus ulcer is concerning but chronic. will continue care for wounds but hold on debridement until the remainder of her medical condition is improved. family is considering hospice. Levon Jacobs Feb 26, 2018 12:03
--- NOTE | 2018-02-26 12:19 | General Progress Note ---
Assessment/Plan Assessment/Plan Anxiety d/o dc Ativan prn Provided ro/st haldol prn Subjective Neurologic/Psychiatric: Reports: anxiety, depressed, emotional problems Allergies: Coded Allergies: No Known Allergies (Unverified , 02/17/18) Subjective Less agitated and confused. she is still waxing and waning. Objective Last 24 Hour Vital Signs Date Time Temp Pulse Resp B/P (MAP) Pulse Ox O2 Delivery O2 Flow Rate FiO2 02/26/18 12:09 97.0 103 20 132/68 (89) 99 02/26/18 09:00 Room Air 02/26/18 08:18 96.1 104 18 138/91 (107) 100 02/26/18 04:00 98.9 107 19 124/70 (88) 98 02/26/18 00:00 98.0 102 18 118/75 (89) 98 02/25/18 21:00 Room Air 02/25/18 20:00 98.9 85 18 116/69 (85) 94 02/25/18 15:46 97.9 97 18 111/73 (86) 99 Intake and Output 02/25/18 02/26/18 18:59 06:59 Intake Total 300 ml 55 ml Output Total 300 ml 200 ml Balance 0 ml -145 ml Intake Oral 300 ml IV Total 55 ml Output Urine Total 50 ml 200 ml Stool Total 250 ml Height (Feet): 5 Height (Inches): 5.00 Weight (Pounds): 187 General Appearance: alert, agitated Neurologic: responsive, depressed affect Michele Schroeder MD Feb 26, 2018 12:19
--- NOTE | 2018-02-26 15:23 | General Progress Note ---
Assessment/Plan Status: stable, unchanged Assessment/Plan # Anemia of chronic disease due to underlying chronic medical issues, multifactorial. --> Anemia w/u has been reviewed. Will trend CBC as needed --> No evidence of hemolysis is noted, peripheral smear has been reviewed. --> Hgb goal >7. Transfuse prn. --> Epogen or iron at this time is not particularly indicated # Thrombocytopenia most likely related to infection versus medications, is on vancomycin, has gram negative sepsis --> plt trend 151-->121-->109k ==> cbc reviewed and no giant platelets or clumping noted --> no asa, plavix or heparin sq # Leukocytosis. Likely related to underlying infection versus reactive process. --> WBC remains elevated --> Peripheral has been reviewed, no blasts noted --> Medications have been reviewed --> Imaging has been reviewed. CXR shows patchy left perihilar opacities, could represent focal infiltrates. Correlate with clinical findings --> Blood cultures and urine cultures are both ++ --> Remains on on abx, empiric treatment # Pressure ulcer of the sacral region, stage IV, deep and necrotic with undermining and foul smell, infected with possible underlying osteomyelitis of the sacrum and coccyx due to exposed bone. --> MRI of the sacrum has been reviewed --> Continue offloading and local wound care as per hospital protocol. Air mattress. --> Surgical evaluation appreciated # Cutaneous abscesses of the abdominal wall, source hematogenous verus translocation from the pelvis. --> On meropenem and continue vancomycin renally dose, pending surgical evaluation. # Catheter-associated urinary tract infection.on abx # Acute renal failure due to the above. Continue hydration with renally dosed medications. Monitor renal function and urine output. --> Nephrology is following, appreciate recs # Osteomyelitis of the sacrum, suspect chronic due to deep pressure wound. --> appreciate surgery recs # Abnormal blood electrolyte level. Continue hydration and close monitoring of electrolytes, replace as needed. # Small bowel obstruction with possible adhesions and fluid-filled fat collection, possible abscesses. Source hematogenous versus perforation related. . --> Plan of care was discussed with the daughter in detail at the bedside. --> Daughter stated that mother is refusing any surgical procedure, she had a bad experience from anesthesia in the past when she had a dental workup. # Hospice care planning -- to [facility] family re placement --> poor prognosis GREATLY APPRECIATE CONSULTATION. Subjective Date patient seen: Feb 26, 2018 Hematologic/Lymphatic: Reports: anemia Allergies: Coded Allergies: No Known Allergies (Unverified , 02/17/18) All Systems: reviewed and negative except above Subjective Pt awake and confused. No acute events. H/H stable. Objective Last 24 Hour Vital Signs Date Time Temp Pulse Resp B/P (MAP) Pulse Ox O2 Delivery O2 Flow Rate FiO2 02/26/18 12:09 97.0 103 20 132/68 (89) 99 02/26/18 09:00 Room Air 02/26/18 08:18 96.1 104 18 138/91 (107) 100 02/26/18 04:00 98.9 107 19 124/70 (88) 98 02/26/18 00:00 98.0 102 18 118/75 (89) 98 02/25/18 21:00 Room Air 02/25/18 20:00 98.9 85 18 116/69 (85) 94 02/25/18 15:46 97.9 97 18 111/73 (86) 99 Intake and Output 02/25/18 02/26/18 19:00 07:00 Intake Total 300 ml 55 ml Output Total 300 ml 200 ml Balance 0 ml -145 ml Intake Oral 300 ml IV Total 55 ml Output Urine Total 50 ml 200 ml Stool Total 250 ml Height (Feet): 5 Height (Inches): 5.00 Weight (Pounds): 187 Objective PHYSICAL EXAMINATION: VITAL SIGNS: Have been reviewed GENERAL: An elderly female, Fijian speaker, obese, lying in bed HEENT: Normocephalic and atraumatic. Pupils are reactive to light. Moist oral mucosa. NECK: Supple. No lymphadenopathy. CARDIOVASCULAR: Regular rate and rhythm. Actually, she is tachycardic. No murmur or gallop. LUNGS: Clear bilaterally. No wheezing or rhonchi. ABDOMEN: Soft and distended. Absent bowel sounds. Not tender. No rebound. No organomegaly. EXTREMITIES: No edema or cyanosis. No clubbing. SKIN: She had large and deep sacral pressure wound, 4 cm deep at least with undermining and extensive necrotic tissue at the base with exposed bone at the sacral area and foul smell. Siddhartha Soto MD Feb 26, 2018 15:23
--- NOTE | 2018-02-26 15:34 | Infectious Diseases Prog Note ---
Assessment/Plan Problems: (1) Pressure ulcer of sacral region, stage 4 Assessment & Plan: deep and necrotic with undermining , and foul smell , infected with possible underlying osteomyelitis of the sacrum and coccyx . MRI of the sacrum was not done since she was not stable , recommend surgical excision and debridement. daughter had chosen hospice care and no surgical debridement of the sacrum for now . continue off loading and local wound care as per hospital protocol. (2) Cutaneous abscess of abdominal wall Assessment & Plan: source hematogenous VS translocation from the pelvis , on meropenem and vancomycin renally dosed, no surgical intervention (3) Catheter-associated urinary tract infection Assessment & Plan: due to ESBL producing klebsiella pneumonia , S/P lomeli catheter change, continue meropenem (4) Sepsis Assessment & Plan: with poly organisms due to the above with MSSA, streptococcus and proteus mirabilis , on meropenem and vancomycin renally dosed , patient needs surgical debridement of the sacrum for source control . will continue antifungal coverage pending surgical debridement if she is a candidate . family chose hospice care . (5) JANNETTE (acute kidney injury) Assessment & Plan: due to the above , continue hydration with renally dosed medications, monitor renal function and UOP (6) Osteomyelitis of sacrum Assessment & Plan: suspect chronic due to the deep pressure wound , MRI to confirm was held since she was on continuos suctioning , recommend bone biopsy for culture to identify the exact cause (7) Abnormal blood electrolyte level Assessment & Plan: continue hydration with close monitoring of electrolytes (8) SBO (small bowel obstruction) Assessment & Plan: with possible adhesions, and fat filled fluids collection , improving, continue hydration, and conservative management , as per surgery Assessment/Plan D/W daughter and son the plan of care, they are waiting on medicare A approval to transition to hospice care Subjective Constitutional: Reports: no symptoms HEENT: Reports: no symptoms Respiratory: Reports: no symptoms Breasts: Reports: no symptoms Cardiovascular: Reports: no symptoms Gastrointestinal/Abdominal: Reports: no symptoms Genitourinary: Reports: no symptoms Neurologic: Reports: no symptoms Psychiatric: Reports: no symptoms Skin: Reports: no symptoms Endocrine: Reports: no symptoms Hematologic: Reports: no symptoms Musculoskeletal: Reports: no symptoms Allergies: Coded Allergies: No Known Allergies (Unverified , 02/17/18) Subjective she was awake and alert, today, able to tolerate soup, and had liquid bowel movement , no pain, no fever or chills daughters at bedside Objective Vital Signs Last 24 Hour Vital Signs Date Time Temp Pulse Resp B/P (MAP) Pulse Ox O2 Delivery O2 Flow Rate FiO2 02/26/18 12:09 97.0 103 20 132/68 (89) 99 02/26/18 09:00 Room Air 02/26/18 08:18 96.1 104 18 138/91 (107) 100 02/26/18 04:00 98.9 107 19 124/70 (88) 98 02/26/18 00:00 98.0 102 18 118/75 (89) 98 02/25/18 21:00 Room Air 02/25/18 20:00 98.9 85 18 116/69 (85) 94 02/25/18 15:46 97.9 97 18 111/73 (86) 99 Height (Feet): 5 Height (Inches): 5.00 Weight (Pounds): 187 General Appearance: WD/WN, no acute distress HEENT: normocephalic, atraumatic, anicteric, mucous membranes moist, PERRL, EOMI, pharynx normal, supple, no JVD Respiratory/Chest: chest wall non-tender, lungs clear, normal breath sounds, no respiratory distress, no accessory muscle use, decreased breath sounds, crackles/rales Cardiovascular: normal peripheral pulses, normal rate, regular rhythm, no gallop/murmur, no JVD Abdomen: normal bowel sounds, soft, non tender, no organomegaly, non distended , no mass, no scars Extremities: no cyanosis, no clubbing Skin: no rash, no lesions, ulcers Neurologic/Psychiatric: alert, responsive Lymphatic: no neck adenopathy, no groin adenopathy Current Medications Medications (Trade) Dose Ordered Sig/Nidia Route PRN Reason Start Time Stop Time Status Last Admin Dose Admin Chlorhexidine Gluconate (Taylor-Hex 2%) 1 applic DAILY@1999 TOPIC 02/25/18 20:00 03/20/18 19:59 02/25/18 20:47 Dextrose (Dextrose 50%) 25 ml Q30M PRN IV Hypoglycemia 02/25/18 17:30 03/19/18 15:59 Dextrose (Dextrose 50%) 50 ml Q30M PRN IV Hypoglycemia 02/25/18 17:30 03/19/18 15:59 Fluconazole/ Sodium Chloride 200 ml @ 100 mls/hr Q24H IV 02/26/18 16:00 03/03/18 15:59 Haloperidol Lactate (Haldol) 5 mg Q6H PRN IM Agitation 02/25/18 17:30 03/21/18 17:29 Meropenem 1 gm/ Sodium Chloride 55 ml @ 110 mls/hr Q8HR@0100,0900,1700 IVPB 02/26/18 01:00 03/01/18 16:59 02/26/18 08:42 Morphine Sulfate (Morphine Sulfate) 3 mg Q4H PRN IVP Pain Scale 4-10) 02/25/18 17:30 02/27/18 17:29 02/26/18 14:25 Ondansetron HCl (Zofran) 4 mg Q6H PRN IVP Nausea & Vomiting 02/25/18 17:30 03/23/18 17:29 Pantoprazole (Protonix) 40 mg DAILY IV 02/26/18 09:00 03/19/18 15:59 02/26/18 08:42 Sodium Hypochlorite (Dakin's Quarter Strength) 1 applic Q24H TOPIC 02/26/18 09:00 03/19/18 19:59 02/26/18 08:43 Vancomycin HCl (Vanco rx to dose) 1 ea DAILY PRN MISC Per rx protocol 02/26/18 09:00 03/19/18 16:14 Ari Lewis M.D. Feb 26, 2018 15:34
--- NOTE | 2018-02-26 16:08 | Nephrology Progress Note ---
Assessment/Plan Problem List: (1) JANNETTE (acute kidney injury) (2) SBO (small bowel obstruction) (3) Osteomyelitis of sacrum (4) Sepsis Assessment Renal failure- Acute on chronic/ presented with High K Small Bowel Obstruction UTI Sacral Osteo HypoNatremia Sever HypoAlbuminemia & Proteinuria Anemia Plan stop IV IV Mag- IV Phos per consultants suggest comfort care clear liquids Antibiotics Anemia persaud Subjective ROS Limited/Unobtainable: No Constitutional: Reports: malaise, weakness Objective Objective Last 24 Hour Vital Signs Date Time Temp Pulse Resp B/P (MAP) Pulse Ox O2 Delivery O2 Flow Rate FiO2 02/26/18 15:56 97.4 105 20 162/83 (109) 98 02/26/18 14:55 97.0 02/26/18 12:09 97.0 103 20 132/68 (89) 99 02/26/18 09:00 Room Air 02/26/18 08:18 96.1 104 18 138/91 (107) 100 02/26/18 04:00 98.9 107 19 124/70 (88) 98 02/26/18 00:00 98.0 102 18 118/75 (89) 98 02/25/18 21:00 Room Air 02/25/18 20:00 98.9 85 18 116/69 (85) 94 Intake and Output 02/25/18 02/26/18 19:00 07:00 Intake Total 300 ml 55 ml Output Total 300 ml 200 ml Balance 0 ml -145 ml Intake Oral 300 ml IV Total 55 ml Output Urine Total 50 ml 200 ml Stool Total 250 ml Height (Feet): 5 Height (Inches): 5.00 Weight (Pounds): 187 General Appearance: no apparent distress Objective no change Agustín Parmar MD Feb 26, 2018 16:08
[2018-02-26] MEDS ORDERED: MEROPENEM1 GM IV (16:27)
[2018-02-26] MEDS ORDERED: FLUCONAZOLE100 MG IVPB (16:29)
--- NOTE | 2018-02-26 20:02 | General Progress Note ---
Assessment/Plan Assessment/Plan S: I am ok O: NG in place , mild abd pain . No distress, PATIENT IS CONFUSED. DTR AT THE BED SIDE PHYSICAL EXAMINATION: HEAD AND NECK: Atraumatic and normocephalic. CHEST: Clear to auscultation. No wheezing. No crackles. ABDOMEN: Positive for tenderness on deep palpation. Bowel sounds have decreased.No rebound tenderness MUSCULOSKELETAL: Positive for the sacral decubitus wounds. Positive for decreased range of motion and strength in all four extremities. NEUROLOGIC: The patient is awake, alert, and oriented x1. anxious, POSITIVE FOR DELIRIOUS IMAGING STUDIES: Imaging shows abdominal pelvic CT scan dated February 17, is reviewed. Chest x-ray also reviewed. Meds: reviewed and reconciled including but not limited to Meropenem and Vanco ASSESSMENT: 1. Sepsis. Gram negative and STaph Aureus 2. Acute abdomen secondary to small bowel obstruction. 3. Decubitus wound, sacral possibility of osteomyelitis cannot be excluded. 4. Renal failure - age indeterminate. 5. Hyponatremia. 6. Catheter-induced urinary infection. 7. GI and DVT prophylaxis. 8.POLST to DNR Plan of care: current medical management [facility] prognosis Partial SBO. patient Refused surgical approach from the start point of the care. will observe CURRENT ANTIBIOTIC MANAGEMENT PER ID WILL TRANSFER OF CARE TO FACILITY UNDER HOSPICE MGT Subjective Allergies: Coded Allergies: No Known Allergies (Unverified , 02/17/18) Objective Last 24 Hour Vital Signs Date Time Temp Pulse Resp B/P (MAP) Pulse Ox O2 Delivery O2 Flow Rate FiO2 02/26/18 15:56 97.4 105 20 162/83 (109) 98 02/26/18 14:55 97.0 02/26/18 12:09 97.0 103 20 132/68 (89) 99 02/26/18 09:00 Room Air 02/26/18 08:18 96.1 104 18 138/91 (107) 100 02/26/18 04:00 98.9 107 19 124/70 (88) 98 02/26/18 00:00 98.0 102 18 118/75 (89) 98 02/25/18 21:00 Room Air 02/25/18 20:00 98.9 85 18 116/69 (85) 94 Intake and Output 02/25/18 02/26/18 19:00 07:00 Intake Total 300 ml 55 ml Output Total 300 ml 200 ml Balance 0 ml -145 ml Intake Oral 300 ml IV Total 55 ml Output Urine Total 50 ml 200 ml Stool Total 250 ml Height (Feet): 5 Height (Inches): 5.00 Weight (Pounds): 187 Amol Weinstein MD Feb 26, 2018 20:02
[2018-02-26] MEDS: Dyna-Hex 2% Top Sol 2oz TOPIC SCH (20:28)
[2018-02-27] VITALS: BP 135/88
[2018-02-27] MEDS: Meropenem 1 GM in NS 55 ML IVPB SCH ×2 (00:22→10:36)
[2018-02-27 04:00] VITALS: BP 138/82
[2018-02-27 04:25] LABS: HEMATOCRIT 32.9 % (37.0-47.0); HEMOGLOBIN 10.9 G/DL (12.0-16.0); MEAN CORPUSCULAR VOLUME 86 FL (80-99); PLATELET COUNT 117 K/UL (150-450); RED BLOOD COUNT 3.84 M/UL (4.20-5.40); RED CELL DISTRIBUTION WIDTH 15.1 % (11.6-14.8); WHITE BLOOD COUNT 13.3 K/UL (4.8-10.8)
[2018-02-27 04:40] LABS: ALANINE AMINOTRANSFERASE 12 U/L (12-78); ALBUMIN 1.1 G/DL (3.4-5.0); ALBUMIN/GLOBULIN RATIO 0.3 (1.0-2.7); ALKALINE PHOSPHATASE 235 U/L (46-116); ANION GAP 9 mmol/L (5-15); ASPARTATE AMINO TRANSFERASE 23 U/L (15-37); BILIRUBIN,TOTAL 0.8 MG/DL (0.2-1.0); BLOOD UREA NITROGEN 22 mg/dL (7-18); CALCIUM 7.8 MG/DL (8.5-10.1); CARBON DIOXIDE 19 MMOL/L (21-32); CHLORIDE 108 MMOL/L (98-107); POTASSIUM 4.3 MMOL/L (3.5-5.1); SODIUM 136 MMOL/L (136-145)
[2018-02-27 04:56] LABS: PHOSPHORUS 3.8 MG/DL (2.5-4.9)
[2018-02-27] MEDS ORDERED: Vancomycin 1gm in D5W 275ml IVPB SCH ×2 (06:00→07:00)
--- NOTE | 2018-02-27 07:23 | General Progress Note ---
Assessment/Plan Status: unchanged Assessment/Plan # Anemia of chronic disease due to underlying chronic medical issues, multifactorial. --> Anemia w/u has been reviewed. Will trend CBC as needed --> No evidence of hemolysis is noted, peripheral smear has been reviewed. --> Hgb goal >7. Transfuse prn. --> Epogen or iron at this time is not particularly indicated # Thrombocytopenia most likely related to infection versus medications, is on vancomycin, has gram negative sepsis --> Cont to trend cbc --> peripheral smear reviewed and no giant platelets or clumping noted --> no asa, plavix or heparin sq # Leukocytosis. Likely related to underlying infection versus reactive process. --> WBC remains elevated --> Peripheral has been reviewed, no blasts noted --> Medications have been reviewed --> Imaging has been reviewed. CXR shows patchy left perihilar opacities, could represent focal infiltrates. Correlate with clinical findings --> Blood cultures and urine cultures are both ++ --> Remains on on abx, empiric treatment --> On antifungal # Pressure ulcer of the sacral region, stage IV, deep and necrotic with undermining and foul smell, infected with possible underlying osteomyelitis of the sacrum and coccyx due to exposed bone. --> MRI of the sacrum has been reviewed --> Continue offloading and local wound care as per hospital protocol. Air mattress. --> Surgical evaluation appreciated # Cutaneous abscesses of the abdominal wall, source hematogenous verus translocation from the pelvis. --> On meropenem and continue vancomycin renally dose, pending surgical evaluation. # Catheter-associated urinary tract infection.on abx # Acute renal failure due to the above. Continue hydration with renally dosed medications. Monitor renal function and urine output. --> Nephrology is following, appreciate recs # Osteomyelitis of the sacrum, suspect chronic due to deep pressure wound. --> appreciate surgery recs # Abnormal blood electrolyte level. Continue hydration and close monitoring of electrolytes, replace as needed. # Small bowel obstruction with possible adhesions and fluid-filled fat collection, possible abscesses. Source hematogenous versus perforation related. . --> Plan of care was discussed with the daughter in detail at the bedside. --> Daughter stated that mother is refusing any surgical procedure, she had a bad experience from anesthesia in the past when she had a dental workup. # Hospice care planning -- to [facility] re placement --> poor prognosis GREATLY APPRECIATE CONSULTATION. Subjective Date patient seen: Feb 27, 2018 Hematologic/Lymphatic: Reports: anemia Allergies: Coded Allergies: No Known Allergies (Unverified , 02/17/18) All Systems: reviewed and negative except above Subjective Pt awake and confused. No acute events. H/H stable. Objective Last 24 Hour Vital Signs Date Time Temp Pulse Resp B/P (MAP) Pulse Ox O2 Delivery O2 Flow Rate FiO2 02/27/18 04:00 97.2 104 20 138/82 (100) 99 02/27/18 00:00 97.2 105 18 135/88 (104) 99 02/26/18 21:20 148/88 (108) 02/26/18 21:00 Room Air 02/26/18 20:00 97.2 106 18 165/90 (115) 99 02/26/18 15:56 97.4 105 20 162/83 (109) 98 02/26/18 14:55 97.0 02/26/18 12:09 97.0 103 20 132/68 (89) 99 02/26/18 09:00 Room Air 02/26/18 08:18 96.1 104 18 138/91 (107) 100 Intake and Output 02/26/18 02/27/18 19:00 07:00 Intake Total 635 ml 55 ml Output Total 300 ml Balance 635 ml -245 ml Intake Oral 480 ml IV Total 155 ml 55 ml Output Urine Total 100 ml Stool Total 200 ml Laboratory Tests 02/27/18 04:00: White Blood Count 13.3H, Red Blood Count 3.84L, Hemoglobin 10.9L, Hematocrit 32.9L, Mean Corpuscular Volume 86, Mean Corpuscular Hemoglobin 28.5, Mean Corpuscular Hemoglobin Concent 33.2, Red Cell Distribution Width 15.1H, Platelet Count 117L, Mean Platelet Volume 8.8, Neutrophils (%) (Auto) , Lymphocytes (%) (Auto) , Monocytes (%) (Auto) , Eosinophils (%) (Auto) , Basophils (%) (Auto) , Sodium Level 136, Potassium Level 4.3, Chloride Level 108H, Carbon Dioxide Level 19L, Anion Gap 9, Blood Urea Nitrogen 22H, Creatinine 1.0, Estimat Glomerular Filtration Rate , Glucose Level 147H, Calcium Level 7.8L, Phosphorus Level 3.8, Magnesium Level 2.3, Total Bilirubin 0.8, Aspartate Amino Transf (AST/SGOT) 23, Alanine Aminotransferase (ALT/SGPT) 12, Alkaline Phosphatase 235H, C-Reactive Protein, Quantitative 11.5H, Total Protein 5.3L, Albumin 1.1L, Globulin 4.2, Albumin/Globulin Ratio 0.3L, Random Vancomycin Level 18.4 Height (Feet): 5 Height (Inches): 5.00 Weight (Pounds): 187 Objective PHYSICAL EXAMINATION: VITAL SIGNS: Have been reviewed GENERAL: An elderly female, Mozambican speaker, obese, lying in bed HEENT: Normocephalic and atraumatic. Pupils are reactive to light. Moist oral mucosa. NECK: Supple. No lymphadenopathy. CARDIOVASCULAR: Regular rate and rhythm. Actually, she is tachycardic. No murmur or gallop. LUNGS: Clear bilaterally. No wheezing or rhonchi. ABDOMEN: Soft and distended. Absent bowel sounds. Not tender. No rebound. No organomegaly. EXTREMITIES: No edema or cyanosis. No clubbing. SKIN: She had large and deep sacral pressure wound, 4 cm deep at least with undermining and extensive necrotic tissue at the base with exposed bone at the sacral area and foul smell. Siddhartha Soto MD Feb 27, 2018 07:23
[2018-02-27 08:00] VITALS: BP 148/84
[2018-02-27] MEDS: Pantoprazole Inj IV SCH (08:27)
[2018-02-27] MEDS: Dakin's 0.125% Soln (Quarter Strength) 16oz TOPIC SCH (08:28)
--- NOTE | 2018-02-27 09:48 | Nephrology Progress Note ---
Assessment/Plan Problem List: (1) JANNETTE (acute kidney injury) (2) SBO (small bowel obstruction) (3) Osteomyelitis of sacrum (4) Sepsis Assessment Renal failure- Acute on chronic/ presented with High K Small Bowel Obstruction UTI Sacral Osteo HypoNatremia Sever HypoAlbuminemia & Proteinuria Anemia Plan stop IV IV Mag- IV Phos as needed per consultants suggest comfort care clear liquids Antibiotics Anemia persaud Subjective ROS Limited/Unobtainable: No Constitutional: Reports: malaise Objective Objective Last 24 Hour Vital Signs Date Time Temp Pulse Resp B/P (MAP) Pulse Ox O2 Delivery O2 Flow Rate FiO2 02/27/18 04:00 97.2 104 20 138/82 (100) 99 02/27/18 00:00 97.2 105 18 135/88 (104) 99 02/26/18 21:20 148/88 (108) 02/26/18 21:00 Room Air 02/26/18 20:00 97.2 106 18 165/90 (115) 99 02/26/18 15:56 97.4 105 20 162/83 (109) 98 02/26/18 14:55 97.0 02/26/18 12:09 97.0 103 20 132/68 (89) 99 Intake and Output 02/26/18 02/27/18 18:59 06:59 Intake Total 635 ml 55 ml Output Total 300 ml Balance 635 ml -245 ml Intake Oral 480 ml IV Total 155 ml 55 ml Output Urine Total 100 ml Stool Total 200 ml Laboratory Tests 02/27/18 04:00: White Blood Count 13.3H, Red Blood Count 3.84L, Hemoglobin 10.9L, Hematocrit 32.9L, Mean Corpuscular Volume 86, Mean Corpuscular Hemoglobin 28.5, Mean Corpuscular Hemoglobin Concent 33.2, Red Cell Distribution Width 15.1H, Platelet Count 117L, Mean Platelet Volume 8.8, Neutrophils (%) (Auto) , Lymphocytes (%) (Auto) , Monocytes (%) (Auto) , Eosinophils (%) (Auto) , Basophils (%) (Auto) , Sodium Level 136, Potassium Level 4.3, Chloride Level 108H, Carbon Dioxide Level 19L, Anion Gap 9, Blood Urea Nitrogen 22H, Creatinine 1.0, Estimat Glomerular Filtration Rate , Glucose Level 147H, Calcium Level 7.8L, Phosphorus Level 3.8, Magnesium Level 2.3, Total Bilirubin 0.8, Aspartate Amino Transf (AST/SGOT) 23, Alanine Aminotransferase (ALT/SGPT) 12, Alkaline Phosphatase 235H, C-Reactive Protein, Quantitative 11.5H, Total Protein 5.3L, Albumin 1.1L, Globulin 4.2, Albumin/Globulin Ratio 0.3L, Random Vancomycin Level 18.4 Height (Feet): 5 Height (Inches): 5.00 Weight (Pounds): 187 General Appearance: no apparent distress Objective no change Agustín Parmar MD Feb 27, 2018 09:48
--- NOTE | 2018-02-27 11:30 | General Progress Note ---
Assessment/Plan Status: stable Assessment/Plan S: I am ok O: NO abd pain . No distress, PATIENT IS CONFUSED. PHYSICAL EXAMINATION: HEAD AND NECK: Atraumatic and normocephalic. CHEST: Clear to auscultation. No wheezing. No crackles. ABDOMEN: Positive for tenderness on deep palpation. Bowel sounds have decreased.No rebound tenderness MUSCULOSKELETAL: Positive for the sacral decubitus wounds. Positive for decreased range of motion and strength in all four extremities. NEUROLOGIC: The patient is awake, alert, and oriented x1. anxious, POSITIVE FOR DELIRIOUS IMAGING STUDIES: Imaging shows abdominal pelvic CT scan dated February 17, is reviewed. Chest x-ray also reviewed. Meds: reviewed and reconciled including but not limited to Meropenem and Vanco ASSESSMENT: 1. Sepsis. Gram negative and STaph Aureus 2. Acute abdomen secondary to small bowel obstruction. 3. Decubitus wound, sacral possibility of osteomyelitis cannot be excluded. 4. Renal failure - age indeterminate. 5. Hyponatremia. 6. Catheter-induced urinary infection. 7. GI and DVT prophylaxis. 8. DVT in LE, Contraindication for anticoagulation 8.POLST to DNR Plan of care: current medical management [facility] prognosis Partial SBO. patient Refused surgical approach from the start point of the care. will observe CURRENT ANTIBIOTIC MANAGEMENT PER ID WILL TRANSFER OF CARE TO FACILITY UNDER HOSPICE MGT Subjective Allergies: Coded Allergies: No Known Allergies (Unverified , 02/17/18) Objective Last 24 Hour Vital Signs Date Time Temp Pulse Resp B/P (MAP) Pulse Ox O2 Delivery O2 Flow Rate FiO2 02/27/18 09:00 Room Air 02/27/18 08:00 97.1 101 19 148/84 (105) 98 02/27/18 04:00 97.2 104 20 138/82 (100) 99 02/27/18 00:00 97.2 105 18 135/88 (104) 99 02/26/18 21:20 148/88 (108) 02/26/18 21:00 Room Air 02/26/18 20:00 97.2 106 18 165/90 (115) 99 02/26/18 15:56 97.4 105 20 162/83 (109) 98 02/26/18 14:55 97.0 02/26/18 12:09 97.0 103 20 132/68 (89) 99 Intake and Output 02/26/18 02/27/18 18:59 06:59 Intake Total 635 ml 55 ml Output Total 300 ml Balance 635 ml -245 ml Intake Oral 480 ml IV Total 155 ml 55 ml Output Urine Total 100 ml Stool Total 200 ml Laboratory Tests 02/27/18 04:00: White Blood Count 13.3H, Red Blood Count 3.84L, Hemoglobin 10.9L, Hematocrit 32.9L, Mean Corpuscular Volume 86, Mean Corpuscular Hemoglobin 28.5, Mean Corpuscular Hemoglobin Concent 33.2, Red Cell Distribution Width 15.1H, Platelet Count 117L, Mean Platelet Volume 8.8, Neutrophils (%) (Auto) , Lymphocytes (%) (Auto) , Monocytes (%) (Auto) , Eosinophils (%) (Auto) , Basophils (%) (Auto) , Sodium Level 136, Potassium Level 4.3, Chloride Level 108H, Carbon Dioxide Level 19L, Anion Gap 9, Blood Urea Nitrogen 22H, Creatinine 1.0, Estimat Glomerular Filtration Rate , Glucose Level 147H, Calcium Level 7.8L, Phosphorus Level 3.8, Magnesium Level 2.3, Total Bilirubin 0.8, Aspartate Amino Transf (AST/SGOT) 23, Alanine Aminotransferase (ALT/SGPT) 12, Alkaline Phosphatase 235H, C-Reactive Protein, Quantitative 11.5H, Total Protein 5.3L, Albumin 1.1L, Globulin 4.2, Albumin/Globulin Ratio 0.3L, Random Vancomycin Level 18.4 Height (Feet): 5 Height (Inches): 5.00 Weight (Pounds): 187 Amol Weinstein MD Feb 27, 2018 11:30
[2018-02-27 12:00] VITALS: BP 151/80
--- NOTE | 2018-02-27 12:53 | Pulmonology Progress Note ---
Assessment/Plan Problems: (1) Sepsis (2) SBO (small bowel obstruction) (3) Abnormal blood electrolyte level (4) Osteomyelitis of sacrum (5) Pressure ulcer of sacral region, stage 4 (6) JANNETTE (acute kidney injury) Assessment/Plan ASSESSMENT: The patient is a 72-year-old residential resident with CVA, recent small bowel obstruction at an outside hospital, now presenting for evaluation of abnormal laboratories, noted to have a sacral decubitus ulcer with possible osteomyelitis, urinary tract infection, and bacteremia, as well as a possible pneumonia. PROBLEM LIST: 1. Left perihilar infiltrate, likely healthcare-associated pneumonia. 2. Stage IV sacral decubitus ulcer with likely osteomyelitis. 3. Gram negative bacillus urinary tract infection. 4. Gram-posit raman cocci and gram-negative sepsis. 5. Acute superficial femoral and popliteal DVT in the right and common femoral, superficial femoral, and popliteal DVT in the left. 6. Small bowel obstruction, likely acute on chronic. 7. Concern for unusual fat or fluid collections in the abdomen/abdominal wall. 8. Leukocytosis. 9. Anemia. 10. Abnormal creatinine, JANNETTE versus CKD. 11. Severe protein-calorie malnutrition. 12. Prior CVA. TREATMENT PLAN: 1. Optimize pulmonary hygiene/mobilize as tolerated. 2. P.r.n. O2. 3. Monitor for signs of worsening respiratory status. 4. Abx and Flucon per ID 5. Follow up Surgery recommendations, NO PLAN FOR debridement of sacral decubitus ulcer OR laparotomy based on family's goals of care. 6. Monitor volumes and renal function 8. A/C held 9. PO as tolerated 10. DNAR, dispo planning to SNF on hospice, likely today Subjective Allergies: Coded Allergies: No Known Allergies (Unverified , 02/17/18) Subjective AFVSS, on RA Awake no distress Miranda PO Objective Last 24 Hour Vital Signs Date Time Temp Pulse Resp B/P (MAP) Pulse Ox O2 Delivery O2 Flow Rate FiO2 02/27/18 09:00 Room Air 02/27/18 08:00 97.1 101 19 148/84 (105) 98 02/27/18 04:00 97.2 104 20 138/82 (100) 99 02/27/18 00:00 97.2 105 18 135/88 (104) 99 02/26/18 21:20 148/88 (108) 02/26/18 21:00 Room Air 02/26/18 20:00 97.2 106 18 165/90 (115) 99 02/26/18 15:56 97.4 105 20 162/83 (109) 98 02/26/18 14:55 97.0 Intake and Output 02/26/18 02/27/18 18:59 06:59 Intake Total 635 ml 55 ml Output Total 300 ml Balance 635 ml -245 ml Intake Oral 480 ml IV Total 155 ml 55 ml Output Urine Total 100 ml Stool Total 200 ml General Appearance: no acute distress, cachetic HEENT: normocephalic, atraumatic, anicteric, mucous membranes moist Respiratory/Chest: chest wall non-tender, lungs clear, normal breath sounds Cardiovascular: normal peripheral pulses, normal rate, regular rhythm Abdomen: normal bowel sounds, soft, non tender, no organomegaly, non distended , no mass Extremities: no cyanosis, no clubbing, no edema Laboratory Tests 02/27/18 04:00: White Blood Count 13.3H, Red Blood Count 3.84L, Hemoglobin 10.9L, Hematocrit 32.9L, Mean Corpuscular Volume 86, Mean Corpuscular Hemoglobin 28.5, Mean Corpuscular Hemoglobin Concent 33.2, Red Cell Distribution Width 15.1H, Platelet Count 117L, Mean Platelet Volume 8.8, Neutrophils (%) (Auto) , Lymphocytes (%) (Auto) , Monocytes (%) (Auto) , Eosinophils (%) (Auto) , Basophils (%) (Auto) , Sodium Level 136, Potassium Level 4.3, Chloride Level 108H, Carbon Dioxide Level 19L, Anion Gap 9, Blood Urea Nitrogen 22H, Creatinine 1.0, Estimat Glomerular Filtration Rate , Glucose Level 147H, Calcium Level 7.8L, Phosphorus Level 3.8, Magnesium Level 2.3, Total Bilirubin 0.8, Aspartate Amino Transf (AST/SGOT) 23, Alanine Aminotransferase (ALT/SGPT) 12, Alkaline Phosphatase 235H, C-Reactive Protein, Quantitative 11.5H, Total Protein 5.3L, Albumin 1.1L, Globulin 4.2, Albumin/Globulin Ratio 0.3L, Random Vancomycin Level 18.4 Current Medications Medications (Trade) Dose Ordered Sig/Nidia Route PRN Reason Start Time Stop Time Status Last Admin Dose Admin Chlorhexidine Gluconate (Taylor-Hex 2%) 1 applic DAILY@2000 TOPIC 02/25/18 20:00 03/20/18 19:59 02/26/18 20:28 Dextrose (Dextrose 50%) 25 ml Q30M PRN IV Hypoglycemia 02/25/18 17:30 03/19/18 15:59 Dextrose (Dextrose 50%) 50 ml Q30M PRN IV Hypoglycemia 02/25/18 17:30 03/19/18 15:59 Fluconazole/ Sodium Chloride 200 ml @ 100 mls/hr Q24H IV 02/26/18 16:00 03/03/18 15:59 02/26/18 15:53 Haloperidol Lactate (Haldol) 5 mg Q6H PRN IM Agitation 02/25/18 17:30 03/21/18 17:29 Meropenem 1 gm/ Sodium Chloride 55 ml @ 110 mls/hr Q8HR@0100,0900,1700 IVPB 02/26/18 01:00 03/01/18 16:59 02/27/18 10:36 Morphine Sulfate (Morphine Sulfate) 3 mg Q4H PRN IVP Pain Scale 4-10) 02/25/18 17:30 02/27/18 17:29 02/26/18 14:25 Ondansetron HCl (Zofran) 4 mg Q6H PRN IVP Nausea & Vomiting 02/25/18 17:30 03/23/18 17:29 Pantoprazole (Protonix) 40 mg DAILY IV 02/26/18 09:00 03/19/18 15:59 02/27/18 08:27 Sodium Hypochlorite (Dakin's Quarter Strength) 1 applic Q24H TOPIC 02/26/18 09:00 03/19/18 19:59 02/27/18 08:28 Vancomycin HCl (Vanco rx to dose) 1 ea DAILY PRN MISC Per rx protocol 02/26/18 09:00 03/19/18 16:14 Vancomycin HCl 1 gm/Dextrose 275 ml @ 183.708 mls/hr ONCE IVPB 02/27/18 07:00 03/04/18 06:59 02/27/18 08:27 Jacinto Johnson MD Feb 27, 2018 12:53
[2018-02-27] MEDS ORDERED: VANCOMYCIN HCL125 MG PO (13:58)
[2018-02-27] MEDS ORDERED: VANCOMYCIN1 GM IVPB (14:11)
[2018-02-27] MEDS ORDERED: Tubing IV Secondary IV ONE (14:59)
[2018-02-27] MEDS ORDERED: NS 275ml ONE (14:59)
--- NOTE | 2018-02-27 17:00 | Infectious Diseases Prog Note ---
Assessment/Plan Problems: (1) Pressure ulcer of sacral region, stage 4 Assessment & Plan: deep and necrotic with undermining , and foul smell , infected with possible underlying osteomyelitis of the sacrum and coccyx . MRI of the sacrum was not done since she was not stable , recommend surgical excision and debridement. daughter had chosen hospice care and no surgical debridement of the sacrum for now . continue off loading and local wound care as per hospital protocol. continue current antibiotics for 6 weeks total (2) Cutaneous abscess of abdominal wall Assessment & Plan: source hematogenous VS translocation from the pelvis , on meropenem and vancomycin renally dosed, no surgical intervention (3) Catheter-associated urinary tract infection Assessment & Plan: due to ESBL producing klebsiella pneumonia , S/P lomeli catheter change, continue meropenem (4) Sepsis Assessment & Plan: with poly organisms due to the above with MSSA, streptococcus and proteus mirabilis , on meropenem and vancomycin renally dosed , patient needs surgical debridement of the sacrum for source control . will continue antifungal coverage pending surgical debridement if she is a candidate . family chose hospice care . (5) JANNETTE (acute kidney injury) Assessment & Plan: due to the above , continue hydration with renally dosed medications, monitor renal function and UOP (6) Osteomyelitis of sacrum Assessment & Plan: suspect chronic due to the deep pressure wound , MRI to confirm was held since she was on continuos suctioning , recommend bone biopsy for culture to identify the exact cause (7) Abnormal blood electrolyte level Assessment & Plan: continue hydration with close monitoring of electrolytes (8) SBO (small bowel obstruction) Assessment & Plan: with possible adhesions, and fat filled fluids collection , improving, continue hydration, and conservative management , as per surgery Assessment/Plan D/W daughter and son the plan of care Subjective Constitutional: Reports: no symptoms HEENT: Reports: no symptoms Respiratory: Reports: no symptoms Breasts: Reports: no symptoms Cardiovascular: Reports: no symptoms Gastrointestinal/Abdominal: Reports: no symptoms Genitourinary: Reports: no symptoms Neurologic: Reports: no symptoms Psychiatric: Reports: no symptoms Skin: Reports: no symptoms Endocrine: Reports: no symptoms Hematologic: Reports: no symptoms Allergies: Coded Allergies: No Known Allergies (Unverified , 02/17/18) Subjective she was awake and alert, today, able to tolerate soup, and had liquid bowel movement , no pain, no fever or chills daughters at bedside Objective Vital Signs Last 24 Hour Vital Signs Date Time Temp Pulse Resp B/P (MAP) Pulse Ox O2 Delivery O2 Flow Rate FiO2 02/27/18 12:00 97.6 89 18 151/80 (103) 95 02/27/18 09:00 Room Air 02/27/18 08:00 97.1 101 19 148/84 (105) 98 02/27/18 04:00 97.2 104 20 138/82 (100) 99 02/27/18 00:00 97.2 105 18 135/88 (104) 99 02/26/18 21:20 148/88 (108) 02/26/18 21:00 Room Air 02/26/18 20:00 97.2 106 18 165/90 (115) 99 Height (Feet): 5 Height (Inches): 5.00 Weight (Pounds): 187 General Appearance: WD/WN, no acute distress HEENT: normocephalic, atraumatic, anicteric, mucous membranes moist, PERRL Respiratory/Chest: chest wall non-tender, lungs clear, normal breath sounds, no respiratory distress, no accessory muscle use Cardiovascular: normal peripheral pulses, normal rate, regular rhythm, no gallop/murmur, no JVD Abdomen: soft, non tender, no organomegaly, no mass, no scars, hypoactive bowel sounds, distended Extremities: no cyanosis, no clubbing Skin: no rash, no lesions, ulcers - large sacral pressure wound Neurologic/Psychiatric: alert, responsive Lymphatic: no neck adenopathy Musculoskeletal: no effusion Laboratory Tests Test 02/27/18 04:00 White Blood Count 13.3 K/UL (4.8-10.8) H Red Blood Count 3.84 M/UL (4.20-5.40) L Hemoglobin 10.9 G/DL (12.0-16.0) L Hematocrit 32.9 % (37.0-47.0) L Mean Corpuscular Volume 86 FL (80-99) Mean Corpuscular Hemoglobin 28.5 PG (27.0-31.0) Mean Corpuscular Hemoglobin Concent 33.2 G/DL (32.0-36.0) Red Cell Distribution Width 15.1 % (11.6-14.8) H Platelet Count 117 K/UL (150-450) L Mean Platelet Volume 8.8 FL (6.5-10.1) Neutrophils (%) (Auto) % (45.0-75.0) Lymphocytes (%) (Auto) % (20.0-45.0) Monocytes (%) (Auto) % (1.0-10.0) Eosinophils (%) (Auto) % (0.0-3.0) Basophils (%) (Auto) % (0.0-2.0) Sodium Level 136 MMOL/L (136-145) Potassium Level 4.3 MMOL/L (3.5-5.1) Chloride Level 108 MMOL/L (98-107) H Carbon Dioxide Level 19 MMOL/L (21-32) L Anion Gap 9 mmol/L (5-15) Blood Urea Nitrogen 22 mg/dL (7-18) H Creatinine 1.0 MG/DL (0.55-1.30) Estimat Glomerular Filtration Rate mL/min (>60) Glucose Level 147 MG/DL (74-106) H Calcium Level 7.8 MG/DL (8.5-10.1) L Phosphorus Level 3.8 MG/DL (2.5-4.9) Magnesium Level 2.3 MG/DL (1.8-2.4) Total Bilirubin 0.8 MG/DL (0.2-1.0) Aspartate Amino Transf (AST/SGOT) 23 U/L (15-37) Alanine Aminotransferase (ALT/SGPT) 12 U/L (12-78) Alkaline Phosphatase 235 U/L (46-116) H C-Reactive Protein, Quantitative 11.5 mg/dL (0.00-0.90) H Total Protein 5.3 G/DL (6.4-8.2) L Albumin 1.1 G/DL (3.4-5.0) L Globulin 4.2 g/dL Albumin/Globulin Ratio 0.3 (1.0-2.7) L Random Vancomycin Level 18.4 ug/mL Ari Lewis M.D. Feb 27, 2018 16:59
--- NOTE | 2018-02-27 23:02 | General Progress Note ---
Assessment/Plan Status: stable, progressing Assessment/Plan Anxiety d/o dc Ativan prn Provided ro/st haldol prn Subjective Neurologic/Psychiatric: Reports: anxiety, depressed, emotional problems Allergies: Coded Allergies: No Known Allergies (Unverified , 02/17/18) Subjective Less agitated and confused. she is still waxing and waning. Objective Last 24 Hour Vital Signs Date Time Temp Pulse Resp B/P (MAP) Pulse Ox O2 Delivery O2 Flow Rate FiO2 02/27/18 12:00 97.6 89 18 151/80 (103) 95 02/27/18 09:00 Room Air 02/27/18 08:00 97.1 101 19 148/84 (105) 98 02/27/18 04:00 97.2 104 20 138/82 (100) 99 02/27/18 00:00 97.2 105 18 135/88 (104) 99 Intake and Output 02/26/18 02/27/18 19:00 07:00 Intake Total 635 ml 55 ml Output Total 300 ml Balance 635 ml -245 ml Intake Oral 480 ml IV Total 155 ml 55 ml Output Urine Total 100 ml Stool Total 200 ml Laboratory Tests 02/27/18 04:00: White Blood Count 13.3H, Red Blood Count 3.84L, Hemoglobin 10.9L, Hematocrit 32.9L, Mean Corpuscular Volume 86, Mean Corpuscular Hemoglobin 28.5, Mean Corpuscular Hemoglobin Concent 33.2, Red Cell Distribution Width 15.1H, Platelet Count 117L, Mean Platelet Volume 8.8, Neutrophils (%) (Auto) , Lymphocytes (%) (Auto) , Monocytes (%) (Auto) , Eosinophils (%) (Auto) , Basophils (%) (Auto) , Sodium Level 136, Potassium Level 4.3, Chloride Level 108H, Carbon Dioxide Level 19L, Anion Gap 9, Blood Urea Nitrogen 22H, Creatinine 1.0, Estimat Glomerular Filtration Rate , Glucose Level 147H, Calcium Level 7.8L, Phosphorus Level 3.8, Magnesium Level 2.3, Total Bilirubin 0.8, Aspartate Amino Transf (AST/SGOT) 23, Alanine Aminotransferase (ALT/SGPT) 12, Alkaline Phosphatase 235H, C-Reactive Protein, Quantitative 11.5H, Total Protein 5.3L, Albumin 1.1L, Globulin 4.2, Albumin/Globulin Ratio 0.3L, Random Vancomycin Level 18.4 Height (Feet): 5 Height (Inches): 5.00 Weight (Pounds): 187 General Appearance: no apparent distress, alert, confused Michele Schroeder MD Feb 27, 2018 23:02
--- NOTE | 2018-02-28 14:04 | Discharge Summary ---
Discharge Summary Discharge Summary _ DATE OF ADMISSION: 02/17/2018 DATE OF DISCHARGE: 02/27/2018 CONSULTANTS: Dr. Ari Quiroz BRIEF HOSPITAL COURSE: Patient is a 72-year-old female, resident of a correction facility, who presented with nausea and worsening abdominal pain. Initially patient's family refused transfer to the hospital. The next morning, she presented with worsening symptoms and patient was subsequently transferred. She has medical history significant for hypertension, chronic debility, bed bound, osteomyelitis , decubitus wound, chronic renal disease and renal failure. On evaluation at ED, blood work showed leukocytosis, WBC was elevated to 27. Hemoglobin was 10, hematocrit 31, platelet was normal. Potassium was elevated to 5.2, sodium was 126. BUN 30, creatinine 2.1. LFTs were normal. Lipase normal. Urinalysis showed negative nitrite, 1+ ketone, 3+ blood, 2+ protein, 3 + leukocyte esterase, 5-10 RBC, 20-30 WBC. Chest x-ray done showed left lower pneumonia. CT of the abdomen and pelvis showed evidence of small bowel obstruction, point of obstruction at the level of the mid jejunum in the right mid abdomen. There was evidence of decubitus changes in the retro-sacral/retro- coccidial region with gas bubbles within the deep soft tissue; no definite findings to suggest abscess. She was then admitted to [facility] for further evaluation and management. She was placed on nothing by mouth. She was given IV hydration. ID was consulted, she was started empirically on meropenem and vancomycin. Patient had a prior history of small bowel obstruction, where she was recommended surgery but patient and family declined. Symptoms resolved without intervention. She again developed another episode of obstruction weeks later which was treated with NG tube decompression. Surgical evaluation was done. Explained to patient and family, given findings; recommend surgical exploration, however, family and patient again declined. She was continued on NPO status. NG tube was connected to low intermittent suction. Abdominal ultrasound showed cholelithiasis without evidence of acute cholecystitis. She was noted to have stage IV pressure ulcer on the sacral region. Wound was cleansed and dressed. Wound care was rendered. She was placed on air- fluidized mattress with frequent repositioning and offloading. She had elevated kidney function and elevated potassium levels. Renal function was monitored. She came in tachycardic. EKG showed prolonged QT interval with nonspecific ST and T wave abnormalities, heart rate of 120s. Jinrikisha Driver was consulted. Sinus tachycardia was assessed to be secondary to hypovolemia. She was given IV replacement and electrolyte replacement. She had left perihilar infiltrate, concerning for healthcare associated pneumonia. Respiratory status were monitored. She was placed on aspiration precaution. She was given respiratory treatment. Patient was anxious and had cognitive impairment. She was diagnosed with anxiety disorder and was given Ativan. Venous duplex of lower extremity performed on 02/18/2018 showed acute DVT on both lower extremities. PICC line was inserted to the left arm. She was started on IV heparin, however, was eventually discontinued due to contraindication with anticoagulation. Patient with anemia. There was a drop on hemoglobin requiring 2 units PRBC blood transfusion. Urine culture showed growth of ESBL Klebsiella. Fonseca catheter was changed. Blood culture showed growth of MSSA, streptococcosis and Proteus. She was continued on meropenem and vancomycin. Antifungal coverage was included. Goals of care was discussed with patient and family. Patient and family wants DO NOT RESUSCITATE and hospice care. On 02/20/2018, NG tube was removed. She was started trial of liquid diet. Small bowel well x-ray with gastrogaffin showed dilated proximal to mid jejunal loops with transition to normal caliber small bowel. There was filling of the distal nondilated small bowel well and eventual but delayed entry of contrast in the colon indicating degree of small bowel obstruction is partial. Diet was advanced as tolerated to patient's comfort. Family declined surgery and wants hospice care. She was eventually [facility] to [facility]. Hospice to follow. FINAL DIAGNOSES: Sepsis with gram-negative and staph aureus Acute abdomen secondary to small bowel obstruction Decubitus wound stage IV on sacral area, with possible osteomyelitis Acute on chronic Renal failure, presented with hyperkalemia Hyponatremia catheter associated urinary tract infection with ESBL Klebsiella Acute DVT in both lower legs DO NOT RESUSCITATE/hospice care Drop in hemoglobin requiring blood transfusion Anxiety disorder Cutaneous abscess of abdominal wall Acute kidney injury Hypomagnesemia Left perihilar infiltrate, likely healthcare associated pneumonia Severe protein calorie malnutrition Prior CVA Severe hypoalbuminemia and proteinuria Thrombocytopenia likely related to infection Anemia of chronic disease DISPOSITION: Patient was discharged to [facility]. DISCHARGE MEDICATIONS: Refer to Discharge Medication List. I have been assigned to dictate discharge summary on this account, and I was not involved in the patient's management. Kell Rascon NP Feb 28, 2018 14:04
== END 2018-02-27 15:00 | DRG 720 ==
LOC: EDBD 12:18 → EMR 12:55 → 2W 13:28 → EDBEDREQ 14:02 → 2E 02-22 14:25 → 4E 02-25 14:15
DX: A41.01 Sepsis due to Methicillin susceptible Staphylococcus aureus (principal); E43 Unspecified severe protein-calorie malnutrition; K56.50 Intestinal adhesions [bands], unspecified as to partial versus complete obstruction; N17.9 Acute kidney failure, unspecified; L89.154 Pressure ulcer of sacral region, stage 4; I82.411 Acute embolism and thrombosis of right femoral vein; J18.9 Pneumonia, unspecified organism; E87.5 Hyperkalemia; E83.42 Hypomagnesemia; R71.0 Precipitous drop in hematocrit; T83.511A Infection and inflammatory reaction due to indwelling urethral catheter, initial encounter; I12.9 Hypertensive chronic kidney disease with stage 1 through stage 4 chronic kidney disease, or unspecified chronic kidney disease; N18.9 Chronic kidney disease, unspecified; Z74.01 Bed confinement status; M86.68 Other chronic osteomyelitis, other site; E87.1 Hypo-osmolality and hyponatremia; E86.0 Dehydration; L02.211 Cutaneous abscess of abdominal wall; F41.9 Anxiety disorder, unspecified; K80.20 Calculus of gallbladder without cholecystitis without obstruction; D64.9 Anemia, unspecified; I82.431 Acute embolism and thrombosis of right popliteal vein; I82.432 Acute embolism and thrombosis of left popliteal vein; Y95 Nosocomial condition; Z68.31 Body mass index [BMI] 31.0-31.9, adult; Z86.73 Personal history of transient ischemic attack (TIA), and cerebral infarction without residual deficits; G31.84 Mild cognitive impairment of uncertain or unknown etiology; Z66 Do not resuscitate
CPT/HCPCS: 36415; 36569; 71045; 74018; 74176; 74250; 76700; 76937; 80048; 80053; 80061; 80076; 80202; 81003; 82248; 82550; 82553; 82607; 82728; 82746; 82977; 83036; 83540; 83550; 83605; 83690; 83735; 83880; 84100; 84300; 84443; 84484; 84550; 85007; 85025; 85610; 85730; 86140; 86710; 86850; 86900; 86901; 86920; 87040; 87081; 87086; 87181; 87324; 93005; 93306; 93970; 96365; 96367; 96368; 99291